=== PATIENT | female | born 1960 | race Caucasian/White ===

== ENCOUNTER 2019-03-25 08:19 | Emergency (ER) | payer OTHER, SELFPAY ==
[2019-03-25 08:31] VITALS: BP 180/90; PULSE 84; RESP 23; TEMP 36.4; O2SAT 99
--- NOTE | 2019-03-25 08:51 | DI.CT.S_ITS ---
PROCEDURE: CT HEAD/BRAIN WO CON INDICATIONS: severe headache TECHNIQUE: Noncontrast 4.5 mm thick angled axial sections acquired from the foramen magnum to the vertex, with coronal and sagittal reformats. For radiation dose reduction, the following was used: automated exposure control, adjustment of mA and/or kV according to patient size. COMPARISON: None. FINDINGS: Image quality: Excellent. CSF spaces: Basal cisterns are patent. No extra-axial fluid collections. Ventricles are normal in size and shape. Brain: No midline shift. No intracranial masses or hemorrhage. [place]-white matter interface is normal. Skull and face: Calvarium and visualized facial bones are intact, without suspicious lesions. Sinuses: Visualized sinuses and mastoids are clear. IMPRESSION: No acute intracranial hemorrhage is seen. No acute intracranial process is seen. Dictated by: Lizandro Robles M.D. on 03/25/2019 at 8:28 Approved by: Lizandro Robles M.D. on 03/25/2019 at 8:28
--- NOTE | 2019-03-25 08:59 | ED.GENADULT ---
HPI - General Adult General Chief complaint: Hypertension Stated complaint: High BP Time Seen by Provider: 03/25/19 08:29 Source: patient Mode of arrival: ambulatory Limitations: no limitations History of Present Illness HPI narrative: Patient is 58-year-old female who woke up with severe headache sensitive to light and noise. She typically does not get headaches. She denies weakness numbness or tingling. She states that she has become nauseous after the headache she vomited this morning. She has also had some heart palpitations. But denies any chest pain. She has no visual changes. He states last night she went to bed and was feeling normal. Radiation: non-radiation Severity: severe Quality: sharp Pain Consistency: constant Relieving factors: none Related Data Previous Rx's Medication Instructions Recorded ondansetron 4 mg PO Q6-8H PRN #10 tab 03/25/19 Allergies Allergy/AdvReac Type Severity Reaction Status Date / Time diphenhydramine Allergy Severe Difficulty Verified 03/25/19 08:35 [From Benadryl] Breathing ibuprofen Allergy Severe Difficulty Verified 03/25/19 08:35 Breathing Review of Systems Review of Systems GENERAL: Denies chills, fatigue, malaise, fever, sweats, travel HEENT: Denies sinus pain, ear pain, sore throat, difficulty swallowing, neck pain RESPIRATORY: Denies dyspnea, cough, wheezing, hemoptysis, sputum. CARDIOVASCULAR: Denies chest pain, palpitations, orthopnea, edema GASTROINTESTINAL: Denies nausea, vomiting, abdominal pain, diarrhea, constipation, melena. : Denies dysuria, frequency, incontinence, hematuria, urinary retention, flank pain. MUSCULOSKELETAL: Denies weakness, joint pain, or bony pain SKIN: No rash, no erythema, no pruritus NEUROLOGIC: See HPI PSYCHIATRIC: No concerning psychosocial issues. 12 point review of systems is negative except for those stated above and HPI [facility] Medical History Hypertension (Acute) Social History (Updated 03/25/19 @ 09:11 by Umm Marcial DO) marital status: Smoking Status: Former smoker alcohol intake: never substance use type: does not use Social History marital status: Smoking Status: Former smoker alcohol intake: never substance use type: does not use Exam Initial Vital Signs Initial Vital Signs: Vital Signs Temperature 97.5 F L 03/25/19 08:31 Pulse Rate 84 03/25/19 08:31 Respiratory Rate 23 03/25/19 08:31 Blood Pressure 180/90 H 03/25/19 08:31 Pulse Oximetry 99 03/25/19 08:31 GENERAL: Alert female appears in pain and in no acute distress. HEENT: Head atraumatic,EOMI, pupils reactive, face symmetric, moist mucous membranes CARDIOVASCULAR: Regular rate and rhythm without murmurs, rubs or gallops. RESPIRATORY: Breath sounds equal bilaterally, no wheezes rales or rhonchi. ABDOMEN: Soft, nontender. Normoactive bowel sounds all 4 quadrants. No guarding or rebound. EXTREMITIES: Normal range of motion, no clubbing or edema. Neurovascularly intact NEUROLOGICAL: Alert and oriented x4.Normal gait and speech. Cranial nerves II through XII grossly intact. Manager Mining strength equal bilaterally SKIN: Warm, dry, no laceration, no petechiae, no rashes or lesions. Scores NIH Stroke Scale Level of Conciousness: Alert, keenly responsive Ask month/age: Answers both questions correctly. Open/close eyes, close hand: Performs both tasks correctly Best gaze horizontal: Normal Visual membreno: No visual loss Facial palsy: Normal symetrical movement Left arm drift: No drift for full 10 sec Right arm drift: No drift for full 10 sec Left leg drift: No drift for full 10 sec Right leg drift: No drift for full 10 sec Limb ataxia: Absent Sensory on face/arms/legs: Normal, no sensory loss Best language: No aphasia, normal Dysarthria: Normal Extinction or inattention: No abnormality Total NIH Stroke scale score: 0 Course Orders Ordered: ED Orders 03/25/19 08:35 EKG-12 Lead Stat 03/25/19 08:51 CT head/brain wo con Stat 03/25/19 08:59 Complete Blood Count AUTO DIFF Stat Comprehensive Metabolic Panel Stat Partial Thromboplastin Time Stat Prothrombin Time INR Stat Troponin & CK Cardiac Panel Stat Discontinued Medications Hydromorphone HCl (Dilaudid) 0.5 mg IV NOW ONE Stop: 03/25/19 08:52 Last Admin: 03/25/19 09:09 Dose: 0.5 mg Hydromorphone HCl (Dilaudid) 0.5 mg IV NOW ONE Stop: 03/25/19 09:36 Last Admin: 03/25/19 09:41 Dose: 0.5 mg Sodium Chloride (Normal Saline 0.9%) 1,000 mls @ 1,000 mls/hr IV BOLUS ONE Stop: 03/25/19 09:51 Last Infusion: 03/25/19 10:12 Dose: 0 mls/hr Admin: 03/25/19 09:09 Dose: 1,000 mls/hr Ondansetron HCl (Zofran) 4 mg IV NOW ONE Stop: 03/25/19 08:52 Last Admin: 03/25/19 09:09 Dose: 4 mg Ondansetron HCl (Zofran) 4 mg IV NOW ONE Stop: 03/25/19 10:42 Last Admin: 03/25/19 10:49 Dose: 4 mg Vital Signs - 8 hr 03/25/19 08:31 03/25/19 10:00 03/25/19 11:00 Temperature 97.5 F L Pulse Rate 84 74 73 Respiratory Rate 23 21 24 Blood Pressure 180/90 H 145/74 H Blood Pressure [Left Arm] 134/76 Pulse Oximetry 99 94 98 Medical Decision Making Lab Data Lab results reviewed: Yes I reviewed the patient's lab results. Result diagrams: 03/25/19 08:59 03/25/19 08:59 Lab Results 03/25/19 03/25/19 03/25/19 Range/Units 08:59 08:59 08:59 WBC 8.0 (4.5-11.0) X10^3/uL RBC 4.46 (4.0-5.2) X10^6/uL Hgb 13.7 (12.0-16.0) g/dL Hct 40.1 (36-46) % MCV 90.0 (80-100) fL MCH 30.7 (26-34) PG MCHC 34.1 (30-36) % RDW 13.1 (11.6-14.8) % Plt Count 298 (150-400) X10^3/uL Neut % (Auto) 73.2 (50-75) % Lymph % (Auto) 16.8 L (25-40) % Norman % (Auto) 5.6 (3-14) % Eos % (Auto) 3.2 (2-4) % Baso % (Auto) 1.2 (0-2) % Neut # (Auto) 5900 (3939-3490) /uL Lymph # (Auto) 1400 (0932-9095) /uL Norman # (Auto) 500 (0-900) /uL Eos # (Auto) 300 (0-450) /uL Baso # (Auto) 100 (0-100) /uL PT 10.4 (10.1-12.7) SECONDS INR 0.9 (0.9-1.3) APTT 34 (26.4-36.2) SECONDS Sodium 140 (137-145) mmol/L Potassium 5.0 (3.4-5.1) mmol/L Chloride 106 (98-107) mmol/L Carbon Dioxide 24 (22-32) mmol/L BUN 14 (7-17) mg/dL Creatinine 0.50 L (0.52-1.04) mg/dL Estimated GFR > 60.0 (>60) mL/min BUN/Creatinine Ratio 28.0 H (6-22) Glucose 116 H (80-110) mg/dL Calcium 9.2 (8.4-10.2) mg/dL Total Bilirubin 0.7 (0.2-1.3) mg/dL AST 36 (14-36) IU/L ALT 21 (9-52) IU/L Alkaline Phosphatase 62 (38-126) U/L Total Creatine Kinase 122 (30-135) U/L CK-MB (CK-2) 2.63 H (<2.37) ng/mL CK-MB (CK-2) Rel Index 2.2 (1.5-5.0) % Troponin I < 0.012 (0.01-0.034) ng/mL Total Protein 7.7 (6.3-8.2) g/dL Albumin 4.2 (3.5-5.0) g/dL Globulin 3.5 (1.7-4.1) g/dL Albumin/Globulin Ratio 1.2 (1.0-2.8) Imaging Data CT scan - head: Radiologist's impression: Report in PACS: No acute intracranial hemorrhage is seen. No acute intracranial process is seen ECG Data Attestation: I personally reviewed and interpreted this ECG as follows: Prior ECG tracings: not available for review Interpretation: Normal sinus rhythm rate [address] changes no T-wave inversions no priors to compare MDM Narrative Medical decision making narrative: Patient received 1 dose of Dilaudid. She is able to take any NSAIDs due to gastric problems. He did seem to help her pain her nausea improved after Zofran. She did require another dose of Zofran and Dilaudid. At which point the much better. Blood work and head CT are negative. No focal deficits. His at this time I do not suspect subarachnoid hemorrhage. She is also moving her neck quite easily. Discharge Plan Departure Patient Disposition: Home Clinical Impression: Headache Qualifiers: Headache type: other headache syndrome Qualified Code(s): G44.89 - Other headache syndrome Discharge Date/Time: 03/25/19 11:05 Interventions: ED Discharge Assessment Last Done: 03/25/19 11:00 Instructions: DI for Headache Activity Restrictions/Additional Instructions: *You have been diagnosed with headache *What to do: Recommend going home and resting. May take Tylenol if needed to for headache. Increase fluid intake *Continue to take medications as directed Tylenol 1000 mg every 6 hours if needed to for pain *Follow up with your primary care provider in 2-3 days *Return to ER if you should have increasing headache numbness, tingling, weakness, difficulty speaking or any new, worsening or concerning symptoms Prescriptions: New ondansetron 4 mg tablet,disintegrating 4 mg PO Q6-8H PRN (Reason: nausea and vomiting) Qty: 10 RF: 0 Referrals: [facility] [Outside]
[2019-03-25 09:09] LABS: Add Manual Diff / Slide Review NO; Basophils Absolute Auto 100 /uL (0-100); Basophils Percent Auto 1.2 % (0-2); Eosinophils Absolute Auto 300 /uL (0-450); Eosinophils Percent Auto 3.2 % (2-4); Hematocrit 40.1 % (36-46); Hemoglobin 13.7 g/dL (12.0-16.0); Lymphocytes Absolute Auto 1400 /uL (1100-4500); Lymphocytes Percent Auto 16.8 % (25-40); Mean Corpuscular HGB Conc 34.1 % (30-36); Mean Corpuscular Hemoglobin 30.7 PG (26-34); Monocytes Absolute Auto 500 /uL (0-900); Monocytes Percent Auto 5.6 % (3-14); Neutrophils Absolute Auto 5900 /uL (1500-7000); Neutrophils Percent Auto 73.2 % (50-75); Platelet Count 298 X10^3/uL (150-400); Red Blood Cell Count 4.46 X10^6/uL (4.0-5.2); Red Cell Distribution Width 13.1 % (11.6-14.8)
[2019-03-25] MEDS: SODIUM CHLORIDE 0.9% 1,000 ML 1000 ML IV (09:09)
[2019-03-25] MEDS: ONDANSETRON 4 MG/2 ML INJ IV ×2 (09:09→10:49)
[2019-03-25] MEDS: HYDROMORPHONE 0.5 MG INJ IV ×2 (09:09→09:41)
[2019-03-25 09:12] LABS: INR 0.9 (0.9-1.3); Prothrombin Time 10.4 SECONDS (10.1-12.7)
[2019-03-25 09:15] LABS: PTT Partial Thromboplastin Tim 34 SECONDS (26.4-36.2)
[2019-03-25 09:18] LABS: Alanine Aminotransferase 21 IU/L (9-52); Albumin 4.2 g/dL (3.5-5.0); Albumin Globulin Ratio 1.2 (1.0-2.8); Alkaline Phosphatase 62 U/L (38-126); Aspartate Aminotransferase 36 IU/L (14-36); Bilirubin Total 0.7 mg/dL (0.2-1.3); Blood Urea Nitrogen 14 mg/dL (7-17); Calcium 9.2 mg/dL (8.4-10.2); Carbon Dioxide 24 mmol/L (22-32); Chloride 106 mmol/L (98-107); Creatine Kinase 122 U/L (30-135); Estimated Glomerular Filt Rate > 60.0 mL/min (>60); Globulin 3.5 g/dL (1.7-4.1); Glucose 116 mg/dL (80-110); Sodium 140 mmol/L (137-145); Total Protein 7.7 g/dL (6.3-8.2)
[2019-03-25 09:29] LABS: Troponin I < 0.012 ng/mL (0.01-0.034)
[2019-03-25 09:33] LABS: CKMB % Relative Index 2.2 % (1.5-5.0); Creatine Kinase MB 2.63 ng/mL (<2.37); HEMOLYSIS 104 (0-50)
[2019-03-25 10:00] VITALS: BP 134/76; PULSE 74; RESP 21; O2SAT 94
[2019-03-25 11:00] VITALS: BP 145/74; PULSE 73; RESP 24; O2SAT 98
== END 2019-03-25 11:05 | disposition home or self-care (01) ==
PROVIDERS: Emergency Provider Emergency Medicine
DX: G44.89 Other headache syndrome (principal); R00.2 Palpitations
CPT/HCPCS: 36591; 70450; 80053; 82550; 82553; 84484; 85025; 85610; 85730; 93005; 96361; 96374; 96375; 96376; 99283; 99285; J1170; J2405

== ENCOUNTER 2019-04-05 12:37 | Emergency (ER) | payer OTHER, SELFPAY ==
[2019-04-05 12:43] VITALS: BP 154/101; PULSE 96; RESP 20; O2SAT 97; BMI 30.9
[2019-04-05 12:49] VITALS: TEMP 36.7
[2019-04-05 13:32] VITALS: BP 131/77; PULSE 67; RESP 15; O2SAT 98
--- NOTE | 2019-04-05 13:45 | ED.ARRPALP ---
HPI - Arrhythmia/Palpitations <Yulia Valdes PA-C - Last Filed: 04/05/19 18:49> General Chief Complaint: Arrhythmia/Palpitations Stated Complaint: elevated heart rate Time Seen by Provider: 04/05/19 12:55 Source: patient Mode of arrival: ambulatory Limitations: no limitations History of Present Illness HPI narrative: This 58-year-old female comes to ED today secondary to ?not feeling well? for the last 2 or 3 hours. She states that she felt okay when she woke up, but for the last 2 or 3 hours felt ?tired and drained?. She states that her chest feels slightly tight all over, like she can't get a full breath. She denies haseeb chest pain. No pain in the extremities. She denies haseeb wheeze or dyspnea. She has not had any cough. She has some ongoing allergy and sinus symptoms but nothing changed today. She denies any fever. She denies any recent travel or known exposures. She states her left ankle is always a little swollen but denies any increased swelling in the extremities today. She has a history of severe acid reflux but not bothersome today. She denies any abdominal pain or nausea. She states she has not had much to eat today. She states she does have some history of reactive airways with her pneumonia, otherwise none. She states she felt a few thumb sore slight flutters for a 2nd today but otherwise no palpitations. She has no personal history of heart disease, does have family history in her sisters at young ages. She was seen here recently for headache and notes that she has continued to have some headache intermittently, no new symptoms today. She has seen ENT for this. She notes that her neck is a bit sore today but no difficulty moving. Related Data Home Medications Medication Instructions Recorded Confirmed esomeprazole magnesium 20 mg PO QPM 04/05/19 04/05/19 levothyroxine 100 mcg PO DAILY 04/05/19 04/05/19 losartan 50 mg PO DAILY 04/05/19 04/05/19 Allergies Allergy/AdvReac Type Severity Reaction Status Date / Time diphenhydramine Allergy Severe Difficulty Verified 03/25/19 08:35 [From Benadryl] Breathing ibuprofen Allergy Severe Difficulty Verified 03/25/19 08:35 Breathing Review of Systems <Yulia Valdes PA-C - Last Filed: 04/05/19 18:49> Review of Systems ROS Unobtainable: All systems reviewed & are unremarkable except as noted in HPI and below PFSH <Yulia Valdes PA-C - Last Filed: 04/05/19 18:49> Medical History (Updated 04/05/19 @ 17:10 by Yulia Valdes PA-C) GERD (gastroesophageal reflux disease) (Acute) Hyperlipidemia (Acute) Hypertension (Acute) Hypothyroidism (Acute) Surgical History (Updated 04/05/19 @ 14:16 by Yulia Valdes PA-C) Status post appendectomy (Acute) Status post cholecystectomy (Acute) Status post hernia repair (Acute) Status post hysterectomy (Acute) Social History marital status: Smoking Status: Former smoker alcohol intake: never substance use type: does not use Social History marital status: Smoking Status: Former smoker alcohol intake: never substance use type: does not use Exam <Yulia Valdes PA-C - Last Filed: 04/05/19 18:49> Narrative Exam Narrative: GENERAL APPEARANCE: Patient sitting comfortably, in no distress. HEENT: PERRL, EOMI, normal oropharynx NECK/THYROID: Neck supple, no JVD. LUNGS: Clear to auscultation bilaterally. CHEST: No tenderness to palpation HEART: Regular rate and rhythm without murmur, normal S1, S2, no S3 or S4. ABDOMEN: Soft, NT, ND, + BS x 4 quadrants EXTREMITIES: No cyanosis, trace symmetric ankle edema. No calf tenderness NEUROLOGIC: Alert and oriented, normal speech, and coordination. Initial Vital Signs Initial Vital Signs: Vital Signs Pulse Rate 96 H 04/05/19 12:43 Respiratory Rate 20 04/05/19 12:43 Blood Pressure 154/101 H 04/05/19 12:43 Pulse Oximetry 97 04/05/19 12:43 <Abi Christine MD - Last Filed: 04/06/19 08:18> Initial Vital Signs Initial Vital Signs: Vital Signs Pulse Rate 96 H 04/05/19 12:43 Respiratory Rate 20 04/05/19 12:43 Blood Pressure 154/101 H 04/05/19 12:43 Pulse Oximetry 97 04/05/19 12:43 Course <Yulia Valdes PA-C - Last Filed: 04/05/19 18:49> Course Additional Information: Patient initially refused ASA secondary to acid reflux. She later agreed if given Protonix when abnormal troponin reviewed. Spoke with Dr. Ibrahim, on-call hospitalist who agrees to accept patient for transfer provided cardiology is agreeable. Spoke with Dr. Morfin on-call for Cardiology, who agrees with transfer. He advised they will likely monitor troponins and catheterization tomorrow if troponin remains elevated. Spoke with Dr. Ibrahim again, he will contact biofuels production associate preschool teacher's assistant tomorrow. Heparin bolus and metoprolol ordered. No clear new findings on EKGs, reviewed with attending physician Dr. Christine who agrees with plan. Currently stable, not having chest symptoms but has ongoing headache, thinks exacerbated by not eating today. Given a snack and small dose of morphine prior to transfer. Orders Ordered: Discontinued Medications Albuterol (Ventolin) 2.5 mg INH NOW ONE Stop: 04/05/19 14:07 Last Admin: 04/05/19 15:26 Dose: Not Given Documented by: KAYLEN Aspirin (Aspirin Chew) 324 mg PO NOW ONE Stop: 04/05/19 14:05 Last Admin: 04/05/19 15:09 Dose: 324 mg Documented by: NEYDA Heparin Sodium (Porcine) (Heparin) 5,000 unit IV NOW ONE Stop: 04/05/19 15:13 Last Admin: 04/05/19 15:23 Dose: 5,000 unit Documented by: KAYLEN Sodium Chloride (Normal Saline 0.9%) 1,000 mls @ 1,000 mls/hr IV BOLUS PRN PRN Reason: Fluid replacement Last Infusion: 04/05/19 16:37 Dose: 1,000 mls/hr Documented by: Admin: 04/05/19 15:30 Dose: 1,000 mls/hr Documented by: NEYDA Metoprolol Tartrate (Lopressor) 50 mg PO NOW ONE Stop: 04/05/19 15:13 Last Admin: 04/05/19 15:32 Dose: 50 mg Documented by: KAYLEN Morphine Sulfate (Morphine) 2 mg IV NOW ONE Stop: 04/05/19 15:21 Last Admin: 04/05/19 15:22 Dose: 2 mg Documented by: KAYLEN Morphine Sulfate (Morphine) 2 mg IV NOW ONE Stop: 04/05/19 16:26 Last Admin: 04/05/19 16:26 Dose: 2 mg Documented by: KAYLEN Pantoprazole Sodium (Protonix) 40 mg IV NOW ONE Stop: 04/05/19 15:02 Last Admin: 04/05/19 15:09 Dose: 40 mg Documented by: NEYDA Vital Signs Vital signs: Vital Signs - 8 hr 04/05/19 12:43 04/05/19 12:49 04/05/19 13:32 Temperature 98.0 F Pulse Rate 96 H 67 Respiratory Rate 20 15 Blood Pressure 154/101 H Blood Pressure [Left Arm] 131/77 Pulse Oximetry 97 98 04/05/19 14:30 04/05/19 15:14 04/05/19 16:00 Temperature Pulse Rate 68 87 83 Respiratory Rate 17 19 20 Blood Pressure Blood Pressure [Left Arm] 143/83 H 163/94 H 169/110 H Pulse Oximetry 100 100 100 <Abi Christine MD - Last Filed: 04/06/19 08:18> Orders Ordered: Discontinued Medications Albuterol (Ventolin) 2.5 mg INH NOW ONE Stop: 04/05/19 14:07 Last Admin: 04/05/19 15:26 Dose: Not Given Documented by: KAYLEN Aspirin (Aspirin Chew) 324 mg PO NOW ONE Stop: 04/05/19 14:05 Last Admin: 04/05/19 15:09 Dose: 324 mg Documented by: NEYDA Heparin Sodium (Porcine) (Heparin) 5,000 unit IV NOW ONE Stop: 04/05/19 15:13 Last Admin: 04/05/19 15:23 Dose: 5,000 unit Documented by: KAYLEN Sodium Chloride (Normal Saline 0.9%) 1,000 mls @ 1,000 mls/hr IV BOLUS PRN PRN Reason: Fluid replacement Last Infusion: 04/05/19 16:37 Dose: 1,000 mls/hr Documented by: Admin: 04/05/19 15:30 Dose: 1,000 mls/hr Documented by: NEYDA Metoprolol Tartrate (Lopressor) 50 mg PO NOW ONE Stop: 04/05/19 15:13 Last Admin: 04/05/19 15:32 Dose: 50 mg Documented by: SCANAPO Morphine Sulfate (Morphine) 2 mg IV NOW ONE Stop: 04/05/19 15:21 Last Admin: 04/05/19 15:22 Dose: 2 mg Documented by: SCANAPO Morphine Sulfate (Morphine) 2 mg IV NOW ONE Stop: 04/05/19 16:26 Last Admin: 04/05/19 16:26 Dose: 2 mg Documented by: SCANAPO Pantoprazole Sodium (Protonix) 40 mg IV NOW ONE Stop: 04/05/19 15:02 Last Admin: 04/05/19 15:09 Dose: 40 mg Documented by: BTONER Vital Signs Vital signs: Vital Signs - 8 hr 04/05/19 12:43 04/05/19 12:49 04/05/19 13:32 Temperature 98.0 F Pulse Rate 96 H 67 Respiratory Rate 20 15 Blood Pressure 154/101 H Blood Pressure [Left Arm] 131/77 Pulse Oximetry 97 98 04/05/19 14:30 04/05/19 15:14 04/05/19 16:00 Temperature Pulse Rate 68 87 83 Respiratory Rate 17 19 20 Blood Pressure Blood Pressure [Left Arm] 143/83 H 163/94 H 169/110 H Pulse Oximetry 100 100 100 MDM - Arrhythmia/Palpitations <Yulia Valdes PA-C - Last Filed: 04/05/19 18:49> Lab Data Attestation: I reviewed the patient's lab results. Result diagrams: 04/05/19 14:05 04/05/19 14:05 Labs: Lab Results 04/05/19 04/05/19 04/05/19 Range/Units 14:05 14:05 14:05 WBC 8.5 (4.5-11.0) X10^3/uL RBC 4.26 (4.0-5.2) X10^6/uL Hgb 13.2 (12.0-16.0) g/dL Hct 38.4 (36-46) % MCV 90.1 (80-100) fL MCH 31.0 (26-34) PG MCHC 34.4 (30-36) % RDW 12.8 (11.6-14.8) % Plt Count 294 (150-400) X10^3/uL Neut % (Auto) 61.8 (50-75) % Lymph % (Auto) 25.4 (25-40) % Leslie % (Auto) 9.5 (3-14) % Eos % (Auto) 1.9 L (2-4) % Baso % (Auto) 1.4 (0-2) % Neut # (Auto) 5300 (2896-3683) /uL Lymph # (Auto) 2200 (2462-4690) /uL Leslie # (Auto) 800 (0-900) /uL Eos # (Auto) 200 (0-450) /uL Baso # (Auto) 100 (0-100) /uL D-Dimer 202 (<230) ng/mL Sodium 142 (137-145) mmol/L Potassium 3.9 (3.4-5.1) mmol/L Chloride 106 (98-107) mmol/L Carbon Dioxide 27 (22-32) mmol/L BUN 14 (7-17) mg/dL Creatinine 0.60 (0.52-1.04) mg/dL Estimated GFR > 60.0 (>60) mL/min BUN/Creatinine Ratio 23.3 H (6-22) Glucose 148 H (80-110) mg/dL Calcium 9.5 (8.4-10.2) mg/dL Magnesium 2.0 (1.6-2.3) mg/dL Total Bilirubin 0.3 (0.2-1.3) mg/dL AST 27 (14-36) IU/L ALT 22 (9-52) IU/L Alkaline Phosphatase 81 (38-126) U/L Total Creatine Kinase 163 H (30-135) U/L CK-MB (CK-2) 7.89 H (<2.37) ng/mL CK-MB (CK-2) Rel Index 4.8 (1.5-5.0) % Troponin I 1.590 H* (0.01-0.034) ng/mL B-Natriuretic Peptide < 100 (<100) Total Protein 7.4 (6.3-8.2) g/dL Albumin 4.1 (3.5-5.0) g/dL Globulin 3.3 (1.7-4.1) g/dL Albumin/Globulin Ratio 1.2 (1.0-2.8) Lipase 63 (23-300) U/L Imaging Data Chest x-ray: Radiologist's impression: ECG Data Attestation: I personally reviewed and interpreted this ECG as follows: (1. Normal sinus rhythm, rate 88, nonspecific T-wave changes, 2. Sinus rhythm, rate 88, no acute change ) Prior ECG tracings: available for review <Abi Christine MD - Last Filed: 04/06/19 08:18> Lab Data Labs: Lab Results 04/05/19 04/05/19 04/05/19 Range/Units 14:05 14:05 14:05 WBC 8.5 (4.5-11.0) X10^3/uL RBC 4.26 (4.0-5.2) X10^6/uL Hgb 13.2 (12.0-16.0) g/dL Hct 38.4 (36-46) % MCV 90.1 (80-100) fL MCH 31.0 (26-34) PG MCHC 34.4 (30-36) % RDW 12.8 (11.6-14.8) % Plt Count 294 (150-400) X10^3/uL Neut % (Auto) 61.8 (50-75) % Lymph % (Auto) 25.4 (25-40) % Leslie % (Auto) 9.5 (3-14) % Eos % (Auto) 1.9 L (2-4) % Baso % (Auto) 1.4 (0-2) % Neut # (Auto) 5300 (7132-1516) /uL Lymph # (Auto) 2200 (3122-4191) /uL Leslie # (Auto) 800 (0-900) /uL Eos # (Auto) 200 (0-450) /uL Baso # (Auto) 100 (0-100) /uL D-Dimer 202 (<230) ng/mL Sodium 142 (137-145) mmol/L Potassium 3.9 (3.4-5.1) mmol/L Chloride 106 (98-107) mmol/L Carbon Dioxide 27 (22-32) mmol/L BUN 14 (7-17) mg/dL Creatinine 0.60 (0.52-1.04) mg/dL Estimated GFR > 60.0 (>60) mL/min BUN/Creatinine Ratio 23.3 H (6-22) Glucose 148 H (80-110) mg/dL Calcium 9.5 (8.4-10.2) mg/dL Magnesium 2.0 (1.6-2.3) mg/dL Total Bilirubin 0.3 (0.2-1.3) mg/dL AST 27 (14-36) IU/L ALT 22 (9-52) IU/L Alkaline Phosphatase 81 (38-126) U/L Total Creatine Kinase 163 H (30-135) U/L CK-MB (CK-2) 7.89 H (<2.37) ng/mL CK-MB (CK-2) Rel Index 4.8 (1.5-5.0) % Troponin I 1.590 H* (0.01-0.034) ng/mL B-Natriuretic Peptide < 100 (<100) Total Protein 7.4 (6.3-8.2) g/dL Albumin 4.1 (3.5-5.0) g/dL Globulin 3.3 (1.7-4.1) g/dL Albumin/Globulin Ratio 1.2 (1.0-2.8) Lipase 63 (23-300) U/L Discharge Plan Departure Patient Disposition: [facility] Clinical Impression: Non-ST elevation [place] (NSTEMI) Discharge Date/Time: 04/05/19 17:01 Prescriptions: No Action losartan 50 mg tablet 50 mg PO DAILY RF: 0 levothyroxine 100 mcg Tablet 100 mcg PO DAILY RF: 0 esomeprazole magnesium 20 mg Tablet,Delayed Release (Dr/Ec) 20 mg PO QPM RF: 0
--- NOTE | 2019-04-05 14:06 | DI.RAD.S_ITS ---
PROCEDURE: XR CHEST 2V INDICATIONS: fatigue, dyspnea, h/o pneumonia TECHNIQUE: 2 views of the chest were acquired. COMPARISON: None. FINDINGS: Surgical changes and devices: None. Lungs and pleura: Lungs are clear. No pleural effusions or pneumothorax. Mediastinum: Mediastinal contours are normal. Heart size is normal. Bones and chest wall: No suspicious bony abnormalities. Soft tissues appear unremarkable. IMPRESSION: No acute cardiopulmonary abnormality. Dictated by: Burton Adams M.D. on 04/05/2019 at 14:27 Approved by: Burton Adams M.D. on 04/05/2019 at 14:28
[2019-04-05 14:17] LABS: Add Manual Diff / Slide Review NO; Basophils Absolute Auto 100 /uL (0-100); Basophils Percent Auto 1.4 % (0-2); Eosinophils Absolute Auto 200 /uL (0-450); Eosinophils Percent Auto 1.9 % (2-4); Hematocrit 38.4 % (36-46); Hemoglobin 13.2 g/dL (12.0-16.0); Lymphocytes Absolute Auto 2200 /uL (1100-4500); Lymphocytes Percent Auto 25.4 % (25-40); Mean Corpuscular HGB Conc 34.4 % (30-36); Mean Corpuscular Volume 90.1 fL (80-100); Monocytes Absolute Auto 800 /uL (0-900); Monocytes Percent Auto 9.5 % (3-14); Neutrophils Absolute Auto 5300 /uL (1500-7000); Neutrophils Percent Auto 61.8 % (50-75); Platelet Count 294 X10^3/uL (150-400); Red Blood Cell Count 4.26 X10^6/uL (4.0-5.2); Red Cell Distribution Width 12.8 % (11.6-14.8); White Blood Cell Count 8.5 X10^3/uL (4.5-11.0)
[2019-04-05 14:29] LABS: Alanine Aminotransferase 22 IU/L (9-52); Albumin 4.1 g/dL (3.5-5.0); Albumin Globulin Ratio 1.2 (1.0-2.8); Alkaline Phosphatase 81 U/L (38-126); Aspartate Aminotransferase 27 IU/L (14-36); BUN Creatinine Ratio 23.3 (6-22); Bilirubin Total 0.3 mg/dL (0.2-1.3); Blood Urea Nitrogen 14 mg/dL (7-17); Calcium 9.5 mg/dL (8.4-10.2); Carbon Dioxide 27 mmol/L (22-32); Chloride 106 mmol/L (98-107); Creatine Kinase 163 U/L (30-135); Estimated Glomerular Filt Rate > 60.0 mL/min (>60); Globulin 3.3 g/dL (1.7-4.1); Glucose 148 mg/dL (80-110); HEMOLYSIS < 15 (0-50); Lipase 63 U/L (23-300); Potassium 3.9 mmol/L (3.4-5.1); Sodium 142 mmol/L (137-145); Total Protein 7.4 g/dL (6.3-8.2)
[2019-04-05 14:30] VITALS: BP 143/83; PULSE 68; RESP 17; O2SAT 100
[2019-04-05 14:37] LABS: B Type Natriuretic Peptide < 100 (<100)
[2019-04-05 14:44] LABS: CKMB % Relative Index 4.8 % (1.5-5.0); Creatine Kinase MB 7.89 ng/mL (<2.37)
[2019-04-05 14:59] LABS: D Dimer 202 ng/mL (<230)
[2019-04-05] MEDS: ASPIRIN 81 MG CHEW TAB 324 MG PO (15:09)
[2019-04-05] MEDS: PANTOPRAZOLE 40 MG VIAL IV (15:09)
[2019-04-05 15:14] VITALS: BP 163/94; PULSE 87; RESP 19; O2SAT 100
[2019-04-05] MEDS: MORPHINE 2 MG/ML INJ IV ×2 (15:22→16:26)
[2019-04-05] MEDS: HEPARIN 5,000 UNIT/ML VIAL 5000 UNIT IV (15:23)
[2019-04-05] MEDS: SODIUM CHLORIDE 0.9% 1,000 ML 1000 ML IV (15:30)
[2019-04-05] MEDS: METOPROLOL IR 25 MG TABLET 50 MG PO (15:32)
[2019-04-05 16:00] VITALS: BP 169/110; PULSE 83; RESP 20; O2SAT 100
--- NOTE | 2019-04-05 16:21 | PC.NURSE ---
pt was concerned for gerd and aspirin so she had a dose of protonix as ordered. pt has no complaints of indigestion at this time.
== END 2019-04-05 17:01 | disposition short-term general hospital (02) ==
PROVIDERS: Emergency Provider Internal Medicine
DX: I21.4 Non-ST elevation (NSTEMI) myocardial infarction (principal)
CPT/HCPCS: 36591; 71046; 80053; 82550; 82553; 83690; 83735; 83880; 84484; 85025; 85379; 93005; 93041; 96361; 96374; 96375; 96376; 99284; 99285; C9113; J1644; J2270

== ENCOUNTER 2019-04-10 11:45 | Emergency (ER) | payer OTHER, SELFPAY ==
--- NOTE | 2019-04-10 11:49 | ED_ITS ---
HPI - General Adult General Chief complaint: Shortness of Breath/Dyspnea Stated complaint: heart attack /sick on sat Time Seen by Provider: 04/10/19 11:47 Source: patient Mode of arrival: ambulatory Limitations: no limitations History of Present Illness HPI narrative: Patient is a 58-year-old female who was seen here in this emergency department last week. Was diagnosed with a non ST elevation NV. Was transferred to an outside facility. Stated that facility for couple days and was discharged 3 days ago. She stated that she did have a heart catheterization however no stents were placed. She reports on the day that she was discharged from the hospital when she went home that evening she started having sinus congestion, cough, shortness of breath and chest discomfort with breathing. She states that her had very similar symptoms and over the weekend she does thought that it was him who gave him his chest cold. She called her head charger this morning who told her to come to the emergency department to ?get checked out ? Related Data Home Medications Medication Instructions Recorded Confirmed esomeprazole magnesium 20 mg PO QPM 04/05/19 04/05/19 levothyroxine 100 mcg PO DAILY 04/05/19 04/05/19 losartan 50 mg PO DAILY 04/05/19 04/05/19 Allergies Allergy/AdvReac Type Severity Reaction Status Date / Time diphenhydramine Allergy Severe Difficulty Verified 03/25/19 08:35 [From Benadryl] Breathing ibuprofen Allergy Severe Difficulty Verified 03/25/19 08:35 Breathing Review of Systems Constitutional Constitutional: Denies fever(s) and Reports headache(s) ENT Ears, Nose, Mouth, and Throat: Reports headache(s) Cardiovascular Cardiovascular: Reports chest pain (With breathing), Denies edema, Denies leg edema, Denies palpitations, Reports dyspnea and Reports dyspnea on exertion Respiratory Respiratory: Reports dyspnea and Reports dyspnea on exertion Gastrointestinal Gastrointestinal: Denies abdominal pain, Denies nausea and Denies vomiting Musculoskeletal Musculoskeletal: Denies myalgias and Denies arthralgias Integumentary/Breasts Skin/Breast: Denies lesions and Denies rash Neurologic Neurologic: Denies behavioral changes and Reports headache(s) Psychiatric Psychiatric: Denies behavioral changes Endocrine Endocrine: Denies palpitations Hematologic/Lymphatic Hematologic/Lymphatic: Denies easy bleeding and Denies easy bruising [facility] Medical History GERD (gastroesophageal reflux disease) (Acute) Hyperlipidemia (Acute) Hypertension (Acute) Hypothyroidism (Acute) Non-ST elevation NV (NSTEMI) (Inactive) Surgical History Status post appendectomy (Acute) Status post cholecystectomy (Acute) Status post hernia repair (Acute) Status post hysterectomy (Acute) Social History marital status: Smoking Status: Former smoker alcohol intake: never substance use type: does not use Social History marital status: Smoking Status: Former smoker alcohol intake: never substance use type: does not use Exam Initial Vital Signs Initial Vital Signs: Vital Signs Temperature 97.7 F 04/10/19 11:54 Pulse Rate 62 04/10/19 11:54 Respiratory Rate 19 04/10/19 11:54 Blood Pressure 119/91 H 04/10/19 11:54 Pulse Oximetry 98 04/10/19 11:54 Const General: cooperative, comfortable and well developed Orientation: alert, awake and oriented x3 HENMT Head: normal to inspection and normocephalic Resp Effort & Inspection: tachypneic Auscultation: clear to auscultation bilaterally Cardio Rate: regular rate Rhythm: regular rhythm Pulses: radial pulses present GI Inspection: non-distended Palpation: soft Skin Lesions: no lesions Rashes: no rashes Neuro General: alert and awake Cognition: normal cognition Speech: speech normal Extrem General: normal to inspection and capillary refill normal Psych Appearance: grossly normal and well kempt Course Orders Ordered: ED Orders 04/10/19 11:53 XR chest 1V Stat 04/10/19 11:59 EKG-12 Lead Stat 04/10/19 12:00 B Type Natriuretic Peptide Stat Complete Blood Count AUTO DIFF Stat Comprehensive Metabolic Panel Stat Lipase Stat Partial Thromboplastin Time Stat Procalcitonin Stat Prothrombin Time INR Stat Troponin I Stat 04/10/19 14:00 Troponin I Stat Vital Signs Vital signs: Vital Signs - 8 hr 04/10/19 11:54 04/10/19 13:13 04/10/19 14:05 Temperature 97.7 F Pulse Rate 62 61 58 L Respiratory Rate 18 22 Blood Pressure 119/91 H Blood Pressure [Left Arm] 101/59 L 124/78 Pulse Oximetry 98 100 98 Medical Decision Making Lab Data Lab results reviewed: Yes I reviewed the patient's lab results. Result diagrams: 04/10/19 12:00 04/10/19 12:00 Labs: Lab Results 04/10/19 04/10/19 04/10/19 Range/Units 12:00 12:00 12:00 WBC 7.3 (4.5-11.0) X10^3/uL RBC 4.33 (4.0-5.2) X10^6/uL Hgb 13.4 (12.0-16.0) g/dL Hct 38.3 (36-46) % MCV 88.6 (80-100) fL MCH 31.0 (26-34) PG MCHC 34.9 (30-36) % RDW 13.1 (11.6-14.8) % Plt Count 333 (150-400) X10^3/uL Neut % (Auto) 50.0 (50-75) % Lymph % (Auto) 32.4 (25-40) % [place] % (Auto) 7.3 (3-14) % Eos % (Auto) 9.0 H (2-4) % Baso % (Auto) 1.3 (0-2) % Neut # (Auto) 3700 (9764-3795) /uL Lymph # (Auto) 2400 (6082-9847) /uL [place] # (Auto) 500 (0-900) /uL Eos # (Auto) 700 H (0-450) /uL Baso # (Auto) 100 (0-100) /uL PT 11.2 (10.1-12.7) SECONDS INR 1.0 (0.9-1.3) APTT 35 (26.4-36.2) SECONDS Sodium 140 (137-145) mmol/L Potassium 3.8 (3.4-5.1) mmol/L Chloride 106 (98-107) mmol/L Carbon Dioxide 23 (22-32) mmol/L BUN 11 (7-17) mg/dL Creatinine 0.60 (0.52-1.04) mg/dL Estimated GFR > 60.0 (>60) mL/min BUN/Creatinine Ratio 18.3 (6-22) Glucose 173 H (80-110) mg/dL Calcium 9.5 (8.4-10.2) mg/dL Total Bilirubin 0.5 (0.2-1.3) mg/dL AST 32 (14-36) IU/L ALT 27 (9-52) IU/L Alkaline Phosphatase 72 (38-126) U/L Troponin I (0.01-0.034) ng/mL B-Natriuretic Peptide < 100 (<100) Total Protein 7.3 (6.3-8.2) g/dL Albumin 4.1 (3.5-5.0) g/dL Globulin 3.2 (1.7-4.1) g/dL Albumin/Globulin Ratio 1.3 (1.0-2.8) Lipase (23-300) U/L Procalcitonin (<0.5) ng/mL 04/10/19 04/10/19 04/10/19 Range/Units 12:00 12:00 14:00 WBC (4.5-11.0) X10^3/uL RBC (4.0-5.2) X10^6/uL Hgb (12.0-16.0) g/dL Hct (36-46) % MCV (80-100) fL MCH (26-34) PG MCHC (30-36) % RDW (11.6-14.8) % Plt Count (150-400) X10^3/uL Neut % (Auto) (50-75) % Lymph % (Auto) (25-40) % [place] % (Auto) (3-14) % Eos % (Auto) (2-4) % Baso % (Auto) (0-2) % Neut # (Auto) (9653-4200) /uL Lymph # (Auto) (5811-6619) /uL [place] # (Auto) (0-900) /uL Eos # (Auto) (0-450) /uL Baso # (Auto) (0-100) /uL PT (10.1-12.7) SECONDS INR (0.9-1.3) APTT (26.4-36.2) SECONDS Sodium (137-145) mmol/L Potassium (3.4-5.1) mmol/L Chloride (98-107) mmol/L Carbon Dioxide (22-32) mmol/L BUN (7-17) mg/dL Creatinine (0.52-1.04) mg/dL Estimated GFR (>60) mL/min BUN/Creatinine Ratio (6-22) Glucose (80-110) mg/dL Calcium (8.4-10.2) mg/dL Total Bilirubin (0.2-1.3) mg/dL AST (14-36) IU/L ALT (9-52) IU/L Alkaline Phosphatase (38-126) U/L Troponin I 0.037 H 0.041 H (0.01-0.034) ng/mL B-Natriuretic Peptide (<100) Total Protein (6.3-8.2) g/dL Albumin (3.5-5.0) g/dL Globulin (1.7-4.1) g/dL Albumin/Globulin Ratio (1.0-2.8) Lipase 73 (23-300) U/L Procalcitonin < 0.05 (<0.5) ng/mL Imaging Data Chest x-ray: Radiologist's impression: [address] [address] XRay Report Signed Patient: Khadijah Marks [facility]#: [id number] : 9Acct:[id number] Age/Sex: 58 / FDate of Service: 04/10/19 Loc: ED Accession Number: [id number] Procedure: XR chest 1V Ordering Provider: Porfirio Chapa D.O. PROCEDURE: XR CHEST 1V INDICATIONS: Shortness of breath and chest pain TECHNIQUE: One view of the chest was acquired. COMPARISON: [facility], , XR CHEST 2V, 04/05/2019, 14:09. FINDINGS: Surgical changes and devices: None. Lungs and pleura: Lungs are clear. No pleural effusions or pneumothorax. Mediastinum: Mediastinal contours appear normal. Heart size is normal. Bones and chest wall: No suspicious bony lesions. Overlying soft tissues appear unremarkable. IMPRESSION: Normal for age, source of current shortness of breath and chest pain symptoms is not seen. Dictated by: Keaton Stroud M.D. on 04/10/2019 at 12:54 Approved by: Keaton Stroud M.D. on 04/10/2019 at 12:54 ECG Data Attestation: I personally reviewed and interpreted this ECG as follows: Prior ECG tracings: available for review Interpretation: Sinus rhythm Ventricular rate is 61 Normal axis Normal QTC Inverted T-waves 1 aVL and V3 V4 V5 V6 No ST elevations Inverted T-waves new from EKG dated 04/05/2019 [facility] Narrative Medical decision making narrative: Chest x-ray is unremarkable. Patient is not hypoxic. EKG does show inverted T-waves compared the EKG on the but she has had a known non ST elevation NV since this time. Her troponins for lower today than with they were during her last visit. They are unchanged with a repeat. I suspect that this is related to her recent cardiac event. Her BNP is unremarkable. Low suspicion for pneumonia. Patient has had a cough and body aches. She has been surrounded by her who has very similar symptoms. She is currently taking Mucinex. Considered other etiologies to include heart failure but her labs and physical exam were not consistent with this, ACS but her labs and physical exam not consistent with this, pneumonia chest x-ray is negative. She does have a follow-up with her primary provider tomorrow. She is going to keep this appointment. We did discuss the use of Claritin. She did not want an inhaler. Will hold on further workup for now. If her symptoms do not improve or if they worsen I would consider CT scan of her chest however I feel given her presentation and her history though we should hold on this for now. Patient was given strict return precautions and follow-up instructions. She expressed understanding and agreement with plan. Discharge Plan Departure Patient Disposition: Home Clinical Impression: Shortness of breath, Chest congestion Instructions: Decongestant/Expectorant (By mouth) Activity Restrictions/Additional Instructions: I recommend that you keep your follow-up appointment tomorrow with your primary provider. Continue all of your medications as directed. I do recommend you start on a Claritin. Return to the emergency department for any new or worsening symptoms like we discussed Prescriptions: No Action losartan 50 mg tablet 50 mg PO DAILY RF: 0 levothyroxine 100 mcg Tablet 100 mcg PO DAILY RF: 0 esomeprazole magnesium 20 mg Tablet,Delayed Release (Dr/Ec) 20 mg PO QPM RF: 0
--- NOTE | 2019-04-10 11:53 | DI.RAD.S_ITS ---
PROCEDURE: XR CHEST 1V INDICATIONS: Shortness of breath and chest pain TECHNIQUE: One view of the chest was acquired. COMPARISON: [facility], CR, XR CHEST 2V, 04/05/2019, 14:09. FINDINGS: Surgical changes and devices: None. Lungs and pleura: Lungs are clear. No pleural effusions or pneumothorax. Mediastinum: Mediastinal contours appear normal. Heart size is normal. Bones and chest wall: No suspicious bony lesions. Overlying soft tissues appear unremarkable. IMPRESSION: Normal for age, source of current shortness of breath and chest pain symptoms is not seen. Dictated by: Keaton Stroud M.D. on 04/10/2019 at 12:54 Approved by: Keaton Stroud M.D. on 04/10/2019 at 12:54
[2019-04-10 11:54] VITALS: BP 119/91; PULSE 62; RESP 19; TEMP 36.5; O2SAT 98
[2019-04-10 12:32] LABS: Add Manual Diff / Slide Review NO; Basophils Absolute Auto 100 /uL (0-100); Basophils Percent Auto 1.3 % (0-2); Eosinophils Absolute Auto 700 /uL (0-450); Hematocrit 38.3 % (36-46); Hemoglobin 13.4 g/dL (12.0-16.0); Lymphocytes Absolute Auto 2400 /uL (1100-4500); Lymphocytes Percent Auto 32.4 % (25-40); Mean Corpuscular HGB Conc 34.9 % (30-36); Mean Corpuscular Volume 88.6 fL (80-100); Monocytes Absolute Auto 500 /uL (0-900); Monocytes Percent Auto 7.3 % (3-14); Neutrophils Absolute Auto 3700 /uL (1500-7000); Platelet Count 333 X10^3/uL (150-400); Red Blood Cell Count 4.33 X10^6/uL (4.0-5.2); Red Cell Distribution Width 13.1 % (11.6-14.8); White Blood Cell Count 7.3 X10^3/uL (4.5-11.0)
[2019-04-10 12:37] LABS: Prothrombin Time 11.2 SECONDS (10.1-12.7)
[2019-04-10 12:39] LABS: PTT Partial Thromboplastin Tim 35 SECONDS (26.4-36.2)
[2019-04-10 12:45] LABS: Lipase 73 U/L (23-300)
[2019-04-10 12:47] LABS: Alanine Aminotransferase 27 IU/L (9-52); Albumin 4.1 g/dL (3.5-5.0); Albumin Globulin Ratio 1.3 (1.0-2.8); Alkaline Phosphatase 72 U/L (38-126); Aspartate Aminotransferase 32 IU/L (14-36); BUN Creatinine Ratio 18.3 (6-22); Bilirubin Total 0.5 mg/dL (0.2-1.3); Blood Urea Nitrogen 11 mg/dL (7-17); Calcium 9.5 mg/dL (8.4-10.2); Carbon Dioxide 23 mmol/L (22-32); Chloride 106 mmol/L (98-107); Estimated Glomerular Filt Rate > 60.0 mL/min (>60); Globulin 3.2 g/dL (1.7-4.1); Glucose 173 mg/dL (80-110); HEMOLYSIS 18 (0-50); Potassium 3.8 mmol/L (3.4-5.1); Sodium 140 mmol/L (137-145); Total Protein 7.3 g/dL (6.3-8.2)
[2019-04-10 12:57] LABS: B Type Natriuretic Peptide < 100 (<100)
[2019-04-10 12:58] LABS: Troponin I 0.037 ng/mL (0.01-0.034)
[2019-04-10 13:03] LABS: Procalcitonin < 0.05 ng/mL (<0.5)
[2019-04-10 13:13] VITALS: BP 101/59; PULSE 61; RESP 18; O2SAT 100
[2019-04-10 14:05] VITALS: BP 124/78; PULSE 58; RESP 22; O2SAT 98
[2019-04-10 14:36] LABS: Troponin I 0.041 ng/mL (0.01-0.034)
== END 2019-04-10 15:03 | disposition home or self-care (01) ==
PROVIDERS: Emergency Provider Emergency Medicine
DX: R06.02 Shortness of breath (principal); R09.89 Other specified symptoms and signs involving the circulatory and respiratory systems
CPT/HCPCS: 36591; 71045; 80053; 83690; 83880; 84145; 84484; 85025; 85610; 85730; 93005; 99282; 99285

== ENCOUNTER 2019-04-22 13:43 | Emergency (ER) | payer OTHER, SELFPAY ==
[2019-04-22 13:52] VITALS: BP 129/69; PULSE 53; RESP 18; TEMP 37.1; O2SAT 99; BMI 30.9
--- NOTE | 2019-04-22 14:32 | PC.NURSE ---
pt sitting in waiting room. registration reports pt states she feels palpitations. pt brought to [facility] for EKG. gowned. NAD, ambulatory, skin PWD
--- NOTE | 2019-04-22 14:46 | DI.RAD.S_ITS ---
PROCEDURE: XR CHEST 1V INDICATIONS: CHEST PAIN TECHNIQUE: One view of the chest was acquired. COMPARISON: [facility], CR, XR CHEST 1V, 04/10/2019, 12:26. FINDINGS: Surgical changes and devices: None. Lungs and pleura: Lungs are clear. No pleural effusions or pneumothorax. Mediastinum: Mediastinal contours appear normal. Heart size is normal. Bones and chest wall: No suspicious bony lesions. Overlying soft tissues appear unremarkable. IMPRESSION: Stable cardiopulmonary examination. No acute process identified. Dictated by: Jay Moore M.D. on 04/22/2019 at 14:33 Approved by: Jay Moore M.D. on 04/22/2019 at 14:34
[2019-04-22 15:15] VITALS: BP 112/69; PULSE 48; RESP 15; O2SAT 100
[2019-04-22 15:26] LABS: Add Manual Diff / Slide Review NO; Basophils Absolute Auto 100 /uL (0-100); Basophils Percent Auto 1.3 % (0-2); Eosinophils Absolute Auto 400 /uL (0-450); Eosinophils Percent Auto 4.8 % (2-4); Hematocrit 36.4 % (36-46); Hemoglobin 12.5 g/dL (12.0-16.0); Lymphocytes Absolute Auto 2400 /uL (1100-4500); Mean Corpuscular HGB Conc 34.3 % (30-36); Mean Corpuscular Hemoglobin 30.7 PG (26-34); Mean Corpuscular Volume 89.4 fL (80-100); Monocytes Absolute Auto 600 /uL (0-900); Monocytes Percent Auto 7.5 % (3-14); Neutrophils Absolute Auto 4300 /uL (1500-7000); Neutrophils Percent Auto 55.4 % (50-75); Platelet Count 308 X10^3/uL (150-400); Red Blood Cell Count 4.07 X10^6/uL (4.0-5.2); Red Cell Distribution Width 12.9 % (11.6-14.8); White Blood Cell Count 7.7 X10^3/uL (4.5-11.0)
[2019-04-22 15:29] LABS: Alanine Aminotransferase 25 IU/L (9-52); Albumin Globulin Ratio 1.3 (1.0-2.8); Alkaline Phosphatase 71 U/L (38-126); Aspartate Aminotransferase 28 IU/L (14-36); Bilirubin Total 0.5 mg/dL (0.2-1.3); Blood Urea Nitrogen 16 mg/dL (7-17); Calcium 9.1 mg/dL (8.4-10.2); Carbon Dioxide 25 mmol/L (22-32); Chloride 105 mmol/L (98-107); Creatine Kinase 76 U/L (30-135); Estimated Glomerular Filt Rate > 60.0 mL/min (>60); Glucose 105 mg/dL (80-110); Lipase 131 U/L (23-300); Potassium 3.9 mmol/L (3.4-5.1); Sodium 140 mmol/L (137-145)
[2019-04-22 15:32] LABS: HEMOLYSIS 61 (0-50)
[2019-04-22 15:40] LABS: Troponin I < 0.012 ng/mL (0.01-0.034)
--- NOTE | 2019-04-22 15:52 | ED.EXTPRO ---
HPI - Extremity Problem General Chief complaint: Extremity Problem,Nontraumatic Stated complaint: Hrt Attack 3 wks ago, rt knee swollen, lft foot pavel Time Seen by Provider: 04/22/19 15:52 Source: patient and family () Mode of arrival: ambulatory Limitations: no limitations History of Present Illness HPI Narrative: 58-year-old female comes to the emergency department with complaint of right knee being swollen and having pain behind the knee itself. She also has some bruising below the knee and on her left foot. Patient was at [facility] 3 weeks ago. She had a heart attack, she did not have a stent or cardiac catheterization. She was started on medications including aspirin, Plavix, metoprolol, simvastatin and she continues to take levothyroxine and omeprazole. Patient has has not had any fevers, no lightheadedness or syncope. Occasional palpitations. She states no chest pressure. No shortness of breath she has felt a little anxious. No nausea no vomiting no issues with bowel movements or urination patient states that she did needle on her right knee before and then noticed the bruising. She does not remember having any trauma to her left foot. Related Data Home Medications Medication Instructions Recorded Confirmed esomeprazole magnesium 20 mg PO QPM 04/05/19 04/05/19 levothyroxine 100 mcg PO DAILY 04/05/19 04/05/19 losartan 50 mg PO DAILY 04/05/19 04/05/19 Allergies Allergy/AdvReac Type Severity Reaction Status Date / Time diphenhydramine Allergy Severe Difficulty Verified 04/22/19 13:51 [From Benadryl] Breathing ibuprofen Allergy Severe Difficulty Verified 04/22/19 13:51 Breathing Estrogens Allergy Verified 04/22/19 13:51 Review of Systems Review of Systems ROS Unobtainable: All systems reviewed & are unremarkable except as noted in HPI and below Constitutional Constitutional: Denies chills, Denies fever(s), Denies lethargy and Denies weakness Cardiovascular Cardiovascular: Denies chest pain, Denies diaphoresis, Denies syncope, Denies edema, Denies irregular heart rhythm, Denies lightheadedness, Denies radiating jaw, neck or arm pain, Denies palpitations and Denies orthopnea Respiratory Respiratory: Denies change in phlegm color, Denies chest congestion, Denies cough and Denies wheezing Gastrointestinal Gastrointestinal: Denies abdominal pain, Denies change in bowel habits, Denies constipation, Denies diarrhea, Denies nausea and Denies vomiting Musculoskeletal Musculoskeletal: Reports arthralgias, Reports joint swelling (Behind right knee), Denies muscle weakness, Denies numbness and Denies tingling Integumentary/Breasts Skin/Breast: Reports unusual bruising (Foot on left, knee on right) Neurologic Neurologic: Denies syncope, Denies numbness, Denies tingling and Denies weakness Endocrine Endocrine: Denies palpitations Allergic/Immunologic Allergic/Immunologic: Denies wheezing [facility] Medical History GERD (gastroesophageal reflux disease) (Acute) Hyperlipidemia (Acute) Hypertension (Acute) Hypothyroidism (Acute) Non-ST elevation IN (NSTEMI) (Inactive) Surgical History Status post appendectomy (Acute) Status post cholecystectomy (Acute) Status post hernia repair (Acute) Status post hysterectomy (Acute) Social History marital status: Smoking Status: Former smoker alcohol intake: never substance use type: does not use Social History marital status: Smoking Status: Former smoker alcohol intake: never substance use type: does not use Exam Narrative Exam Narrative: GENERAL: Alert and oriented x three, obese, well-appearing female in no acute distress. HEENT: Head normocephalic, atraumatic, EOMI, pupils reactive, face symmetric, moist mucous membranes NECK: Supple, full range of motion CARDIOVASCULAR: Regular rate and rhythm without murmurs, rubs or gallops. RESPIRATORY: Breath sounds equal bilaterally, no wheezes rales or rhonchi. ABDOMEN: Soft, nontender. Normoactive bowel sounds all 4 quadrants. No guarding or rebound, rigidity, no mass : No CVA tenderness EXTREMITIES: Normal range of motion, patient has some mild tenderness the posterior knee no bony tenderness appreciated she has mild bruising subpatellar. Patient also has a hematoma on her left foot that is about a cm and half in size. It is tender to touch but no bony tenderness. She has normal range of motion of both extremities with no other bony tenderness. No redness, no warmth to either foot or knee. She has 2+ pulses bilaterally with normal sensation throughout. Neurovascularly intact NEUROLOGICAL: Cranial nerves II through XII grossly intact. Moving all extremities SKIN: Warm, dry, no petechiae, no rashes or lesions. Initial Vital Signs Initial Vital Signs: Vital Signs Temperature 98.8 F 04/22/19 13:52 Pulse Rate 53 L 04/22/19 13:52 Respiratory Rate 18 04/22/19 13:52 Blood Pressure 129/69 04/22/19 13:52 Pulse Oximetry 99 04/22/19 13:52 Course Orders Ordered: ED Orders 04/22/19 14:46 XR chest 1V Stat EKG-12 Lead Stat 04/22/19 15:05 Complete Blood Count AUTO DIFF Stat Comprehensive Metabolic Panel Stat Lipase Stat Troponin & CK Cardiac Panel Stat 04/22/19 16:10 US periph venous low extrem rt Stat Vital Signs Vital signs: Vital Signs - 8 hr 04/22/19 13:52 04/22/19 15:15 04/22/19 16:00 Temperature 98.8 F Pulse Rate 53 L 48 L 50 L Respiratory Rate 18 15 19 Blood Pressure 129/69 Blood Pressure [Right Arm] 112/69 122/66 Pulse Oximetry 99 100 98 04/22/19 17:00 Temperature Pulse Rate 49 L Respiratory Rate 14 Blood Pressure Blood Pressure [Right Arm] 108/66 Pulse Oximetry 100 MDM - Extremity (Nontraumatic) Lab Data Attestation: I reviewed the patient's lab results. Result diagrams: 04/22/19 15:05 04/22/19 15:05 Labs: Lab Results 04/22/19 04/22/19 Range/Units 15:05 15:05 WBC 7.7 (4.5-11.0) X10^3/uL RBC 4.07 (4.0-5.2) X10^6/uL Hgb 12.5 (12.0-16.0) g/dL Hct 36.4 (36-46) % MCV 89.4 (80-100) fL MCH 30.7 (26-34) PG MCHC 34.3 (30-36) % RDW 12.9 (11.6-14.8) % Plt Count 308 (150-400) X10^3/uL Neut % (Auto) 55.4 (50-75) % Lymph % (Auto) 31.0 (25-40) % [place] % (Auto) 7.5 (3-14) % Eos % (Auto) 4.8 H (2-4) % Baso % (Auto) 1.3 (0-2) % Neut # (Auto) 4300 (0971-3063) /uL Lymph # (Auto) 2400 (0874-5505) /uL [place] # (Auto) 600 (0-900) /uL Eos # (Auto) 400 (0-450) /uL Baso # (Auto) 100 (0-100) /uL Sodium 140 (137-145) mmol/L Potassium 3.9 (3.4-5.1) mmol/L Chloride 105 (98-107) mmol/L Carbon Dioxide 25 (22-32) mmol/L BUN 16 (7-17) mg/dL Creatinine 0.80 (0.52-1.04) mg/dL Estimated GFR > 60.0 (>60) mL/min BUN/Creatinine Ratio 20.0 (6-22) Glucose 105 (80-110) mg/dL Calcium 9.1 (8.4-10.2) mg/dL Total Bilirubin 0.5 (0.2-1.3) mg/dL AST 28 (14-36) IU/L ALT 25 (9-52) IU/L Alkaline Phosphatase 71 (38-126) U/L Total Creatine Kinase 76 (30-135) U/L CK-MB (CK-2) TNP CK-MB (CK-2) Rel Index TNP Troponin I < 0.012 (0.01-0.034) ng/mL Total Protein 7.0 (6.3-8.2) g/dL Albumin 4.0 (3.5-5.0) g/dL Globulin 3.0 (1.7-4.1) g/dL Albumin/Globulin Ratio 1.3 (1.0-2.8) Lipase 131 (23-300) U/L Imaging Data Chest x-ray: Radiologist's impression: [address] [address] XRay Report Signed Patient: Khadijah Marks [facility]#: [id number] : 9Acct:[id number] Age/Sex: 58 / FDate of Service: 04/22/19 Loc: ED Accession Number: [id number] Procedure: XR chest 1V Ordering Provider: Almaz Lopez D.O. PROCEDURE: XR CHEST 1V INDICATIONS: CHEST PAIN TECHNIQUE: One view of the chest was acquired. COMPARISON: [facility], CR, XR CHEST 1V, 04/10/2019, 12:26. FINDINGS: Surgical changes and devices: None. Lungs and pleura: Lungs are clear. No pleural effusions or pneumothorax. Mediastinum: Mediastinal contours appear normal. Heart size is normal. Bones and chest wall: No suspicious bony lesions. Overlying soft tissues appear unremarkable. IMPRESSION: Stable cardiopulmonary examination. No acute process identified. Dictated by: Jay Moore M.D. on 04/22/2019 at 14:33 Approved by: Jay Moore M.D. on 04/22/2019 at 14:34 ECG Data Attestation EKG: I personally reviewed and interpreted this ECG as follows: Prior ECG tracings: available for review Interpretation: Sinus bradycardia rate of 46 P are 155 QRS of 93 and QTC of 441. Non specific T-wave abnormality. Patient does have inverted T-waves in the lateral leads. Patient has prior EKG from 04/10/2019 which appears fairly similar although V3 was inverted in today is not MDM Narrative Medical decision making narrative: Patient comes in with complaint behind the right knee. She has bruising on the foot but she has just started on aspirin Plavix recently which would make her more likely to have bruising. Also less likely to have DVT but she has been hospitalized recently, DVT ultrasound negative. Patient has negative lab work including troponin, renal function with normal electrolytes, CBC and white count. EKG appears similar to prior EKG from 04/10/2019. Patient is not having any new changes concerning for cardiac event today. Anticipatory guidance was given. 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 Continue home medications as prescribed. Return to the emergency department for fevers greater 100.4, rapidly worsening pain, new chest pain, shortness of breath, lightheadedness past now, persistent vomiting, black or bloody stools, new redness or skin changes to her extremities or other new or concerning symptoms. Prescriptions: No Action losartan 50 mg tablet 50 mg PO DAILY RF: 0 levothyroxine 100 mcg Tablet 100 mcg PO DAILY RF: 0 esomeprazole magnesium 20 mg Tablet,Delayed Release (Dr/Ec) 20 mg PO QPM RF: 0
--- NOTE | 2019-04-22 15:54 | PC.NURSE ---
spontanous bruising and hard bump to top of left foot after showering yesterday. No injury or trauma. Patient recent [place] concerns of bruising easily and potential blood clot behind right knee.
[2019-04-22 16:00] VITALS: BP 122/66; PULSE 50; RESP 19; O2SAT 98
--- NOTE | 2019-04-22 16:10 | DI.US.S_ITS ---
PROCEDURE: US PERIPH VENOUS LOW EXTREM RT INDICATIONS: PAIN TECHNIQUE: Real-time imaging, as well as color and pulse Doppler interrogation, were performed of the lower extremity deep veins from the inguinal ligament to the popliteal fossa. COMPARISON: None. FINDINGS: The common femoral, femoral and popliteal veins are normally compressible, and free of intraluminal thrombus. Color and pulse Doppler demonstrate normal phasic intraluminal flow. There is normal augmentation response to distal compression maneuver. IMPRESSION: Negative for deep venous thrombosis. Dictated by: Lizandro Robles M.D. on 04/22/2019 at 16:55 Approved by: Lizandro Robles M.D. on 04/22/2019 at 16:56
[2019-04-22 17:00] VITALS: BP 108/66; PULSE 49; RESP 14; O2SAT 100
== END 2019-04-22 17:15 | disposition home or self-care (01) ==
PROVIDERS: Emergency Provider Emergency Medicine; Family Provider Internal Medicine Cardiovascular Disease
DX: M25.561 Pain in right knee (principal); S80.10XA Contusion of unspecified lower leg, initial encounter; R00.2 Palpitations; R07.9 Chest pain, unspecified
CPT/HCPCS: 71045; 80053; 82550; 83690; 84484; 85025; 93005; 93971; 99283; 99285

== ENCOUNTER → 2019-05-09 14:33 | Outpatient (CLI) | payer OTHER, SELFPAY ==
[2019-05-09 15:24] LABS: BUN Creatinine Ratio 17.1 (6-22); Blood Urea Nitrogen 12 mg/dL (7-17); Estimated Glomerular Filt Rate > 60.0 mL/min (>60)
== END ==
PROVIDERS: Visit Provider Otolaryngology
DX: D49.0 Neoplasm of unspecified behavior of digestive system (principal); L43.9 Lichen planus, unspecified
CPT/HCPCS: 36415; 82565; 84520

== ENCOUNTER 2019-05-29 06:18 | Emergency (ER) | payer OTHER, SELFPAY ==
--- NOTE | 2019-05-29 06:29 | ED_ITS ---
HPI - General Adult <Almaz Lopez DO - Last Filed: 05/29/19 18:09> General Chief complaint: Chest Pain Stated complaint: BP 102/97 THINKS MAY HAVE HEART ATTACK Time Seen by Provider: 05/29/19 06:20 Source: patient and old records reviewed Mode of arrival: Ambulatory Limitations: no limitations History of Present Illness HPI narrative: This is a 58-year-old female comes to the emergency department with complaint of elevated blood pressure and concern for heart attack. Patient had heart attack in March, she states it was sort of a similar situation today she had a fight with her last time she had had a fight with her [id number]. Patient states that she just feels sort of ?achy?. She feels little dizzy, she feels slightly nauseated, she feels a little short of breath but no chest pain or pressure. She denies any sweats or chills. She denies any vomiting. She denies any issues with bowel movements or urination. She denies any swelling in her extremities. She states she always feels a little bit unwell and dizzy a which she finds typical from her medications but that she was checking her blood pressure and was going increasingly higher up to 190 making feel more anxious. Patient states that she was sitting in the parking lot rechecked it several times and he subsequently each time is higher so she decided to check in. She does take an 81 mg aspirin daily as well as blood pressure medication. She states she had a cardiac catheterization but they did not find any lesions to stent. This was done at [facility]. Related Data Home Medications Medication Instructions Recorded Confirmed esomeprazole magnesium 20 mg PO QPM 04/05/19 04/05/19 levothyroxine 100 mcg PO DAILY 04/05/19 04/05/19 losartan 50 mg PO DAILY 04/05/19 04/05/19 Allergies Allergy/AdvReac Type Severity Reaction Status Date / Time diphenhydramine Allergy Severe Difficulty Verified 05/29/19 07:44 [From Benadryl] Breathing ibuprofen Allergy Severe Difficulty Verified 05/29/19 07:44 Breathing Estrogens Allergy Verified 05/29/19 07:44 Review of Systems <DO Jayden Black Last Filed: 05/29/19 18:09> Review of Systems ROS Unobtainable: All systems reviewed & are unremarkable except as noted in HPI and below Constitutional Constitutional: Denies chills, Denies excessive sweating, Denies fever(s), Denies lethargy and Denies weakness Cardiovascular Cardiovascular: Denies chest pain, Denies diaphoresis, Denies syncope, Reports rapid heart rate (Heart rate 101-104 per patient), Denies edema, Denies irregular heart rhythm, Denies leg edema, Denies lightheadedness, Denies radiating jaw, neck or arm pain, Denies palpitations, Reports dyspnea and Denies orthopnea Respiratory Respiratory: Denies chest congestion, Denies cough, Reports dyspnea and Denies wheezing Gastrointestinal Gastrointestinal: Denies abdominal pain, Denies change in bowel habits, Denies diarrhea, Reports nausea and Denies vomiting Genitourinary Genitourinary: Denies hematuria, Denies urinary frequency, Denies dysuria, Denies flank pain and Denies urinary urgency Musculoskeletal Musculoskeletal: Denies back pain Neurologic Neurologic: Denies syncope and Denies weakness Endocrine Endocrine: Denies excessive sweating and Denies palpitations Allergic/Immunologic Allergic/Immunologic: Denies wheezing Patient History <Almaz Lopez DO - Last Filed: 05/29/19 18:09> Medical History GERD (gastroesophageal reflux disease) (Acute) Hyperlipidemia (Acute) Hypertension (Acute) Hypothyroidism (Acute) Non-ST elevation MT (NSTEMI) (Inactive) Surgical History Status post appendectomy (Acute) Status post cholecystectomy (Acute) Status post hernia repair (Acute) Status post hysterectomy (Acute) Social History marital status: Smoking Status: Former smoker alcohol intake: never substance use type: does not use alcohol intake frequency: a few times a month Substance Use Type: does not use Exam <Almaz Lopez DO - Last Filed: 05/29/19 18:09> Narrative Exam Narrative: GENERAL: Alert and oriented x three, obese female in mild distress. Patient appears like she has recently been crying. HEENT: Head normocephalic, atraumatic, EOMI, pupils reactive, face symmetric, moist mucous membranes NECK: Supple, full range of motion CARDIOVASCULAR: Regular rate and rhythm without murmurs, rubs or gallops. RESPIRATORY: Breath sounds equal bilaterally, no wheezes rales or rhonchi. No tachypnea or accessory muscle use. ABDOMEN: Soft, nontender. Normoactive bowel sounds all 4 quadrants. No guarding or rebound, rigidity, no mass : No CVA tenderness EXTREMITIES: Normal range of motion. Neurovascularly intact NEUROLOGICAL: Cranial nerves II through XII grossly intact. Moving all extremities SKIN: Warm, dry, no petechiae, no rashes or lesions. Initial Vital Signs Initial Vital Signs: Vital Signs Temperature 97.9 F 05/29/19 06:31 Pulse Rate 60 05/29/19 06:31 Respiratory Rate 18 05/29/19 06:31 Blood Pressure 166/82 H 05/29/19 06:31 Pulse Oximetry 100 05/29/19 06:31 <Mick Silva DO - Last Filed: 05/29/19 09:36> Initial Vital Signs Initial Vital Signs: Vital Signs Temperature 97.9 F 05/29/19 06:31 Pulse Rate 60 05/29/19 06:31 Respiratory Rate 18 05/29/19 06:31 Blood Pressure 166/82 H 05/29/19 06:31 Pulse Oximetry 100 05/29/19 06:31 Course <Almaz Lopez DO - Last Filed: 05/29/19 18:09> Orders Ordered: Discontinued Medications Aspirin (Aspirin Chew) 243 mg PO NOW ONE Stop: 05/29/19 06:33 Last Admin: 05/29/19 06:38 Dose: 243 mg Documented by: YVON Sodium Chloride (Normal Saline 0.9%) 1,000 mls @ 150 mls/hr IV CONT SYLVIE Last Infusion: 05/29/19 08:53 Dose: 150 mls/hr Documented by: Admin: 05/29/19 06:38 Dose: 150 mls/hr Documented by: YVON Vital Signs Vital signs: Vital Signs - 8 hr 05/29/19 06:31 05/29/19 06:52 05/29/19 07:11 Temperature 97.9 F Pulse Rate 60 61 59 L Respiratory Rate 18 17 12 Blood Pressure 166/82 H Blood Pressure [Left Arm] 127/109 H 143/81 H Pulse Oximetry 100 100 99 05/29/19 07:42 Temperature Pulse Rate 60 Respiratory Rate 16 Blood Pressure Blood Pressure [Left Arm] 140/68 Pulse Oximetry 97 <Mick Silva DO - Last Filed: 05/29/19 09:36> Course Course Narrative: Patient received in sign-out from Dr. Lopez. I performed independent history and physical. 58-year-old female with history of NSTEMI presents feeling a bit dizzy, took her blood pressure and found it elevated. Sh e presented for evaluation. First troponin negative. Patient asymptomatic. Repeat troponin ordered. After blood had been drawn patient elects to leave Against Medical Advice despite discussion of risks and benefits. She did sign the paperwork, I followed the repeat labs and was able to reach her on her cell phone. She has some improvement of symptoms and assured me she would return if worsened or will certainly follow up with her primary care provider none the less. Orders Ordered: Discontinued Medications Aspirin (Aspirin Chew) 243 mg PO NOW ONE Stop: 05/29/19 06:33 Last Admin: 05/29/19 06:38 Dose: 243 mg Documented by: YVON Sodium Chloride (Normal Saline 0.9%) 1,000 mls @ 150 mls/hr IV CONT SYLVIE Last Infusion: 05/29/19 08:53 Dose: 150 mls/hr Documented by: Admin: 05/29/19 06:38 Dose: 150 mls/hr Documented by: YVON Vital Signs Vital signs: Vital Signs - 8 hr 05/29/19 06:31 05/29/19 06:52 05/29/19 07:11 Temperature 97.9 F Pulse Rate 60 61 59 L Respiratory Rate 18 17 12 Blood Pressure 166/82 H Blood Pressure [Left Arm] 127/109 H 143/81 H Pulse Oximetry 100 100 99 05/29/19 07:42 Temperature Pulse Rate 60 Respiratory Rate 16 Blood Pressure Blood Pressure [Left Arm] 140/68 Pulse Oximetry 97 Medical Decision Making <Almaz Lopez, - Last Filed: 05/29/19 18:09> Lab Data Result diagrams: 05/29/19 06:40 05/29/19 06:40 Labs: Lab Results 05/29/19 05/29/19 05/29/19 Range/Units 06:40 06:40 06:40 WBC 6.7 (4.5-11.0) X10^3/uL RBC 4.63 (4.0-5.2) X10^6/uL Hgb 14.3 (12.0-16.0) g/dL Hct 41.5 (36-46) % MCV 89.7 (80-100) fL MCH 30.8 (26-34) PG MCHC 34.4 (30-36) % RDW 12.9 (11.6-14.8) % Plt Count 298 (150-400) X10^3/uL Neut % (Auto) 55.7 (50-75) % Lymph % (Auto) 30.8 (25-40) % [place] % (Auto) 7.5 (3-14) % Eos % (Auto) 5.3 H (2-4) % Baso % (Auto) 0.7 (0-2) % Neut # (Auto) 3800 (3720-5210) /uL Lymph # (Auto) 2100 (8503-5269) /uL [place] # (Auto) 500 (0-900) /uL Eos # (Auto) 400 (0-450) /uL Baso # (Auto) 0 (0-100) /uL PT 10.6 (10.1-12.7) SECONDS INR 0.9 (0.9-1.3) APTT 35 (26.4-36.2) SECONDS Sodium 141 (137-145) mmol/L Potassium 4.1 (3.4-5.1) mmol/L Chloride 103 (98-107) mmol/L Carbon Dioxide 28 (22-32) mmol/L BUN 13 (7-17) mg/dL Creatinine 0.70 (0.52-1.04) mg/dL Estimated GFR > 60.0 (>60) mL/min BUN/Creatinine Ratio 18.6 (6-22) Glucose 113 H (80-110) mg/dL Calcium 9.8 (8.4-10.2) mg/dL Total Bilirubin 0.6 (0.2-1.3) mg/dL AST 29 (14-36) IU/L ALT 31 (9-52) IU/L Alkaline Phosphatase 78 (38-126) U/L Total Creatine Kinase 91 (30-135) U/L CK-MB (CK-2) TNP CK-MB (CK-2) Rel Index TNP Troponin I < 0.012 (0.01-0.034) ng/mL B-Natriuretic Peptide 146 H (<100) Total Protein 8.0 (6.3-8.2) g/dL Albumin 4.8 (3.5-5.0) g/dL Globulin 3.2 (1.7-4.1) g/dL Albumin/Globulin Ratio 1.5 (1.0-2.8) Lipase 83 (23-300) U/L 05/29/19 Range/Units 08:28 WBC (4.5-11.0) X10^3/uL RBC (4.0-5.2) X10^6/uL Hgb (12.0-16.0) g/dL Hct (36-46) % MCV (80-100) fL MCH (26-34) PG MCHC (30-36) % RDW (11.6-14.8) % Plt Count (150-400) X10^3/uL Neut % (Auto) (50-75) % Lymph % (Auto) (25-40) % [place] % (Auto) (3-14) % Eos % (Auto) (2-4) % Baso % (Auto) (0-2) % Neut # (Auto) (9657-7397) /uL Lymph # (Auto) (9972-0625) /uL [place] # (Auto) (0-900) /uL Eos # (Auto) (0-450) /uL Baso # (Auto) (0-100) /uL PT (10.1-12.7) SECONDS INR (0.9-1.3) APTT (26.4-36.2) SECONDS Sodium (137-145) mmol/L Potassium (3.4-5.1) mmol/L Chloride (98-107) mmol/L Carbon Dioxide (22-32) mmol/L BUN (7-17) mg/dL Creatinine (0.52-1.04) mg/dL Estimated GFR (>60) mL/min BUN/Creatinine Ratio (6-22) Glucose (80-110) mg/dL Calcium (8.4-10.2) mg/dL Total Bilirubin (0.2-1.3) mg/dL AST (14-36) IU/L ALT (9-52) IU/L Alkaline Phosphatase (38-126) U/L Total Creatine Kinase (30-135) U/L CK-MB (CK-2) CK-MB (CK-2) Rel Index Troponin I < 0.012 (0.01-0.034) ng/mL B-Natriuretic Peptide (<100) Total Protein (6.3-8.2) g/dL Albumin (3.5-5.0) g/dL Globulin (1.7-4.1) g/dL Albumin/Globulin Ratio (1.0-2.8) Lipase (23-300) U/L ECG Data Attestation: I personally reviewed and interpreted this ECG as follows: Prior ECG tracings: available for review Interpretation: Sinus rhythm rate of 60 P are 148 QRS of 94 and QTC of 395. Nonspecific ST change. Patient has on prior EKGs from April inverted/biphasic T-waves and these appear to have resolved. MDM Narrative Medical decision making narrative: Patient signed out to Dr. Silva while pending labs, CXR. Patient given ASA 243 mg patient had her 81 mg dose today. Patient has nonspecific change it sounds like she had an NSTEMI in March. <Mick Silva, DO - Last Filed: 05/29/19 09:36> Lab Data Labs: Lab Results 05/29/19 05/29/19 05/29/19 Range/Units 06:40 06:40 06:40 WBC 6.7 (4.5-11.0) X10^3/uL RBC 4.63 (4.0-5.2) X10^6/uL Hgb 14.3 (12.0-16.0) g/dL Hct 41.5 (36-46) % MCV 89.7 (80-100) fL MCH 30.8 (26-34) PG MCHC 34.4 (30-36) % RDW 12.9 (11.6-14.8) % Plt Count 298 (150-400) X10^3/uL Neut % (Auto) 55.7 (50-75) % Lymph % (Auto) 30.8 (25-40) % [place] % (Auto) 7.5 (3-14) % Eos % (Auto) 5.3 H (2-4) % Baso % (Auto) 0.7 (0-2) % Neut # (Auto) 3800 (1017-8044) /uL Lymph # (Auto) 2100 (7733-8388) /uL [place] # (Auto) 500 (0-900) /uL Eos # (Auto) 400 (0-450) /uL Baso # (Auto) 0 (0-100) /uL PT 10.6 (10.1-12.7) SECONDS INR 0.9 (0.9-1.3) APTT 35 (26.4-36.2) SECONDS Sodium 141 (137-145) mmol/L Potassium 4.1 (3.4-5.1) mmol/L Chloride 103 (98-107) mmol/L Carbon Dioxide 28 (22-32) mmol/L BUN 13 (7-17) mg/dL Creatinine 0.70 (0.52-1.04) mg/dL Estimated GFR > 60.0 (>60) mL/min BUN/Creatinine Ratio 18.6 (6-22) Glucose 113 H (80-110) mg/dL Calcium 9.8 (8.4-10.2) mg/dL Total Bilirubin 0.6 (0.2-1.3) mg/dL AST 29 (14-36) IU/L ALT 31 (9-52) IU/L Alkaline Phosphatase 78 (38-126) U/L Total Creatine Kinase 91 (30-135) U/L CK-MB (CK-2) TNP CK-MB (CK-2) Rel Index TNP Troponin I < 0.012 (0.01-0.034) ng/mL B-Natriuretic Peptide 146 H (<100) Total Protein 8.0 (6.3-8.2) g/dL Albumin 4.8 (3.5-5.0) g/dL Globulin 3.2 (1.7-4.1) g/dL Albumin/Globulin Ratio 1.5 (1.0-2.8) Lipase 83 (23-300) U/L 05/29/19 Range/Units 08:28 WBC (4.5-11.0) X10^3/uL RBC (4.0-5.2) X10^6/uL Hgb (12.0-16.0) g/dL Hct (36-46) % MCV (80-100) fL MCH (26-34) PG MCHC (30-36) % RDW (11.6-14.8) % Plt Count (150-400) X10^3/uL Neut % (Auto) (50-75) % Lymph % (Auto) (25-40) % [place] % (Auto) (3-14) % Eos % (Auto) (2-4) % Baso % (Auto) (0-2) % Neut # (Auto) (9397-0958) /uL Lymph # (Auto) (0236-7161) /uL [place] # (Auto) (0-900) /uL Eos # (Auto) (0-450) /uL Baso # (Auto) (0-100) /uL PT (10.1-12.7) SECONDS INR (0.9-1.3) APTT (26.4-36.2) SECONDS Sodium (137-145) mmol/L Potassium (3.4-5.1) mmol/L Chloride (98-107) mmol/L Carbon Dioxide (22-32) mmol/L BUN (7-17) mg/dL Creatinine (0.52-1.04) mg/dL Estimated GFR (>60) mL/min BUN/Creatinine Ratio (6-22) Glucose (80-110) mg/dL Calcium (8.4-10.2) mg/dL Total Bilirubin (0.2-1.3) mg/dL AST (14-36) IU/L ALT (9-52) IU/L Alkaline Phosphatase (38-126) U/L Total Creatine Kinase (30-135) U/L CK-MB (CK-2) CK-MB (CK-2) Rel Index Troponin I < 0.012 (0.01-0.034) ng/mL B-Natriuretic Peptide (<100) Total Protein (6.3-8.2) g/dL Albumin (3.5-5.0) g/dL Globulin (1.7-4.1) g/dL Albumin/Globulin Ratio (1.0-2.8) Lipase (23-300) U/L Discharge Plan Departure Patient Disposition: Left Against Medical Advice Clinical Impression: Chest pain Qualifiers: Chest pain type: unspecified Qualified Code(s): R07.9 - Chest pain, unspecified Discharge Date/Time: 05/29/19 08:59 Instructions: DI for Angina Activity Restrictions/Additional Instructions: *You have been diagnosed with [ chest pain, but you've decided to leave before our work up is complete. We cannot tell you if you've had another heart attack or not. ] *What to do: *Please continue to take medications as directed *Follow up with your primary care provider in 2-3 days, call for an appointment. Let them know you were seen in the Emergency Department and that we ask that you be seen in follow up * please return immediately should she change your mind or certainly if you have any ongoing or worsening symptoms. Prescriptions: No Action losartan 50 mg tablet 50 mg PO DAILY RF: 0 levothyroxine 100 mcg Tablet 100 mcg PO DAILY RF: 0 esomeprazole magnesium 20 mg Tablet,Delayed Release (Dr/Ec) 20 mg PO QPM RF: 0 Stand Alone Forms: Against Medical Advice
[2019-05-29 06:31] VITALS: BP 166/82; PULSE 60; RESP 18; TEMP 36.6; O2SAT 100; BMI 28.8
--- NOTE | 2019-05-29 06:32 | DI.RAD.S_ITS ---
PROCEDURE: XR CHEST 1V INDICATIONS: concern for heart attack, shortness of breath, elevated blood pressure TECHNIQUE: One view of the chest was acquired. COMPARISON: [facility], CR, XR CHEST 1V, 04/22/2019, 15:20. FINDINGS: Surgical changes and devices: None. Lungs and pleura: Lungs are clear. No pleural effusions or pneumothorax. Mediastinum: Mediastinal contours appear normal. Heart size is normal. Bones and chest wall: No suspicious bony lesions. Overlying soft tissues appear unremarkable. IMPRESSION: No acute disease Dictated by: Danny Jacob M.D. on 05/29/2019 at 8:48 Approved by: Danny Jacob M.D. on 05/29/2019 at 8:49
[2019-05-29] MEDS: SODIUM CHLORIDE 0.9% 1,000 ML 150 ML IV (06:38)
[2019-05-29] MEDS: ASPIRIN 81 MG CHEW TAB 243 MG PO (06:38)
[2019-05-29 06:47] LABS: Add Manual Diff / Slide Review NO; Basophils Absolute Auto 0 /uL (0-100); Basophils Percent Auto 0.7 % (0-2); Eosinophils Absolute Auto 400 /uL (0-450); Eosinophils Percent Auto 5.3 % (2-4); Hematocrit 41.5 % (36-46); Hemoglobin 14.3 g/dL (12.0-16.0); Lymphocytes Absolute Auto 2100 /uL (1100-4500); Lymphocytes Percent Auto 30.8 % (25-40); Mean Corpuscular HGB Conc 34.4 % (30-36); Mean Corpuscular Hemoglobin 30.8 PG (26-34); Mean Corpuscular Volume 89.7 fL (80-100); Monocytes Absolute Auto 500 /uL (0-900); Monocytes Percent Auto 7.5 % (3-14); Neutrophils Absolute Auto 3800 /uL (1500-7000); Neutrophils Percent Auto 55.7 % (50-75); Platelet Count 298 X10^3/uL (150-400); Red Blood Cell Count 4.63 X10^6/uL (4.0-5.2); Red Cell Distribution Width 12.9 % (11.6-14.8); White Blood Cell Count 6.7 X10^3/uL (4.5-11.0)
--- NOTE | 2019-05-29 06:48 | PC.NURSE ---
Pt reports no chest pain or discomfort. Pt states I just feel icky like last time, I had no pain last time. Pt has Hx of heart attack where she states she did not feel any discomfort or pain in her chest. She states I just felt icky like this. Pt denies N/V, chills, sweats. States she took all prescribed medications on schedule. She states she was in our parking lot for 20 minutes checking her blood pressure and it was going up so she checked in. Pt states her highest blood pressure she saw on her monitor was 190 over something
[2019-05-29 06:52] VITALS: BP 127/109; PULSE 61; RESP 17; O2SAT 100
[2019-05-29 06:52] LABS: INR 0.9 (0.9-1.3); Prothrombin Time 10.6 SECONDS (10.1-12.7)
[2019-05-29 06:54] LABS: PTT Partial Thromboplastin Tim 35 SECONDS (26.4-36.2)
[2019-05-29 06:56] LABS: Alanine Aminotransferase 31 IU/L (9-52); Albumin 4.8 g/dL (3.5-5.0); Albumin Globulin Ratio 1.5 (1.0-2.8); Alkaline Phosphatase 78 U/L (38-126); Aspartate Aminotransferase 29 IU/L (14-36); BUN Creatinine Ratio 18.6 (6-22); Bilirubin Total 0.6 mg/dL (0.2-1.3); Blood Urea Nitrogen 13 mg/dL (7-17); Calcium 9.8 mg/dL (8.4-10.2); Carbon Dioxide 28 mmol/L (22-32); Chloride 103 mmol/L (98-107); Creatine Kinase 91 U/L (30-135); Estimated Glomerular Filt Rate > 60.0 mL/min (>60); Globulin 3.2 g/dL (1.7-4.1); Glucose 113 mg/dL (80-110); HEMOLYSIS < 15 (0-50); Lipase 83 U/L (23-300); Potassium 4.1 mmol/L (3.4-5.1); Sodium 141 mmol/L (137-145)
[2019-05-29 07:08] LABS: Troponin I < 0.012 ng/mL (0.01-0.034)
[2019-05-29 07:11] VITALS: BP 143/81; PULSE 59; RESP 12; O2SAT 99
[2019-05-29 07:11] LABS: B Type Natriuretic Peptide 146 (<100)
[2019-05-29 07:42] VITALS: BP 140/68; PULSE 60; RESP 16; O2SAT 97
[2019-05-29 08:58] LABS: Troponin I < 0.012 ng/mL (0.01-0.034)
== END 2019-05-29 08:59 | disposition left against medical advice (07) ==
PROVIDERS: Emergency Medicine; Emergency Provider Emergency Medicine
DX: R07.9 Chest pain, unspecified (principal); I10 Essential (primary) hypertension
CPT/HCPCS: 36415; 71045; 80053; 82550; 83690; 83880; 84484; 85025; 85610; 85730; 93005; 99283; 99285

== ENCOUNTER → 2019-07-10 15:52 | Outpatient (CLI) | payer OTHER, SELFPAY ==
--- NOTE | 2019-07-10 | DI.ECHO.S_ITS ---
[facility] [facility]---------+ [facility] +---------+ : : [address] : : : : [id number] : : : : Phone: [phone] Echocardiogram Report + + :Name: JOANIE SANABRIA Study Date: 07/10/2019 Height: 64 in : :[facility] Weight: 180 lb : : Gender: Female BSA: 1.9 m2 : :: 1960 Age: 58 yrs BP: 128/86 mmHg: :Reason For Study: NSTEMI : : Performed By: [facility] Staff : :Referring: BEBETO LARSON N : + + Interpretation Summary Sinus bradycardia. Heart rate is 47-60 bpm. Normal LV size and wall thickness. Normal wall motion and LV systolic function. EF is 55-60%. Normal chamber sizes. No significant valvular abnormalities. No prior study available for comparison. Procedure: A two-dimensional transthoracic echocardiogram with color flow and Doppler was performed. The study quality was technically adequate. Prior echo performed on 04/06/19. Sinus bradycardia. Left Ventricle: The left ventricle is normal in size. There is mild concentric left ventricular hypertrophy. Left ventricular systolic function is normal. The ejection fraction is estimated to be 55-60%. Left ventricular wall motion is normal. Right Ventricle: The right ventricle is normal in size and function. Atria: The left atrial size is normal. Right atrial size is normal. The interatrial septum is intact with no evidence for an atrial septal defect. Mitral Valve: The mitral valve leaflets appear mildly thickened, but open well. There is trace mitral regurgitation. Aortic Valve: The aortic valve is trileaflet. The aortic valve opens well. No aortic regurgitation is present. Tricuspid Valve: The tricuspid valve is normal in structure and function. There is trace tricuspid regurgitation. Pulmonary artery pressures cannot be estimated because of the lack of a measurable TR jet velocity. Pulmonic Valve: The pulmonic valve is not well visualized. There is trace pulmonic regurgitation. Great Vessels: The aortic root is normal size. The ascending aorta could not be visualized. The pulmonary artery is normal size. The IVC is dilated (diameter is greater than 2.1 cm) yet it collapses greater than 50% with a sniff. This suggests a right atrial pressure of 8 mm Hg. Pericardium/ Pleura There is no pericardial effusion. There is no pleural effusion. MMode/2D Measurements & Calculations LVIDd: 5.2 cm LVOT diam: 2.0 cm LVIDs: 3.6 cm Ao root diam: 3.1 cm FS: 30.4 % Aortic Jxn: 3.0 cm IVSd: 1.2 cm LVPWd: 1.1 cm LV hewitt. diameter/BSA (cm/m^2): 2.8 LV sys. diameter/BSA (cm/m^2): 1.9 LA A2 area: 19.4 cm2 RA long axis: 4.6 cm LA A4 area: 16.2 cm2 RA area: 14.7 cm2 LA length (vol): 5.2 cm RA vol: 40.2 ml LA vol: 51.0 ml RA : 21.5 ml/m2 LA vol index: 27.3 ml/m2 TAPSE: 1.8 cm Doppler Measurements & Calculations Ao V2 max: 138.1 cm/sec LVOT Max Jay: 107.4 cm/sec Ao V2 mean: 97.4 cm/sec LV V1 max P.6 mmHg Ao max P.6 mmHg LV V1 VTI: 28.0 cm Ao mean P.3 mmHg GISEL(I,D): 2.5 cm2 Ao V2 VTI: 33.5 cm GISEL(V,D): 2.3 cm2 sev ratio: 0.84 GISEL indexed to BSA (cm^2/m^2): 1.4 MV E max jay: 97.4 cm/sec PA V2 max: 73.9 cm/sec MV A max jay: 86.0 cm/sec PA V2 mean: 47.7 cm/sec MV E/A: 1.1 PA mean P.1 mmHg Med Peak E' Jay: 7.0 cm/sec PA Accel Time: 0.14 sec E/E' med: 13.9 Lat Peak E' Jay: 9.6 cm/sec E/E' lat: 10.1 E/e' average: 12.0 MV dec time: 0.18 sec SV(LVOT): 84.7 ml Electronically signed by: Radha Garber M.D. on Reading Physician:07/10/2019 05:53 PM
== END ==
PROVIDERS: Visit Provider Nurse Practitioner
DX: I21.4 Non-ST elevation (NSTEMI) myocardial infarction (principal)
CPT/HCPCS: 93306

== ENCOUNTER 2019-08-02 07:03 | Emergency (ER) | payer OTHER, SELFPAY ==
[2019-08-02 07:05] VITALS: BP 182/85; PULSE 51; RESP 14; TEMP 37.2; O2SAT 100; BMI 34.3
--- NOTE | 2019-08-02 07:14 | ED_ITS ---
HPI - Chest Pain General Chief Complaint: Chest Pain Stated Complaint: chest pain, neck back of left shoulder Time Seen by Provider: 08/02/19 07:09 Source: patient Mode of arrival: Ambulatory History of Present Illness HPI narrative: Patient is a 4-year-old female with recent history of AK in March of 2019 no stents placed presenting with chest discomfort and shortness of breath along with neck pain. She said she was doing okay yesterday during Abbi however she felt extremely tired. Last night she woke up and felt like her neck and shoulders hurt. It hurts every time she moves. She feels like her chest is tight no real shortness of breath. No heart palpitations. She denies fevers sweats or chills. Related Data Home Medications Medication Instructions Recorded Confirmed esomeprazole magnesium 20 mg PO QPM 04/05/19 04/05/19 levothyroxine 100 mcg PO DAILY 04/05/19 08/02/19 losartan 50 mg PO DAILY 04/05/19 08/02/19 aspirin 81 mg PO DAILY 08/02/19 08/02/19 atorvastatin 40 mg PO DAILY 08/02/19 08/02/19 clopidogrel 75 mg PO DAILY 08/02/19 08/02/19 metoprolol succinate 25 mg PO BID 08/02/19 Allergies Allergy/AdvReac Type Severity Reaction Status Date / Time diphenhydramine Allergy Severe Difficulty Verified 08/02/19 07:12 [From Hang] Breathing ibuprofen Allergy Severe Difficulty Verified 08/02/19 07:12 Breathing Estrogens Allergy Verified 08/02/19 07:12 Review of Systems Review of Systems ROS Unobtainable: All systems reviewed & are unremarkable except as noted in HPI and below Constitutional Constitutional: Denies chills, Denies fever(s), Denies lethargy and Denies weakness ENT Ears, Nose, Mouth, and Throat: Denies change in voice, Denies neck pain and Denies sore throat Cardiovascular Cardiovascular: Reports chest pain, Denies dyspnea and Denies dyspnea on exertion Respiratory Respiratory: Reports chest congestion, Denies dyspnea, Denies dyspnea on exertion, Denies stridor and Denies wheezing Gastrointestinal Gastrointestinal: Denies abdominal pain, Denies change in bowel habits, Denies diarrhea, Denies nausea and Denies vomiting Musculoskeletal Musculoskeletal: Denies neck pain Integumentary/Breasts Skin/Breast: Denies pruritus, Denies erythema, Denies rash and Denies wounds Neurologic Neurologic: Denies weakness Allergic/Immunologic Allergic/Immunologic: Denies wheezing Patient History Medical History GERD (gastroesophageal reflux disease) (Acute) Hyperlipidemia (Acute) Hypertension (Acute) Hypothyroidism (Acute) Non-ST elevation [place] (NSTEMI) (Inactive) Surgical History Status post appendectomy (Acute) Status post cholecystectomy (Acute) Status post hernia repair (Acute) Status post hysterectomy (Acute) Social History marital status: Smoking Status: Former smoker alcohol intake: never substance use type: does not use Smoking Status: Former smoker alcohol intake frequency: a few times a month Substance Use Type: does not use Exam Initial Vital Signs Initial Vital Signs: Vital Signs Temperature 98.9 F 08/02/19 07:05 Pulse Rate 51 L 08/02/19 07:05 Respiratory Rate 14 08/02/19 07:05 Blood Pressure 182/85 H 08/02/19 07:05 Pulse Oximetry 100 08/02/19 07:05 GENERAL: Well-appearing, well-nourished and in no acute distress. HEENT: Head atraumatic,EOMI, pupils reactive, face symmetric, moist mucous membranes CARDIOVASCULAR: Regular rate and rhythm without murmurs, rubs or gallops. RESPIRATORY: Breath sounds equal bilaterally, no wheezes rales or rhonchi. ABDOMEN: Soft, nontender. Normoactive bowel sounds all 4 quadrants. No guarding or rebound. : No CVA tenderness EXTREMITIES: Normal range of motion, no clubbing or edema. Neurovascularly intact NEUROLOGICAL: Alert and oriented x4.Normal gait and speech. Cranial nerves II through XII grossly intact. SKIN: Warm, dry, no laceration, no petechiae, no rashes or lesions. Course Orders Ordered: ED Orders 08/02/19 07:13 XR chest 1V Stat EKG-12 Lead Stat 08/02/19 07:20 Complete Blood Count AUTO DIFF Stat Comprehensive Metabolic Panel Stat Lipase Stat Partial Thromboplastin Time Stat Prothrombin Time INR Stat Troponin & CK Cardiac Panel Stat 12/26/19 07:53 Influenza A & B (PCR) Stat 08/02/19 10:18 Troponin I Stat Discontinued Medications Acetaminophen (Tylenol) 975 mg PO NOW ONE Stop: 08/02/19 07:56 Last Admin: 08/02/19 08:00 Dose: 975 mg Documented by: MALORIE Vital Signs Vital signs: Vital Signs - 8 hr 08/02/19 07:05 08/02/19 09:00 08/02/19 09:30 Temperature 98.9 F Pulse Rate 51 L 67 45 L Respiratory Rate 14 15 16 Blood Pressure 182/85 H Blood Pressure [Right Arm] 114/78 139/81 Pulse Oximetry 100 100 100 08/02/19 11:19 Temperature Pulse Rate 80 Respiratory Rate 16 Blood Pressure 125/54 L Blood Pressure [Right Arm] Pulse Oximetry 97 MDM - Chest Pain Lab Data Attestation: I reviewed the patient's lab results. Result diagrams: 08/02/19 07:20 08/02/19 07:20 Labs: Lab Results 08/02/19 08/02/19 08/02/19 Range/Units 07:20 07:20 07:20 WBC 6.0 (4.5-11.0) X10^3/uL RBC 4.13 (4.0-5.2) X10^6/uL Hgb 12.7 (12.0-16.0) g/dL Hct 36.6 (36-46) % MCV 88.6 (80-100) fL MCH 30.7 (26-34) PG MCHC 34.6 (30-36) % RDW 13.1 (11.6-14.8) % Plt Count 248 (150-400) X10^3/uL Neut % (Auto) 50.8 (50-75) % Lymph % (Auto) 32.5 (25-40) % [place] % (Auto) 9.7 (3-14) % Eos % (Auto) 6.1 H (2-4) % Baso % (Auto) 0.9 (0-2) % Neut # (Auto) 3 L (1938-3071) /uL Lymph # (Auto) 2 L (0643-0793) /uL [place] # (Auto) 1 (0-900) /uL Eos # (Auto) 0 (0-450) /uL Baso # (Auto) 0 (0-100) /uL PT 12.0 (10.1-12.7) SECONDS INR 1.0 (0.9-1.3) APTT 26 L D (26.4-36.2) SECONDS Sodium 140 (137-145) mmol/L Potassium 4.5 (3.4-5.1) mmol/L Chloride 105 (98-107) mmol/L Carbon Dioxide 27 (22-32) mmol/L BUN 13 (7-17) mg/dL Creatinine 0.60 (0.52-1.04) mg/dL Estimated GFR > 60.0 (>60) mL/min BUN/Creatinine Ratio 21.7 (6-22) Glucose 124 H (80-110) mg/dL Calcium 9.6 (8.4-10.2) mg/dL Total Bilirubin 0.7 (0.2-1.3) mg/dL AST 38 H (14-36) IU/L ALT 35 H (<35) IU/L Alkaline Phosphatase 82 (38-126) U/L Total Creatine Kinase 105 (30-135) U/L CK-MB (CK-2) 2.33 (<2.37) ng/mL CK-MB (CK-2) Rel Index 2.2 (1.5-5.0) % Troponin I < 0.012 (0.01-0.034) ng/mL Total Protein 7.8 (6.3-8.2) g/dL Albumin 4.5 (3.5-5.0) g/dL Globulin 3.3 (1.7-4.1) g/dL Albumin/Globulin Ratio 1.4 (1.0-2.8) Lipase 122 (23-300) U/L Influenza A (RT-PCR) (NEGATIVE) Influenza B (RT-PCR) (NEGATIVE) 08/02/19 08/02/19 Range/Units 07:53 10:18 WBC (4.5-11.0) X10^3/uL RBC (4.0-5.2) X10^6/uL Hgb (12.0-16.0) g/dL Hct (36-46) % MCV (80-100) fL MCH (26-34) PG MCHC (30-36) % RDW (11.6-14.8) % Plt Count (150-400) X10^3/uL Neut % (Auto) (50-75) % Lymph % (Auto) (25-40) % [place] % (Auto) (3-14) % Eos % (Auto) (2-4) % Baso % (Auto) (0-2) % Neut # (Auto) (6279-5306) /uL Lymph # (Auto) (5572-8074) /uL [place] # (Auto) (0-900) /uL Eos # (Auto) (0-450) /uL Baso # (Auto) (0-100) /uL PT (10.1-12.7) SECONDS INR (0.9-1.3) APTT (26.4-36.2) SECONDS Sodium (137-145) mmol/L Potassium (3.4-5.1) mmol/L Chloride (98-107) mmol/L Carbon Dioxide (22-32) mmol/L BUN (7-17) mg/dL Creatinine (0.52-1.04) mg/dL Estimated GFR (>60) mL/min BUN/Creatinine Ratio (6-22) Glucose (80-110) mg/dL Calcium (8.4-10.2) mg/dL Total Bilirubin (0.2-1.3) mg/dL AST (14-36) IU/L ALT (<35) IU/L Alkaline Phosphatase (38-126) U/L Total Creatine Kinase (30-135) U/L CK-MB (CK-2) (<2.37) ng/mL CK-MB (CK-2) Rel Index (1.5-5.0) % Troponin I < 0.012 (0.01-0.034) ng/mL Total Protein (6.3-8.2) g/dL Albumin (3.5-5.0) g/dL Globulin (1.7-4.1) g/dL Albumin/Globulin Ratio (1.0-2.8) Lipase (23-300) U/L Influenza A (RT-PCR) Flu a negative (NEGATIVE) Influenza B (RT-PCR) Flu b negative (NEGATIVE) Imaging Data Chest x-ray: Radiologist's Impression: PROCEDURE: XR CHEST 1V INDICATIONS: chest pain TECHNIQUE: One view of the chest was acquired. COMPARISON: [facility], CR, XR CHEST 1V, 05/29/2019, 6:37. FINDINGS: Surgical changes and devices: None. Lungs and pleura: Lungs are clear. No pleural effusions or pneumothorax. Mediastinum: Mediastinal contours appear normal. Heart size is normal. Bones and chest wall: No suspicious bony lesions. Overlying soft tissues appear unremarkable. IMPRESSION: Normal chest. Dictated by: Lesley Up M.D. on 08/02/2019 at 8:07 ECG Data Attestation: I personally reviewed and interpreted this ECG as follows: Prior ECG tracings: available for review Interpretation: Normal sinus rhythm rate 47 p.r. interval 142 QRS [address] elevation depression inversion MDM Narrative Medical decision making narrative: Neck pain and shoulder pain are definitely worse with movement, more consistent with musculoskeletal pain. She actually is scheduled stress test tomorrow and follow up with Cardiology next week. She has 2-troponins. Negative for influenza no sign of infection. Discharge Plan Departure Patient Disposition: Home Clinical Impression: Atypical chest pain Discharge Date/Time: 08/02/19 11:20 Instructions: DI for Atypical Chest Pain Activity Restrictions/Additional Instructions: *You have been diagnosed with atypical chest pain *What to do: At this time no sign of heart attack influenza negative. Pain may be musculoskeletal *Continue to take medications as directed Tylenol 1000 mg every 6 hours only if needed for pain *Follow up with your primary care provider in 2-3 days, follow-up with your pressure sealer and tester as scheduled nest week go to your stress test tomorrow as scheduled *Return to ER if you should have increasing chest pain shortness of breath fevers or any new, worsening or concerning symptoms Prescriptions: No Action losartan 50 mg tablet 50 mg PO DAILY RF: 0 levothyroxine 100 mcg Tablet 100 mcg PO DAILY RF: 0 esomeprazole magnesium 20 mg Tablet,Delayed Release (Dr/Ec) 20 mg PO QPM RF: 0 atorvastatin 40 mg tablet 40 mg PO DAILY RF: 0 clopidogrel 75 mg tablet 75 mg PO DAILY RF: 0 aspirin 81 mg tablet,chewable 81 mg PO DAILY RF: 0 metoprolol succinate 25 mg tablet extended release 24 hr 25 mg PO BID RF: 0 Referrals: Ronda Johnston MD [Physician] -
--- NOTE | 2019-08-02 07:24 | PC.NURSE ---
Pt reports that she woke up at 0230 and gradually developed headache, L sided chest pain radiating down her L arm and into her L shoulder and up into her L neck. reports lying on her R side makes it worse and nothing makes it better. h/o DC. takes plavix and beta juanito. HR 48. BP elevated 182/85. reports extensive family cardiac history. attached to monitoring. IV placed and labs sent. EKG obtained. awaiting MD assessment.
[2019-08-02 07:38] LABS: PTT Partial Thromboplastin Tim 26 SECONDS (26.4-36.2)
[2019-08-02 07:39] LABS: Alanine Aminotransferase 35 IU/L (<35); Albumin 4.5 g/dL (3.5-5.0); Albumin Globulin Ratio 1.4 (1.0-2.8); Alkaline Phosphatase 82 U/L (38-126); Aspartate Aminotransferase 38 IU/L (14-36); BUN Creatinine Ratio 21.7 (6-22); Bilirubin Total 0.7 mg/dL (0.2-1.3); Blood Urea Nitrogen 13 mg/dL (7-17); Calcium 9.6 mg/dL (8.4-10.2); Carbon Dioxide 27 mmol/L (22-32); Chloride 105 mmol/L (98-107); Creatine Kinase 105 U/L (30-135); Estimated Glomerular Filt Rate > 60.0 mL/min (>60); Globulin 3.3 g/dL (1.7-4.1); Glucose 124 mg/dL (80-110); Lipase 122 U/L (23-300); Potassium 4.5 mmol/L (3.4-5.1); Sodium 140 mmol/L (137-145); Total Protein 7.8 g/dL (6.3-8.2)
[2019-08-02 07:51] LABS: HEMOLYSIS 65 (0-50); Troponin I < 0.012 ng/mL (0.01-0.034)
[2019-08-02 07:54] LABS: CKMB % Relative Index 2.2 % (1.5-5.0); Creatine Kinase MB 2.33 ng/mL (<2.37)
[2019-08-02] MEDS: ACETAMINOPHEN 325 MG TABLET 975 MG PO (08:00)
[2019-08-02 08:31] LABS: Influenza A - CEPHEID Flu A NEGATIVE (NEGATIVE); Influenza B - CEPHEID Flu B NEGATIVE (NEGATIVE)
[2019-08-02 08:50] LABS: Add Manual Diff / Slide Review NO; Platelet Count 248 X10^3/uL (150-400)
[2019-08-02 08:53] LABS: Hemoglobin 12.7 g/dL (12.0-16.0); Red Blood Cell Count 4.13 X10^6/uL (4.0-5.2)
[2019-08-02 08:54] LABS: Hematocrit 36.6 % (36-46); Mean Corpuscular Hemoglobin 30.7 PG (26-34); Mean Corpuscular Volume 88.6 fL (80-100)
[2019-08-02 08:55] LABS: Mean Corpuscular HGB Conc 34.6 % (30-36); Neutrophils Percent Auto 50.8 % (50-75); Red Cell Distribution Width 13.1 % (11.6-14.8)
[2019-08-02 08:56] LABS: Eosinophils Percent Auto 6.1 % (2-4); Lymphocytes Percent Auto 32.5 % (25-40); Monocytes Percent Auto 9.7 % (3-14)
[2019-08-02 08:57] LABS: Basophils Percent Auto 0.9 % (0-2); Lymphocytes Absolute Auto 2 /uL (1100-4500); Neutrophils Absolute Auto 3 /uL (1500-7000)
[2019-08-02 08:58] LABS: Basophils Absolute Auto 0 /uL (0-100); Eosinophils Absolute Auto 0 /uL (0-450); Monocytes Absolute Auto 1 /uL (0-900)
[2019-08-02 09:00] VITALS: BP 114/78; PULSE 67; RESP 15; O2SAT 100
--- NOTE | 2019-08-02 09:23 | PC.NURSE ---
Pt well appearing. Ambulation trial 89% on RA. aware.
[2019-08-02 09:30] VITALS: BP 139/81; PULSE 45; RESP 16; O2SAT 100
[2019-08-02 10:48] LABS: Troponin I < 0.012 ng/mL (0.01-0.034)
[2019-08-02 11:19] VITALS: BP 125/54; PULSE 80; RESP 16; O2SAT 97
== END 2019-08-02 11:20 | disposition home or self-care (01) ==
PROVIDERS: Emergency Provider Emergency Medicine
DX: R07.89 Other chest pain (principal); M54.2 Cervicalgia; M25.512 Pain in left shoulder
CPT/HCPCS: 36415; 71045; 80053; 82550; 82553; 83690; 84484; 85025; 85610; 85730; 87502; 93005; 99284; 99285

== ENCOUNTER → 2019-08-11 07:49 | Outpatient (CLI) | payer OTHER, SELFPAY ==
[2019-08-11 10:29] LABS: Cholesterol 212 mg/dL (140-199); HDL Cholesterol 53 mg/dL (40-60); LDL Cholesterol Calculated 132 mg/dL (<100); Triglycerides 133 mg/dL (35-150)
== END ==
PROVIDERS: Visit Provider Internal Medicine Cardiovascular Disease
DX: I21.4 Non-ST elevation (NSTEMI) myocardial infarction (principal)
CPT/HCPCS: 36415; 80061

== ENCOUNTER → 2019-12-03 09:46 | Outpatient (CLI) | payer OTHER, SELFPAY ==
--- NOTE | 2019-12-03 09:54 | DI.CT.S_ITS ---
PROCEDURE: CT SINUS SCREEN WO CON INDICATIONS: FACIAL PAIN TECHNIQUE: Noncontrast 3.0 mm axial images acquired from the frontal sinuses to the mid-sella, with coronal and sagittal reformats. For radiation dose reduction, the following was used: automated exposure control, adjustment of mA and/or kV according to patient size. COMPARISON: [facility], CT, CT HEAD/BRAIN WO CON, 03/25/2019, 9:01. FINDINGS: Image quality: Excellent. Maxillary Sinuses: No bony remodeling or destruction. There is mild mucosal thickening seen involving the inferior maxillary sinuses, right greater than left. Ethmoid Air Cells: No bony remodeling or destruction. Sinuses are clear. Sphenoid Sinuses: No bony remodeling or destruction. Sinuses are clear. Frontal Sinuses: No bony remodeling or destruction. Sinuses are clear. Ostiomeatal Complexes: Ostiomeatal complexes are patent, yet they are constitutionally narrowed with bilateral Isra cells. Miscellaneous: Visualized intra-orbital contents are normal. No jin bullosa or paradoxical turbinate curvature. There is moderate rightward nasal septal deviation. IMPRESSION: Mild mucosal thickening is seen within the inferior maxillary sinuses. Patent, yet constitutionally narrowed ostiomeatal complexes. Moderate rightward nasal septal deviation. Dictated by: Lizandro Robles M.D. on 12/03/2019 at 9:05 Approved by: Lizandro Robles M.D. on 12/03/2019 at 9:07
== END ==
PROVIDERS: Referring Provider Internal Medicine; Visit Provider Internal Medicine
DX: R51 Headache (principal); R68.84 Jaw pain; J32.0 Chronic maxillary sinusitis; J34.2 Deviated nasal septum
CPT/HCPCS: 70486

== ENCOUNTER → 2020-01-04 07:07 | Outpatient (CLI) | payer OTHER, SELFPAY ==
[2020-01-04 08:01] LABS: Add Manual Diff / Slide Review NO; Basophils Absolute Auto 100 /uL (0-100); Basophils Percent Auto 1.1 % (0-2); Eosinophils Absolute Auto 200 /uL (0-450); Eosinophils Percent Auto 3.9 % (2-4); Hematocrit 38.4 % (36-46); Hemoglobin 13.2 g/dL (12.0-16.0); Lymphocytes Absolute Auto 1700 /uL (1100-4500); Mean Corpuscular HGB Conc 34.5 % (30-36); Mean Corpuscular Hemoglobin 31.3 PG (26-34); Mean Corpuscular Volume 90.9 fL (80-100); Monocytes Absolute Auto 500 /uL (0-900); Monocytes Percent Auto 9.6 % (3-14); Neutrophils Absolute Auto 2500 /uL (1500-7000); Neutrophils Percent Auto 50.4 % (50-75); Platelet Count 264 X10^3/uL (150-400); Red Blood Cell Count 4.23 X10^6/uL (4.0-5.2); Red Cell Distribution Width 13.3 % (11.6-14.8)
[2020-01-04 08:18] LABS: Cholesterol 162 mg/dL (140-199); HDL Cholesterol 44 mg/dL (40-60); LDL Cholesterol Calculated 96 mg/dL (<100); Triglycerides 110 mg/dL (35-150)
== END ==
PROVIDERS: Referring Provider Internal Medicine; Visit Provider Internal Medicine
DX: E78.2 Mixed hyperlipidemia (principal); R51 Headache
CPT/HCPCS: 36415; 80061; 85025

== ENCOUNTER 2020-01-06 20:26 | Emergency (ER) | payer OTHER, SELFPAY ==
[2020-01-06 20:32] VITALS: BP 207/88; PULSE 60; RESP 18; TEMP 36.1; O2SAT 96; BMI 34.3
--- NOTE | 2020-01-06 21:25 | PC.NURSE ---
states she accidentally took husbands duloxotine this morning. Has felt poor since. Reports headache and high blood pressure. Patient consulted poison control and they told her to come into ER if symptoms worsened. She now states she feels sick to her stomach and her head hurts. Provider at bedside.
[2020-01-06 21:27] VITALS: BP 199/79; PULSE 68; RESP 19; O2SAT 97
--- NOTE | 2020-01-06 21:32 | DI.RAD.S_ITS ---
PROCEDURE: XR CHEST 1V INDICATIONS: chest pain TECHNIQUE: One view of the chest was acquired. COMPARISON: [facility], CR, XR CHEST 1V, 08/02/2019, 7:37. FINDINGS: Surgical changes and devices: None. Lungs and pleura: Lungs are clear. No pleural effusions or pneumothorax. Mediastinum: Mediastinal contours appear normal. Heart size is normal. Bones and chest wall: No suspicious bony lesions. Overlying soft tissues appear unremarkable. IMPRESSION: No acute cardiopulmonary disease process. Dictated by: Pao Celeste MD, PhD on 01/07/2020 at 8:22 Approved by: Pao Celeste MD, PhD on 01/07/2020 at 8:22
--- NOTE | 2020-01-06 21:36 | ED.ARRPALP ---
HPI - Arrhythmia/Palpitations General Chief Complaint: Arrhythmia/Palpitations Stated Complaint: states elevated BP, took wround medication today Time Seen by Provider: 01/06/20 20:59 Source: patient Mode of arrival: Ambulatory Limitations: no limitations History of Present Illness HPI narrative: 59-year-old female here for evaluation of high blood pressure and a headache. She also states that this morning she accidentally took 1 of her 's anxiety pills. She states that she thought that was 1 of her medications. She contact the pharmacist to told her that it would not interact with any of her current medications. She contacted poison Control who stated that unless she develops some tingling in shaking she should not have any side effects from this medicine. She comes in this evening because she states that she has been having headache and also took her blood pressure and was elevated. She does not have a history of headaches however was just recently diagnosed with right-sided trigeminal neuralgia. She is currently on gabapentin for this under the care of her primary provider. Related Data Home Medications Medication Instructions Recorded Confirmed esomeprazole magnesium 20 mg PO QPM 04/05/19 04/05/19 levothyroxine 100 mcg PO DAILY 04/05/19 08/02/19 losartan 50 mg PO DAILY 04/05/19 08/02/19 aspirin 81 mg PO DAILY 08/02/19 08/02/19 atorvastatin 40 mg PO DAILY 08/02/19 08/02/19 clopidogrel 75 mg PO DAILY 08/02/19 08/02/19 metoprolol succinate 25 mg PO BID 08/02/19 Allergies Allergy/AdvReac Type Severity Reaction Status Date / Time diphenhydramine Allergy Severe Difficulty Verified 08/02/19 07:12 [From Benadryl] Breathing ibuprofen Allergy Severe Difficulty Verified 08/02/19 07:12 Breathing Estrogens Allergy Verified 08/02/19 07:12 Review of Systems Constitutional Constitutional: Reports headache(s) Eyes Eyes: Denies change in vision and Denies photophobia ENT Ears, Nose, Mouth, and Throat: Denies vertigo, Denies dizziness, Reports headache(s), Denies tinnitus and Denies sore throat Cardiovascular Cardiovascular: Denies chest pain and Denies dyspnea Respiratory Respiratory: Denies dyspnea Gastrointestinal Gastrointestinal: Denies abdominal pain, Denies nausea and Denies vomiting Musculoskeletal Musculoskeletal: Denies myalgias and Denies arthralgias Integumentary/Breasts Skin/Breast: Denies lesions and Denies rash Neurologic Neurologic: Denies behavioral changes, Denies vertigo, Denies dizziness and Reports headache(s) Psychiatric Psychiatric: Denies behavioral changes Hematologic/Lymphatic Hematologic/Lymphatic: Denies easy bleeding and Denies easy bruising Patient History Medical History GERD (gastroesophageal reflux disease) (Acute) Hyperlipidemia (Acute) Hypertension (Acute) Hypothyroidism (Acute) Non-ST elevation [place] (NSTEMI) (Inactive) Social History marital status: Smoking Status: Former smoker alcohol intake: never substance use type: does not use Smoking Status: Former smoker alcohol intake frequency: a few times a month Substance Use Type: does not use Exam Initial Vital Signs Initial Vital Signs: Vital Signs Temperature 96.9 F L 01/06/20 20:32 Pulse Rate 60 01/06/20 20:32 Respiratory Rate 18 01/06/20 20:32 Blood Pressure 207/88 H 01/06/20 20:32 Pulse Oximetry 96 01/06/20 20:32 Const General: cooperative and comfortable HENMT Head: normal to inspection and normocephalic Resp Effort & Inspection: normal respiratory effort Auscultation: clear to auscultation bilaterally Cardio Rate: regular rate Rhythm: regular rhythm GI Inspection: non-distended Palpation: soft and No firm Skin Lesions: no lesions Rashes: no rashes Neuro General: alert, awake and oriented x3 Cranial Nerves: CN's II-XI intact bilaterally Cognition: normal cognition Speech: speech normal Gait: normal gait Motor: muscle tone normal throughout Sensory Exam: no sensory deficits noted Extrem General: normal to inspection and capillary refill normal Psych Appearance: grossly normal and well kempt Scores GCS Rolando coma scale eye opening: Spontaneous Rolando coma scale verbal response: Orientated [place] coma scale motor response: Obey commands Rolando coma scale total score: 15 Course Orders Ordered: ED Orders 01/06/20 20:44 EKG-12 Lead Stat 01/06/20 21:15 Complete Blood Count AUTO DIFF Stat Comprehensive Metabolic Panel Stat Lipase Stat Partial Thromboplastin Time Stat Prothrombin Time INR Stat Troponin & CK Cardiac Panel Stat 01/06/20 21:32 XR chest 1V Stat Discontinued Medications Hydrocodone Bitart/Acetaminophen ([place] 5/325) 1 tab PO NOW ONE Stop: 01/06/20 21:37 Last Admin: 01/06/20 21:46 Dose: 1 tab Documented by: CECILIA Vital Signs Vital signs: Vital Signs - 8 hr 01/06/20 20:32 01/06/20 21:27 01/06/20 22:30 Temperature 96.9 F L Pulse Rate 60 68 74 Respiratory Rate 18 19 15 Blood Pressure 207/88 H Blood Pressure [Right Arm] 199/79 H 168/74 H Pulse Oximetry 96 97 94 MDM - Arrhythmia/Palpitations Lab Data Attestation: I reviewed the patient's lab results. Result diagrams: 01/06/20 21:15 01/06/20 21:15 Labs: Lab Results 01/06/20 01/06/20 01/06/20 Range/Units 21:15 21:15 21:15 WBC 7.3 (4.5-11.0) X10^3/uL RBC 3.97 L (4.0-5.2) X10^6/uL Hgb 12.4 (12.0-16.0) g/dL Hct 36.0 (36-46) % MCV 90.7 (80-100) fL MCH 31.3 (26-34) PG MCHC 34.5 (30-36) % RDW 13.1 (11.6-14.8) % Plt Count 260 (150-400) X10^3/uL Neut % (Auto) 55.6 (50-75) % Lymph % (Auto) 29.8 (25-40) % [place] % (Auto) 10.5 (3-14) % Eos % (Auto) 3.4 (2-4) % Baso % (Auto) 0.7 (0-2) % Neut # (Auto) 4000 (3693-3470) /uL Lymph # (Auto) 2200 (5446-2754) /uL [place] # (Auto) 800 (0-900) /uL Eos # (Auto) 200 (0-450) /uL Baso # (Auto) 0 (0-100) /uL PT 11.2 (10.1-12.7) SECONDS INR 1.0 (0.9-1.3) APTT 32 D (26.4-36.2) SECONDS Sodium 131 L (137-145) mmol/L Potassium 3.9 (3.4-5.1) mmol/L Chloride 100 (98-107) mmol/L Carbon Dioxide 25 (22-32) mmol/L BUN 10 (7-17) mg/dL Creatinine 0.66 (0.52-1.04) mg/dL Estimated GFR > 60.0 (>60) mL/min BUN/Creatinine Ratio 15.2 (6-22) Glucose 111 H (80-110) mg/dL Calcium 8.6 (8.4-10.2) mg/dL Total Bilirubin 0.5 (0.2-1.3) mg/dL AST 29 (14-36) IU/L ALT 33 (<35) IU/L Alkaline Phosphatase 71 (38-126) U/L Total Creatine Kinase 92 (30-135) U/L CK-MB (CK-2) TNP CK-MB (CK-2) Rel Index TNP Troponin I < 0.012 (0.01-0.034) ng/mL Total Protein 6.7 (6.3-8.2) g/dL Albumin 3.7 (3.5-5.0) g/dL Globulin 3.0 (1.7-4.1) g/dL Albumin/Globulin Ratio 1.2 (1.0-2.8) Lipase 207 (23-300) U/L Imaging Data Chest x-ray: Attestation: I personally reviewed and interpreted this imaging study as follows: My Impression: No pneumonia, in no acute pathology ECG Data Attestation: I personally reviewed and interpreted this ECG as follows: Prior ECG tracings: not available for review Interpretation: Sinus bradycardia Ventricular rate of 57 Normal axis Normal QRS Normal QTC No ST T wave changes MDM Narrative Medical decision making narrative: I believe that the patient's symptoms brought her into the emergency department this evening are not related to the accident or dose of her 's anxiety medication. Her EKG and chest x-ray and lab work are unremarkable. Patient has a normal neurologic exam. Low suspicion for ICH. I do suspect that her headache is most likely caused by her trigeminal neuralgia. I discussed this with her. She is currently taking gabapentin. We discussed that she could increase this to 300 mg 2 times a day to 300 mg 3 times a day. Who we can hold on further workup for now. Patient was given return precautions and follow-up instructions. She expressed understanding and agreement. Discharge Plan Departure Patient Disposition: Home Clinical Impression: Accidental drug overdose, Headache, Trigeminal neuralgia, Hypertension Discharge Date/Time: 01/06/20 23:07 Instructions: Trigeminal Neuralgia Activity Restrictions/Additional Instructions: Recommend that you increase the gabapentin to 1 tablet 3 times a day. Contact your primary provider for follow-up. Return to the emergency department for any new or worsening symptoms Prescriptions: No Action losartan 50 mg tablet 50 mg PO DAILY RF: 0 levothyroxine 100 mcg Tablet 100 mcg PO DAILY RF: 0 esomeprazole magnesium 20 mg Tablet,Delayed Release (Dr/Ec) 20 mg PO QPM RF: 0 atorvastatin 40 mg tablet 40 mg PO DAILY RF: 0 clopidogrel 75 mg tablet 75 mg PO DAILY RF: 0 aspirin 81 mg tablet,chewable 81 mg PO DAILY RF: 0 metoprolol succinate 25 mg tablet extended release 24 hr 25 mg PO BID RF: 0
[2020-01-06 21:38] LABS: Prothrombin Time 11.2 SECONDS (10.1-12.7)
[2020-01-06 21:41] LABS: PTT Partial Thromboplastin Tim 32 SECONDS (26.4-36.2)
[2020-01-06 21:42] LABS: Alanine Aminotransferase 33 IU/L (<35); Albumin 3.7 g/dL (3.5-5.0); Albumin Globulin Ratio 1.2 (1.0-2.8); Alkaline Phosphatase 71 U/L (38-126); Aspartate Aminotransferase 29 IU/L (14-36); BUN Creatinine Ratio 15.2 (6-22); Bilirubin Total 0.5 mg/dL (0.2-1.3); Blood Urea Nitrogen 10 mg/dL (7-17); Calcium 8.6 mg/dL (8.4-10.2); Carbon Dioxide 25 mmol/L (22-32); Chloride 100 mmol/L (98-107); Creatine Kinase 92 U/L (30-135); Estimated Glomerular Filt Rate > 60.0 mL/min (>60); Glucose 111 mg/dL (80-110); HEMOLYSIS 17 (0-50); Lipase 207 U/L (23-300); Potassium 3.9 mmol/L (3.4-5.1); Sodium 131 mmol/L (137-145); Total Protein 6.7 g/dL (6.3-8.2)
[2020-01-06 21:43] LABS: Add Manual Diff / Slide Review NO; Basophils Absolute Auto 0 /uL (0-100); Basophils Percent Auto 0.7 % (0-2); Eosinophils Absolute Auto 200 /uL (0-450); Eosinophils Percent Auto 3.4 % (2-4); Hemoglobin 12.4 g/dL (12.0-16.0); Lymphocytes Absolute Auto 2200 /uL (1100-4500); Lymphocytes Percent Auto 29.8 % (25-40); Mean Corpuscular HGB Conc 34.5 % (30-36); Mean Corpuscular Hemoglobin 31.3 PG (26-34); Mean Corpuscular Volume 90.7 fL (80-100); Monocytes Absolute Auto 800 /uL (0-900); Monocytes Percent Auto 10.5 % (3-14); Neutrophils Absolute Auto 4000 /uL (1500-7000); Neutrophils Percent Auto 55.6 % (50-75); Platelet Count 260 X10^3/uL (150-400); Red Blood Cell Count 3.97 X10^6/uL (4.0-5.2); Red Cell Distribution Width 13.1 % (11.6-14.8); White Blood Cell Count 7.3 X10^3/uL (4.5-11.0)
[2020-01-06] MEDS: HYDROCODONE/ACET 5/325 TABLET 1 TAB PO (21:46)
[2020-01-06 21:53] LABS: Troponin I < 0.012 ng/mL (0.01-0.034)
[2020-01-06 22:30] VITALS: BP 168/74; PULSE 74; RESP 15; O2SAT 94
== END 2020-01-06 23:07 | disposition home or self-care (01) ==
PROVIDERS: Emergency Provider Emergency Medicine
DX: G50.0 Trigeminal neuralgia (principal); T50.901A Poisoning by unspecified drugs, medicaments and biological substances, accidental (unintentional), initial encounter; I10 Essential (primary) hypertension; R00.1 Bradycardia, unspecified; R07.9 Chest pain, unspecified
CPT/HCPCS: 36415; 71045; 80053; 82550; 83690; 84484; 85025; 85610; 85730; 93005; 93010; 99284

== ENCOUNTER → 2020-01-28 07:26 | Outpatient (CLI) | payer OTHER, MEDICAID, SELFPAY ==
--- NOTE | 2020-01-28 | DI.MRI.S_ITS ---
PROCEDURE: MR HEAD/BRAIN WO/W CON INDICATIONS: FACIAL NERVE PAIN TECHNIQUE: Noncontrast axial T1 spin echo, axial T2 fast spin echo, sagittal and axial FLAIR, coronal T2 fast spin echo, axial gradient echo, axial diffusion and ADC through the brain. After the administration of contrast, axial and coronal 3D VIBE or T1 spin echo with fat saturation through the brain. COMPARISON: None. FINDINGS: Image quality: Excellent. CSF Spaces: Basal cisterns are patent. No extra-axial fluid collections. Ventricles are normal in size and shape. Brain: No midline shift. No intracranial bleeds or masses. No abnormal intracranial enhancement. The brainstem appears normal. Diffusion-weighted images demonstrate no acute ischemic insults. No chronic ischemic insults. Normal intravascular flow voids are present. Trigeminal and facial nerves are grossly unremarkable. Skull and face: Calvarial marrow is normal in signal. Orbits appear normal. Sinuses: Sinuses and mastoids appear clear. IMPRESSION: 1. No explanation for facial nerve pain. 2. No acute process. No recent infarct. Dictated by: Bisi Leyva M.D. on 01/28/2020 at 9:58 Approved by: Bisi Leyva M.D. on 01/28/2020 at 10:00
== END ==
PROVIDERS: Referring Provider Internal Medicine; Visit Provider Internal Medicine
DX: G58.8 Other specified mononeuropathies (principal); M54.2 Cervicalgia
CPT/HCPCS: 70553

== ENCOUNTER → 2020-02-04 07:35 | Outpatient (CLI) | payer OTHER, MEDICAID, SELFPAY ==
--- NOTE | 2020-02-04 | DI.MRI.S_ITS ---
PROCEDURE: MR CERVICAL SPINE WO/W CON INDICATIONS: Cervicalgia TECHNIQUE: Noncontrast sagittal T1 spin echo and T2 fast spin echo, sagittal STIR, foraminal oblique sagittal T2 fast spin echo, axial gradient echo or T2 fast spin echo through the cervical spine. After the administration of contrast, axial and sagittal T1 spin echo with fat saturation through the cervical spine. COMPARISON: [facility], MR, MR HEAD/BRAIN WO/W CON, 01/28/2020, 7:56. FINDINGS: Image quality: Excellent. Alignment and curvature: There is straightening of normal cervical curvature. There is trace retrolisthesis of C5 on C6. Marrow: Marrow is normal in overall signal, without suspicious enhancement. Spinal cord: Visualized spinal cord has normal size and signal. No cerebellar tonsillar herniation. No abnormal intramedullary enhancement. Paraspinous soft tissues: No paravertebral masses or suspicious enhancement. Discs: Moderate to severe desiccation is present of the cervical spine most severe at C5-6. C2-3: No disc bulge, spinal stenosis or foraminal narrowing. C3-4: Minimal disc bulge without spinal stenosis. Moderate left and mild to moderate right foraminal narrowing with uncovertebral hypertrophy. C4-5: Mild disc bulge without spinal stenosis. Mild left and minimal right foraminal narrowing with uncovertebral hypertrophy. C5-6: Mild disc bulge with moderate spinal stenosis. Moderate to severe right and moderate left foraminal narrowing with uncovertebral hypertrophy. C6-7: Minimal disc bulge without spinal stenosis. Minimal bilateral foraminal narrowing with uncovertebral hypertrophy. C7-T1: No disc bulge, spinal stenosis or foraminal narrowing. IMPRESSION: 1. Multilevel degenerative changes as above. 2. Multilevel foraminal narrowing most severe at C3-4 and C5-6 secondary to uncovertebral arthropathy. Dictated by: Grace Cruz M.D. on 02/04/2020 at 14:15 Approved by: Grace Cruz M.D. on 02/04/2020 at 14:20
== END ==
PROVIDERS: Referring Provider Internal Medicine; Visit Provider Internal Medicine
DX: M54.2 Cervicalgia (principal); M47.812 Spondylosis without myelopathy or radiculopathy, cervical region; M48.02 Spinal stenosis, cervical region
CPT/HCPCS: 72156

== ENCOUNTER → 2020-02-16 08:45 | Outpatient (CLI) | payer OTHER, MEDICAID, SELFPAY | PROVIDERS: PCP Internal Medicine; Referring Provider Internal Medicine; Visit Provider Internal Medicine | DX: M79.601 Pain in right arm (principal) ==

== ENCOUNTER 2020-02-16 09:12 | Emergency (ER) | payer OTHER, MEDICAID, SELFPAY ==
[2020-02-16] VITALS (8 sets, daily range): BP systolic 133–193; BP diastolic 82–110; PULSE 59–69; RESP 13–42; TEMP 37.1; O2SAT 94–99; BMI 34.3
--- NOTE | 2020-02-16 09:21 | ED.SOB ---
HPI - SOB/Dyspnea General Chief Complaint: Shortness of Breath/Dyspnea Stated Complaint: SOB was having MRI couldn't breath Time Seen by Provider: 02/16/20 09:21 Source: patient Mode of arrival: Ambulatory History of Present Illness HPI Narrative: 59-year-old female former smoker with extensive medical history including hypothyroid, hypertension, hyperlipidemia and cardiac disease presents with a chief complaint of upwards of 3 days of difficulty breathing. She has had no fever or chills, runny nose or sore throat. She has had a mild cough and is developing some discomfort with radiation to her back. She denies any exertional change. She is not dizzy nor weak or lightheaded. She was having a previously scheduled MRI for evaluation of chronic right shoulder pain and was too short of breath to complete the exam, she then presented to us for evaluation. She has had multiple MRI's in the past and has not had trouble with any contrast or trouble with tight spaces. MD Complaint: shortness of breath and cough Onset (ago): day(s) Severity: mild Relieving factors: nothing Exacerbating factors: nothing Associated symptoms: chest pain, cough and wheezing Related Data Home oxygen amount: none Home Medications Medication Instructions Recorded Confirmed esomeprazole magnesium 20 mg PO QPM 04/05/19 04/05/19 levothyroxine 100 mcg PO DAILY 04/05/19 08/02/19 losartan 50 mg PO DAILY 04/05/19 08/02/19 aspirin 81 mg PO DAILY 08/02/19 08/02/19 atorvastatin 40 mg PO DAILY 08/02/19 08/02/19 clopidogrel 75 mg PO DAILY 08/02/19 08/02/19 metoprolol succinate 25 mg PO BID 08/02/19 Allergies Allergy/AdvReac Type Severity Reaction Status Date / Time diphenhydramine Allergy Severe Difficulty Verified 02/16/20 09:28 [From Benadryl] Breathing ibuprofen Allergy Severe Difficulty Verified 02/16/20 09:28 Breathing Estrogens Allergy Verified 02/16/20 09:28 Review of Systems Constitutional Constitutional: Denies chills, Denies fatigue, Denies fever(s), Denies frequent falls, Denies lethargy and Denies weakness Eyes Eyes: Denies change in vision, Denies eye discharge, Denies irritation and Denies loss of vision ENT Ears, Nose, Mouth, and Throat: Denies change in voice, Denies dizziness, Denies neck pain, Denies sore throat and Denies throat swelling Cardiovascular Cardiovascular: Reports chest pain, Denies irregular heart rhythm, Denies lightheadedness, Denies palpitations, Reports dyspnea, Denies dyspnea on exertion and Denies orthopnea Respiratory Respiratory: Reports cough, Reports dyspnea, Denies dyspnea on exertion and Denies wheezing Gastrointestinal Gastrointestinal: Denies abdominal pain, Denies change in bowel habits, Denies diarrhea, Denies nausea and Denies vomiting Musculoskeletal Musculoskeletal: Denies neck pain and Denies numbness Integumentary/Breasts Skin/Breast: Denies pruritus, Denies erythema, Denies rash and Denies wounds Neurologic Neurologic: Denies behavioral changes, Denies confusion, Denies dizziness, Denies frequent falls, Denies loss of vision, Denies numbness and Denies weakness Psychiatric Psychiatric: Denies anxiety, Denies behavioral changes, Denies confusion, Denies depression, Denies homicidal ideation and Denies suicidal ideation Endocrine Endocrine: Denies fatigue, Denies flushing and Denies palpitations Hematologic/Lymphatic Hematologic/Lymphatic: Denies easy bruising Allergic/Immunologic Allergic/Immunologic: Denies urticaria, Denies throat swelling and Denies wheezing Patient History Medical History GERD (gastroesophageal reflux disease) (Acute) Hyperlipidemia (Acute) Hypertension (Acute) Hypothyroidism (Acute) Non-ST elevation NM (NSTEMI) (Inactive) Surgical History Status post appendectomy (Acute) Status post cholecystectomy (Acute) Status post hernia repair (Acute) Status post hysterectomy (Acute) Social History marital status: Smoking Status: Former smoker alcohol intake: never substance use type: does not use Smoking Status: Former smoker alcohol intake frequency: a few times a month Substance Use Type: does not use Exam Narrative Exam Narrative: GENERAL: [59] year old patient appears stated age. Well-nourished, well-developed patient, in mild distress. HEAD: Atraumatic. Normocephalic. EYES: Pupils equal round and reactive. Extraocular motions intact. No scleral icterus. No injection or drainage. ENT: Nose without bleeding, purulent drainage. Throat without erythema, tonsillar hypertrophy or exudate. Airway patent. NECK: Trachea midline. Non tender CARDIOVASCULAR: Regular rate and rhythm without murmurs, gallops, or rubs. RESPIRATORY: Decreased breath sounds bilaterally with prolonged expiratory phase and mild expiratory wheeze in all membreno GASTROINTESTINAL: Abdomen soft, non-tender, nondistended. EXTREMITIES: No edema or joint tenderness. BACK: Nontender without deformity or crepitance. No flank tenderness. NEURO: AOx3. SKIN: No rash or erythema of visible areas Initial Vital Signs Initial Vital Signs: Vital Signs Temperature 98.8 F 02/16/20 09:22 Pulse Rate 69 02/16/20 09:22 Respiratory Rate 18 02/16/20 09:22 Blood Pressure 193/110 H 02/16/20 09:22 Pulse Oximetry 95 02/16/20 09:22 Course Orders Ordered: ED Orders 02/16/20 09:26 Consult to Respiratory Therapy Evaluate & Treat EKG-12 Lead Stat 02/16/20 09:28 XR chest 1V Stat 02/16/20 09:40 Basic Metabolic Panel Stat Complete Blood Count AUTO DIFF Stat D Dimer Stat Lactate (Lactic Acid) Stat Magnesium Stat NT-proBNP (BNP-Adult 18+) Stat Procalcitonin Stat Troponin & CK Cardiac Panel Stat 02/16/20 10:29 Urine Microscopic Stat Sodium Chloride (Normal Saline 0.9%) 1,000 mls @ 150 mls/hr IV CONT SYLVIE Last Admin: 02/16/20 09:58 Dose: 150 mls/hr Documented by: [email or web address] Discontinued Medications Albuterol (Ventolin Hfa) 2 puff INH NOW ONE Stop: 02/16/20 11:11 Last Admin: 02/16/20 11:14 Dose: 2 puff Documented by: JAQUELINE Albuterol/Ipratropium (Duoneb) 3 ml INH NOW ONE Stop: 02/16/20 09:27 Last Admin: 02/16/20 09:45 Dose: 3 ml Documented by: JAQUELINE Vital Signs Vital signs: Vital Signs - 8 hr 02/16/20 09:22 02/16/20 09:32 02/16/20 09:35 Temperature 98.8 F Pulse Rate 69 66 62 Respiratory Rate 18 42 H 13 Blood Pressure 193/110 H 133/86 Pulse Oximetry 95 98 02/16/20 09:48 02/16/20 09:59 02/16/20 10:06 Temperature Pulse Rate 59 L 68 Respiratory Rate 17 Blood Pressure 134/83 Pulse Oximetry 99 96 94 02/16/20 10:30 02/16/20 10:32 Temperature Pulse Rate 62 62 Respiratory Rate 25 H 20 Blood Pressure 141/82 H Pulse Oximetry 94 97 MDM - SOB/Dyspnea Lab Data Result diagrams: 02/16/20 09:40 02/16/20 09:40 Labs: Lab Results 02/16/20 02/16/20 02/16/20 Range/Units 09:40 09:40 09:40 WBC 6.0 (4.5-11.0) X10^3/uL RBC 4.21 (4.0-5.2) X10^6/uL Hgb 13.0 (12.0-16.0) g/dL Hct 38.8 (36-46) % MCV 92.0 (80-100) fL MCH 30.8 (26-34) PG MCHC 33.5 (30-36) % RDW 13.1 (11.6-14.8) % Plt Count 261 (150-400) X10^3/uL Neut % (Auto) 53.7 (50-75) % Lymph % (Auto) 28.2 (25-40) % [place] % (Auto) 11.8 (3-14) % Eos % (Auto) 5.6 H (2-4) % Baso % (Auto) 0.7 (0-2) % Neut # (Auto) 3200 (5325-9318) /uL Lymph # (Auto) 1700 (9398-1104) /uL [place] # (Auto) 700 (0-900) /uL Eos # (Auto) 300 (0-450) /uL Baso # (Auto) 0 (0-100) /uL D-Dimer < 200 (<230) ng/mL Sodium 140 (137-145) mmol/L Potassium 4.1 (3.4-5.1) mmol/L Chloride 105 (98-107) mmol/L Carbon Dioxide 28 (22-32) mmol/L BUN 13 (7-17) mg/dL Creatinine 0.52 (0.52-1.04) mg/dL Estimated GFR > 60.0 (>60) mL/min BUN/Creatinine Ratio 25.0 H (6-22) Glucose 166 H (80-110) mg/dL Lactate (0.7-2.1) mmol/L Calcium 9.7 (8.4-10.2) mg/dL Magnesium 2.0 (1.6-2.3) mg/dL Total Creatine Kinase 99 (30-135) U/L CK-MB (CK-2) TNP CK-MB (CK-2) Rel Index TNP Troponin I < 0.012 (0.01-0.034) ng/mL NT-Pro-B Natriuret Pep 80 (<125) pg/mL Procalcitonin (<0.5) ng/mL Urine RBC (0-5/HPF) Urine WBC (0-5/HPF) Urine Bacteria (None) Ur Culture Indicated? 02/16/20 02/16/20 02/16/20 Range/Units 09:40 09:40 10:29 WBC (4.5-11.0) X10^3/uL RBC (4.0-5.2) X10^6/uL Hgb (12.0-16.0) g/dL Hct (36-46) % MCV (80-100) fL MCH (26-34) PG MCHC (30-36) % RDW (11.6-14.8) % Plt Count (150-400) X10^3/uL Neut % (Auto) (50-75) % Lymph % (Auto) (25-40) % [place] % (Auto) (3-14) % Eos % (Auto) (2-4) % Baso % (Auto) (0-2) % Neut # (Auto) (7724-7640) /uL Lymph # (Auto) (8104-0669) /uL [place] # (Auto) (0-900) /uL Eos # (Auto) (0-450) /uL Baso # (Auto) (0-100) /uL D-Dimer (<230) ng/mL Sodium (137-145) mmol/L Potassium (3.4-5.1) mmol/L Chloride (98-107) mmol/L Carbon Dioxide (22-32) mmol/L BUN (7-17) mg/dL Creatinine (0.52-1.04) mg/dL Estimated GFR (>60) mL/min BUN/Creatinine Ratio (6-22) Glucose (80-110) mg/dL Lactate 1.4 (0.7-2.1) mmol/L Calcium (8.4-10.2) mg/dL Magnesium (1.6-2.3) mg/dL Total Creatine Kinase (30-135) U/L CK-MB (CK-2) CK-MB (CK-2) Rel Index Troponin I (0.01-0.034) ng/mL NT-Pro-B Natriuret Pep (<125) pg/mL Procalcitonin < 0.05 (<0.5) ng/mL Urine RBC 0-1/hpf (0-5/HPF) Urine WBC None seen (0-5/HPF) Urine Bacteria None seen (None) Ur Culture Indicated? Cult not indicated Urine Dip Bedside Urine Glucose Negative Bedside Urine Bilirubin - Negative Bedside Urine Ketone - Negative Urine Specific Armstrong 1.005 Bedside Urine Occult Blood - Negative Bedside Urine pH 6.0 Bedside Urine Protein - Negative Bedside Urine Urobilinogen - Negative Bedside Urine Nitrite - Negative Bedside Urine Leukocytes - Negative Esterase ECG Data Attestation: I personally reviewed and interpreted this ECG as follows: Prior ECG tracings: available for review Interpretation: EKG is normal sinus rhythm rate [ 61] and free of any signs of ischemia or ectopy. No ST segmental elevation or depression. No T wave inversions MDM Narrative Medical decision making narrative: Multiple etiologies for patient's symptoms considered including: [Aspiration pneumonia versus bacterial pneumonia versus reactive airway disease versus cardiac disease versus pulmonary embolism versus heart failure versus other] Patient's symptoms improved or duration of stay with above-stated therapies. Findings and discharge diagnosis discussed with patient/family followed by verbalization of understanding Return precautions discussed with patient/family whom verbalize understanding. Discharge Plan Departure Patient Disposition: Home Clinical Impression: Wheeze Instructions: DI for Shortness of Breath Activity Restrictions/Additional Instructions: *You have been diagnosed with [shortness of breath. You were evaluated for heart attack, heart failure, pneumonia, blood clot and others. All of our evaluations were very reassuring.] *What to do: *Take medications as directed *Follow up with your primary care provider in 2-3 days, call for an appointment. Let them know you were seen in the Emergency Department and that we ask that you be seen in follow up *Return to ER if you should have any new, worsening or concerning symptoms Prescriptions: No Action losartan 50 mg tablet 50 mg PO DAILY RF: 0 levothyroxine 100 mcg Tablet 100 mcg PO DAILY RF: 0 esomeprazole magnesium 20 mg Tablet,Delayed Release (Dr/Ec) 20 mg PO QPM RF: 0 atorvastatin 40 mg tablet 40 mg PO DAILY RF: 0 clopidogrel 75 mg tablet 75 mg PO DAILY RF: 0 aspirin 81 mg tablet,chewable 81 mg PO DAILY RF: 0 metoprolol succinate 25 mg tablet extended release 24 hr 25 mg PO BID RF: 0 Referrals: Tianna Larkin MD [Primary Care Provider] -
--- NOTE | 2020-02-16 09:28 | DI.RAD.S_ITS ---
PROCEDURE: XR CHEST 1V INDICATIONS: SOB TECHNIQUE: One view of the chest was acquired. COMPARISON: [facility], CR, XR CHEST 1V, 01/06/2020, 21:44. FINDINGS: Surgical changes and devices: None. Lungs and pleura: Lungs are clear. No pleural effusions or pneumothorax. Mediastinum: Mediastinal contours appear normal. Heart size is normal. Bones and chest wall: No suspicious bony lesions. Overlying soft tissues appear unremarkable. IMPRESSION: No acute cardiopulmonary process is evident. Dictated by: Devan Pierre M.D. on 02/16/2020 at 9:05 Approved by: Devan Pierre M.D. on 02/16/2020 at 9:10
[2020-02-16] MEDS: ALBUTEROL/IPRATROPIUM 3 ML AMPUL INH (09:45)
[2020-02-16 09:55] LABS: Add Manual Diff / Slide Review NO; Basophils Absolute Auto 0 /uL (0-100); Basophils Percent Auto 0.7 % (0-2); Eosinophils Absolute Auto 300 /uL (0-450); Eosinophils Percent Auto 5.6 % (2-4); Hematocrit 38.8 % (36-46); Lymphocytes Absolute Auto 1700 /uL (1100-4500); Lymphocytes Percent Auto 28.2 % (25-40); Mean Corpuscular HGB Conc 33.5 % (30-36); Mean Corpuscular Hemoglobin 30.8 PG (26-34); Monocytes Absolute Auto 700 /uL (0-900); Monocytes Percent Auto 11.8 % (3-14); Neutrophils Absolute Auto 3200 /uL (1500-7000); Neutrophils Percent Auto 53.7 % (50-75); Platelet Count 261 X10^3/uL (150-400); Red Blood Cell Count 4.21 X10^6/uL (4.0-5.2); Red Cell Distribution Width 13.1 % (11.6-14.8)
[2020-02-16] MEDS: SODIUM CHLORIDE 0.9% 1,000 ML 150 ML IV (09:58)
[2020-02-16 10:10] LABS: Lactate (Lactic Acid) 1.4 mmol/L (0.7-2.1)
[2020-02-16 10:11] LABS: Blood Urea Nitrogen 13 mg/dL (7-17); Calcium 9.7 mg/dL (8.4-10.2); Carbon Dioxide 28 mmol/L (22-32); Chloride 105 mmol/L (98-107); Creatine Kinase 99 U/L (30-135); D Dimer < 200 ng/mL (<230); Estimated Glomerular Filt Rate > 60.0 mL/min (>60); Glucose 166 mg/dL (80-110); HEMOLYSIS < 15 (0-50); Potassium 4.1 mmol/L (3.4-5.1); Sodium 140 mmol/L (137-145)
[2020-02-16 10:23] LABS: NT-proBNP (BNP-Adult 18+) 80 pg/mL (<125); Troponin I < 0.012 ng/mL (0.01-0.034)
[2020-02-16 10:27] LABS: Procalcitonin < 0.05 ng/mL (<0.5)
[2020-02-16 10:31] LABS: Bacteria Urine None Seen; WBC Urine None Seen (0-5/HPF)
[2020-02-16 10:39] LABS: RBC Urine 0-1/HPF (0-5/HPF)
[2020-02-16 10:40] LABS: Culture Indicated Urine Cult Not Indicated
[2020-02-16] MEDS: ALBUTEROL HFA 60 PUFF/8 GM INH INH (11:14)
== END 2020-02-16 11:10 | disposition home or self-care (01) ==
PROVIDERS: Emergency Provider Emergency Medicine; PCP Internal Medicine
DX: R06.2 Wheezing (principal); R05 Cough; R07.9 Chest pain, unspecified
CPT/HCPCS: 36415; 71045; 80048; 81003; 81015; 82550; 83605; 83735; 83880; 84145; 84484; 85025; 85379; 93005; 93010; 94640; 96360; 99284

== ENCOUNTER → 2020-02-22 06:37 | Outpatient (CLI) | payer OTHER, MEDICAID, SELFPAY ==
--- NOTE | 2020-02-22 | DI.MRI.S_ITS ---
PROCEDURE: MR HUMERUS RT WO CON INDICATIONS: RIGHT UPPER EXTREMITY PAIN TECHNIQUE: Noncontrast coronal and sagittal T1 spin echo and STIR; axial T1 spin echo and T2 fast spin echo with fat saturation through the right humerus. COMPARISON: None. FINDINGS: Image quality: Excellent. Bones: There is no acute trabecular bone injury. An 8 mm T2 hyperintense lesion in the humeral head is compatible with a benign enchondroma. No aggressive osseous lesion is identified. A moderate joint effusion is noted in the elbow, although this area is only partially imaged at the margins of the field of view of this exam. A small subacromial/subdeltoid effusion is present in the shoulder, better evaluated on the dedicated shoulder MRI performed on the same day. Soft tissues: A circumscribed fatty mass is seen in the subcutaneous tissues superficial to the lateral margin of the scapula measuring up to 2.7 x 1.5 x 4.2 cm without suspicious soft tissue components or thick septations. The scanned muscles demonstrate normal overall bulk and internal signal without signs of acute or chronic denervation injury. IMPRESSION: 1. Circumscribed benign lipoma measuring at 2.7 x 1.5 x 4.2 cm in the subcutaneous tissues overlying the lateral margin of the scapula. 2. Moderate elbow joint effusion is partially imaged at the margins of the field of view of this exam. No definite acute trabecular bone injury is seen. However, further evaluation may be obtained with elbow radiographs and/or MRI if indicated depending on the clinical scenario. 3. Small subacromial/subdeltoid effusion in the shoulder is better evaluated on the dedicated shoulder MRI performed on the same day. Dictated by: Jason Jolley M.D. on 02/22/2020 at 8:58 Approved by: Jason Jolley M.D. on 02/22/2020 at 9:10
--- NOTE | 2020-02-22 | DI.MRI.S_ITS ---
PROCEDURE: MR SHOULDER RT WO CON INDICATIONS: RIGHT UPPER EXTREMITY PAIN TECHNIQUE: Noncontrast oblique coronal T2 fast spin echo with fat saturation, oblique sagittal T1 spin echo and T2 fast spin echo with fat saturation, axial T1 spin echo and T2 fast spin echo with fat saturation through the shoulder. COMPARISON: Right shoulder radiographs dated 01/31/2020 performed at [facility]. FINDINGS: Image quality: Excellent. Rotator cuff: There is full-thickness tearing of the supraspinatus tendon at the posterior footprint measuring 4 mm in anterior-posterior dimension without significant retraction of torn tendon fibers. There is mild supraspinatus and infraspinatus tendinosis. The teres minor tendon is intact. The subscapularis tendon demonstrates mild tendinosis. There is no significant rotator cuff muscle atrophy. Bones and bursae: There is no acute trabecular bone injury. An 8 mm [id number] lesion in the humeral head is compatible with a benign enchondroma. Mild osteophytic spurring is seen in the glenoid rim. [id number] acromioclavicular joint degenerative changes. The acromion demonstrates conventional anatomy, without an os acromiale. Small subacromial/subdeltoid bursal effusion is likely secondary to communication with the glenohumeral joint through the full-thickness rotator cuff tendon tear. Capsule and soft tissues: In the absence of intra-articular contrast, the labrum and glenohumeral ligaments appear intact. The long head of the biceps tendon demonstrates normal location and morphology. There is mild partial effacement of the fat in the rotator interval, which is nonspecific. The glenohumeral ligaments are normal in thickness. No signs of denervation injury are present in the shoulder. IMPRESSION: 1. Full thickness, partial width tear of the supraspinatus tendon at the posterior footprint measuring 4 mm in anterior-posterior dimension. 2. Mild rotator cuff tendinosis involving the supraspinatus, infraspinatus, and subscapularis tendons. 3. Mild to moderate acromioclavicular joint osteoarthrosis. 4. Small subacromial/subdeltoid bursal effusion is likely secondary to communication with the glenohumeral joint space. Dictated by: Jason Jolley M.D. on 02/22/2020 at 8:49 Approved by: Jason Jolley M.D. on 02/22/2020 at 8:58
--- NOTE | 2020-02-22 | DI.MRI.S_ITS ---
PROCEDURE: MR BRACHIAL PLEXUS WITHOUT CON COMPARISON: [facility], MR, MR HUMERUS RT WO CON, 02/22/2020, 7:59. [facility], MR, MR SHOULDER RT WO CON, 02/22/2020, 7:15. [facility], MR, MR CERVICAL SPINE WO/W CON, 02/04/2020, 8:03. INDICATIONS: RIGHT UPPER EXT PAIN FINDINGS: The following imaging sequences were obtained: Axial T2 weighted images through both brachial plexus as well as T1 weighted and STIR images through the right branchial plexus. Mild motion artifact is seen. Scrutiny is given to the right brachial plexus. To the limits of this noncontrast study, no masses or abnormal enhancement can be seen along the course of either brachial plexus. No soft tissue masses are detected. A lipoma can be seen adjacent to the right inferior scapula on the accompanying humerus MRI. This is not well seen on the current study. The visualized lung apices are within normal limits. Mild cardiomegaly is seen. No frankly enlarged axillary lymph nodes are seen. The visualized bones demonstrate age-appropriate degenerative change. There is straightening of the normal cervical lordosis. At C5-C6, there is mild loss of disc height seen, with a central disc osteophyte protrusion with moderate central canal narrowing. IMPRESSION: No haseeb right brachial plexus abnormality is seen to explain the patient's presenting symptoms. Focal C5-C6 degenerative change is seen, which is better demonstrated on the prior dedicated cervical spine MRI. Dictated by: Lizandro Robles M.D. on 02/22/2020 at 10:47 Approved by: Lizandro Robles M.D. on 02/22/2020 at 10:53
== END ==
PROVIDERS: PCP Internal Medicine; Referring Provider Internal Medicine; Visit Provider Internal Medicine
DX: M79.601 Pain in right arm (principal); M75.121 Complete rotator cuff tear or rupture of right shoulder, not specified as traumatic; M19.011 Primary osteoarthritis, right shoulder; D17.1 Benign lipomatous neoplasm of skin and subcutaneous tissue of trunk; M25.421 Effusion, right elbow; M25.411 Effusion, right shoulder; M47.812 Spondylosis without myelopathy or radiculopathy, cervical region
CPT/HCPCS: 71550; 73218; 73221

== ENCOUNTER → 2020-04-16 11:49 | Outpatient (CLI) | payer OTHER, MEDICAID, SELFPAY ==
[2020-04-16 12:18] LABS: Add Manual Diff / Slide Review NO; Basophils Absolute Auto 100 /uL (0-100); Basophils Percent Auto 1.1 % (0-2); Eosinophils Absolute Auto 300 /uL (0-450); Eosinophils Percent Auto 2.8 % (2-4); Hematocrit 37.5 % (36-46); Hemoglobin 12.9 g/dL (12.0-16.0); Lymphocytes Absolute Auto 2200 /uL (1100-4500); Lymphocytes Percent Auto 21.7 % (25-40); Mean Corpuscular HGB Conc 34.4 % (30-36); Mean Corpuscular Hemoglobin 30.7 PG (26-34); Monocytes Absolute Auto 800 /uL (0-900); Neutrophils Absolute Auto 6900 /uL (1500-7000); Neutrophils Percent Auto 66.4 % (50-75); Platelet Count 262 X10^3/uL (150-400); Red Blood Cell Count 4.22 X10^6/uL (4.0-5.2); Red Cell Distribution Width 12.9 % (11.6-14.8); White Blood Cell Count 10.3 X10^3/uL (4.5-11.0)
[2020-04-16 12:26] LABS: Prothrombin Time 11.1 SECONDS (10.1-12.7)
[2020-04-16 12:31] LABS: Hemoglobin A1C% w Est Avg Glu 6.1 % (4.0-6.0)
[2020-04-16 12:47] LABS: Alanine Aminotransferase 33 IU/L (<35); Albumin 4.1 g/dL (3.5-5.0); Albumin Globulin Ratio 1.5 (1.0-2.8); Alkaline Phosphatase 81 U/L (38-126); Aspartate Aminotransferase 25 IU/L (14-36); BUN Creatinine Ratio 15.8 (6-22); Bilirubin Total 0.3 mg/dL (0.2-1.3); Blood Urea Nitrogen 9 mg/dL (7-17); Calcium 9.4 mg/dL (8.4-10.2); Carbon Dioxide 30 mmol/L (22-32); Chloride 104 mmol/L (98-107); Cholesterol 151 mg/dL (140-199); Estimated Glomerular Filt Rate > 60.0 mL/min (>60); Globulin 2.8 g/dL (1.7-4.1); Glucose 164 mg/dL (80-110); HDL Cholesterol 50 mg/dL (40-60); HEMOLYSIS < 15 (0-50); LDL Cholesterol Calculated 57 mg/dL (<100); Sodium 138 mmol/L (137-145); Total Protein 6.9 g/dL (6.3-8.2); Triglycerides 220 mg/dL (35-150)
[2020-04-16 13:09] LABS: Thyroid Stimulating Hormone 0.945 uIU/mL (0.47-4.68)
== END ==
PROVIDERS: PCP Nurse Practitioner Family; Referring Provider Nurse Practitioner Family; Visit Provider Nurse Practitioner Family
DX: G50.0 Trigeminal neuralgia (principal); Z98.890 Other specified postprocedural states; E78.5 Hyperlipidemia, unspecified; E03.9 Hypothyroidism, unspecified
CPT/HCPCS: 36415; 80053; 80061; 83036; 84443; 85025; 85610; 93005

== ENCOUNTER → 2020-04-22 09:53 | Outpatient (CLI) | payer OTHER, MEDICAID, SELFPAY | PROVIDERS: PCP Nurse Practitioner Family; Visit Provider Nurse Practitioner Family | DX: Z01.818 Encounter for other preprocedural examination (principal) | CPT/HCPCS: 87070; 87147; 87205; 87797 ==

== ENCOUNTER 2020-05-26 12:46 | Emergency (ER) | payer OTHER, MEDICAID, SELFPAY ==
[2020-05-26 12:48] VITALS: BP 182/102; PULSE 64; RESP 18; TEMP 36.5; O2SAT 100
--- NOTE | 2020-05-26 13:07 | DI.CT.S_ITS ---
PROCEDURE: CT HEAD/BRAIN WO CON INDICATIONS: headache TECHNIQUE: Noncontrast 4.5 mm thick angled axial sections acquired from the foramen magnum to the vertex, with coronal and sagittal reformats. For radiation dose reduction, the following was used: automated exposure control, adjustment of mA and/or kV according to patient size. COMPARISON: [facility], CT, CT HEAD/BRAIN WO CON, 03/25/2019, 9:01. FINDINGS: Image quality: Excellent. CSF spaces: Basal cisterns are patent. No extra-axial fluid collections. The ventricles are symmetric in size and shape. Brain: No intracranial bleeds or masses. There is cerebral volume loss for age, with resultant ventricular and sulcal prominence. There are periventricular and deep white matter chronic small vessel ischemic changes. There is intracranial internal carotid artery atherosclerosis. Skull and face: Calvarium and visualized facial bones appear intact, without suspicious lesions. Sinuses: Visualized sinuses and mastoids are clear. IMPRESSION: 1. No CT evidence of acute intracranial pathology. 2. No significant changes from previous study. Dictated by: Tone Hutchins M.D. on 05/26/2020 at 12:31 Approved by: Tone Hutchins M.D. on 05/26/2020 at 12:32
[2020-05-26 13:36] LABS: Add Manual Diff / Slide Review NO; Basophils Absolute Auto 100 /uL (0-100); Basophils Percent Auto 0.9 % (0-2); Eosinophils Absolute Auto 200 /uL (0-450); Hematocrit 36.5 % (36-46); Hemoglobin 12.7 g/dL (12.0-16.0); Lymphocytes Absolute Auto 2500 /uL (1100-4500); Lymphocytes Percent Auto 34.6 % (25-40); Mean Corpuscular HGB Conc 34.9 % (30-36); Mean Corpuscular Hemoglobin 30.7 PG (26-34); Mean Corpuscular Volume 87.9 fL (80-100); Monocytes Absolute Auto 900 /uL (0-900); Monocytes Percent Auto 11.8 % (3-14); Neutrophils Absolute Auto 3600 /uL (1500-7000); Neutrophils Percent Auto 49.7 % (50-75); Platelet Count 264 X10^3/uL (150-400); Red Blood Cell Count 4.15 X10^6/uL (4.0-5.2); Red Cell Distribution Width 13.3 % (11.6-14.8); White Blood Cell Count 7.2 X10^3/uL (4.5-11.0)
[2020-05-26 13:46] LABS: INR 0.9 (0.9-1.3); Prothrombin Time 10.4 SECONDS (10.1-12.7)
--- NOTE | 2020-05-26 13:48 | ED_ITS ---
HPI - Headache General Chief Complaint: Headache Stated Complaint: headache Time Seen by Provider: 05/26/20 13:28 Source: patient Mode of arrival: Ambulatory Limitations: no limitations History of Present Illness HPI Narrative: 59-year-old female approximately 1 month ago underwent a neuro surgical procedure to help with right-sided trigeminal neuralgia. She states that the symptoms that she was having on the right side of her face have improved somewhat since that procedure however approximately 3 days ago she started to have a frontal headache. She states that it started when she woke up 3 days ago. Has been continuous since then. Took an oxycodone at home without any improvement of symptoms. Also is complaining of a ?whooshing? sensation in her right ear. She did take an oxycodone at home without any improvement. Related Data Home Medications Medication Instructions Recorded Confirmed esomeprazole magnesium 20 mg PO QPM 04/05/19 05/15/20 levothyroxine 100 mcg PO DAILY 04/05/19 05/15/20 atorvastatin 40 mg PO DAILY 08/02/19 05/15/20 metoprolol succinate 25 mg PO BID 08/02/19 05/15/20 gabapentin 300 mg capsule 600 mg PO Q4H cap 03/20/20 05/15/20 oxycodone PO 05/09/20 05/15/20 Previous Rx's Medication Instructions Recorded varicella-zoster [id number] (PF) 50 50 mcg IM ONCE #1 each 03/20/20 mcg/0.5 mL IM susp, kit baclofen 10 mg tablet 10 mg PO BID #60 tab 03/25/20 ketoconazole 2 % topical cream 1 applictn TOP BID #30 gram 04/16/20 losartan 50 mg tablet 50 mg PO DAILY #90 tab 04/21/20 albuterol sulfate 90 mcg/actuation 2 puff INHALATION Q4-6H PRN #8.5 04/22/20 aerosol inhaler gram hydrocodone-acetaminophen [[place]] 1 tab PO Q4-6H PRN #10 tab 05/26/20 Allergies Allergy/AdvReac Type Severity Reaction Status Date / Time diphenhydramine Allergy Severe Difficulty Verified 05/26/20 12:52 [From Benadryl] Breathing ibuprofen Allergy Severe Difficulty Verified 05/26/20 12:52 Breathing oxycodone Allergy Severe Hallucinati Verified 05/26/20 12:52 ng Estrogens Allergy Verified 05/26/20 12:52 Review of Systems Constitutional Constitutional: Denies fatigue, Denies fever(s) and Reports headache(s) Eyes Eyes: Denies blurry vision and Denies change in vision Comments: Photophobia ENT Ears, Nose, Mouth, and Throat: Denies vertigo, Denies dizziness and Reports headache(s) Cardiovascular Cardiovascular: Denies chest pain and Denies dyspnea Respiratory Respiratory: Denies dyspnea Gastrointestinal Gastrointestinal: Denies abdominal pain, Denies nausea and Denies vomiting Musculoskeletal Musculoskeletal: Denies arthralgias and Denies myalgias Integumentary/Breasts Skin/Breast: Denies lesions and Denies rash Neurologic Neurologic: Denies behavioral changes, Denies vertigo, Denies dizziness and Reports headache(s) Psychiatric Psychiatric: Denies behavioral changes Endocrine Endocrine: Denies fatigue Hematologic/Lymphatic Hematologic/Lymphatic: Denies easy bleeding and Denies easy bruising Patient History Medical History Candidal intertrigo (Acute) Cervical stenosis of spine (Acute) Encounter for removal of sutures (Acute) GERD (gastroesophageal reflux disease) (Acute) Hyperlipidemia (Acute) Hypertension (Acute) Hypothyroidism (Acute) Non-ST elevation MS (NSTEMI) (Inactive) Prediabetes (Acute 04/2020) Preoperative clearance (Acute) Surgical follow-up care (Acute) Tear of right supraspinatus tendon (Acute) Trigeminal neuralgia (Acute) Surgical History Status post appendectomy (Acute) Status post cholecystectomy (Acute) Status post hernia repair (Acute) Status post hysterectomy (Acute) Social History marital status: Smoking Status: Former smoker alcohol intake: never substance use type: does not use Smoking Status: Former smoker alcohol intake frequency: a few times a month Substance Use Type: does not use Exam Initial Vital Signs Initial Vital Signs: Vital Signs Temperature 97.7 F 05/26/20 12:48 Pulse Rate 64 05/26/20 12:48 Respiratory Rate 18 05/26/20 12:48 Blood Pressure 182/102 H 05/26/20 12:48 Pulse Oximetry 100 05/26/20 12:48 Const General: cooperative and comfortable Limitations: mental status not altered HENMT Head: normal to inspection and normocephalic Ears: TM's normal bilaterally Nose: external nose normal Face and sinus: normal facial exam Mouth: oral mucosae normal Resp Effort & Inspection: normal respiratory effort Auscultation: clear to auscultation bilaterally Cardio Rate: regular rate Rhythm: regular rhythm GI Inspection: non-distended Palpation: soft Skin Lesions: no lesions Rashes: no rashes Neuro General: patient alert and patient awake Cranial Nerves: CN's II-XI intact bilaterally Cognition: normal cognition Speech: speech normal Extrem General: normal to inspection and capillary refill normal Psych Appearance: grossly normal and well kempt Scores GCS [place] coma scale eye opening: Spontaneous [place] coma scale verbal response: Orientated [place] coma scale motor response: Obey commands [place] coma scale total score: 15 Course Orders Ordered: ED Orders 05/26/20 13:07 CT head/brain wo con Stat 05/26/20 13:20 Complete Blood Count AUTO DIFF Stat Comprehensive Metabolic Panel Stat Partial Thromboplastin Time Stat Prothrombin Time INR Stat Troponin & CK Cardiac Panel Stat 05/26/20 14:45 EKG-12 Lead Stat Discontinued Medications Hydrocodone Bitart/Acetaminophen ([place] 10/325) 1 tab PO NOW ONE Stop: 05/26/20 13:49 Last Admin: 05/26/20 14:00 Dose: 1 tab Documented by: SHERRELL Morphine Sulfate (Morphine) 4 mg IV NOW ONE Stop: 05/26/20 14:48 Last Admin: 05/26/20 15:25 Dose: 4 mg Documented by: SHERRELL Ondansetron HCl (Zofran) 4 mg IV NOW ONE Stop: 05/26/20 15:52 Last Admin: 05/26/20 16:06 Dose: 4 mg Documented by: RHETT Vital Signs Vital signs: Vital Signs - 8 hr 05/26/20 12:48 05/26/20 15:45 05/26/20 16:14 Temperature 97.7 F Pulse Rate 64 61 58 L Respiratory Rate 18 17 17 Blood Pressure 182/102 H 139/89 Pulse Oximetry 100 100 95 05/26/20 16:30 05/26/20 16:31 05/26/20 17:00 Temperature Pulse Rate 53 L 53 L 52 L Respiratory Rate 20 17 23 Blood Pressure 125/73 132/72 Pulse Oximetry 92 92 94 MDM - Headache Lab Data Attestation: I reviewed the patient's lab results. Result diagrams: 05/26/20 13:20 05/26/20 13:20 Labs: Lab Results 05/26/20 05/26/20 05/26/20 Range/Units 13:20 13:20 13:20 WBC 7.2 (4.5-11.0) X10^3/uL RBC 4.15 (4.0-5.2) X10^6/uL Hgb 12.7 (12.0-16.0) g/dL Hct 36.5 (36-46) % MCV 87.9 (80-100) fL MCH 30.7 (26-34) PG MCHC 34.9 (30-36) % RDW 13.3 (11.6-14.8) % Plt Count 264 (150-400) X10^3/uL Neut % (Auto) 49.7 L (50-75) % Lymph % (Auto) 34.6 (25-40) % [place] % (Auto) 11.8 (3-14) % Eos % (Auto) 3.0 (2-4) % Baso % (Auto) 0.9 (0-2) % Neut # (Auto) 3600 (5076-6878) /uL Lymph # (Auto) 2500 (8973-7362) /uL [place] # (Auto) 900 (0-900) /uL Eos # (Auto) 200 (0-450) /uL Baso # (Auto) 100 (0-100) /uL PT 10.4 (10.1-12.7) SECONDS INR 0.9 (0.9-1.3) APTT 30 D (26.4-36.2) SECONDS Sodium 138 (137-145) mmol/L Potassium 4.2 (3.4-5.1) mmol/L Chloride 104 (98-107) mmol/L Carbon Dioxide 28 (22-32) mmol/L BUN 7 (7-17) mg/dL Creatinine 0.51 L (0.52-1.04) mg/dL Estimated GFR > 60.0 (>60) mL/min BUN/Creatinine Ratio 13.7 (6-22) Glucose 120 H (80-110) mg/dL Calcium 9.5 (8.4-10.2) mg/dL Total Bilirubin 0.4 (0.2-1.3) mg/dL AST 23 (14-36) IU/L ALT 33 (<35) IU/L Alkaline Phosphatase 76 (38-126) U/L Total Creatine Kinase (30-135) U/L CK-MB (CK-2) CK-MB (CK-2) Rel Index Troponin I (0.01-0.034) ng/mL Total Protein 7.2 (6.3-8.2) g/dL Albumin 4.2 (3.5-5.0) g/dL Globulin 3.0 (1.7-4.1) g/dL Albumin/Globulin Ratio 1.4 (1.0-2.8) 10/19/20 Range/Units 13:20 WBC (4.5-11.0) X10^3/uL RBC (4.0-5.2) X10^6/uL Hgb (12.0-16.0) g/dL Hct (36-46) % MCV (80-100) fL MCH (26-34) PG MCHC (30-36) % RDW (11.6-14.8) % Plt Count (150-400) X10^3/uL Neut % (Auto) (50-75) % Lymph % (Auto) (25-40) % [place] % (Auto) (3-14) % Eos % (Auto) (2-4) % Baso % (Auto) (0-2) % Neut # (Auto) (2129-1606) /uL Lymph # (Auto) (6535-4360) /uL [place] # (Auto) (0-900) /uL Eos # (Auto) (0-450) /uL Baso # (Auto) (0-100) /uL PT (10.1-12.7) SECONDS INR (0.9-1.3) APTT (26.4-36.2) SECONDS Sodium (137-145) mmol/L Potassium (3.4-5.1) mmol/L Chloride (98-107) mmol/L Carbon Dioxide (22-32) mmol/L BUN (7-17) mg/dL Creatinine (0.52-1.04) mg/dL Estimated GFR (>60) mL/min BUN/Creatinine Ratio (6-22) Glucose (80-110) mg/dL Calcium (8.4-10.2) mg/dL Total Bilirubin (0.2-1.3) mg/dL AST (14-36) IU/L ALT (<35) IU/L Alkaline Phosphatase (38-126) U/L Total Creatine Kinase 48 (30-135) U/L CK-MB (CK-2) TNP CK-MB (CK-2) Rel Index TNP Troponin I < 0.012 (0.01-0.034) ng/mL Total Protein (6.3-8.2) g/dL Albumin (3.5-5.0) g/dL Globulin (1.7-4.1) g/dL Albumin/Globulin Ratio (1.0-2.8) Imaging Data CT scan - head: Radiologist's Impression: [address] [address] [address] Scan Report Signed Patient: Khadijah Marks [facility]#: [id number] : 9Acct:[id number] Age/Sex: 59 / FDate of Service: 05/26/20 Loc: ED Accession Number: [id number] Procedure: CT head/brain wo con Ordering Provider: Porfirio Chapa D.O. PROCEDURE: CT HEAD/BRAIN WO CON INDICATIONS: headache TECHNIQUE: Noncontrast 4.5 mm thick angled axial sections acquired from the foramen magnum to the vertex, with coronal and sagittal reformats. For radiation dose reduction, the following was used: automated exposure control, adjustment of mA and/or kV according to patient size. COMPARISON: [facility], CT, CT HEAD/BRAIN WO CON, 03/25/2019, 9:01. FINDINGS: Image quality: Excellent. CSF spaces: Basal cisterns are patent. No extra-axial fluid collections. The ventricles are symmetric in size and shape. Brain: No intracranial bleeds or masses. There is cerebral volume loss for age, with resultant ventricular and sulcal prominence. There are periventricular and deep white matter chronic small vessel ischemic changes. There is intracranial internal carotid artery atherosclerosis. Skull and face: Calvarium and visualized facial bones appear intact, without suspicious lesions. Sinuses: Visualized sinuses and mastoids are clear. IMPRESSION: 1. No CT evidence of acute intracranial pathology. 2. No significant changes from previous study. Dictated by: Tone Hutchins M.D. on 05/26/2020 at 12:31 Approved by: Tone Hutchins M.D. on 05/26/2020 at 12:32 ECG Data Attestation: I personally reviewed and interpreted this ECG as follows: Prior ECG tracings: not available for review Interpretation: Sinus bradycardia Ventricular rate of 54 Normal axis Normal QRS Normal QTC No ST T wave changes MDM Narrative Medical decision making narrative: Patient's head CT is unremarkable. Has a nonfocal neurologic exam. The EKG and troponin were done because patient states that when she has had a heart attack in the past also her symptoms were just a headache. Labs and EKG are unremarkable. Low suspicion for CVA. Feels better after above treatments. States feel like she can go home. She was given return precautions and follow-up instructions. She expressed understanding and agreement. Discharge Plan Departure Patient Disposition: Home Clinical Impression: Headache Discharge Date/Time: 05/26/20 17:10 Instructions: DI for Headache Activity Restrictions/Additional Instructions: Continue all of your medications as directed and keep all of your scheduled medical appointments. Return to the emergency department for any new or worsening symptoms Prescriptions: New hydrocodone-acetaminophen [[place]] 5-325 mg tablet 1 tab PO Q4-6H PRN (Reason: pain) Qty: 10 RF: 0 No Action baclofen 10 mg tablet 10 mg PO BID Qty: 60 RF: 0 losartan 50 mg tablet 50 mg PO DAILY Qty: 90 RF: 3 ketoconazole 2 % cream 1 applictn TOP BID Qty: 30 RF: 0 albuterol sulfate [Ventolin HFA] 90 mcg/actuation HFA aerosol inhaler 2 puff INHALATION Q4-6H PRN (Reason: Wheezing or Shortness of breath) Qty: 8.5 RF: 1 gabapentin 300 mg capsule 600 mg PO Q4H RF: 0 Shingrix (PF) 50 mcg/0.5 mL suspension for reconstitution 50 mcg IM ONCE Qty: 1 RF: 0 oxycodone PO RF: 0 levothyroxine 100 mcg Tablet 100 mcg PO DAILY RF: 0 esomeprazole magnesium 20 mg Tablet,Delayed Release (Dr/Ec) 20 mg PO QPM RF: 0 atorvastatin 40 mg tablet 40 mg PO DAILY RF: 0 metoprolol succinate 25 mg tablet extended release 24 hr 25 mg PO BID RF: 0 Referrals: Robson Sinclair ARNP [Primary Care Provider] -
[2020-05-26 13:49] LABS: PTT Partial Thromboplastin Tim 30 SECONDS (26.4-36.2)
[2020-05-26 13:50] LABS: Alanine Aminotransferase 33 IU/L (<35); Albumin 4.2 g/dL (3.5-5.0); Albumin Globulin Ratio 1.4 (1.0-2.8); Alkaline Phosphatase 76 U/L (38-126); Aspartate Aminotransferase 23 IU/L (14-36); BUN Creatinine Ratio 13.7 (6-22); Bilirubin Total 0.4 mg/dL (0.2-1.3); Blood Urea Nitrogen 7 mg/dL (7-17); Calcium 9.5 mg/dL (8.4-10.2); Carbon Dioxide 28 mmol/L (22-32); Chloride 104 mmol/L (98-107); Estimated Glomerular Filt Rate > 60.0 mL/min (>60); Glucose 120 mg/dL (80-110); HEMOLYSIS < 15 (0-50); Potassium 4.2 mmol/L (3.4-5.1); Sodium 138 mmol/L (137-145); Total Protein 7.2 g/dL (6.3-8.2)
[2020-05-26] MEDS: HYDROCODONE/ACET 10/325 TABLET 1 TAB PO (14:00)
[2020-05-26 15:01] LABS: Creatine Kinase 48 U/L (30-135)
[2020-05-26 15:12] LABS: Troponin I < 0.012 ng/mL (0.01-0.034)
[2020-05-26] MEDS: MORPHINE 4 MG/ML INJ IV (15:25)
[2020-05-26 15:45] VITALS: BP 139/89; PULSE 61; RESP 17; O2SAT 100
--- NOTE | 2020-05-26 15:52 | PC.NURSE ---
Patient complains of sever upper abdominal lower rib pain, is belching loudly. Dr. Chapa aware.
[2020-05-26] MEDS: ONDANSETRON 4 MG/2 ML INJ IV (16:06)
[2020-05-26 16:14] VITALS: PULSE 58; RESP 17; O2SAT 95
[2020-05-26 16:30] VITALS: PULSE 53; RESP 20; O2SAT 92
[2020-05-26 16:31] VITALS: BP 125/73; PULSE 53; RESP 17; O2SAT 92
[2020-05-26 17:00] VITALS: BP 132/72; PULSE 52; RESP 23; O2SAT 94
== END 2020-05-26 17:10 | disposition home or self-care (01) ==
PROVIDERS: Nurse Practitioner Family; Emergency Provider Emergency Medicine; PCP Nurse Practitioner Family
DX: R51.9 Headache, unspecified (principal); R00.1 Bradycardia, unspecified
CPT/HCPCS: 36415; 70450; 80053; 82550; 84484; 85025; 85610; 85730; 93005; 93010; 96374; 96375; 99284; J2270; J2405

== ENCOUNTER → 2020-06-17 11:35 | Outpatient (CLI) | payer OTHER, MEDICAID, SELFPAY | PROVIDERS: PCP Nurse Practitioner Family; Visit Provider Nurse Practitioner Family | DX: T81.49XA Infection following a procedure, other surgical site, initial encounter (principal) | CPT/HCPCS: 87070; 87075; 87205 ==

== ENCOUNTER 2020-09-30 12:42 | Emergency (ER) | payer OTHER, MEDICAID, SELFPAY ==
[2020-09-30] VITALS (11 sets, daily range): BP systolic 135–167; BP diastolic 63–85; PULSE 48–60; RESP 13–23; TEMP 35.6; O2SAT 91–99; BMI 34.3
--- NOTE | 2020-09-30 13:15 | DI.RAD.S_ITS ---
PROCEDURE: XR CHEST 1V INDICATIONS: chest pain TECHNIQUE: One view of the chest was acquired. COMPARISON: [facility], CR, XR CHEST 1V, 02/16/2020, 9:55. FINDINGS: Surgical changes and devices: None. Lungs and pleura: Lungs are clear. No pleural effusions or pneumothorax. Mediastinum: Mediastinal contours appear normal. Heart size is normal. Bones and chest wall: No suspicious bony lesions. Overlying soft tissues appear unremarkable. IMPRESSION: No acute cardiopulmonary disease. Dictated by: Colin Bustamante M.D. on 09/30/2020 at 15:11 Approved by: Colin Bustamante M.D. on 09/30/2020 at 15:11
[2020-09-30 13:39] LABS: Add Manual Diff / Slide Review NO; Basophils Absolute Auto 100 /uL (0-100); Basophils Percent Auto 1.2 % (0-2); Eosinophils Absolute Auto 200 /uL (0-450); Eosinophils Percent Auto 2.3 % (2-4); Hematocrit 38.7 % (36-46); Hemoglobin 13.5 g/dL (12.0-16.0); Lymphocytes Absolute Auto 2200 /uL (1100-4500); Lymphocytes Percent Auto 28.4 % (25-40); Mean Corpuscular HGB Conc 34.8 % (30-36); Mean Corpuscular Hemoglobin 30.7 PG (26-34); Mean Corpuscular Volume 88.4 fL (80-100); Monocytes Absolute Auto 800 /uL (0-900); Neutrophils Absolute Auto 4400 /uL (1500-7000); Neutrophils Percent Auto 58.1 % (50-75); Platelet Count 297 X10^3/uL (150-400); Red Blood Cell Count 4.38 X10^6/uL (4.0-5.2); Red Cell Distribution Width 13.8 % (11.6-14.8); White Blood Cell Count 7.6 X10^3/uL (4.5-11.0)
[2020-09-30 13:46] LABS: INR 0.9 (0.9-1.3); Prothrombin Time 10.8 SECONDS (10.1-12.7)
[2020-09-30 13:49] LABS: PTT Partial Thromboplastin Tim 32 SECONDS (26.4-36.2)
[2020-09-30 13:54] LABS: Alanine Aminotransferase 37 IU/L (<35); Albumin 4.1 g/dL (3.5-5.0); Albumin Globulin Ratio 1.3 (1.0-2.8); Alkaline Phosphatase 83 U/L (38-126); Aspartate Aminotransferase 33 IU/L (14-36); Bilirubin Total 0.3 mg/dL (0.2-1.3); Blood Urea Nitrogen 15 mg/dL (7-17); Calcium 9.3 mg/dL (8.4-10.2); Carbon Dioxide 29 mmol/L (22-32); Chloride 104 mmol/L (98-107); Creatine Kinase 58 U/L (30-135); Estimated Glomerular Filt Rate > 60.0 mL/min (>60); Globulin 3.1 g/dL (1.7-4.1); Glucose 115 mg/dL (80-110); HEMOLYSIS 38 (0-50); Lipase 110 U/L (23-300); Sodium 138 mmol/L (137-145); Total Protein 7.2 g/dL (6.3-8.2)
[2020-09-30 14:06] LABS: Troponin I < 0.012 ng/mL (0.01-0.034)
--- NOTE | 2020-09-30 14:38 | DI.US.S_ITS ---
PROCEDURE: US PERIP VENOUS LOW EXTREM RT INDICATIONS: RIGHT LEG TWINGE. HISTORY OF CLOT. TECHNIQUE: Real-time imaging, as well as color and pulse Doppler interrogation, were performed of the lower extremity deep veins from the inguinal ligament to the popliteal fossa. COMPARISON: [facility], , [facility] VENOUS LOW EXTREM RT, 04/22/2019, 16:39. FINDINGS: The common femoral, femoral and popliteal veins are normally compressible, and free of intraluminal thrombus. Color and pulse Doppler demonstrate normal phasic intraluminal flow. There is normal augmentation response to distal compression maneuver. IMPRESSION: No DVT in the right lower extremity. Dictated by: Colin Bustamante M.D. on 09/30/2020 at 17:24 Approved by: Colin Bustamante M.D. on 09/30/2020 at 17:26
--- NOTE | 2020-09-30 14:38 | DI.CT.S_ITS ---
PROCEDURE: CT ANGIO CHEST PE PROTOCOL INDICATIONS: right sided chest pain after leg pain, hx clots TECHNIQUE: After the administration of intravenous contrast, 2 mm thick sections acquired from the pulmonary apices to the posterior costophrenic angles. 3-dimensional maximum intensity projection (MIP) coronal and sagittal reformats were then acquired through the thorax. For radiation dose reduction, the following was used: automated exposure control, adjustment of mA and/or kV according to patient size. COMPARISON: None. FINDINGS: Image quality: Excellent. Pulmonary arteries: Pulmonary arteries are normal in size, and demonstrate no intraluminal filling defects to suggest central pulmonary embolism. Lungs and pleura: No evidence of pneumonia or edema. 3 mm and 4 mm diameter subpleural nodules within the right upper lobe laterally (series 5, image 63). No pleural effusions or pneumothorax. Central and peripheral airways are patent. Mediastinum: Heart size is normal, without pericardial effusion. There is mild atherosclerotic calcification of the coronary vasculature. No mediastinal or hilar adenopathy. Thoracic aorta is normal in caliber and enhancement. Esophagus is normal in caliber, without hiatal hernia. Bones and chest wall: No suspicious bony lesions. Ribs and thoracic spine appear intact throughout. Thyroid gland is within normal limits. No axillary or supraclavicular adenopathy. Abdomen: Visualized upper abdominal solid organs appear normal in the early arterial phase of enhancement. IMPRESSION: 1. No acute process. 2. No pulmonary embolus. 3. Coronary artery disease. 4. Right upper lobe pulmonary nodules; follow-up is recommended as below. Fleischner Society criteria for SOLID lung nodule followup. Nodule size (mm)Low-risk patientHigh-risk patient<6 (single or multiple)No routine followup.Optional CT at 12 months. 6-8 (single or multiple)CT at 6-12 months, then optional CT at 18-24 mo.CT at 6-12 months, then CT at 18-24 months. >8 (single)CT, PET-CT, or biopsy at 3 months. Same as for low-risk pts. >8 (multiple)CT at 3-6 months, then optional CT at 18-24 mo.CT at 3-6 months, then CT at 18-24 months. Fleischner Society criteria for SUB-SOLID lung nodule followup. Solitary pure ground-glass nodules<6 mm (ground glass or part solid)No followup needed. 6 mm or larger (ground glass)CT at 6-12 months to confirm persistence, then CT every 2 years until 5 years.6 mm or larger (part solid)CT at 3-6 months to confirm persistence, then annual CT until 5 years if unchanged and solid component remains <6 mm. Multiple sub-solid nodules<6 mmCT at 3-6 months, then CT consider at 2 & 4 years for high risk patients. [address] at 3-6 months. Subsequent management based on most suspicious lesions. Recommendations do not apply to lung cancer screening, patients with immunosuppression, or patients with known primary cancer. Dictated by: Bisi Leyva M.D. on 09/30/2020 at 14:57 Approved by: Bisi Leyva M.D. on 09/30/2020 at 14:59
[2020-09-30 15:09] LABS: NT-proBNP (BNP-Adult 18+) 108 pg/mL (<125)
--- NOTE | 2020-09-30 15:36 | ED.CHESTPAIN ---
HPI - Chest Pain <ACE BarP-BC - Last Filed: 09/30/20 16:41> General Chief Complaint: Chest Pain Stated Complaint: popping sensation in right calf, pain Time Seen by Provider: 09/30/20 14:18 Source: patient Mode of arrival: Ambulatory Limitations: no limitations History of Present Illness HPI narrative: The patient is a 60-year-old female former smoker with history of coronary artery disease, trigeminal neuralgia with surgery related to trigeminal neuralgia approximately 4 months ago, appendectomy who presents with a chief complaint of a popping sensation in her right calf today as well as a few days ago and subsequent right-sided chest pain. She states it hurts to take a deep breath. She states that she has a family history of blood clots. The she denies any recent immobility other than her surgery a few months ago for trigeminal neuralgia. She is most concerned about DVT/PE. Uses topical hormones. She states that her ?mind is working slow since her trigeminal neuralgia surgery. Related Data Home Medications Medication Instructions Recorded Confirmed esomeprazole magnesium 20 mg PO QPM 04/05/19 08/21/20 metoprolol succinate 25 mg PO BID 08/02/19 08/21/20 gabapentin 300 mg capsule 600 mg PO Q4H cap 03/20/20 08/21/20 aspirin 81 mg tablet,delayed 81 mg PO DAILY 08/22/20 release Previous Rx's Medication Instructions Recorded losartan 50 mg tablet 50 mg PO DAILY #90 tab 04/21/20 diclofenac sodium 1 % topical gel 2 g TOPICAL QID #100 g 08/06/20 nystatin 100,000 unit/gram topical 1 applic TOPICAL BID #30 g 08/06/20 cream conjugated estrogens 0.625 mg/gram 0.625 mg VAGINAL DAILY #30 g 08/22/20 vaginal cream levothyroxine 100 mcg tablet 100 mcg PO DAILY #90 tab 09/10/20 lidocaine 1 patch TOPICAL DAILY PRN #15 ea 09/30/20 Allergies Allergy/AdvReac Type Severity Reaction Status Date / Time diphenhydramine Allergy Severe Difficulty Verified 09/30/20 13:12 [From Benadryl] Breathing ibuprofen Allergy Severe Difficulty Verified 09/30/20 13:12 Breathing oxycodone Allergy Severe Hallucinati Verified 09/30/20 13:12 ng Estrogens Allergy Verified 09/30/20 13:12 Review of Systems <EUSEBIO Bar - Last Filed: 09/30/20 16:41> Review of Systems Narrative: GENERAL: Denies chills, fatigue, malaise, fever, sweats. HEENT: Denies sinus pain, ear pain, sore throat, difficulty swallowing, dizziness. RESPIRATORY: See HPI CARDIOVASCULAR: Denies chest pain, palpitations, orthopnea, edema, GASTROINTESTINAL: Denies nausea, vomiting, abdominal pain, diarrhea, constipation, melena. : Denies dysuria, frequency, incontinence, hematuria, urinary retention. MUSCULOSKELETAL: See HPI SKIN: Denies rash, skin lesions, or other NEUROLOGIC: Denies weakness, headache, numbness, change in speech, confusion, seizures, incoordination. PSYCHIATRIC: No concerning psychosocial issues. 12 point review of systems is negative except for those stated above Patient History <EUSEBIO Bar - Last Filed: 09/30/20 16:41> Medical History Atrophic vaginitis Candidal intertrigo Cervical stenosis of spine GERD (gastroesophageal reflux disease) Hyperlipidemia Hypertension Hypothyroidism Non-ST elevation CA (NSTEMI) Prediabetes (04/2020) Surgical follow-up care Surgical wound infection Tear of right supraspinatus tendon Toe pain, left Trigeminal neuralgia Trigger thumb, right thumb Surgical History Status post appendectomy Status post cholecystectomy Status post hernia repair Status post hysterectomy Social History marital status: Smoking Status: Former smoker alcohol intake: never substance use type: does not use Smoking Status: Former smoker alcohol intake frequency: holidays/special occasions only Substance Use Type: does not use Exam <EUSEBIO Bar - Last Filed: 09/30/20 16:41> Narrative Exam Narrative: GENERAL: This is a well-nourished, well-developed patient, no acute distress. HEAD: Atraumatic. Normocephalic. No temporal or scalp tenderness. EYES: Pupils equal round and reactive. Extraocular motions intact. No scleral icterus. No injection or drainage. ENT: Nose without bleeding, purulent drainage or septal hematoma. Will a mask. Airway patent. NECK: Trachea midline. No JVD or lymphadenopathy. Supple, nontender, no meningeal signs. CARDIOVASCULAR: Regular rate and rhythm RESPIRATORY: Clear to auscultation. Breath sounds equal bilaterally. No wheezes, rales, or rhonchi. No cough. No increased respiratory effort. No accessory muscle use. Pain to palpation posterior right chest wall. GASTROINTESTINAL: Abdomen soft, non-tender, nondistended. No hepato-splenomegaly, or palpable masses. No guarding. EXTREMITIES: Positive pedal pulses bilaterally. No significant pain to palpation right lower leg. No visible erythema. BACK: Nontender without deformity or crepitance. No flank tenderness. NEURO: AOx3. SKIN: No rash or erythema on visible skin. No rash noted on ribs. Initial Vital Signs Initial Vital Signs: Vital Signs Temperature 96.0 F L 09/30/20 13:08 Pulse Rate 54 L 09/30/20 13:08 Respiratory Rate 13 09/30/20 13:08 Blood Pressure 150/81 H 09/30/20 13:08 Pulse Oximetry 98 09/30/20 13:08 <Umm Marcial DO - Last Filed: 10/01/20 07:20> Initial Vital Signs Initial Vital Signs: Vital Signs Temperature 96.0 F L 09/30/20 13:08 Pulse Rate 54 L 09/30/20 13:08 Respiratory Rate 13 09/30/20 13:08 Blood Pressure 150/81 H 09/30/20 13:08 Pulse Oximetry 98 09/30/20 13:08 Scores <EUSEBIO Bar - Last Filed: 09/30/20 16:41> GCS [place] coma scale eye opening: Spontaneous [place] coma scale verbal response: Orientated Rolando coma scale motor response: Obey commands [place] coma scale total score: 15 Course <EUSEBIO Bar - Last Filed: 09/30/20 16:41> Orders Ordered: Discontinued Medications Gabapentin (Gabapentin 600 Mg Tablet) 600 mg PO NOW ONE Stop: 09/30/20 16:31 Last Admin: 09/30/20 16:47 Dose: 600 mg Documented by: ZULMA Lidocaine (Lidocaine Patch 1 Each Adh..Patch) 1 each TOP NOW ONE Stop: 09/30/20 15:36 Last Admin: 09/30/20 15:58 Dose: 1 each Documented by: ZULMA Tramadol HCl (Tramadol 50 Mg Tablet) 50 mg PO NOW ONE Stop: 09/30/20 16:41 Last Admin: 09/30/20 16:47 Dose: 50 mg Documented by: ZULMA Vital Signs Vital signs: Vital Signs - 8 hr 09/30/20 13:08 09/30/20 15:01 09/30/20 15:13 Temperature 96.0 F L Pulse Rate 54 L 53 L Respiratory Rate 13 Blood Pressure 150/81 H 167/84 H Pulse Oximetry 98 99 98 09/30/20 15:15 09/30/20 15:16 09/30/20 15:30 Temperature Pulse Rate 49 L 51 L 48 L Respiratory Rate 18 Blood Pressure 156/85 H 156/85 H 161/85 H Pulse Oximetry 98 98 99 09/30/20 16:00 09/30/20 16:06 Temperature Pulse Rate 60 Respiratory Rate 23 Blood Pressure 143/67 H Pulse Oximetry 91 97 <Umm Marcial DO - Last Filed: 10/01/20 07:20> Orders Ordered: Discontinued Medications Gabapentin (Gabapentin 600 Mg Tablet) 600 mg PO NOW ONE Stop: 09/30/20 16:31 Last Admin: 09/30/20 16:47 Dose: 600 mg Documented by: ZULMA Lidocaine (Lidocaine Patch 1 Each Adh..Patch) 1 each TOP NOW ONE Stop: 09/30/20 15:36 Last Admin: 09/30/20 15:58 Dose: 1 each Documented by: ZULMA Tramadol HCl (Tramadol 50 Mg Tablet) 50 mg PO NOW ONE Stop: 09/30/20 16:41 Last Admin: 09/30/20 16:47 Dose: 50 mg Documented by: ZULMA Vital Signs Vital signs: Vital Signs - 8 hr 09/30/20 13:08 09/30/20 15:01 09/30/20 15:13 Temperature 96.0 F L Pulse Rate 54 L 53 L Respiratory Rate 13 Blood Pressure 150/81 H 167/84 H Pulse Oximetry 98 99 98 09/30/20 15:15 09/30/20 15:16 09/30/20 15:30 Temperature Pulse Rate 49 L 51 L 48 L Respiratory Rate 18 Blood Pressure 156/85 H 156/85 H 161/85 H Pulse Oximetry 98 98 99 09/30/20 16:00 09/30/20 16:06 Temperature Pulse Rate 60 Respiratory Rate 23 Blood Pressure 143/67 H Pulse Oximetry 91 97 MDM - Chest Pain <ACE BarP- - Last Filed: 09/30/20 16:41> Lab Data Attestation: I reviewed the patient's lab results. Result diagrams: 09/30/20 13:22 09/30/20 13:22 Labs: Lab Results 09/30/20 09/30/20 09/30/20 Range/Units 13:22 13:22 13:22 WBC 7.6 (4.5-11.0) X10^3/uL RBC 4.38 (4.0-5.2) X10^6/uL Hgb 13.5 (12.0-16.0) g/dL Hct 38.7 (36-46) % MCV 88.4 (80-100) fL MCH 30.7 (26-34) PG MCHC 34.8 (30-36) % RDW 13.8 (11.6-14.8) % Plt Count 297 (150-400) X10^3/uL Neut % (Auto) 58.1 (50-75) % Lymph % (Auto) 28.4 (25-40) % [place] % (Auto) 10.0 (3-14) % Eos % (Auto) 2.3 (2-4) % Baso % (Auto) 1.2 (0-2) % Neut # (Auto) 4400 (0877-1804) /uL Lymph # (Auto) 2200 (6986-1811) /uL [place] # (Auto) 800 (0-900) /uL Eos # (Auto) 200 (0-450) /uL Baso # (Auto) 100 (0-100) /uL PT 10.8 (10.1-12.7) SECONDS INR 0.9 (0.9-1.3) APTT 32 (26.4-36.2) SECONDS Sodium 138 (137-145) mmol/L Potassium 4.0 (3.4-5.1) mmol/L Chloride 104 (98-107) mmol/L Carbon Dioxide 29 (22-32) mmol/L BUN 15 (7-17) mg/dL Creatinine 0.60 (0.52-1.04) mg/dL Estimated GFR > 60.0 (>60) mL/min BUN/Creatinine Ratio 25.0 H (6-22) Glucose 115 H (80-110) mg/dL Calcium 9.3 (8.4-10.2) mg/dL Total Bilirubin 0.3 (0.2-1.3) mg/dL AST 33 (14-36) IU/L ALT 37 H (<35) IU/L Alkaline Phosphatase 83 (38-126) U/L Total Creatine Kinase 58 (30-135) U/L CK-MB (CK-2) TNP CK-MB (CK-2) Rel Index TNP Troponin I < 0.012 (0.01-0.034) ng/mL NT-Pro-B Natriuret Pep (<125) pg/mL Total Protein 7.2 (6.3-8.2) g/dL Albumin 4.1 (3.5-5.0) g/dL Globulin 3.1 (1.7-4.1) g/dL Albumin/Globulin Ratio 1.3 (1.0-2.8) Lipase 110 (23-300) U/L 09/30/20 09/30/20 Range/Units 13:22 15:47 WBC (4.5-11.0) X10^3/uL RBC (4.0-5.2) X10^6/uL Hgb (12.0-16.0) g/dL Hct (36-46) % MCV (80-100) fL MCH (26-34) PG MCHC (30-36) % RDW (11.6-14.8) % Plt Count (150-400) X10^3/uL Neut % (Auto) (50-75) % Lymph % (Auto) (25-40) % [place] % (Auto) (3-14) % Eos % (Auto) (2-4) % Baso % (Auto) (0-2) % Neut # (Auto) (6242-3658) /uL Lymph # (Auto) (6927-9940) /uL [place] # (Auto) (0-900) /uL Eos # (Auto) (0-450) /uL Baso # (Auto) (0-100) /uL PT (10.1-12.7) SECONDS INR (0.9-1.3) APTT (26.4-36.2) SECONDS Sodium (137-145) mmol/L Potassium (3.4-5.1) mmol/L Chloride (98-107) mmol/L Carbon Dioxide (22-32) mmol/L BUN (7-17) mg/dL Creatinine (0.52-1.04) mg/dL Estimated GFR (>60) mL/min BUN/Creatinine Ratio (6-22) Glucose (80-110) mg/dL Calcium (8.4-10.2) mg/dL Total Bilirubin (0.2-1.3) mg/dL AST (14-36) IU/L ALT (<35) IU/L Alkaline Phosphatase (38-126) U/L Total Creatine Kinase 67 (30-135) U/L CK-MB (CK-2) TNP CK-MB (CK-2) Rel Index TNP Troponin I < 0.012 (0.01-0.034) ng/mL NT-Pro-B Natriuret Pep 108 (<125) pg/mL Total Protein (6.3-8.2) g/dL Albumin (3.5-5.0) g/dL Globulin (1.7-4.1) g/dL Albumin/Globulin Ratio (1.0-2.8) Lipase (23-300) U/L Urine Dip Bedside Urine Glucose Negative Bedside Urine Bilirubin - Negative Bedside Urine Ketone - Negative Urine Specific [place] 1.015 Bedside Urine Occult Blood - Negative Bedside Urine pH 6 Bedside Urine Protein - Negative Bedside Urine Urobilinogen - Negative Bedside Urine Nitrite - Negative Bedside Urine Leukocytes - Negative Esterase Imaging Data Chest x-ray: Radiologist's Impression: [address] [place] [id number] ReportSigned Patient: Khadijah Marks MMR#: [id number]: 9Acct:[id number]/Sex: 60 / FDate of Service: 09/30/20Loc: EDAccession Number: [id number] Procedure: XR chest 1V Ordering Provider: Umm Marcial D.O. PROCEDURE: XR CHEST 1V INDICATIONS: chest pain TECHNIQUE: One view of the chest was acquired. COMPARISON: [facility], , XR CHEST 1V, 02/16/2020, 9:55. FINDINGS: Surgical changes and devices: None. Lungs and pleura: Lungs are clear. No pleural effusions or pneumothorax. Mediastinum: Mediastinal contours appear normal. Heart size is normal. Bones and chest wall: No suspicious bony lesions. Overlying soft tissues appear unremarkable. IMPRESSION: No acute cardiopulmonary disease. Dictated by: Colin Bustamante M.D. on 09/30/2020 at 15:11 Approved by: Colin Bustamante M.D. on 09/30/2020 at 15:11 CT scan - chest: Radiologist's Impression: [address] [place] [address] [id number] Scan ReportSigned Patient: Khadijah Marks MMR#: [id number]: 9Acct:[id number]/Sex: 60 / FDate of Service: 09/30/20Loc: EDAccession Number: [id number] Procedure: CT angio chest PE protocol Ordering Provider: Almaz Fragoso [facility] PROCEDURE: CT ANGIO CHEST PE PROTOCOL INDICATIONS: right sided chest pain after leg pain, hx clots TECHNIQUE: After the administration of intravenous contrast, 2 mm thick sections acquired from the pulmonary apices to the posterior costophrenic angles. 3-dimensional maximum intensity projection (MIP) coronal and sagittal reformats were then acquired through the thorax. For radiation dose reduction, the following was used: automated exposure control, adjustment of mA and/or kV according to patient size. COMPARISON: None. FINDINGS: Image quality: Excellent. Pulmonary arteries: Pulmonary arteries are normal in size, and demonstrate no intraluminal filling defects to suggest central pulmonary embolism. Lungs and pleura: No evidence of pneumonia or edema. 3 mm and 4 mm diameter subpleural nodules within the right upper lobe laterally (series 5, image 63). No pleural effusions or pneumothorax. Central and peripheral airways are patent. Mediastinum: Heart size is normal, without pericardial effusion. There is mild atherosclerotic calcification of the coronary vasculature. No mediastinal or hilar adenopathy. Thoracic aorta is normal in caliber and enhancement. Esophagus is normal in caliber, without hiatal hernia. Bones and chest wall: No suspicious bony lesions. Ribs and thoracic spine appear intact throughout. Thyroid gland is within normal limits. No axillary or supraclavicular adenopathy. Abdomen: Visualized upper abdominal solid organs appear normal in the early arterial phase of enhancement. IMPRESSION: 1. No acute process. 2. No pulmonary embolus. 3. Coronary artery disease. 4. Right upper lobe pulmonary nodules; follow-up is recommended as below. Fleischner Society criteria for SOLID lung nodule followup. Nodule size (mm)Low-risk patientHigh-risk patient<6 (single or multiple)No routine followup.Optional CT at 12 months. 6-8 (single or multiple)CT at 6-12 months, then optional CT at 18-24 mo.CT at 6-12 months, then CT at 18-24 months. >8 (single)CT, PET-CT, or biopsy at 3 months. Same as for low-risk pts. >8 (multiple)CT at 3-6 months, then optional CT at 18-24 mo.CT at 3-6 months, then CT at 18-24 months. Fleischner Society criteria for SUB-SOLID lung nodule followup. Solitary pure ground-glass nodules<6 mm (ground glass or part solid)No followup needed. 6 mm or larger (ground glass)CT at 6-12 months to confirm persistence, then CT every 2 years until 5 years.6 mm or larger (part solid)CT at 3-6 months to confirm persistence, then annual CT until 5 years if unchanged and solid component remains <6 mm. Multiple sub-solid nodules<6 mmCT at 3-6 months, then CT consider at 2 & 4 years for high risk patients. [address] at 3-6 months. Subsequent management based on most suspicious lesions. Recommendations do not apply to lung cancer screening, patients with immunosuppression, or patients with known primary cancer. Dictated by: Bisi Leyva M.D. on 09/30/2020 at 14:57 Approved by: Bisi Leyva M.D. on 09/30/2020 at 14:59 [facility] Narrative Medical decision making narrative: The patient is a 60-year-old female who presents with a chief complaint of right calf pain followed by right-sided chest pain. Given risk factors that history, CTA was taken to rule out pulmonary embolism. This resulted negative. The patient has a negative troponin, given right-sided chest pain and history of CA, repeat troponin also pending. Ultrasound is pending to rule out DVT. Lidocaine patch applied to posterior back as patient is allergic to NSAIDs. The patient is signed out to Dr. Marcial at 16:30 ultrasound pending. <Umm Marcial, DO - Last Filed: 10/01/20 07:20> Lab Data Labs: Lab Results 09/30/20 09/30/20 09/30/20 Range/Units 13:22 13:22 13:22 WBC 7.6 (4.5-11.0) X10^3/uL RBC 4.38 (4.0-5.2) X10^6/uL Hgb 13.5 (12.0-16.0) g/dL Hct 38.7 (36-46) % MCV 88.4 (80-100) fL MCH 30.7 (26-34) PG MCHC 34.8 (30-36) % RDW 13.8 (11.6-14.8) % Plt Count 297 (150-400) X10^3/uL Neut % (Auto) 58.1 (50-75) % Lymph % (Auto) 28.4 (25-40) % [place] % (Auto) 10.0 (3-14) % Eos % (Auto) 2.3 (2-4) % Baso % (Auto) 1.2 (0-2) % Neut # (Auto) 4400 (8288-0758) /uL Lymph # (Auto) 2200 (8446-6861) /uL [place] # (Auto) 800 (0-900) /uL Eos # (Auto) 200 (0-450) /uL Baso # (Auto) 100 (0-100) /uL PT 10.8 (10.1-12.7) SECONDS INR 0.9 (0.9-1.3) APTT 32 (26.4-36.2) SECONDS Sodium 138 (137-145) mmol/L Potassium 4.0 (3.4-5.1) mmol/L Chloride 104 (98-107) mmol/L Carbon Dioxide 29 (22-32) mmol/L BUN 15 (7-17) mg/dL Creatinine 0.60 (0.52-1.04) mg/dL Estimated GFR > 60.0 (>60) mL/min BUN/Creatinine Ratio 25.0 H (6-22) Glucose 115 H (80-110) mg/dL Calcium 9.3 (8.4-10.2) mg/dL Total Bilirubin 0.3 (0.2-1.3) mg/dL AST 33 (14-36) IU/L ALT 37 H (<35) IU/L Alkaline Phosphatase 83 (38-126) U/L Total Creatine Kinase 58 (30-135) U/L CK-MB (CK-2) TNP CK-MB (CK-2) Rel Index TNP Troponin I < 0.012 (0.01-0.034) ng/mL NT-Pro-B Natriuret Pep (<125) pg/mL Total Protein 7.2 (6.3-8.2) g/dL Albumin 4.1 (3.5-5.0) g/dL Globulin 3.1 (1.7-4.1) g/dL Albumin/Globulin Ratio 1.3 (1.0-2.8) Lipase 110 (23-300) U/L 09/30/20 09/30/20 Range/Units 13:22 15:47 WBC (4.5-11.0) X10^3/uL RBC (4.0-5.2) X10^6/uL Hgb (12.0-16.0) g/dL Hct (36-46) % MCV (80-100) fL MCH (26-34) PG MCHC (30-36) % RDW (11.6-14.8) % Plt Count (150-400) X10^3/uL Neut % (Auto) (50-75) % Lymph % (Auto) (25-40) % [place] % (Auto) (3-14) % Eos % (Auto) (2-4) % Baso % (Auto) (0-2) % Neut # (Auto) (1901-7009) /uL Lymph # (Auto) (1287-3981) /uL [place] # (Auto) (0-900) /uL Eos # (Auto) (0-450) /uL Baso # (Auto) (0-100) /uL PT (10.1-12.7) SECONDS INR (0.9-1.3) APTT (26.4-36.2) SECONDS Sodium (137-145) mmol/L Potassium (3.4-5.1) mmol/L Chloride (98-107) mmol/L Carbon Dioxide (22-32) mmol/L BUN (7-17) mg/dL Creatinine (0.52-1.04) mg/dL Estimated GFR (>60) mL/min BUN/Creatinine Ratio (6-22) Glucose (80-110) mg/dL Calcium (8.4-10.2) mg/dL Total Bilirubin (0.2-1.3) mg/dL AST (14-36) IU/L ALT (<35) IU/L Alkaline Phosphatase (38-126) U/L Total Creatine Kinase 67 (30-135) U/L CK-MB (CK-2) TNP CK-MB (CK-2) Rel Index TNP Troponin I < 0.012 (0.01-0.034) ng/mL NT-Pro-B Natriuret Pep 108 (<125) pg/mL Total Protein (6.3-8.2) g/dL Albumin (3.5-5.0) g/dL Globulin (1.7-4.1) g/dL Albumin/Globulin Ratio (1.0-2.8) Lipase (23-300) U/L Urine Dip Bedside Urine Glucose Negative Bedside Urine Bilirubin - Negative Bedside Urine Ketone - Negative Urine Specific [place] 1.015 Bedside Urine Occult Blood - Negative Bedside Urine pH 6 Bedside Urine Protein - Negative Bedside Urine Urobilinogen - Negative Bedside Urine Nitrite - Negative Bedside Urine Leukocytes - Negative Esterase Discharge Plan Departure Patient Disposition: Home Clinical Impression: Chest pain, atypical, Pulmonary nodule Acute leg pain Qualifiers: Laterality: right Qualified Code(s): M79.604 - Pain in right leg Instructions: DI for Atypical Chest Pain, DI for Leg Pain, DI for Chest Pain, DI for Pulmonary Nodule Activity Restrictions/Additional Instructions: Thank you for trusting us with your care today. As discussed your imaging came back with no evidence of blood clots. [facility] Please follow-up with primary care provider in the next few days. Please come back to the emergency department for any acute concerns. Prescriptions: New lidocaine 5 % adhesive patch,medicated 1 patch topical DAILY PRN (Reason: pain) Qty: 15 RF: 0 No Action losartan 50 mg tablet 50 mg PO DAILY Qty: 90 RF: 3 aspirin 81 mg tablet,delayed release (DR/EC) 81 mg PO DAILY RF: 0 conjugated estrogens 0.625 mg/gram cream 0.625 mg vaginal DAILY Qty: 30 RF: 0 levothyroxine 100 mcg tablet 100 mcg PO DAILY Qty: 90 RF: 2 nystatin 100,000 unit/gram cream 1 applic topical BID Qty: 30 RF: 0 diclofenac sodium [Voltaren] 1 % gel 2 g topical QID Qty: 100 RF: 0 gabapentin 300 mg capsule 600 mg PO Q4H RF: 0 esomeprazole magnesium 20 mg Tablet,Delayed Release (Dr/Ec) 20 mg PO QPM RF: 0 metoprolol succinate 25 mg tablet extended release 24 hr 25 mg PO BID RF: 0 Referrals: Panchito Velez MD [Primary Care Provider] - <Umm Marcial DO - Last Filed: 10/01/20 07:20> Cosign ED Attending Cosignature Attestation: I was immediately available in the department for consultation. Documentation has been reviewed. I agree with assessment and plan.
[2020-09-30] MEDS: LIDOCAINE PATCH 1 EACH ADH..PATCH TOP (15:58)
[2020-09-30 16:05] LABS: Creatine Kinase 67 U/L (30-135)
--- NOTE | 2020-09-30 16:09 | PC.NURSE ---
pt c/o R mid back pain after feeling a pop in her R calf twice in the past two days. hx of blood clots
[2020-09-30 16:18] LABS: Troponin I < 0.012 ng/mL (0.01-0.034)
[2020-09-30] MEDS: GABAPENTIN 600 MG TABLET PO (16:47)
[2020-09-30] MEDS: TRAMADOL 50 MG TABLET PO (16:47)
== END 2020-09-30 17:42 | disposition home or self-care (01) ==
PROVIDERS: Nurse Practitioner Family; Emergency Provider Emergency Medicine; PCP Family Medicine
DX: R07.89 Other chest pain (principal); R91.1 Solitary pulmonary nodule; M79.661 Pain in right lower leg; R06.00 Dyspnea, unspecified; I25.10 Atherosclerotic heart disease of native coronary artery without angina pectoris; Z83.2 Family history of diseases of the blood and blood-forming organs and certain disorders involving the immune mechanism
CPT/HCPCS: 36415; 71045; 71275; 80053; 81003; 82550; 83690; 83880; 84484; 85025; 85610; 85730; 93005; 93971; 99283; 99284; Q9967

== ENCOUNTER → 2020-11-04 16:36 | Outpatient (CLI) | payer OTHER, MEDICAID, SELFPAY ==
[2020-11-04 18:21] LABS: Hemoglobin A1C% w Est Avg Glu 5.9 % (4.0-6.0)
[2020-11-04 18:25] LABS: BUN Creatinine Ratio 24.2 (6-22); Blood Urea Nitrogen 15 mg/dL (7-17); Calcium 9.4 mg/dL (8.4-10.2); Carbon Dioxide 28 mmol/L (22-32); Chloride 103 mmol/L (98-107); Estimated Glomerular Filt Rate > 60.0 mL/min (>60); Glucose 241 mg/dL (80-110); HEMOLYSIS < 15 (0-50); Potassium 3.6 mmol/L (3.4-5.1); Sodium 138 mmol/L (137-145)
[2020-11-04 18:43] LABS: Free T4, Direct Thyroxine 1.14 ng/dL (0.78-2.19)
== END ==
PROVIDERS: PCP Family Medicine; Referring Provider Obstetrics & Gynecology; Visit Provider Obstetrics & Gynecology
DX: E03.9 Hypothyroidism, unspecified (principal); R73.03 Prediabetes
CPT/HCPCS: 36415; 80048; 83036; 84439; 84443

== ENCOUNTER → 2020-11-12 07:32 | Outpatient (CLI) | payer OTHER, MEDICAID, SELFPAY ==
[2020-11-12] MEDS: COVID-19 VACC #1, MRNA(MOD) 100 MCG/0.5 ML VIAL IM (07:43)
== END ==
PROVIDERS: PCP Family Medicine; Visit Provider Internal Medicine
DX: Z23 Encounter for immunization (principal)
CPT/HCPCS: 0011A; 91301

== ENCOUNTER → 2020-12-10 07:28 | Outpatient (CLI) | payer OTHER, MEDICAID, SELFPAY ==
[2020-12-10] MEDS: COVID-19 VACC #2, MRNA(MOD) 100 MCG/0.5 ML VIAL IM (07:39)
== END ==
PROVIDERS: PCP Family Medicine; Visit Provider Internal Medicine
DX: Z23 Encounter for immunization (principal)
CPT/HCPCS: 0012A; 91301

== ENCOUNTER → 2020-12-21 07:27 | Outpatient (CLI) | payer OTHER, MEDICAID, SELFPAY ==
--- NOTE | 2020-12-21 07:30 | DI.RAD.S_ITS ---
PROCEDURE: XR CERVICAL SPINE 2V OR 3V INDICATIONS: for pain management referral review TECHNIQUE: 3 view(s) of the cervical spine were acquired. COMPARISON: None. FINDINGS: Bones: No fractures or dislocations to the C7-T1 level. The lateral masses of C1 appear intact on the odontoid view. No suspicious bony lesions. Cervical straightening is present. There is trace retrolisthesis of C5 on C6. Moderate disc space narrowing is present C5-6. Multilevel uncovertebral arthropathy is present. Soft tissues: No prevertebral soft tissue swelling. IMPRESSION: Degenerative changes most notable at C5-6. As clinically indicated for foraminal narrowing, MRI may be obtained. Dictated by: Grace Cruz M.D. on 12/21/2020 at 18:31 Approved by: Grace Cruz M.D. on 12/21/2020 at 18:32
--- NOTE | 2020-12-21 07:30 | DI.RAD.S_ITS ---
PROCEDURE: XR KNEE RT 3V INDICATIONS: bilateral knee pain TECHNIQUE: 3 views of the knee were acquired. COMPARISON: None. FINDINGS: Bones: No fractures or dislocations. No suspicious bony lesions. Trace early degenerative change with minimal narrowing in the medial patellofemoral compartment. Soft tissues: No joint effusion. No suspicious soft tissue calcifications. IMPRESSION: No visualized acute fracture or dislocation. However, if clinical concern and/or pain persist, short interval imaging followup in 7-10 days is recommended, as occult injury cannot be definitively excluded. Dictated by: Grace Cruz M.D. on 12/21/2020 at 18:30 Approved by: Grace Cruz M.D. on 12/21/2020 at 18:31
--- NOTE | 2020-12-21 07:30 | DI.RAD.S_ITS ---
PROCEDURE: XR KNEE LT 3V INDICATIONS: bilateral knee pain TECHNIQUE: 3 views of the knee were acquired. COMPARISON: None. FINDINGS: Bones: No fractures or dislocations. No suspicious bony lesions. Early degenerative changes demonstrating minimal medial and patellofemoral compartment narrowing are noted. Soft tissues: No joint effusion. No suspicious soft tissue calcifications. IMPRESSION: No visualized acute fracture or dislocation. However, if clinical concern and/or pain persist, short interval imaging followup in 7-10 days is recommended, as occult injury cannot be definitively excluded. Dictated by: Grace Cruz M.D. on 12/21/2020 at 18:32 Approved by: Grace Cruz M.D. on 12/21/2020 at 18:32
== END ==
PROVIDERS: PCP Family Medicine; Referring Provider Family Medicine; Visit Provider Family Medicine
DX: M48.02 Spinal stenosis, cervical region (principal); M47.812 Spondylosis without myelopathy or radiculopathy, cervical region; M25.561 Pain in right knee; M25.562 Pain in left knee
CPT/HCPCS: 72040; 73562

== ENCOUNTER 2021-02-10 12:42 | Emergency (ER) | payer OTHER, MEDICAID, SELFPAY ==
[2021-02-10 12:56] VITALS: BP 126/97; PULSE 58; RESP 22; TEMP 36.6; O2SAT 97
--- NOTE | 2021-02-10 16:54 | ED_ITS ---
HPI - Extremity Injury (Lower) General Chief Complaint: Extremity Injury, Lower Stated Complaint: right leg pain for 3-4 weeks Time Seen by Provider: 02/10/21 16:54 Source: patient Mode of arrival: Ambulatory Related Data Home Medications Medication Instructions Recorded Confirmed esomeprazole magnesium 20 mg 20 mg PO QPM 04/05/19 02/02/21 tablet,delayed release metoprolol succinate 25 mg 25 mg PO BID 08/02/19 02/02/21 tablet,extended release 24 hr gabapentin 300 mg capsule 600 mg PO Q4H cap 03/20/20 02/02/21 aspirin 81 mg tablet,delayed 81 mg PO DAILY 08/22/20 02/02/21 release Previous Rx's Medication Instructions Recorded losartan 50 mg tablet 50 mg PO DAILY #90 tab 04/21/20 nystatin 100,000 unit/gram topical 1 applic TOPICAL BID #30 g 08/06/20 cream levothyroxine 100 mcg tablet 100 mcg PO DAILY #90 tab 09/10/20 rosuvastatin 40 mg tablet 40 mg PO DAILY #90 tab 10/08/20 clobetasol 0.05 % topical ointment 1 applic TOPICAL DAILY #45 g 11/04/20 conjugated estrogens 0.625 mg/gram 0.625 mg VAGINAL DAILY #30 g 11/04/20 vaginal cream hydrocodone 5 mg-acetaminophen 325 See Rx Instructions .ROUTE 01/22/21 mg tablet .COMPLEX #60 tab nortriptyline 50 mg capsule 50 mg PO BEDTIME PRN #60 cap 02/02/21 Allergies Allergy/AdvReac Type Severity Reaction Status Date / Time diphenhydramine Allergy Severe Difficulty Verified 01/26/21 10:27 [From Benadryl] Breathing ibuprofen Allergy Severe Difficulty Verified 01/26/21 10:27 Breathing oxycodone Allergy Severe Hallucinati Verified 01/26/21 10:27 ng Estrogens Allergy Verified 01/26/21 10:27 Patient History Medical History Atrophic vaginitis Bilateral knee pain Candidal intertrigo Cervical stenosis of spine GERD (gastroesophageal reflux disease) Hyperlipidemia Hypertension Hypothyroidism Neuroforaminal stenosis of cervical spine Non-ST elevation [place] (NSTEMI) Prediabetes (04/2020) Short-term memory loss Surgical follow-up care Surgical wound infection Tear of right supraspinatus tendon Toe pain, left Trigeminal neuralgia Trigger thumb, right thumb Surgical History Status post appendectomy Status post cholecystectomy Status post hernia repair Status post hysterectomy Social History marital status: Smoking Status: Former smoker alcohol intake: never substance use type: does not use Smoking Status: Former smoker alcohol intake frequency: holidays/special occasions only Substance Use Type: does not use Exam Initial Vital Signs Initial Vital Signs: Vital Signs Temperature 97.9 F 02/10/21 12:56 Pulse Rate 58 L 02/10/21 12:56 Respiratory Rate 22 02/10/21 12:56 Blood Pressure 126/97 H 02/10/21 12:56 Pulse Oximetry 97 02/10/21 12:56 Course Vital Signs Vital signs: Vital Signs - 8 hr 02/10/21 12:56 Temperature 97.9 F Pulse Rate 58 L Respiratory Rate 22 Blood Pressure 126/97 H Pulse Oximetry 97 Discharge Plan Departure Prescriptions: No Action losartan 50 mg tablet 50 mg PO DAILY Qty: 90 RF: 3 aspirin 81 mg tablet,delayed release (DR/EC) 81 mg PO DAILY RF: 0 levothyroxine 100 mcg tablet 100 mcg PO DAILY Qty: 90 RF: 2 rosuvastatin 40 mg tablet 40 mg PO DAILY Qty: 90 RF: 2 hydrocodone-acetaminophen 5-325 mg tablet See Rx Instructions .ROUTE .COMPLEX Qty: 60 RF: 0 nystatin 100,000 unit/gram cream 1 applic topical BID Qty: 30 RF: 0 nortriptyline 50 mg capsule 50 mg PO BEDTIME PRN (Reason: pain) Qty: 60 RF: 0 gabapentin 300 mg capsule 600 mg PO Q4H RF: 0 clobetasol 0.05 % ointment 1 applic topical DAILY Qty: 45 RF: 2 conjugated estrogens 0.625 mg/gram cream 0.625 mg vaginal DAILY Qty: 30 RF: 2 esomeprazole magnesium 20 mg Tablet,Delayed Release (Dr/Ec) 20 mg PO QPM RF: 0 metoprolol succinate 25 mg tablet extended release 24 hr 25 mg PO BID RF: 0 Referrals: Panchito Velez MD [Primary Care Provider] -
== END 2021-02-10 17:15 | disposition left against medical advice (07) ==
PROVIDERS: Emergency Provider Emergency Medicine; PCP Family Medicine
DX: M79.604 Pain in right leg (principal)
CPT/HCPCS: 99281

== ENCOUNTER 2021-02-11 08:43 | Emergency (ER) | payer OTHER, MEDICAID, SELFPAY ==
[2021-02-11 09:20] VITALS: BP 124/71; PULSE 59; RESP 20; TEMP 35.9; O2SAT 97; BMI 34.3
--- NOTE | 2021-02-11 09:25 | DI.RAD.S_ITS ---
PROCEDURE: XR KNEE RT 3V INDICATIONS: ongoing pain TECHNIQUE: 3 views of the knee were acquired. COMPARISON: [facility], CR, XR KNEE RT 3V, 12/21/2020, 7:40. [facility], CR, XR KNEE LT 3V, 12/21/2020, 7:40. FINDINGS: Bones: No fractures or dislocations. Small osteophyte at the lateral tibia. No suspicious bony lesions. Soft tissues: Trace joint effusion. No suspicious soft tissue calcifications. IMPRESSION: No acute osseous abnormality. Trace joint effusion. Mild DJD. Dictated by: Burton Adams M.D. on 02/11/2021 at 9:49 Approved by: Burton Adams M.D. on 02/11/2021 at 9:50
--- NOTE | 2021-02-11 10:30 | ED.LOWEXIN ---
HPI - Extremity Injury (Lower) General Chief Complaint: Extremity Injury, Lower Stated Complaint: knee is swollen/burning pain/can't walk Time Seen by Provider: 02/11/21 09:21 Source: patient Mode of arrival: Wheelchair Limitations: no limitations History of Present Illness HPI Narrative: This is a 60-year-old female comes emergency department with complaint of pain in her right knee which has been going on for the past 8 months but has been worsening lately. Patient did have acupuncture and states it was quite painful with the initial poke. Patient states she has continued to have pain in the knee. She has a grinding crunching sensation typically. Patient states it is painful to weightbear. She also states she has had some numbness and tingling from her hip and down into her thigh. She has had some chronic back issues but does not appreciate significant change to her back pain currently. She does states some of the pain radiates down to her foot and she has some tingling in her toes at time. No fevers. No new GI or urinary symptoms. Patient states she has had imaging of her back in the past. She does take gabapentin possibly for her back but also for trigeminal neuralgia and she takes a half but in twice daily for chronic pain. She is allergic to NSAIDs and states that her allergy is reflux. Related Data Home Medications Medication Instructions Recorded Confirmed esomeprazole magnesium 20 mg 20 mg PO QPM 04/05/19 02/02/21 tablet,delayed release metoprolol succinate 25 mg 25 mg PO BID 08/02/19 02/02/21 tablet,extended release 24 hr gabapentin 300 mg capsule 600 mg PO Q4H cap 03/20/20 02/02/21 aspirin 81 mg tablet,delayed 81 mg PO DAILY 08/22/20 02/02/21 release Previous Rx's Medication Instructions Recorded losartan 50 mg tablet 50 mg PO DAILY #90 tab 04/21/20 nystatin 100,000 unit/gram topical 1 applic TOPICAL BID #30 g 08/06/20 cream levothyroxine 100 mcg tablet 100 mcg PO DAILY #90 tab 09/10/20 rosuvastatin 40 mg tablet 40 mg PO DAILY #90 tab 10/08/20 clobetasol 0.05 % topical ointment 1 applic TOPICAL DAILY #45 g 11/04/20 conjugated estrogens 0.625 mg/gram 0.625 mg VAGINAL DAILY #30 g 11/04/20 vaginal cream hydrocodone 5 mg-acetaminophen 325 See Rx Instructions .ROUTE 01/22/21 mg tablet .COMPLEX #60 tab nortriptyline 50 mg capsule 50 mg PO BEDTIME PRN #60 cap 02/02/21 diclofenac sodium 1 % topical gel 2 g TOPICAL QID PRN #100 g 02/11/21 (Voltaren Arthritis Pain) Allergies Allergy/AdvReac Type Severity Reaction Status Date / Time diphenhydramine Allergy Severe Difficulty Verified 01/26/21 10:27 [From Benadryl] Breathing ibuprofen Allergy Severe Difficulty Verified 01/26/21 10:27 Breathing oxycodone Allergy Severe Hallucinati Verified 01/26/21 10:27 ng Estrogens Allergy Verified 01/26/21 10:27 Review of Systems Review of Systems ROS Unobtainable: All systems reviewed & are unremarkable except as noted in HPI and below Patient History Medical History Atrophic vaginitis Bilateral knee pain Candidal intertrigo Cervical stenosis of spine GERD (gastroesophageal reflux disease) Hyperlipidemia Hypertension Hypothyroidism Neuroforaminal stenosis of cervical spine Non-ST elevation [place] (NSTEMI) Prediabetes (04/2020) Short-term memory loss Surgical follow-up care Surgical wound infection Tear of right supraspinatus tendon Toe pain, left Trigeminal neuralgia Trigger thumb, right thumb Surgical History Status post appendectomy Status post cholecystectomy Status post hernia repair Status post hysterectomy Social History marital status: Smoking Status: Former smoker alcohol intake: never substance use type: does not use Smoking Status: Former smoker alcohol intake frequency: holidays/special occasions only Substance Use Type: does not use Exam Narrative Exam Narrative: GENERAL: Alert and oriented x three, female in mild distress. HEENT: Head normocephalic, atraumatic, EOMI, pupils reactive, face symmetric, moist mucous membranes NECK: Supple, full range of motion CARDIOVASCULAR: Regular rate and rhythm without murmurs, rubs or gallops. RESPIRATORY: Breath sounds equal bilaterally, no wheezes rales or rhonchi. EXTREMITIES: Normal range of motion, no clubbing or edema. Neurovascularly intact. No warmth, erythema or skin changes to the knee. No swelling. Patient has mild tenderness over the patella but no other significant bony tenderness. No ballotable effusion. Patient has 2+ posterior tibialis. She has full range of motion of her lower extremity. With no other acute changes. NEUROLOGICAL: Cranial nerves II through XII grossly intact. Moving all extremities SKIN: Warm, dry, no petechiae, no rashes or lesions. Initial Vital Signs Initial Vital Signs: Vital Signs Temperature 96.6 F L 02/11/21 09:20 Pulse Rate 59 L 02/11/21 09:20 Respiratory Rate 20 02/11/21 09:20 Blood Pressure 124/71 02/11/21 09:20 Pulse Oximetry 97 02/11/21 09:20 Course Orders Ordered: ED Orders 02/11/21 09:25 XR knee RT 3V Stat Discontinued Medications Hydrocodone Bitart/Acetaminophen (Hydrocodone/Acet 5/325 Tablet) 1 tab PO NOW ONE Stop: 02/11/21 10:46 Last Admin: 02/11/21 11:00 Dose: 1 tab Documented by: Vital Signs Vital signs: Vital Signs - 8 hr 02/11/21 09:20 Temperature 96.6 F L Pulse Rate 59 L Respiratory Rate 20 Blood Pressure 124/71 Pulse Oximetry 97 MDM - Extremity Injury (Lower) Imaging Data Extremity x-ray #1: Radiologist's Impression: [address] [id number] ReportSigned Patient: Khadijah Marks MMR#: [id number]: 9Acct:[id number]/Sex: 60 / FDate of Service: 02/11/21Loc: EDAccession Number: [id number] Procedure: XR knee RT 3V Ordering Provider: Almaz Lopez D.O. PROCEDURE: XR KNEE RT 3V INDICATIONS: ongoing pain TECHNIQUE: 3 views of the knee were acquired. COMPARISON: [facility], , XR KNEE RT 3V, 12/21/2020, 7:40. [facility], , XR KNEE LT 3V, 12/21/2020, 7:40. FINDINGS: Bones: No fractures or dislocations. Small osteophyte at the lateral tibia. No suspicious bony lesions. Soft tissues: Trace joint effusion. No suspicious soft tissue calcifications. IMPRESSION: No acute osseous abnormality. Trace joint effusion. Mild DJD. Dictated by: Burton Adams M.D. on 02/11/2021 at 9:49 Approved by: Burton Adams M.D. on 02/11/2021 at 9:50 [facility] Narrative Medical decision making narrative: Patient has arthritic changes on x-ray, small joint effusion. Her knee does not appear septic and her pain has been chronic. Discussed with patient her main concern issues going to be traveling and she is worried her symptoms will worsen. Discussed trying Voltaren gel locally she can likely tolerate this in the should not worsen her reflux. She has lidocaine patches at home that are available to her she has not tried them. Given a referral for Orthopedic surgery as she does have some crepitus on exam and arthritic changes and she may have some meniscal injury as well. Patient and I discussed that her numbness and changes in her upper thigh are likely more related to her back. She has been following with her primary care and was encouraged to follow up but stated she can also discuss with Orthopedic surgery. Discharge Plan Departure Patient Disposition: Home Clinical Impression: Chronic knee pain, Radiculopathy of leg Instructions: DI for Knee Pain, DI for Lumbar Radiculopathy Activity Restrictions/Additional Instructions: Follow-up with your physician in the next week for recheck. You may also contact Orthopedic surgery for follow-up. Continue your home medication as prescribed. You may use Voltaren gel to your affected knee. Prescription to [facility] in [place]. Please return for fevers, new redness or warmth of the knee, worsening intractable pain, inability ambulate, loss of sensation, inability to lift or move her leg, any loss of bowel or bladder control or other new or concerning symptoms. Prescriptions: New diclofenac sodium [Voltaren Arthritis Pain] 1 % gel 2 g topical QID PRN (Reason: pain) Qty: 100 RF: 0 No Action losartan 50 mg tablet 50 mg PO DAILY Qty: 90 RF: 3 aspirin 81 mg tablet,delayed release (DR/EC) 81 mg PO DAILY RF: 0 levothyroxine 100 mcg tablet 100 mcg PO DAILY Qty: 90 RF: 2 rosuvastatin 40 mg tablet 40 mg PO DAILY Qty: 90 RF: 2 hydrocodone-acetaminophen 5-325 mg tablet See Rx Instructions .ROUTE .COMPLEX Qty: 60 RF: 0 nystatin 100,000 unit/gram cream 1 applic topical BID Qty: 30 RF: 0 nortriptyline 50 mg capsule 50 mg PO BEDTIME PRN (Reason: pain) Qty: 60 RF: 0 gabapentin 300 mg capsule 600 mg PO Q4H RF: 0 clobetasol 0.05 % ointment 1 applic topical DAILY Qty: 45 RF: 2 conjugated estrogens 0.625 mg/gram cream 0.625 mg vaginal DAILY Qty: 30 RF: 2 esomeprazole magnesium 20 mg Tablet,Delayed Release (Dr/Ec) 20 mg PO QPM RF: 0 metoprolol succinate 25 mg tablet extended release 24 hr 25 mg PO BID RF: 0 Referrals: Panchito Velez MD [Primary Care Provider] - Cheryl Fishman MD [Physician] -
[2021-02-11] MEDS: HYDROCODONE/ACET 5/325 TABLET 1 TAB PO (11:00)
[2021-02-11 12:00] VITALS: BP 102/60; PULSE 54; RESP 16; O2SAT 98
== END 2021-02-11 12:00 | disposition home or self-care (01) ==
PROVIDERS: Emergency Provider Emergency Medicine; PCP Family Medicine
DX: G89.29 Other chronic pain (principal); M25.561 Pain in right knee; M54.16 Radiculopathy, lumbar region
CPT/HCPCS: 73562; 99283

== ENCOUNTER → 2021-02-14 08:15 | Outpatient (CLI) | payer OTHER, MEDICAID, SELFPAY ==
--- NOTE | 2021-02-14 08:17 | DI.MRI.S_ITS ---
PROCEDURE: MR KNEE RT WO CON INDICATIONS: pain TECHNIQUE: Noncontrast sagittal PD fast spin echo and T2 fast spin echo with fat saturation, sagittal 3-D FLASH with fat saturation; coronal T1 spin echo and PD fast spin echo with fat saturation, and axial PD fast spin echo with fat saturation through the knee. COMPARISON: None. FINDINGS: Image quality: Excellent. Menisci: The medial and lateral menisci demonstrate normal morphology and internal signal. The meniscal root ligaments appear intact. Cruciate ligaments: The anterior and posterior cruciate ligaments appear intact. Medial structures: Low-grade MCL sprain is seen. The posterior oblique ligament, semimembranosus tendon insertions, oblique popliteal ligament, and meniscocapsular junction appear intact. Visualized portions of the pes anserinus tendons appear normal. No abnormal bursal fluid. Lateral structures: The lateral collateral ligament, long and short heads of the biceps femoris tendon appear intact. The popliteus tendon appears normal; the popliteofibular ligament appears intact. The posterosuperior and anteroinferior popliteomeniscal fascicles appear intact. The arcuate and fabellofibular ligaments appear intact, on either side of the lateral inferior geniculate artery. Iliotibial band appears normal. Anterior structures: The quadriceps and patellar tendons appear intact. Patellar alignment is normal. No femoral trochlear dysplasia or ventral trochlear prominence. No edema in the infrapatellar fat pad. Bones and cartilage: There is mild tricompartmental osteoarthritis more prominent in medial femoral tibial compartment. Low-grade chondromalacia in medial and lateral femoral tibial compartments are seen. Moderate chondromalacia patella is seen more prominent in medial facet of patella cartilage and apex with full-thickness cartilage defect and underlying osteochondral lesion involving superior and posterior portion of patella measures 6 mm in size. Joint space: There is moderate amount of joint fluid, no definite intra-articular loose body. Lobulated popliteal cyst is seen and measures up to 2.1 x 2.1 x 3.9 cm in size. Normal appearing synovial plicae are incidentally noted. IMPRESSION: 1. 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 No fracture or dislocation. Moderate joint effusion and small popliteal cyst. 2. Cruciate ligaments are intact. Low-grade MCL sprain. 3. No evidence of focal meniscal tear. Dictated by: Tone Hutchins M.D. on 02/16/2021 at 8:29 Approved by: Tone Hutchins M.D. on 02/16/2021 at 8:49
== END ==
PROVIDERS: PCP Family Medicine; Referring Provider Family Medicine; Visit Provider Family Medicine
DX: M25.561 Pain in right knee (principal); M17.11 Unilateral primary osteoarthritis, right knee; M22.41 Chondromalacia patellae, right knee; M25.461 Effusion, right knee; M71.21 Synovial cyst of popliteal space [Baker], right knee; S83.411A Sprain of medial collateral ligament of right knee, initial encounter; G89.29 Other chronic pain
CPT/HCPCS: 73721

== ENCOUNTER → 2021-03-05 10:13 | Outpatient (CLI) | payer OTHER, MEDICAID, SELFPAY | PROVIDERS: PCP Family Medicine; Referring Provider Specialist; Visit Provider Family Medicine | DX: S01.00XA Unspecified open wound of scalp, initial encounter (principal); L73.8 Other specified follicular disorders; L08.9 Local infection of the skin and subcutaneous tissue, unspecified | CPT/HCPCS: 11042; 87070; 87075; 87077; 87147; 87186; 87205; 99204; 99213; 99214 ==

== ENCOUNTER → 2021-03-12 15:21 | Outpatient (CLI) | payer OTHER, MEDICAID, SELFPAY | PROVIDERS: PCP Family Medicine; Referring Provider Family Medicine; Visit Provider Family Medicine | DX: S01.00XA Unspecified open wound of scalp, initial encounter (principal); L73.8 Other specified follicular disorders; L08.9 Local infection of the skin and subcutaneous tissue, unspecified; B95.7 Other staphylococcus as the cause of diseases classified elsewhere | CPT/HCPCS: 99213; 99214 ==

== ENCOUNTER → 2021-03-19 11:34 | Outpatient (CLI) | payer OTHER, MEDICAID, SELFPAY | PROVIDERS: PCP Family Medicine; Referring Provider Family Medicine; Visit Provider Family Medicine | DX: L08.89 Other specified local infections of the skin and subcutaneous tissue (principal); S01.00XA Unspecified open wound of scalp, initial encounter | CPT/HCPCS: 99213 ==

== ENCOUNTER → 2021-03-26 10:25 | Outpatient (CLI) | payer OTHER, MEDICAID, SELFPAY | PROVIDERS: PCP Family Medicine; Referring Provider Family Medicine; Visit Provider Family Medicine | DX: L08.89 Other specified local infections of the skin and subcutaneous tissue (principal); S01.00XA Unspecified open wound of scalp, initial encounter; L73.9 Follicular disorder, unspecified | CPT/HCPCS: 99213 ==

== ENCOUNTER → 2021-04-03 11:52 | Outpatient (CLI) | payer OTHER, MEDICAID, SELFPAY ==
--- NOTE | 2021-04-03 | DI.MRI.S_ITS ---
PROCEDURE: MR HEAD/BRAIN WO/W CON INDICATIONS: Other staphylococcus as the cause of diseases classified els TECHNIQUE: Noncontrast axial T1 spin echo, axial T2 fast spin echo, sagittal and axial FLAIR, coronal T2 fast spin echo, axial gradient echo, axial diffusion and ADC through the brain. After the administration of contrast, axial and coronal 3D VIBE or T1 spin echo with fat saturation through the brain. COMPARISON: None. FINDINGS: Image quality: Excellent. CSF Spaces: Basal cisterns are patent. No extra-axial fluid collections. Ventricles are normal in size and shape. Brain: No midline shift. No intracranial bleeds or masses. No abnormal intracranial enhancement. No leptomeningeal or dural enhancement. The brainstem appears normal. Diffusion-weighted images demonstrate no acute ischemic insults. No chronic ischemic insults. Normal intravascular flow voids are present. Skull and face: Calvarial marrow is normal in signal. Orbits appear normal. Sinuses: Sinuses and mastoids appear clear. IMPRESSION: 1. No acute intracranial disease process. 2. No areas of acute or chronic infarction. 3. No abnormal intracranial mass or mass effect. 4. No suspicious postcontrast enhancement. Dictated by: Pao Celeste MD, PhD on 04/03/2021 at 15:04 Approved by: Pao Celeste MD, PhD on 04/03/2021 at 15:21
== END ==
PROVIDERS: PCP Family Medicine; Referring Provider Family Medicine; Visit Provider Family Medicine
DX: S01.00XA Unspecified open wound of scalp, initial encounter (principal); B95.7 Other staphylococcus as the cause of diseases classified elsewhere
CPT/HCPCS: 70553

== ENCOUNTER → 2021-04-07 11:35 | Outpatient (CLI) | payer OTHER, MEDICAID, SELFPAY | PROVIDERS: PCP Family Medicine; Referring Provider Family Medicine; Visit Provider Family Medicine | DX: L08.89 Other specified local infections of the skin and subcutaneous tissue (principal); S01.00XA Unspecified open wound of scalp, initial encounter; L73.9 Follicular disorder, unspecified; H92.01 Otalgia, right ear; R20.8 Other disturbances of skin sensation | CPT/HCPCS: 11042; 87070; 87075; 87077; 87186; 87205; 99213 ==

== ENCOUNTER → 2021-04-21 09:04 | Outpatient (CLI) | payer OTHER, MEDICAID, SELFPAY | PROVIDERS: PCP Family Medicine; Referring Provider Family Medicine; Visit Provider Family Medicine | DX: S01.00XD Unspecified open wound of scalp, subsequent encounter (principal); R52 Pain, unspecified; R20.8 Other disturbances of skin sensation | CPT/HCPCS: 99213 ==

== ENCOUNTER → 2021-06-20 12:43 | Outpatient (CLI) | payer OTHER, MEDICAID, SELFPAY ==
--- NOTE | 2021-06-20 | DI.MRI.S_ITS ---
PROCEDURE: MR angiogram of the neck with contrast INDICATIONS: PULSATILE TINNITUS,RIGHT WORSE THAN LEFT TECHNIQUE: Axial and sagittal TruFISP through the neck. Coronal dynamic MRA after the administration of contrast in the arterial and venous phases, with rotating 3-dimensional maximum intensity projection (MIP) reformats constructed from subtraction images. COMPARISON: None. FINDINGS: Image quality: Excellent. Carotid system: Great vessels demonstrate a conventional anatomy as they arise from the aortic arch. The origins of the common carotid arteries appear normal. The calibers and courses of the common carotid arteries are likewise normal. The carotid bifurcations appear normal bilaterally. The internal carotid arteries are widely patent up to the [place]. Posterior circulation: The origins of the vertebral arteries are obscured by pulsation motion artifact. The more superior portions of the vertebral arteries demonstrate normal course and caliber. Miscellaneous: Subclavian arteries are patent throughout. Pre-contrast images through the neck demonstrate no soft tissue abnormalities. IMPRESSION: 1. No evidence of proximal ICA stenosis. 2. Origins of both vertebral arteries are obscured by pulsation artifact. Any quantitative measurements of ICA stenosis were performed using NASCET criteria. Approved by: Noel Gottlieb M.D. on 06/21/2021 at 9:12
--- NOTE | 2021-06-20 | DI.MRI.S_ITS ---
PROCEDURE: MR angiogram of the brain without contrast INDICATIONS: 60-year-old female with pulsatile tinnitus, right greater than left TECHNIQUE: Noncontrast axial 3-D [id number] MR angiogram, with 3-dimensional maximum intensity projection (MIP) reformats of the internal carotid arteries and posterior circulation then performed. COMPARISON: None. FINDINGS: Image quality: Excellent. Anterior circulation: Intracranial internal carotid arteries demonstrate normal size and intraluminal flow signal. Right A1 EDGAR segment is hypoplastic/aplastic. Anterior communicating artery is widely patent. Focal moderate stenosis noted involving the right A2 EDGAR segment proximally. Left proximal EDGAR unremarkable. The flow within the middle cerebral arteries is normal and symmetric. The anterior communicating artery is seen. No stenoses, occlusions, or aneurysms. Posterior circulation: Left vertebral artery intradural segment is hypoplastic/aplastic. Right vertebral artery is dominant and widely patent. Normal basilar artery noted. Bilateral P1 IMPLEMENTATION ENGINEER segments are also hypoplastic/aplastic. P2 segments are supplied by widely patent posterior communicating arteries. The distal segments of the bilateral IMPLEMENTATION ENGINEER unremarkable. Moderate focal stenosis is noted at the origin of the right posterior communicating artery. IMPRESSION: 1. Anatomic variation includes hypoplastic/aplastic left V4 vertebral, bilateral P1 IMPLEMENTATION ENGINEER, and right A1 EDGAR. 2. Focal moderate stenosis involves the origin of the right posterior communicating artery and proximal right A2 EDGAR segment. Consider follow-up CT angiogram of the brain for further evaluation. Approved by: Noel Gottlieb M.D. on 06/21/2021 at 9:07
== END ==
PROVIDERS: PCP Family Medicine; Referring Provider Family Medicine; Visit Provider Family Medicine
DX: I65.8 Occlusion and stenosis of other precerebral arteries (principal); H93.A9 Pulsatile tinnitus, unspecified ear
CPT/HCPCS: 70544; 70548; A9579

== ENCOUNTER → 2021-07-23 08:03 | Outpatient (CLI) | payer OTHER, MEDICAID, SELFPAY ==
--- NOTE | 2021-07-23 | DI.MRI.S_ITS ---
PROCEDURE: MR KNEE RT WO CON INDICATIONS: Pain in right knee TECHNIQUE: Noncontrast sagittal PD fast spin echo and T2 fast spin echo with fat saturation, sagittal 3-D FLASH with fat saturation; coronal T1 spin echo and PD fast spin echo with fat saturation, and axial PD fast spin echo with fat saturation through the knee. COMPARISON: [facility], CR, XR KNEE ARTHRITIC SERIES RT, 03/24/2021, 10:26. [facility], MR, MR KNEE RT WO CON, 02/14/2021, 8:36. FINDINGS: Image quality: Excellent. Menisci: There is mild intrasubstance degeneration in the medial meniscus without a discrete tear. A small horizontal oblique tear is seen at the junction of the anterior horn and body of the lateral meniscus extending to the outer third of the femoral articular surface with a mildly displaced flap component in the lateral femoral gutter. Cruciate ligaments: The anterior and posterior cruciate ligaments appear intact. Medial structures: Chronic low-grade sprain of the proximal medial collateral ligament The semimembranosus tendon insertions and meniscocapsular junction appear intact. Visualized portions of the pes anserinus tendons appear normal. No abnormal bursal fluid. Lateral structures: The lateral collateral ligament, long and short heads of the biceps femoris tendon appear intact. The popliteus tendon appears intact. No signs of posterolateral corner injury. Iliotibial band appears normal. Anterior structures: The quadriceps and patellar tendons appear intact. Patellar alignment is normal. No femoral trochlear dysplasia or ventral trochlear prominence. No edema in the infrapatellar fat pad. Bones and cartilage: No bone marrow contusions or fractures. Mild partial-thickness cartilage irregularity is seen in the weight-bearing portion of the medial femorotibial compartment with small marginal osteophytes. Mild surface irregularity is seen in the articular cartilages of the lateral compartment. Full-thickness cartilage defect is again seen at the median ridge of the patella superiorly with subchondral cystic changes and edema and mild irregularity of the subchondral plate. There is full-thickness cartilage fissuring in the lateral patellar facet and high-grade partial-thickness cartilage loss in the medial patellar facet. A full-thickness cartilage defect is also seen in the lateral femoral trochlea with subchondral edema, which has mildly progressed when compared to the MRI from 02/14/2021. Joint space: There is a small joint effusion. A small lobular medial popliteal cyst is present which extends inferiorly along the medial hamstring tendons. There is a small amount of fluid tracking along the popliteus tendon sheath. IMPRESSION: 1. Small horizontal oblique tear of the lateral meniscus at the junction of the anterior horn and body extending to the outer third of the femoral articular surface with a small displaced flap at the medial femoral gutter. This appears new when compared to the MRI from 02/14/2021. 2. Full-thickness cartilage defect at the inferior aspect of the lateral femoral trochlea measuring 4 x 4 mm with subchondral cystic changes appears progressed when compared to the prior MRI. Full-thickness cartilage defect again seen at the median ridge of the patella with subchondral cystic changes and edema. Mild grade 2 chondromalacia is seen in the medial and lateral compartments. 3. Chronic low-grade sprain of the proximal medial collateral ligament. 4. Small joint effusion. Small medial popliteal cyst. Dictated by: Jason Jolley M.D. on 07/23/2021 at 9:23 Approved by: Jason Jolley M.D. on 07/23/2021 at 9:37
== END ==
PROVIDERS: PCP Family Medicine; Referring Provider Physician Assistant Surgical; Visit Provider Physician Assistant Surgical
DX: S83.281A Other tear of lateral meniscus, current injury, right knee, initial encounter (principal); S83.411A Sprain of medial collateral ligament of right knee, initial encounter; M94.261 Chondromalacia, right knee; M25.461 Effusion, right knee; M71.21 Synovial cyst of popliteal space [Baker], right knee; M25.561 Pain in right knee
CPT/HCPCS: 73721

== ENCOUNTER 2021-08-21 20:08 | Emergency (ER) | payer OTHER, MEDICAID, SELFPAY ==
[2021-08-21] VITALS (9 sets, daily range): BP systolic 141–192; BP diastolic 67–98; PULSE 58–106; RESP 15–37; TEMP 36.3; O2SAT 95–100; BMI 37.8
--- NOTE | 2021-08-21 20:18 | DI.RAD.S_ITS ---
PROCEDURE: XR CHEST 1V INDICATIONS: chest pain TECHNIQUE: One view of the chest was acquired. COMPARISON: [facility], CR, XR CHEST 1V, 09/30/2020, 13:40. FINDINGS: Surgical changes and devices: None. Lungs and pleura: Lungs are clear. No pleural effusions or pneumothorax. Mediastinum: Mediastinal contours appear normal. Heart size is normal. Bones and chest wall: No suspicious bony lesions. Overlying soft tissues appear unremarkable. IMPRESSION: No acute cardiopulmonary abnormalities or focal airspace disease. Dictated by: Jay Moore M.D. on 08/21/2021 at 21:11 Approved by: Jay Moore M.D. on 08/21/2021 at 21:12
--- NOTE | 2021-08-21 20:39 | ED_ITS ---
HPI - General Adult General Chief complaint: Hypertension Stated complaint: heart 188 over 120 sent by pharmacy Time Seen by Provider: 08/21/21 20:39 Source: patient Mode of arrival: Wheelchair History of Present Illness HPI narrative: 61-year-old femaleFormer smoker with history of trigeminal neuralgia, hypertension and chronic headaches presents for evaluation of elevated blood pressure and headache for the past few days. She was at the pharmacy asking questions about her medications as she had missed a few doses of her metoprolol with a measured her blood pressure to be in the 180s and sent her here for evaluation. She denies any blurred vision or trouble with speech. She has no numbness, tingling or weakness. She has no chest pain or shortness of breath. She denies abdominal pain, nausea, vomiting or diarrhea. She states her headache has been gradual in its onset and is a bit more squeezing than her previous trigeminal neuralgia headaches. She denies any obvious provocation or palliation. She denies any neck pain. She has had no recent trauma or injury. She denies any fever or chills Related Data Home Medications Medication Instructions Recorded Confirmed esomeprazole magnesium 20 mg 20 mg PO QPM 04/05/19 06/16/21 tablet,delayed release gabapentin 300 mg capsule 600 mg PO BEDTIME cap 06/16/21 metoprolol succinate 25 mg 25 mg PO DAILY tab 06/16/21 06/16/21 tablet,extended release 24 hr Previous Rx's Medication Instructions Recorded clobetasol 0.05 % topical ointment 1 applic TOPICAL DAILY #45 g 11/04/20 losartan 50 mg tablet 50 mg PO DAILY #90 tab 04/14/21 nystatin 100,000 unit/gram topical See Rx Instructions .ROUTE 05/20/21 cream .COMPLEX #30 g levothyroxine 100 mcg tablet 100 mcg PO DAILY #90 tab 06/08/21 diazepam 5 mg tablet (Valium) 10 mg PO BEDTIME PRN #2 tab 06/17/21 rosuvastatin 40 mg tablet 40 mg PO DAILY #90 tab 07/20/21 hydrocodone 5 mg-acetaminophen 325 1 tab PO Q8H PRN #60 tab 08/11/21 mg tablet aspirin 81 mg tablet,delayed 81 mg PO DAILY #90 tab 08/12/21 release Allergies Allergy/AdvReac Type Severity Reaction Status Date / Time diphenhydramine Allergy Severe Difficulty Verified 08/21/21 20:15 [From Benadryl] Breathing ibuprofen Allergy Severe Difficulty Verified 08/21/21 20:15 Breathing oxycodone Allergy Severe Hallucinati Verified 08/21/21 20:15 ng Estrogens Allergy Verified 08/21/21 20:15 Review of Systems Review of Systems Narrative: GENERAL: Denies chills, fatigue, malaise, fever, sweats. HEENT: Denies sinus pain, ear pain, sore throat, difficulty swallowing, dizzines s. RESPIRATORY: Denies dyspnea, cough, wheezing, hemoptysis, sputum. CARDIOVASCULAR: Denies chest pain, palpitations, orthopnea, edema, GASTROINTESTINAL: Denies nausea, vomiting, abdominal pain, diarrhea, constipation, melena. : Denies dysuria, frequency, incontinence, hematuria, urinary retention. MUSCULOSKELETAL: denies weakness, joint pain, or bony pain SKIN: Denies rash, skin lesions, or other NEUROLOGIC: See HPI PSYCHIATRIC: No concerning psychosocial issues. 12 point review of systems is negative except for those stated above Patient History Medical History Atrophic vaginitis Bilateral knee pain Candidal intertrigo Cervical stenosis of spine GERD (gastroesophageal reflux disease) Hyperlipidemia Hypertension Hypothyroidism Neuroforaminal stenosis of cervical spine Non-ST elevation [place] (NSTEMI) Prediabetes (04/2020) Pulsatile tinnitus Short-term memory loss Surgical follow-up care Surgical wound infection Tear of right supraspinatus tendon Toe pain, left Trigeminal neuralgia Trigger thumb, right thumb Surgical History Status post appendectomy Status post cholecystectomy Status post hernia repair Status post hysterectomy Social History marital status: Smoking Status: Former smoker alcohol intake: never substance use type: does not use Smoking Status: Former smoker alcohol intake frequency: holidays/special occasions only Substance Use Type: does not use Exam Narrative Exam Narrative: GENERAL: [61 year old patient appears stated age. Well-developed patient, in mild distress. GCS 15, obviously uncomfortable and rubbing her head HEAD: Atraumatic. Normocephalic. EYES: Pupils equal round and reactive. Extraocular motions intact. No scleral icterus. No injection or drainage. ENT: Nose without bleeding, purulent drainage. Throat without erythema, t onsillar hypertrophy or exudate. Airway patent. NECK: Trachea midline. Non tender CARDIOVASCULAR: Regular rate and rhythm without murmurs, gallops, or rubs. RESPIRATORY: Clear to auscultation. Breath sounds equal bilaterally. No wheezes, rales, or rhonchi. GASTROINTESTINAL: Abdomen soft, non-tender, nondistended. EXTREMITIES: No edema or joint tenderness. BACK: Nontender without deformity or crepitance. No flank tenderness. NEURO: AOx3. SKIN: No rash or erythema of visible areas NIH Stroke Scale 1a. LOC: Patient is alert and keenly responsive (0) 1b. LOC Questions: Patient answers both LOC questions accurately (0) 1c. LOC Commands: Patient performs both tasks correctly (0) 2. Best Gaze: Normal (0) 3. Visual: No visual loss (0) 4. Facial palsy: Normal symmetrical movements (0) 5. Motor arm: No drift (0) 6. Motor leg: No drift (0) 7. Limb ataxia: Absent (0) 8. Sensory: Normal (0) 9. Best language: No aphasia; normal (0) 10. Dysarthria: Normal (0) 11. Extinction and inattention: No abnormality (0) NIHSS: 0 Initial Vital Signs Initial Vital Signs: Vital Signs Temperature 97.3 F L 08/21/21 20:12 Pulse Rate 106 H 08/21/21 20:12 Respiratory Rate 18 08/21/21 20:12 Blood Pressure 192/98 H 08/21/21 20:12 Pulse Oximetry 100 08/21/21 20:12 Course Orders Ordered: Discontinued Medications Metoprolol Tartrate (Metoprolol Ir 25 Mg Tablet) 25 mg PO NOW ONE Stop: 08/21/21 21:18 Last Admin: 08/21/21 21:22 Dose: 25 mg Documented by: RASHAD Reevaluation(s) Reevaluation #1: Patient having significant improvement after above-stated therapies Vital Signs Vital signs: Vital Signs - 8 hr 08/21/21 20:12 Temperature 97.3 F L Pulse Rate 106 H Respiratory Rate 18 Blood Pressure 192/98 H Pulse Oximetry 100 Medical Decision Making Lab Data Result diagrams: 08/21/21 20:28 08/21/21 20:28 Labs: Lab Results 08/21/21 08/21/21 08/21/21 Range/Units 20:28 20:28 20:28 WBC 6.5 (4.5-11.0) X10^3/uL RBC 4.32 (4.0-5.2) X10^6/uL Hgb 13.1 (12.0-16.0) g/dL Hct 38.2 (36-46) % MCV 88.4 (80-100) fL MCH 30.4 (26-34) PG MCHC 34.4 (30-36) % RDW 13.4 (11.6-14.8) % Plt Count 232 (150-400) X10^3/uL Neut % (Auto) 52.8 (50-75) % Lymph % (Auto) 35.8 (25-40) % Corson % (Auto) 7.7 (3-14) % Eos % (Auto) 3.2 (2-4) % Baso % (Auto) 0.5 (0-2) % Neut # (Auto) 3400 (5828-3078) /uL Lymph # (Auto) 2300 (3929-0225) /uL Corson # (Auto) 500 (0-900) /uL Eos # (Auto) 200 (0-450) /uL Baso # (Auto) 0 (0-100) /uL PT 10.3 (10.1-12.7) SECONDS INR 0.9 (0.9-1.3) APTT 35 (26.4-36.2) SECONDS Sodium 141 (137-145) mmol/L Potassium 3.5 (3.4-5.1) mmol/L Chloride 106 (98-107) mmol/L Carbon Dioxide 30 (22-32) mmol/L BUN 10 (7-17) mg/dL Creatinine 0.70 (0.52-1.04) mg/dL Estimated GFR > 60.0 (>60) mL/min BUN/Creatinine Ratio 14.3 (6-22) Glucose 172 H (80-110) mg/dL Calcium 9.9 (8.4-10.2) mg/dL Magnesium 2.1 (1.6-2.3) mg/dL Total Bilirubin 0.4 (0.2-1.3) mg/dL AST 40 H (14-36) IU/L ALT 44 H (<35) IU/L Alkaline Phosphatase 67 (38-126) U/L Total Creatine Kinase 213 H (30-135) U/L CK-MB (CK-2) 3.68 H (<2.37) ng/mL CK-MB (CK-2) Rel Index 1.7 (1.5-5.0) % Troponin I < 0.012 (0.01-0.034) ng/mL Total Protein 7.6 (6.3-8.2) g/dL Albumin 4.4 (3.5-5.0) g/dL Globulin 3.2 (1.7-4.1) g/dL Albumin/Globulin Ratio 1.4 (1.0-2.8) Lipase 147 (23-300) U/L Imaging Data CT scan - head: Radiologist's Impression: Launch?Image [address] [address] [address] Scan Report Signed Patient: Khadijah Marks MR#: [id number] : 1960 Acct:[id number] Age/Sex: 61 / F Date of Service: 08/21/21 Loc: ED Accession Number: [id number] ?? Procedure: CT head/brain wo con Ordering Provider: Mick Silva D.O. PROCEDURE:? CT HEAD/BRAIN WO CON ? INDICATIONS:? worst headache ? TECHNIQUE:? Noncontrast 4.5 mm thick angled axial sections acquired from the foramen magnum to the vertex, with coronal and sagittal reformats.? For radiation dose reduction, the following was used:? automated exposure control, adjustment of mA and/or kV according to patient size.? ? COMPARISON:? [facility], CT, CT HEAD/BRAIN WO CON, 05/26/2020, 13:04.? [facility], CT, CT HEAD/BRAIN WO CON, 03/25/2019, 9:01. ? FINDINGS:? Image quality:? Excellent.? ? CSF spaces:? Basal cisterns are patent.? No extra-axial fluid collections.? The ventricles are symmetric in size and shape.? ? Brain:? No intracranial bleeds or masses.? There is cerebral volume loss for age, with resultant ventricular and sulcal prominence.? There are periventricular and deep white matter chronic small vessel ischemic changes.? There is intracranial internal carotid artery atherosclerosis.? ? Skull and face:? Calvarium and visualized facial bones appear intact, without suspicious lesions.? ? Sinuses:? Visualized sinuses and mastoids are clear.? ? IMPRESSION:? 1. CT head without acute intracranial abnormalities or acute calvarial fractures. ? 2. Age-related senescent changes and sequela of chronic small vessel ischemic disease. ? ? ? Dictated by: Jay Moore M.D. on 08/21/2021 at 21:58 ? ? Approved by: Jay Moore M.D. on 08/21/2021 at 21:59 ? MDM Narrative Medical decision making narrative: Headache considerations include, but not limited to: Subarachnoid hemorrhage, but unlikely as patient denies sudden onset of pain, not worst of life, or neck pain Meningitis considered, but thought unlikely given lack of Brudzinski's, Kernig's sign, altered mental status or fever Giant cell arteritis considered, but thought unlikely given lack of unilateral findings, pain in orthodoxy, vision change HTN Emergency considered, given her elevated blood pressure on arrival and resolution of headache along with improved blood pressure. Other serious diagnoses considered unlikely given lack of red flag findings such as sudden onset, increasing frequency, immunocompromise, systemic signs (fever, chills, stiff neck, or rash), focal neurologic findings, trauma, blood thinners, etc. Discharge Plan Departure Patient Disposition: Home Clinical Impression: Hypertension, Head ache Instructions: DI for High Blood Pressure Activity Restrictions/Additional Instructions: *You have been diagnosed with [headache and high blood pressure. As we discussed, your history, physical exam, labs, response to therapy and imaging are very reassuring. There is no evidence of stroke, bleeding in her brain or other severe diagnosis. *What to do: *Please continue to take your regular medications as directed. [ ] New medication prescriptions sent to your pharmacy: [ ] [ ] New medication written as a paper prescription [ ] No new medications given *Please follow up with your primary care provider in 2-3 days, call for an appointment. Let them know you were seen in the Emergency Department and that we ask that you be seen in follow up. We will electronically transmit a record of today's note if your PCP is in our system *If you do not have a primary care provider please contact the [facility] Resource line at [phone]. They will ask some questions about your medical history and help get you set up with a doctor in the community. *Return to Emergency Department if you should have any new, worsening or concerning symptoms, such as [fever greater than 101 F, shaking chills, worsenin g pain, persistent vomiting or other bothersome symptoms] Prescriptions: No Action losartan 50 mg tablet 50 mg PO DAILY Qty: 90 3RF nystatin 100,000 unit/gram cream See Rx Instructions .ROUTE .COMPLEX Qty: 30 0RF Dose Instruction: apply to affected area twice a day Rx Instructions: apply to affected area twice a day levothyroxine 100 mcg tablet 100 mcg PO DAILY Qty: 90 2RF diazepam [Valium] 5 mg tablet 10 mg PO BEDTIME PRN (Reason: anxiety) Qty: 2 0RF Rx Instructions: take 45 minutes prior to procedure rosuvastatin 40 mg tablet 40 mg PO DAILY Qty: 90 2RF hydrocodone-acetaminophen 5-325 mg tablet 1 tab PO Q8H PRN (Reason: pain) Qty: 60 0RF aspirin 81 mg tablet,delayed release (DR/EC) 81 mg PO DAILY Qty: 90 0RF clobetasol 0.05 % ointment 1 applic topical DAILY Qty: 45 2RF Rx Instructions: Use once daily for 4 weeks, then twice weekly gabapentin 300 mg capsule 600 mg PO BEDTIME 0RF esomeprazole magnesium 20 mg Tablet,Delayed Release (Dr/Ec) 20 mg PO QPM 0RF metoprolol succinate 25 mg tablet extended release 24 hr 25 mg PO DAILY 0RF Referrals: Panchito Velez MD [Primary Care Provider] -
[2021-08-21 20:47] LABS: Add Manual Diff / Slide Review NO; Basophils Absolute Auto 0 /uL (0-100); Basophils Percent Auto 0.5 % (0-2); Eosinophils Absolute Auto 200 /uL (0-450); Eosinophils Percent Auto 3.2 % (2-4); Hematocrit 38.2 % (36-46); Hemoglobin 13.1 g/dL (12.0-16.0); Lymphocytes Absolute Auto 2300 /uL (1100-4500); Lymphocytes Percent Auto 35.8 % (25-40); Mean Corpuscular HGB Conc 34.4 % (30-36); Mean Corpuscular Hemoglobin 30.4 PG (26-34); Mean Corpuscular Volume 88.4 fL (80-100); Monocytes Absolute Auto 500 /uL (0-900); Monocytes Percent Auto 7.7 % (3-14); Neutrophils Absolute Auto 3400 /uL (1500-7000); Neutrophils Percent Auto 52.8 % (50-75); Platelet Count 232 X10^3/uL (150-400); Red Blood Cell Count 4.32 X10^6/uL (4.0-5.2); Red Cell Distribution Width 13.4 % (11.6-14.8); White Blood Cell Count 6.5 X10^3/uL (4.5-11.0)
[2021-08-21 20:52] LABS: INR 0.9 (0.9-1.3); Prothrombin Time 10.3 SECONDS (10.1-12.7)
[2021-08-21 20:55] LABS: PTT Partial Thromboplastin Tim 35 SECONDS (26.4-36.2)
[2021-08-21 20:58] LABS: Alanine Aminotransferase 44 IU/L (<35); Albumin 4.4 g/dL (3.5-5.0); Albumin Globulin Ratio 1.4 (1.0-2.8); Alkaline Phosphatase 67 U/L (38-126); Aspartate Aminotransferase 40 IU/L (14-36); BUN Creatinine Ratio 14.3 (6-22); Bilirubin Total 0.4 mg/dL (0.2-1.3); Blood Urea Nitrogen 10 mg/dL (7-17); Calcium 9.9 mg/dL (8.4-10.2); Carbon Dioxide 30 mmol/L (22-32); Chloride 106 mmol/L (98-107); Creatine Kinase 213 U/L (30-135); Estimated Glomerular Filt Rate > 60.0 mL/min (>60); Globulin 3.2 g/dL (1.7-4.1); Glucose 172 mg/dL (80-110); HEMOLYSIS < 15 (0-50); Lipase 147 U/L (23-300); Magnesium 2.1 mg/dL (1.6-2.3); Potassium 3.5 mmol/L (3.4-5.1); Sodium 141 mmol/L (137-145); Total Protein 7.6 g/dL (6.3-8.2)
[2021-08-21 21:09] LABS: Troponin I < 0.012 ng/mL (0.01-0.034)
[2021-08-21 21:13] LABS: CKMB % Relative Index 1.7 % (1.5-5.0); Creatine Kinase MB 3.68 ng/mL (<2.37)
--- NOTE | 2021-08-21 21:17 | DI.CT.S_ITS ---
PROCEDURE: CT HEAD/BRAIN WO CON INDICATIONS: worst headache TECHNIQUE: Noncontrast 4.5 mm thick angled axial sections acquired from the foramen magnum to the vertex, with coronal and sagittal reformats. For radiation dose reduction, the following was used: automated exposure control, adjustment of mA and/or kV according to patient size. COMPARISON: [facility], CT, CT HEAD/BRAIN WO CON, 05/26/2020, 13:04. [facility], CT, CT HEAD/BRAIN WO CON, 03/25/2019, 9:01. FINDINGS: Image quality: Excellent. CSF spaces: Basal cisterns are patent. No extra-axial fluid collections. The ventricles are symmetric in size and shape. Brain: No intracranial bleeds or masses. There is cerebral volume loss for age, with resultant ventricular and sulcal prominence. There are periventricular and deep white matter chronic small vessel ischemic changes. There is intracranial internal carotid artery atherosclerosis. Skull and face: Calvarium and visualized facial bones appear intact, without suspicious lesions. Sinuses: Visualized sinuses and mastoids are clear. IMPRESSION: 1. CT head without acute intracranial abnormalities or acute calvarial fractures. 2. Age-related senescent changes and sequela of chronic small vessel ischemic disease. Dictated by: Jay Moore M.D. on 08/21/2021 at 21:58 Approved by: Jay Moore M.D. on 08/21/2021 at 21:59
[2021-08-21] MEDS: METOPROLOL IR 25 MG TABLET PO (21:22)
== END 2021-08-21 23:20 | disposition home or self-care (01) ==
PROVIDERS: Emergency Provider Emergency Medicine; Family Provider Family Medicine; PCP Family Medicine
DX: I10 Essential (primary) hypertension (principal); R51.9 Headache, unspecified; Z87.891 Personal history of nicotine dependence
CPT/HCPCS: 36415; 70450; 71045; 80053; 82550; 82553; 83690; 83735; 84484; 85025; 85610; 85730; 93005; 93010; 99284

== ENCOUNTER → 2021-10-26 11:27 | Outpatient (CLI) | payer OTHER, MEDICAID, SELFPAY ==
[2021-10-26 14:52] LABS: TSH w/ Reflex to FT4 2.46 uIU/mL (0.47-4.68)
[2021-10-26 15:03] LABS: Vitamin B12 382 pg/mL (239-931)
[2021-10-26 15:35] LABS: Vitamin D 25 Hydroxy (D3) 27.7 ng/mL (30.0-100.0)
== END ==
PROVIDERS: Family Provider Family Medicine; PCP Family Medicine; Referring Provider Family Medicine; Visit Provider Family Medicine
DX: E03.9 Hypothyroidism, unspecified (principal); I10 Essential (primary) hypertension; E55.9 Vitamin D deficiency, unspecified
CPT/HCPCS: 36415; 82306; 82607; 84443

== ENCOUNTER → 2021-11-25 14:06 | Outpatient (CLI) | payer OTHER, MEDICAID, SELFPAY ==
[2021-11-25 14:43] LABS: Alanine Aminotransferase 35 IU/L (<35); Albumin 4.3 g/dL (3.5-5.0); Albumin Globulin Ratio 1.4 (1.0-2.8); Alkaline Phosphatase 70 U/L (38-126); Aspartate Aminotransferase 35 IU/L (14-36); BUN Creatinine Ratio 17.5 (6-22); Bilirubin Total 0.4 mg/dL (0.2-1.3); Blood Urea Nitrogen 14 mg/dL (7-17); Calcium 9.4 mg/dL (8.4-10.2); Carbon Dioxide 31 mmol/L (22-32); Chloride 101 mmol/L (98-107); Estimated Glomerular Filt Rate > 60 mL/min (>60); Globulin 3.1 g/dL (1.7-4.1); Glucose 169 mg/dL (80-110); HEMOLYSIS < 15 (0-50); Sodium 138 mmol/L (137-145); Total Protein 7.4 g/dL (6.3-8.2)
== END ==
PROVIDERS: Family Provider Family Medicine; PCP Family Medicine; Referring Provider Internal Medicine Cardiovascular Disease; Visit Provider Internal Medicine Cardiovascular Disease
DX: I10 Essential (primary) hypertension (principal); R73.9 Hyperglycemia, unspecified
CPT/HCPCS: 36415; 80053; 83036

== ENCOUNTER → 2021-12-11 07:08 | Outpatient (CLI) | payer OTHER, MEDICAID, SELFPAY ==
[2021-12-11 08:47] LABS: Add Manual Diff / Slide Review NO; Basophils Absolute Auto 0 /uL (0-100); Basophils Percent Auto 0.6 % (0-2); Eosinophils Absolute Auto 300 /uL (0-450); Eosinophils Percent Auto 4.1 % (2-4); Hematocrit 39.1 % (36-46); Hemoglobin 13.8 g/dL (12.0-16.0); Lymphocytes Absolute Auto 1900 /uL (1100-4500); Lymphocytes Percent Auto 30.6 % (25-40); Mean Corpuscular HGB Conc 35.3 % (30-36); Mean Corpuscular Hemoglobin 30.6 PG (26-34); Mean Corpuscular Volume 86.7 fL (80-100); Monocytes Absolute Auto 500 /uL (0-900); Monocytes Percent Auto 8.6 % (3-14); Neutrophils Absolute Auto 3500 /uL (1500-7000); Neutrophils Percent Auto 56.1 % (50-75); Platelet Count 269 X10^3/uL (150-400); Red Blood Cell Count 4.51 X10^6/uL (4.0-5.2); Red Cell Distribution Width 13.4 % (11.6-14.8); White Blood Cell Count 6.2 X10^3/uL (4.5-11.0)
[2021-12-11 08:59] LABS: Alanine Aminotransferase 42 IU/L (<35); Albumin 4.3 g/dL (3.5-5.0); Albumin Globulin Ratio 1.4 (1.0-2.8); Alkaline Phosphatase 60 U/L (38-126); Aspartate Aminotransferase 35 IU/L (14-36); BUN Creatinine Ratio 20.5 (6-22); Bilirubin Total 0.5 mg/dL (0.2-1.3); Blood Urea Nitrogen 15 mg/dL (7-17); Calcium 9.7 mg/dL (8.4-10.2); Carbon Dioxide 32 mmol/L (22-32); Chloride 103 mmol/L (98-107); Cholesterol 170 mg/dL (140-199); Estimated Glomerular Filt Rate > 60 mL/min (>60); Globulin 3.1 g/dL (1.7-4.1); Glucose 140 mg/dL (80-110); HDL Cholesterol 45 mg/dL (40-60); HEMOLYSIS < 15 (0-50); LDL Cholesterol Calculated 89 mg/dL (<100); Magnesium 1.9 mg/dL (1.6-2.3); Potassium 3.7 mmol/L (3.4-5.1); Sodium 140 mmol/L (137-145); Total Protein 7.4 g/dL (6.3-8.2); Triglycerides 178 mg/dL (35-150)
[2021-12-11 09:27] LABS: Thyroid Stimulating Hormone 2.18 uIU/mL (0.47-4.68)
== END ==
PROVIDERS: Family Provider Family Medicine; PCP Family Medicine; Referring Provider Internal Medicine Cardiovascular Disease; Visit Provider Internal Medicine Cardiovascular Disease
DX: R00.2 Palpitations (principal); I10 Essential (primary) hypertension; I25.10 Atherosclerotic heart disease of native coronary artery without angina pectoris; E78.2 Mixed hyperlipidemia
CPT/HCPCS: 36415; 80053; 80061; 83735; 84443; 85025

== ENCOUNTER → 2021-12-24 11:37 | Outpatient (CLI) | payer OTHER, MEDICAID, SELFPAY ==
--- NOTE | 2021-12-24 11:39 | DI.RAD.S_ITS ---
PROCEDURE: XR KNEE LT 3V INDICATIONS: left knee pain TECHNIQUE: 3 views of the knee were acquired. COMPARISON: [facility], CR, XR KNEE RT 3V, 02/11/2021, 9:28. FINDINGS: Bones: No fractures or dislocations. No suspicious bony lesions. Soft tissues: No joint effusion. No suspicious soft tissue calcifications. IMPRESSION: Unremarkable left knee radiographs Approved by: Noel Gottlieb M.D. on 12/24/2021 at 13:30
== END ==
PROVIDERS: Family Provider Family Medicine; PCP Family Medicine; Referring Provider Family Medicine; Visit Provider Family Medicine
DX: M25.562 Pain in left knee (principal)
CPT/HCPCS: 73564

== ENCOUNTER 2022-01-11 13:44 | Emergency (ER) | payer OTHER, MEDICAID, SELFPAY ==
[2022-01-11] VITALS (16 sets, daily range): BP systolic 133–201; BP diastolic 70–103; PULSE 48–57; RESP 17–44; TEMP 36.5; O2SAT 95–100; BMI 34.3
--- NOTE | 2022-01-11 14:13 | DI.RAD.S_ITS ---
PROCEDURE: XR CHEST 1V INDICATIONS: chest pain TECHNIQUE: One view of the chest was acquired. COMPARISON: [facility], CR, XR CHEST 1V, 08/21/2021, 20:55. FINDINGS: Surgical changes and devices: None. Lungs and pleura: Lungs are clear. No pleural effusions or pneumothorax. Mediastinum: Mediastinal contours appear normal. Heart size is normal. Bones and chest wall: No suspicious bony lesions. Overlying soft tissues appear unremarkable. IMPRESSION: No acute cardiopulmonary findings Approved by: Noel Gottlieb M.D. on 01/11/2022 at 14:10
[2022-01-11 14:21] LABS: Add Manual Diff / Slide Review NO; Basophils Absolute Auto 100 /uL (0-100); Basophils Percent Auto 0.7 % (0-2); Eosinophils Absolute Auto 400 /uL (0-450); Eosinophils Percent Auto 4.7 % (2-4); Hematocrit 39.1 % (36-46); Hemoglobin 13.2 g/dL (12.0-16.0); Lymphocytes Absolute Auto 2700 /uL (1100-4500); Lymphocytes Percent Auto 32.4 % (25-40); Mean Corpuscular HGB Conc 33.7 % (30-36); Mean Corpuscular Hemoglobin 30.1 PG (26-34); Mean Corpuscular Volume 89.3 fL (80-100); Monocytes Absolute Auto 800 /uL (0-900); Monocytes Percent Auto 9.2 % (3-14); Neutrophils Absolute Auto 4300 /uL (1500-7000); Platelet Count 257 X10^3/uL (150-400); Red Blood Cell Count 4.38 X10^6/uL (4.0-5.2); Red Cell Distribution Width 13.2 % (11.6-14.8); White Blood Cell Count 8.2 X10^3/uL (4.5-11.0)
--- NOTE | 2022-01-11 14:21 | ED.GENADULT ---
HPI - General Adult <Evelia Villasenor PA-C - Last Filed: 01/11/22 14:22> General Chief complaint: Hypertension Stated complaint: High bp,nausea, head pressure- paliwal patient Time Seen by Provider: 01/11/22 14:19 Source: patient Mode of arrival: Wheelchair Related Data Home Medications Medication Instructions Recorded Confirmed esomeprazole magnesium 20 mg 20 mg PO QPM 01/07/22 01/07/22 tablet,delayed release metoprolol succinate 25 mg 37.5 mg PO DAILY tab 01/07/22 tablet,extended release 24 hr Previous Rx's Medication Instructions Recorded diazepam 5 mg tablet (Valium) 10 mg PO BEDTIME PRN #2 tab 06/17/21 rosuvastatin 40 mg tablet 40 mg PO DAILY #90 tab 07/20/21 aspirin 81 mg tablet,delayed 81 mg PO DAILY #90 tab 09/09/[address] permit See Rx Instructions .ROUTE 09/17/21 .COMPLEX #1 ea nystatin 100,000 unit/gram topical See Rx Instructions .ROUTE 09/21/21 cream .COMPLEX #30 g levothyroxine 100 mcg tablet 100 mcg PO DAILY #90 tab 10/16/21 gabapentin 300 mg capsule See Rx Instructions .ROUTE 12/24/21 .COMPLEX #200 cap losartan 50 mg tablet See Rx Instructions .ROUTE 12/24/21 .COMPLEX #90 tab hydrocodone 5 mg-acetaminophen 325 1 tab PO Q8H PRN #60 tab 01/07/22 mg tablet Allergies Allergy/AdvReac Type Severity Reaction Status Date / Time diphenhydramine Allergy Severe Difficulty Verified 01/07/22 11:04 [From Benadryl] Breathing ibuprofen Allergy Severe Difficulty Verified 01/07/22 11:04 Breathing oxycodone Allergy Severe Hallucinati Verified 01/07/22 11:04 ng chlorthalidone Allergy Intermediate rash Verified 01/07/22 11:23 Estrogens Allergy Verified 01/07/22 11:04 Patient History <Evelia Villasenor PA-C - Last Filed: 01/11/22 14:22> Medical History Atrophic vaginitis Bilateral knee pain Candidal intertrigo Cervical stenosis of spine GERD (gastroesophageal reflux disease) Hyperlipidemia Hypertension Hypothyroidism Neuroforaminal stenosis of cervical spine Non-ST elevation [place] (NSTEMI) Prediabetes (04/2020) Pulsatile tinnitus Short-term memory loss Surgical follow-up care Surgical wound infection Tear of right supraspinatus tendon Toe pain, left Trigeminal neuralgia Trigger thumb, right thumb Surgical History Status post appendectomy Status post cholecystectomy Status post hernia repair Status post hysterectomy Social History marital status: Smoking Status: Former smoker alcohol intake: never substance use type: does not use Smoking Status: Former smoker alcohol intake frequency: holidays/special occasions only Substance Use Type: does not use Exam <Evelia Villasenor PA-C - Last Filed: 01/11/22 14:22> Initial Vital Signs Initial Vital Signs: Vital Signs Temperature 97.7 F 01/11/22 13:52 Pulse Rate 57 L 01/11/22 13:52 Respiratory Rate 20 01/11/22 13:52 Blood Pressure 196/96 H 01/11/22 13:52 Pulse Oximetry 99 01/11/22 13:52 Course <Evelia Villasenor PA-C - Last Filed: 01/11/22 14:22> Orders Ordered: ED Orders 01/11/22 14:08 Complete Blood Count AUTO DIFF Stat Comprehensive Metabolic Panel Stat Lipase Stat Magnesium Stat Troponin & CK Cardiac Panel Stat 01/11/22 14:13 XR chest 1V Stat EKG-12 Lead Stat 01/11/22 16:08 Trop I [Troponin I] Stat Discontinued Medications Hydrocodone Bitart/Acetaminophen (Hydrocodone/Acet 5/325 Tablet) 1 tab PO NOW ONE Stop: 01/11/22 15:43 Last Admin: 01/11/22 15:52 Dose: 1 tab Documented by: Vital Signs Vital signs: Vital Signs - 8 hr 01/11/22 13:52 01/11/22 14:01 01/11/22 14:02 Temperature 97.7 F Pulse Rate 57 L 51 L Respiratory Rate 20 Blood Pressure 196/96 H 139/90 Pulse Oximetry 99 01/11/22 14:30 01/11/22 15:00 01/11/22 15:01 Temperature Pulse Rate 52 L 52 L 53 L Respiratory Rate 26 H 44 H 35 H Blood Pressure 133/95 H Pulse Oximetry 98 97 97 01/11/22 15:07 Temperature Pulse Rate 53 L Respiratory Rate 26 H Blood Pressure 168/77 H Pulse Oximetry 100 Medical Decision Making <Evelia Villasenor PA-C - Last Filed: 01/11/22 14:22> Lab Data Result diagrams: 01/11/22 14:08 01/11/22 14:08 Labs: Lab Results 01/11/22 01/11/22 Range/Units 14:08 14:08 WBC 8.2 (4.5-11.0) X10^3/uL RBC 4.38 (4.0-5.2) X10^6/uL Hgb 13.2 (12.0-16.0) g/dL Hct 39.1 (36-46) % MCV 89.3 (80-100) fL MCH 30.1 (26-34) PG MCHC 33.7 (30-36) % RDW 13.2 (11.6-14.8) % Plt Count 257 (150-400) X10^3/uL Neut % (Auto) 53.0 (50-75) % Lymph % (Auto) 32.4 (25-40) % [place] % (Auto) 9.2 (3-14) % Eos % (Auto) 4.7 H (2-4) % Baso % (Auto) 0.7 (0-2) % Neut # (Auto) 4300 (1675-9982) /uL Lymph # (Auto) 2700 (2965-0668) /uL [place] # (Auto) 800 (0-900) /uL Eos # (Auto) 400 (0-450) /uL Baso # (Auto) 100 (0-100) /uL Sodium 140 (137-145) mmol/L Potassium 3.9 (3.4-5.1) mmol/L Chloride 103 (98-107) mmol/L Carbon Dioxide 31 (22-32) mmol/L BUN 13 (7-17) mg/dL Creatinine 0.69 (0.52-1.04) mg/dL Estimated GFR > 60 (>60) mL/min BUN/Creatinine Ratio 18.8 (6-22) Glucose 106 (80-110) mg/dL Calcium 9.4 (8.4-10.2) mg/dL Magnesium 2.0 (1.6-2.3) mg/dL Total Bilirubin 0.4 (0.2-1.3) mg/dL AST 35 (14-36) IU/L ALT 39 H (<35) IU/L Alkaline Phosphatase 66 (38-126) U/L Total Creatine Kinase 93 (30-135) U/L CK-MB (CK-2) TNP CK-MB (CK-2) Rel Index TNP Troponin I < 0.012 (0.01-0.034) ng/mL Total Protein 7.2 (6.3-8.2) g/dL Albumin 4.3 (3.5-5.0) g/dL Globulin 2.9 (1.7-4.1) g/dL Albumin/Globulin Ratio 1.5 (1.0-2.8) Lipase 544 H (23-300) U/L Urine Dip Bedside Urine Glucose Negative Bedside Urine Bilirubin - Negative Bedside Urine Ketone - Negative Urine Specific [place] 1.010 Bedside Urine Occult Blood - Negative Bedside Urine pH 6.0 Bedside Urine Protein - Negative Bedside Urine Urobilinogen - Negative Bedside Urine Nitrite - Negative Bedside Urine Leukocytes - Negative Esterase Point of care testing: Urine Dip Bedside Urine Glucose Negative Bedside Urine Bilirubin - Negative Bedside Urine Ketone - Negative Urine Specific [place] 1.010 Bedside Urine Occult Blood - Negative Bedside Urine pH 6.0 Bedside Urine Protein - Negative Bedside Urine Urobilinogen - Negative Bedside Urine Nitrite - Negative Bedside Urine Leukocytes - Negative Esterase Discharge Plan Departure Clinical Impression: Elevated lipase Activity Restrictions/Additional Instructions: Follow-up with your physician and Dr. Johnston. Your blood pressure is intermittently elevated but then returns to a normal range even here in the department. I would not start you on blood pressure medication today but I would have you keep track with a log with times and dates and the levels that you get checking at least once daily at varying times to share with your physician. If your blood pressure is persistently elevated they may adjust her medications if it is only occasional 1 time elevations that are not persistent they will likely not adjust your medicines. Continue home medications as prescribed. Please return for fevers, severe headaches, passing out, in a new vision changes, numbness or weakness, new chest pain or pressure, increasing shortness of breath or persistent palpitations, or other new or changing symptoms. Prescriptions: No Action diazepam [Valium] 5 mg tablet 10 mg PO BEDTIME PRN (Reason: anxiety) Qty: 2 0RF Rx Instructions: take 45 minutes prior to procedure rosuvastatin 40 mg tablet 40 mg PO DAILY Qty: 90 2RF aspirin 81 mg tablet,delayed release (DR/EC) 81 mg PO DAILY Qty: 90 [address] permit See Rx Instructions .ROUTE .COMPLEX Qty: 1 0RF Rx Instructions: please issue parking permit. pt qualifies. nystatin 100,000 unit/gram cream See Rx Instructions .ROUTE .COMPLEX Qty: 30 3RF Dose Instruction: apply to affected area twice a day Rx Instructions: apply to affected area twice a day levothyroxine 100 mcg tablet 100 mcg PO DAILY Qty: 90 2RF losartan 50 mg tablet See Rx Instructions .ROUTE .COMPLEX Qty: 90 0RF Dose Instruction: take 1 tablet by mouth once daily Rx Instructions: take 1 tablet by mouth once daily gabapentin 300 mg capsule See Rx Instructions .ROUTE .COMPLEX Qty: 200 0RF Dose Instruction: take 2 to 3 capsules by mouth at bedtime if needed for NEUROFORAMINAL STENOSIS OF CERVICAL SPINE Rx Instructions: take 2 to 3 capsules by mouth at bedtime if needed for NEUROFORAMINAL STENOSIS OF CERVICAL SPINE metoprolol succinate 25 mg tablet extended release 24 hr 37.5 mg PO DAILY 0RF hydrocodone-acetaminophen 5-325 mg tablet 1 tab PO Q8H PRN (Reason: pain) Qty: 60 0RF esomeprazole magnesium 20 mg tablet,delayed release (DR/EC) 20 mg PO QPM 0RF Referrals: Panchito Velez MD [Primary Care Provider] -
[2022-01-11 14:56] LABS: Alanine Aminotransferase 39 IU/L (<35); Albumin 4.3 g/dL (3.5-5.0); Albumin Globulin Ratio 1.5 (1.0-2.8); Alkaline Phosphatase 66 U/L (38-126); Aspartate Aminotransferase 35 IU/L (14-36); BUN Creatinine Ratio 18.8 (6-22); Bilirubin Total 0.4 mg/dL (0.2-1.3); Blood Urea Nitrogen 13 mg/dL (7-17); Calcium 9.4 mg/dL (8.4-10.2); Carbon Dioxide 31 mmol/L (22-32); Chloride 103 mmol/L (98-107); Estimated Glomerular Filt Rate > 60 mL/min (>60); Globulin 2.9 g/dL (1.7-4.1); Glucose 106 mg/dL (80-110); HEMOLYSIS < 15 (0-50); Lipase 544 U/L (23-300); Potassium 3.9 mmol/L (3.4-5.1); Sodium 140 mmol/L (137-145); Total Protein 7.2 g/dL (6.3-8.2)
[2022-01-11 15:04] LABS: Troponin I < 0.012 ng/mL (0.01-0.034)
--- NOTE | 2022-01-11 15:18 | ED.ARRPALP ---
HPI - Arrhythmia/Palpitations General Chief Complaint: Hypertension Stated Complaint: High bp,nausea, head pressure- nitesh patient Time Seen by Provider: 01/11/22 14:19 Source: patient Mode of arrival: Wheelchair Limitations: no limitations History of Present Illness HPI narrative: This is a 61-year-old female comes in with multiple complaints. Patient has history of intermittent elevated blood pressures she states sometimes it will be high up to 180/115, but then will go down to 140 without any intervention. She states she will feel unwell when this occurs. She sometimes pressure sensation which feels different than her trigeminal neuralgia symptoms. She has had palpitations frequently and will sometimes feel short of breath with these episodes. She denies any chest pain or pressure. She has had some left arm soreness which seems better with her lidocaine patch nothing seems to make it worse or better it has been the last 3-4 days but does resolve at times. Does not seem to be related to the palpitations. She has had nausea but no vomiting. No diarrhea constipation. No urinary symptoms. Patient states she had either a Holter monitor or ZIO patch and was told she had SVT by Dr. Alexa perez. She had her metoprolol increased, started on some kind of enzyme but they stopped it after 4 weeks because it made her feel ill. She has a history of prior [facility] no cardiac stents was medically treated, trigeminal neuralgia, hypertension, hypothyroidism, dyslipidemia. Patient has had prior hernia repair, cholecystectomy, hysterectomy, x2 a lipoma in her right arm excised and surgery for her trigeminal neuralgia but no cardiac interventions. She states she has multiple allergies she does not recall them all, no tobacco, alcohol or illicit. Dr. Horn is her primary care, Dr. Johnston is her trend investigator. Related Data Home Medications Medication Instructions Recorded Confirmed esomeprazole magnesium 20 mg 20 mg PO QPM 01/07/22 01/07/22 tablet,delayed release metoprolol succinate 25 mg 37.5 mg PO DAILY tab 01/07/22 tablet,extended release 24 hr Previous Rx's Medication Instructions Recorded diazepam 5 mg tablet (Valium) 10 mg PO BEDTIME PRN #2 tab 06/17/21 rosuvastatin 40 mg tablet 40 mg PO DAILY #90 tab 07/20/21 aspirin 81 mg tablet,delayed 81 mg PO DAILY #90 tab 09/09/[address] permit See Rx Instructions .ROUTE 09/17/21 .COMPLEX #1 ea nystatin 100,000 unit/gram topical See Rx Instructions .ROUTE 09/21/21 cream .COMPLEX #30 g levothyroxine 100 mcg tablet 100 mcg PO DAILY #90 tab 10/16/21 gabapentin 300 mg capsule See Rx Instructions .ROUTE 12/24/21 .COMPLEX #200 cap losartan 50 mg tablet See Rx Instructions .ROUTE 12/24/21 .COMPLEX #90 tab hydrocodone 5 mg-acetaminophen 325 1 tab PO Q8H PRN #60 tab 01/07/22 mg tablet Allergies Allergy/AdvReac Type Severity Reaction Status Date / Time diphenhydramine Allergy Severe Difficulty Verified 01/07/22 11:04 [From Benadryl] Breathing ibuprofen Allergy Severe Difficulty Verified 01/07/22 11:04 Breathing oxycodone Allergy Severe Hallucinati Verified 01/07/22 11:04 ng chlorthalidone Allergy Intermediate rash Verified 01/07/22 11:23 Estrogens Allergy Verified 01/07/22 11:04 Review of Systems Review of Systems ROS Unobtainable: All systems reviewed & are unremarkable except as noted in HPI and below Patient History Medical History Atrophic vaginitis Bilateral knee pain Candidal intertrigo Cervical stenosis of spine GERD (gastroesophageal reflux disease) Hyperlipidemia Hypertension Hypothyroidism Neuroforaminal stenosis of cervical spine Non-ST elevation [place] (NSTEMI) Prediabetes (04/2020) Pulsatile tinnitus Short-term memory loss Surgical follow-up care Surgical wound infection Tear of right supraspinatus tendon Toe pain, left Trigeminal neuralgia Trigger thumb, right thumb Surgical History Status post appendectomy Status post cholecystectomy Status post hernia repair Status post hysterectomy Social History marital status: Smoking Status: Former smoker alcohol intake: never substance use type: does not use Smoking Status: Former smoker alcohol intake frequency: holidays/special occasions only Substance Use Type: does not use Exam Narrative Exam Narrative: GENERAL: Alert and oriented x three, female in mild distress HEENT: Head normocephalic, atraumatic, EOMI, pupils reactive, face symmetric, moist mucous membranes NECK: Supple, full range of motion CARDIOVASCULAR: Regular rate and rhythm without murmurs, rubs or gallops. RESPIRATORY: Breath sounds equal bilaterally, no wheezes rales or rhonchi. ABDOMEN: Soft, nontender. Normoactive bowel sounds all 4 quadrants. No guarding or rebound, rigidity, no mass : No CVA tenderness EXTREMITIES: Normal range of motion, no clubbing or edema. Neurovascularly intact NEUROLOGICAL: Cranial nerves II through XII grossly intact. Moving all extremities SKIN: Warm, dry, no petechiae, no rashes or lesions. Initial Vital Signs Initial Vital Signs: Vital Signs Temperature 97.7 F 01/11/22 13:52 Pulse Rate 57 L 01/11/22 13:52 Respiratory Rate 20 01/11/22 13:52 Blood Pressure 196/96 H 01/11/22 13:52 Pulse Oximetry 99 01/11/22 13:52 Course Orders Ordered: ED Orders 01/11/22 14:08 Complete Blood Count AUTO DIFF Stat Comprehensive Metabolic Panel Stat Lipase Stat Magnesium Stat Troponin & CK Cardiac Panel Stat 01/11/22 14:13 XR chest 1V Stat EKG-12 Lead Stat 01/11/22 16:08 Trop I [Troponin I] Stat Discontinued Medications Hydrocodone Bitart/Acetaminophen (Hydrocodone/Acet 5/325 Tablet) 1 tab PO NOW ONE Stop: 01/11/22 15:43 Last Admin: 01/11/22 15:52 Dose: 1 tab Documented by: RASHAD Vital Signs Vital signs: Vital Signs - 8 hr 01/11/22 13:52 01/11/22 14:01 01/11/22 14:02 Temperature 97.7 F Pulse Rate 57 L 51 L Respiratory Rate 20 Blood Pressure 196/96 H 139/90 Pulse Oximetry 99 01/11/22 14:30 01/11/22 15:00 01/11/22 15:01 Temperature Pulse Rate 52 L 52 L 53 L Respiratory Rate 26 H 44 H 35 H Blood Pressure 133/95 H Pulse Oximetry 98 97 97 01/11/22 15:07 01/11/22 15:18 01/11/22 15:30 Temperature Pulse Rate 53 L 54 L 54 L Respiratory Rate 26 H 27 H 30 H Blood Pressure 168/77 H 143/103 H Pulse Oximetry 100 100 01/11/22 15:31 01/11/22 16:00 01/11/22 16:01 Temperature Pulse Rate 52 L 50 L 50 L Respiratory Rate 39 H 23 22 Blood Pressure 201/91 H 168/74 H Pulse Oximetry 100 99 99 01/11/22 16:30 01/11/22 16:31 01/11/22 17:00 Temperature Pulse Rate 50 L 49 L 48 L Respiratory Rate 28 H 31 H 26 H Blood Pressure 186/83 H Pulse Oximetry 99 100 95 01/11/22 17:01 Temperature Pulse Rate 49 L Respiratory Rate 17 Blood Pressure 153/70 H Pulse Oximetry 95 MDM - Arrhythmia/Palpitations Lab Data Result diagrams: 01/11/22 14:08 01/11/22 14:08 Labs: Lab Results 01/11/22 01/11/22 01/11/22 Range/Units 14:08 14:08 16:08 WBC 8.2 (4.5-11.0) X10^3/uL RBC 4.38 (4.0-5.2) X10^6/uL Hgb 13.2 (12.0-16.0) g/dL Hct 39.1 (36-46) % MCV 89.3 (80-100) fL MCH 30.1 (26-34) PG MCHC 33.7 (30-36) % RDW 13.2 (11.6-14.8) % Plt Count 257 (150-400) X10^3/uL Neut % (Auto) 53.0 (50-75) % Lymph % (Auto) 32.4 (25-40) % [place] % (Auto) 9.2 (3-14) % Eos % (Auto) 4.7 H (2-4) % Baso % (Auto) 0.7 (0-2) % Neut # (Auto) 4300 (9016-4412) /uL Lymph # (Auto) 2700 (4695-8161) /uL [place] # (Auto) 800 (0-900) /uL Eos # (Auto) 400 (0-450) /uL Baso # (Auto) 100 (0-100) /uL Sodium 140 (137-145) mmol/L Potassium 3.9 (3.4-5.1) mmol/L Chloride 103 (98-107) mmol/L Carbon Dioxide 31 (22-32) mmol/L BUN 13 (7-17) mg/dL Creatinine 0.69 (0.52-1.04) mg/dL Estimated GFR > 60 (>60) mL/min BUN/Creatinine Ratio 18.8 (6-22) Glucose 106 (80-110) mg/dL Calcium 9.4 (8.4-10.2) mg/dL Magnesium 2.0 (1.6-2.3) mg/dL Total Bilirubin 0.4 (0.2-1.3) mg/dL AST 35 (14-36) IU/L ALT 39 H (<35) IU/L Alkaline Phosphatase 66 (38-126) U/L Total Creatine Kinase 93 (30-135) U/L CK-MB (CK-2) TNP CK-MB (CK-2) Rel Index TNP Troponin I < 0.012 < 0.012 (0.01-0.034) ng/mL Total Protein 7.2 (6.3-8.2) g/dL Albumin 4.3 (3.5-5.0) g/dL Globulin 2.9 (1.7-4.1) g/dL Albumin/Globulin Ratio 1.5 (1.0-2.8) Lipase 544 H (23-300) U/L Urine Dip Bedside Urine Glucose Negative Bedside Urine Bilirubin - Negative Bedside Urine Ketone - Negative Urine Specific [place] 1.010 Bedside Urine Occult Blood - Negative Bedside Urine pH 6.0 Bedside Urine Protein - Negative Bedside Urine Urobilinogen - Negative Bedside Urine Nitrite - Negative Bedside Urine Leukocytes - Negative Esterase Imaging Data Chest x-ray: Radiologist's Impresson: [address] [id number] XRay Report Signed Patient: Khadijah Marks MR#: [id number] : 1960 Acct:[id number] Age/Sex: 61 / F Date of Service: 01/11/22 Loc: ED Accession Number: [id number] ?? Procedure: XR chest 1V Ordering Provider: Almaz Lopez D.O. PROCEDURE:? XR CHEST 1V ? INDICATIONS:? chest pain ? TECHNIQUE:? One view of the chest was acquired.? ? COMPARISON:? [facility], [place], XR CHEST 1V, 08/21/2021, 20:55. ? FINDINGS:? ? Surgical changes and devices:? None.? ? Lungs and pleura:? Lungs are clear.? No pleural effusions or pneumothorax.? ? Mediastinum:? Mediastinal contours appear normal.? Heart size is normal.? ? Bones and chest wall:? No suspicious bony lesions.? Overlying soft tissues appear unremarkable.? ? IMPRESSION:? No acute cardiopulmonary findings ? ? ? Approved by: Noel Gottlieb M.D. on 01/11/2022 at 14:10? ECG Data Attestation: I personally reviewed and interpreted this ECG as follows: Prior ECG tracings: available for review Interpretation: Sinus bradycardia, rate of 54 [place] 146 QRS 82 and QTC 421. No acute ST elevation depression appreciated. Patient has prior from 08/21/2021 and 09/30/2020 which show no acute changes. EKG2. Sinus bradycardia rate of 50 [place] 140 QRS 88 QTC 417. No acute ST changes appreciated. Patient's EKG appears similar to prior from today. MDM Narrative Medical decision making narrative: This is a 61-year-old female who comes in with labile blood pressure which is labile even here in the department ranging from 190s to 130s back up again, patient does not have any acute EKG changes in comparison her priors, initial troponin was negative, she has had some left arm discomfort with palpitations although these do not seem to be related in terms of time line, she has had dyspnea with her palpitations which resolved when the palpitations resolved and she was told she had SVT after either ZIO patch Holter monitor. Patient and I discussed plan for repeat troponin, her other labs show an elevated lipase which could cause her discomfort in her abdomen and nausea but not necessarily her other symptoms. She has not had any other symptoms so plan to watch her lipase on recheck. Monitoring blood pressure and she is not persistently hypertensive so I would not adjust her blood pressure medications at this time. She has not had any episodes of SVT in the department. Discharge Plan Departure Patient Disposition: Home Clinical Impression: Elevated lipase Activity Restrictions/Additional Instructions: Follow-up with your physician and Dr. Johnston. Your blood pressure is intermittently elevated but then returns to a normal range even here in the department. I would not start you on blood pressure medication today but I would have you keep track with a log with times and dates and the levels that you get checking at least once daily at varying times to share with your physician. If your blood pressure is persistently elevated they may adjust her medications if it is only occasional 1 time elevations that are not persistent they will likely not adjust your medicines. Your lipase is elevated today please have this rechecked with your physician in the next week if you are having any persistent abdominal pain. Continue home medications as prescribed. Please return for fevers, severe headaches, passing out, in a new vision changes, numbness or weakness, new chest pain or pressure, abdominal pain, increasing shortness of breath or persistent palpitations, or other new or changing symptoms. Prescriptions: No Action diazepam [Valium] 5 mg tablet 10 mg PO BEDTIME PRN (Reason: anxiety) Qty: 2 0RF Rx Instructions: take 45 minutes prior to procedure rosuvastatin 40 mg tablet 40 mg PO DAILY Qty: 90 2RF aspirin 81 mg tablet,delayed release (DR/EC) 81 mg PO DAILY Qty: 90 [address] permit See Rx Instructions .ROUTE .COMPLEX Qty: 1 0RF Rx Instructions: please issue parking permit. pt qualifies. nystatin 100,000 unit/gram cream See Rx Instructions .ROUTE .COMPLEX Qty: 30 3RF Dose Instruction: apply to affected area twice a day Rx Instructions: apply to affected area twice a day levothyroxine 100 mcg tablet 100 mcg PO DAILY Qty: 90 2RF losartan 50 mg tablet See Rx Instructions .ROUTE .COMPLEX Qty: 90 0RF Dose Instruction: take 1 tablet by mouth once daily Rx Instructions: take 1 tablet by mouth once daily gabapentin 300 mg capsule See Rx Instructions .ROUTE .COMPLEX Qty: 200 0RF Dose Instruction: take 2 to 3 capsules by mouth at bedtime if needed for NEUROFORAMINAL STENOSIS OF CERVICAL SPINE Rx Instructions: take 2 to 3 capsules by mouth at bedtime if needed for NEUROFORAMINAL STENOSIS OF CERVICAL SPINE metoprolol succinate 25 mg tablet extended release 24 hr 37.5 mg PO DAILY 0RF hydrocodone-acetaminophen 5-325 mg tablet 1 tab PO Q8H PRN (Reason: pain) Qty: 60 0RF esomeprazole magnesium 20 mg tablet,delayed release (DR/EC) 20 mg PO QPM 0RF Referrals: Panchito Velez MD [Primary Care Provider] - Visit Report Forms: Patient Portal/API
[2022-01-11 15:28] LABS: Creatine Kinase 93 U/L (30-135)
[2022-01-11] MEDS: HYDROCODONE/ACET 5/325 TABLET 1 TAB PO (15:52)
[2022-01-11 16:48] LABS: Troponin I < 0.012 ng/mL (0.01-0.034)
== END 2022-01-11 17:24 | disposition home or self-care (01) ==
PROVIDERS: Emergency Provider Emergency Medicine; Family Provider Family Medicine; PCP Family Medicine; Referring Provider Internal Medicine Cardiovascular Disease
DX: R74.8 Abnormal levels of other serum enzymes (principal); R07.9 Chest pain, unspecified
CPT/HCPCS: 36415; 71045; 80053; 81003; 82550; 83690; 83735; 84484; 85025; 93005; 93010; 99284

== ENCOUNTER → 2022-02-01 06:55 | Outpatient (CLI) | payer OTHER, MEDICAID, SELFPAY ==
--- NOTE | 2022-02-01 06:55 | DI.MRI.S_ITS ---
PROCEDURE: MR KNEE RT WO CON INDICATIONS: right knee pain TECHNIQUE: Noncontrast sagittal PD fast spin echo and T2 fast spin echo with fat saturation, sagittal 3-D FLASH with fat saturation; coronal T1 spin echo and PD fast spin echo with fat saturation, and axial PD fast spin echo with fat saturation through the knee. COMPARISON: [facility], MR, MR KNEE RT WO CON, 07/23/2021, 8:12. FINDINGS: Image quality: Excellent. Menisci: Mild T2 signal elevation at the posterior meniscal capsular junction of the posterior horn medial meniscus is present. Linear high T2 signal intensity traverses the inferior aspect of the peripheral 3rd of the posterior horn medial meniscus. Previously seen horizontally oriented linear high signal intensity within the peripheral 3rd of the anterior horn lateral meniscus, demonstrating superior articular surface extension is increased in prominence. Cruciate ligaments: The anterior and posterior cruciate ligaments appear intact. Medial structures: The medial collateral ligament appears intact. Visualized portions of the pes anserinus tendons appear normal. Small amount of medial bursal fluid. Lateral structures: The lateral collateral ligament, long and short heads of the biceps femoris tendon appear intact. The popliteus tendon appears normal. Iliotibial band appears normal. Anterior structures: The quadriceps and patellar tendons appear intact. Patellar alignment is normal. No femoral trochlear dysplasia or ventral trochlear prominence. Mild edema in the superolateral aspect of the infrapatellar fat pad. Bones and cartilage: No bone marrow contusions or fractures. Mild tricompartmental periarticular osteophyte formation. Severe articular cartilage loss overlies the patellar apex. Moderate articular cartilage loss overlies the medial and lateral patellar facets. Joint space: There is a small knee joint effusion and a trace Saldaña's cyst. Normal appearing synovial plicae are incidentally noted. IMPRESSION: 1. Meniscal capsular junction injury involving the posterior horn medial meniscus. 2. Increased prominence of lateral meniscal tear. 3. Findings consistent with lateral patellofemoral friction syndrome in the appropriate clinical setting. 4. Medial bursitis. 5. Tricompartmental osteoarthritis with associated articular cartilage loss. Dictated by: Bisi Leyva M.D. on 02/01/2022 at 8:50 Approved by: Bisi Leyva M.D. on 02/01/2022 at 9:13
== END ==
PROVIDERS: Family Provider Family Medicine; PCP Family Medicine; Referring Provider Family Medicine; Visit Provider Family Medicine
DX: S83.8X1A Sprain of other specified parts of right knee, initial encounter (principal); S83.281A Other tear of lateral meniscus, current injury, right knee, initial encounter; M17.11 Unilateral primary osteoarthritis, right knee; M71.561 Other bursitis, not elsewhere classified, right knee; M25.561 Pain in right knee
CPT/HCPCS: 73721

== ENCOUNTER → 2022-03-04 10:05 | Outpatient (CLI) | payer OTHER, MEDICAID, SELFPAY ==
--- NOTE | 2022-03-04 10:25 | DI.RAD.S_ITS ---
PROCEDURE: XR SHOULDER LT MIN 2V INDICATIONS: neck pain, left shoulder pain TECHNIQUE: 3 views of the shoulder were acquired. COMPARISON: None. FINDINGS: Bones: No fractures or dislocations. No suspicious bony lesions. Mild acromioclavicular and glenohumeral joint degeneration. Visualized ribs appear intact. Soft tissues: No suspicious soft tissue calcifications. IMPRESSION: Mild degenerative joint disease. Dictated by: Colin Bustamante M.D. on 03/04/2022 at 15:57 Approved by: Colin Bustamante M.D. on 03/04/2022 at 15:58
--- NOTE | 2022-03-04 10:25 | DI.RAD.S_ITS ---
PROCEDURE: XR CERVICAL SPINE 2V OR 3V INDICATIONS: neck pain, left shoulder pain TECHNIQUE: 3 view(s) of the cervical spine were acquired. COMPARISON: [facility], , XR CERVICAL SPINE 2V OR 3V, 12/21/2020, 7:40. FINDINGS: Bones: No fractures or dislocations to the C7-T1 level. The lateral masses of C1 appear intact on the odontoid view. No suspicious bony lesions. There is moderate C5-6 and C6-7 degenerative disc space narrowing. Anterior osteophytes are present at C5 and C6. Multilevel uncovertebral arthropathy is present. Soft tissues: No prevertebral soft tissue swelling. IMPRESSION: Stable degenerative changes most notable at C5-6 and C6-7. Dictated by: Grace Cruz M.D. on 03/04/2022 at 17:16 Approved by: Grace Cruz M.D. on 03/04/2022 at 17:16
== END ==
PROVIDERS: Family Provider Family Medicine; PCP Family Medicine; Referring Provider Family Medicine; Visit Provider Family Medicine
DX: M47.812 Spondylosis without myelopathy or radiculopathy, cervical region (principal); M19.012 Primary osteoarthritis, left shoulder; M25.512 Pain in left shoulder; M54.2 Cervicalgia
CPT/HCPCS: 72040; 73030

== ENCOUNTER 2022-04-28 10:15 | Outpatient (RCR) | payer OTHER, MEDICAID, SELFPAY ==
--- NOTE | 2021-08-24 11:45 | PT.OIE ---
Current Diagnoses Pain in right knee (08/24/21) Pain in left knee (08/24/21) Other tear of lateral meniscus, current injury, right knee, initial encounter (08/24/21) Past Medical History (Last Reviewed 08/23/21 @ 01:34 by Mick Silva DO) Atrophic vaginitis Bilateral knee pain Candidal intertrigo Cervical stenosis of spine GERD (gastroesophageal reflux disease) Hyperlipidemia Hypertension Hypothyroidism Neuroforaminal stenosis of cervical spine Non-ST elevation [place] (NSTEMI) Prediabetes (04/2020) Pulsatile tinnitus Short-term memory loss Status post appendectomy Status post cholecystectomy Status post hernia repair Status post hysterectomy Surgical follow-up care Surgical wound infection Tear of right supraspinatus tendon Toe pain, left Trigeminal neuralgia Trigger thumb, right thumb Past Surgical History (Last Reviewed 08/23/21 @ 01:34 by Mick Silva DO) Status post appendectomy Status post cholecystectomy Status post hernia repair Status post hysterectomy Visit Care Team Role Provider Type Panchito Velez MD Attending Provider Physician Family Provider Primary Care Provider Referring Provider Specialty: [facility] Address: [address] [place] [address] Email: [email or web address] Physical Therapy Initial Evaluation PT-OP-A Visit Information Start: 08/21/21 18:13 Freq: Status: Active Protocol: Document 08/24/21 08:15 LRN (Rec: 08/24/21 09:10 LRN [id number]) Out-Patient Physical Therapy Visit Information Visit Information Visit Type Initial Evaluation Visit Start Time 09:17 Visit Stop Time 09:09 Total Visit Minutes 51 Visit Number 1 Evaluation Information Evaluation Date 08/24/21 Precautions Precautions Per intake history & pt report : Brain surgery Apr 2020 due to dental surgery for trigeminal neuralgia that went bad, (had a couple of blood vessels that needed repair), Heart attack due to stress - Mar 2019 Controlled blood pressure, Memory loss. Neuroforaminal stenosis of the cerivcal spine . Per record review: pulsatile tinnitus, L toe pain, s/p hernia repair, PT-OP-B Current Condition Start: 08/21/21 18:13 Freq: Status: Active Protocol: Document 08/24/21 08:15 LRN (Rec: 08/24/21 09:10 LRN [id number]) Current Condition History of Current Condition Onset Date R & L knee-02/25, R>L. Current Complaints Bilateral knee pain, R hip pain, difficulty walking, numb feet. History of Current Condition Bilateral knee pain but R knee is the worst knee and is very painful. Can walk on it now, L side is mildly irritating. Having R hip pain. Was told she should do surgery, but the pt doesn't want to have surgery. States the more she uses it the pain has lessened. Hopes to delay surgery. R knee is no longer getting stuck in flexion for the past month. Denies fall. States she had brain surgery on the R side. After surgery the hip and knee pain started, and her knee just goes out. After surgery would walk weird, using cardona to balance. 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 Treatment Goals Patient/Caregiver Goals Pt goal is get up off the ground without all the manuevering/holding onto things and without hurting self. Decrease pain. Increase strength of legs. 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 Current Functional Impairments (Reported) Functional Limitations- ADL's Not able to do work or get down onto the ground. Movement of knees restricted. Personal Factors Other Personal Factors That May Effect BMI 30 (Health 18.5-24.9, 30= Therapy/Recovery Obese) Brain surgery Apr 2020 Heart attack due to stress - Mar 2019 Controlled blood pressure, Memory loss. BMI 40. Pt fearful of surgery; therefore choosing to do PT for now. PT-OP-C Subjective Start: 08/21/21 18:13 Freq: Status: Active Protocol: Document 08/24/21 08:15 LRN (Rec: 08/24/21 09:10 [facility] [id number]) Patient Questionnaires Lower Extremity Functional Scale LEFS Score 14 LEFS Impairment 80 to 99% Impaired (Score 1-16 ) OP-PT Pain Assessment Pain Assessment Grid Paper Pain Assessment Grid Completed Yes Location L knee Pain Location Details Posterior knee Intensity 2 Scale Used Numeric (0 - 10) R knee Pain Location Details Around knee joint Intensity 5 Scale Used Numeric (0 - 10) Description Aching PT-OP-J Posture/Palpation/Skin Start: 08/21/21 18:13 Freq: Status: Active Protocol: Document 08/24/21 08:15 LRN (Rec: 08/24/21 09:10 LRN [id number]) Posture Evaluation Position Standing T-Spine Posture Flattened Pelvis Posture Anteriorly Tilted Knee Posture (L) Genu Valgus,(R) Genu Valgus Comments Posture Comments Dowagers hump Endomorphic Palpation Assessment Location R hip Palpation Location R ASIS Palpation Findings Tenderness L knee Palpation Location Chondromalacia. Posterior knee tenderness. Palpation Findings Tenderness R knee Palpation Location Around joint and posterior Palpation Findings Tenderness PT-OP-K Range of Motion Start: 08/21/21 18:13 Freq: Status: Active Protocol: Document 08/24/21 08:15 LRN (Rec: 08/24/21 09:10 LRN [id number]) Knee Goniometric Range of Motion Knee Supine R Active Patient Position Supine Flexion Active (degrees) 100 Extension Active (degrees) 5 Supine L Active Patient Position Supine Flexion Active (degrees) 122 Extension Active (degrees) 0 R Active Patient Position Sitting Flexion Active (degrees) 103 Extension Active (degrees) 22 L Active Patient Position Sitting Flexion Active (degrees) 123 Extension Active (degrees) 0 PT-OP-M Strength Start: 08/21/21 18:13 Freq: Status: Active Protocol: Document 08/24/21 08:15 LRN (Rec: 08/24/21 09:10 LRN [id number]) Hip Strength Hip Manual Muscle Testing Right Flexion (L2) 2- Poor- Abduction 1 Trace Adduction 1 Trace Left Flexion (L2) 3 Fair Abduction 3 Fair Adduction 2 Poor Knee Strength Knee Manual Muscle Testing Right Flexion (S2) 3- Fair- Extension (L3) 3- Fair- Left Flexion (S2) 5 Normal Extension (L3) 5 Normal PT-OP-Q Treatments Start: 08/21/21 18:13 Freq: Status: Active Protocol: Document 08/24/21 08:15 LRN (Rec: 08/24/21 09:10 LRN [id number]) Self-Care/Home Management Treatment Education Other Education Discussed results of evaluation, goals, and plan of care (POC). Pt agreeable to goals and POC. PT-OP-T Assessment and Plan Start: 08/21/21 18:13 Freq: Status: Active Protocol: Document 08/24/21 08:15 LRN (Rec: 08/24/21 09:10 LRN [id number]) Physical Therapy Assessment Rehab Potential Rehabilitation Potential Excellent Evaluation Complexity Number of Personal Factors/Comorbidities 0 Impairments Impairments Activity Tolerance Goals Three Impairment Decreased knee AROM Impairment R knee (sup): 5-100 deg's ( sitting): 22-103 deg's L knee (sup): 0-122 deg's ( sitting): 0-123 deg's Short Term Goal (STG) Improve R knee AROM (sup 0-120 deg's; sit 10-120 deg's) STG Duration 09/21/21 Storyboard Artist Goal (LTG) Pt goal is get up off the ground without all the manuevering/holding onto things and without hurting self. LTG Duration 10/09/21 Two Impairment Decreased kirill knee strength Impairment R knee: flex & ext 3-/5; R hip: flex 2-/5, AB & AD 1/5. L knee: flex & ext 5/5 L hip: flex 3/5, AB 3/5, AD 2 /5. Short Term Goal (STG) Increase R knee & hip strength 1/2 grade STG Duration 09/21/21 Storyboard Artist Goal (LTG) Improve R knee strength to no less than 4/5, and improve hip strength by 1 grade, to improve pt's safety with standing and gait with no giving way of the R knee in standing. LTG Duration 10/09/21 One Impairment Pt lacks appropriated self care HEP. Short Term Goal (STG) Pt will be educated in precautions with exercise and edema/pain management. STG Duration 09/07/21 Care Home Goal (LTG) Pt educated in a self care HEP to promote knee and hip strengthening. LTG Duration 10/09/21 Assessment Summary Assessment Pt presents with decreased R knee stability with decreased active ROM and strength. She demonstrates decreased strength of the R hip and to lesser extent the L hip and knee. The pt has decreased function due to mechanical and soft tissue dysfunction at the R knee from meniscus tear. The pt has postural deviations from valgus at the knees and her BMI is 40 ( Normal weight = 18.5?24.9, 40= Obese). The pt is fearful of more surgeries since her brain surgery; therefore she wanting to try physical therapy, hoping to avoid R knee surgery due to menicus tear. The pt will benefit from skilled phyiscal therapy to improve her R knee AROM and bilateral strength of the knees and hips. Improve strength and mobility will be advantageous to the pt if she requires surgery at a later date. The pt will benefit from physical therapy to work towards achieving the above stated goals. Physical Therapy Plan Frequency and Duration Frequency of Treatment 2x/Week Plan of Care Start Date 08/24/21 Plan of Care End Date 10/09/21 Therapeutic Interventions Therapeutic Interventions Aquatic Therapy,Balance Training,Gait Training,Home Exercise Program,Manual Therapy,Neuromuscular Re- education,Patient/Caregiver Education,Self-Care/Home Management,Soft Tissue Mobilization,Taping, Therapeutic Activities, Therapeutic Exercises Modalities Cold Pack/Ice Massage,Electric Stimulation,Hot Packs, Ultrasound Next Visit Focus/Plan Next Note Type Treatment Note Next Visit Plan Discuss possible aquatic therapy, Knee/hip strengthening for stabilization with gait and functional activities. HEP: knee AROM stretches & strengthening of knees & hips. Gait training with assistive device to decrease pain. Modailities for pain and swelling (?US, ESTIM) Manual therapy (STM, MWM)
--- NOTE | 2021-08-24 11:45 | PT.OIE ---
Current Diagnoses Pain in right knee (08/24/21) Pain in left knee (08/24/21) Other tear of lateral meniscus, current injury, right knee, initial encounter (08/24/21) Past Medical History (Last Reviewed 08/23/21 @ 01:34 by Mick Silva DO) Atrophic vaginitis Bilateral knee pain Candidal intertrigo Cervical stenosis of spine GERD (gastroesophageal reflux disease) Hyperlipidemia Hypertension Hypothyroidism Neuroforaminal stenosis of cervical spine Non-ST elevation [place] (NSTEMI) Prediabetes (04/2020) Pulsatile tinnitus Short-term memory loss Status post appendectomy Status post cholecystectomy Status post hernia repair Status post hysterectomy Surgical follow-up care Surgical wound infection Tear of right supraspinatus tendon Toe pain, left Trigeminal neuralgia Trigger thumb, right thumb Past Surgical History (Last Reviewed 08/23/21 @ 01:34 by Mick Silva DO) Status post appendectomy Status post cholecystectomy Status post hernia repair Status post hysterectomy Visit Care Team Role Provider Type Panchito Velez MD Attending Provider Physician Family Provider Primary Care Provider Referring Provider Specialty: [facility] Address: [address] [place] [address] Email: [email or web address] Physical Therapy Initial Evaluation PT-OP-A Visit Information Start: 08/21/21 18:13 Freq: Status: Active Protocol: Document 08/24/21 08:15 LRN (Rec: 08/24/21 09:10 LRN [id number]) Out-Patient Physical Therapy Visit Information Visit Information Visit Type Initial Evaluation Visit Start Time 09:17 Visit Stop Time 09:09 Total Visit Minutes 51 Visit Number 1 Evaluation Information Evaluation Date 08/24/21 Precautions Precautions Per intake history & pt report : Brain surgery Apr 2020 due to dental surgery for trigeminal neuralgia that went bad, (had a couple of blood vessels that needed repair), Heart attack due to stress - Mar 2019 Controlled blood pressure, Memory loss. Neuroforaminal stenosis of the cerivcal spine . Per record review: pulsatile tinnitus, L toe pain, s/p hernia repair, PT-OP-B Current Condition Start: 08/21/21 18:13 Freq: Status: Active Protocol: Document 08/24/21 08:15 LRN (Rec: 08/24/21 09:10 LRN [id number]) Current Condition History of Current Condition Onset Date R & L knee-02/25, R>L. Current Complaints Bilateral knee pain, R hip pain, difficulty walking, numb feet. History of Current Condition Bilateral knee pain but R knee is the worst knee and is very painful. Can walk on it now, L side is mildly irritating. Having R hip pain. Was told she should do surgery, but the pt doesn't want to have surgery. States the more she uses it the pain has lessened. Hopes to delay surgery. R knee is no longer getting stuck in flexion for the past month. Denies fall. States she had brain surgery on the R side. After surgery the hip and knee pain started, and her knee just goes out. After surgery would walk weird, using cardona to balance. 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 Treatment Goals Patient/Caregiver Goals Pt goal is get up off the ground without all the manuevering/holding onto things and without hurting self. Decrease pain. Increase strength of legs. 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 Current Functional Impairments (Reported) Functional Limitations- ADL's Not able to do work or get down onto the ground. Movement of knees restricted. Personal Factors Other Personal Factors That May Effect BMI 30 (Health 18.5-24.9, 30= Therapy/Recovery Obese) Brain surgery Apr 2020 Heart attack due to stress - Mar 2019 Controlled blood pressure, Memory loss. BMI 40. Pt fearful of surgery; therefore choosing to do PT for now. PT-OP-C Subjective Start: 08/21/21 18:13 Freq: Status: Active Protocol: Document 08/24/21 08:15 LRN (Rec: 08/24/21 09:10 [facility] [id number]) Patient Questionnaires Lower Extremity Functional Scale LEFS Score 14 LEFS Impairment 80 to 99% Impaired (Score 1-16 ) OP-PT Pain Assessment Pain Assessment Grid Paper Pain Assessment Grid Completed Yes Location L knee Pain Location Details Posterior knee Intensity 2 Scale Used Numeric (0 - 10) R knee Pain Location Details Around knee joint Intensity 5 Scale Used Numeric (0 - 10) Description Aching PT-OP-J Posture/Palpation/Skin Start: 08/21/21 18:13 Freq: Status: Active Protocol: Document 08/24/21 08:15 LRN (Rec: 08/24/21 09:10 LRN [id number]) Posture Evaluation Position Standing T-Spine Posture Flattened Pelvis Posture Anteriorly Tilted Knee Posture (L) Genu Valgus,(R) Genu Valgus Comments Posture Comments Dowagers hump Endomorphic Palpation Assessment Location R hip Palpation Location R ASIS Palpation Findings Tenderness L knee Palpation Location Chondromalacia. Posterior knee tenderness. Palpation Findings Tenderness R knee Palpation Location Around joint and posterior Palpation Findings Tenderness PT-OP-K Range of Motion Start: 08/21/21 18:13 Freq: Status: Active Protocol: Document 08/24/21 08:15 LRN (Rec: 08/24/21 09:10 LRN [id number]) Knee Goniometric Range of Motion Knee Supine R Active Patient Position Supine Flexion Active (degrees) 100 Extension Active (degrees) 5 Supine L Active Patient Position Supine Flexion Active (degrees) 122 Extension Active (degrees) 0 R Active Patient Position Sitting Flexion Active (degrees) 103 Extension Active (degrees) 22 L Active Patient Position Sitting Flexion Active (degrees) 123 Extension Active (degrees) 0 PT-OP-M Strength Start: 08/21/21 18:13 Freq: Status: Active Protocol: Document 08/24/21 08:15 LRN (Rec: 08/24/21 09:10 LRN [id number]) Hip Strength Hip Manual Muscle Testing Right Flexion (L2) 2- Poor- Abduction 1 Trace Adduction 1 Trace Left Flexion (L2) 3 Fair Abduction 3 Fair Adduction 2 Poor Knee Strength Knee Manual Muscle Testing Right Flexion (S2) 3- Fair- Extension (L3) 3- Fair- Left Flexion (S2) 5 Normal Extension (L3) 5 Normal PT-OP-Q Treatments Start: 08/21/21 18:13 Freq: Status: Active Protocol: Document 08/24/21 08:15 LRN (Rec: 08/24/21 09:10 LRN [id number]) Self-Care/Home Management Treatment Education Other Education Discussed results of evaluation, goals, and plan of care (POC). Pt agreeable to goals and POC. PT-OP-T Assessment and Plan Start: 08/21/21 18:13 Freq: Status: Active Protocol: Document 08/24/21 08:15 LRN (Rec: 08/24/21 09:10 LRN [id number]) Physical Therapy Assessment Rehab Potential Rehabilitation Potential Fair Evaluation Complexity Number of Personal Factors/Comorbidities 3 or More Number of Body Systems Impaired 4 or More Clinical Presentation at Evaluation Evolving Impairments Impairments Activity Tolerance,Balance, Gait,Pain,ROM,Strength Goals Three Impairment Decreased knee AROM Impairment R knee (sup): 5-100 deg's ( sitting): 22-103 deg's L knee (sup): 0-122 deg's ( sitting): 0-123 deg's Short Term Goal (STG) Improve R knee AROM (sup 0-120 deg's; sit 10-120 deg's) STG Duration 09/21/21 Nursing Home Goal (LTG) Pt goal is get up off the ground without all the manuevering/holding onto things and without hurting self. LTG Duration 10/09/21 Two Impairment Decreased kirill knee strength Impairment R knee: flex & ext 3-/5; R hip: flex 2-/5, AB & AD 1/5. L knee: flex & ext 5/5 L hip: flex 3/5, AB 3/5, AD 2 /5. Short Term Goal (STG) Increase R knee & hip strength 1/2 grade STG Duration 09/21/21 Nursing Home Goal (LTG) Improve R knee strength to no less than 4/5, and improve hip strength by 1 grade, to improve pt's safety with standing and gait with no giving way of the R knee in standing. LTG Duration 10/09/21 One Impairment Pt lacks appropriated self care HEP. Short Term Goal (STG) Pt will be educated in precautions with exercise and edema/pain management. STG Duration 09/07/21 Clamper Goal (LTG) Pt educated in a self care HEP to promote knee and hip strengthening. LTG Duration 10/09/21 Assessment Summary Assessment Pt presents with decreased R knee stability with decreased active ROM and strength. She demonstrates decreased strength of the R hip and to lesser extent the L hip and knee. The pt has decreased function due to mechanical and soft tissue dysfunction at the R knee from meniscus tear. The pt has postural deviations from valgus at the knees and her BMI is 40 ( Normal weight = 18.5?24.9, 40= Obese). The pt is fearful of more surgeries since her brain surgery; therefore she wanting to try physical therapy, hoping to avoid R knee surgery due to menicus tear. The pt will benefit from skilled phyiscal therapy to improve her R knee AROM and bilateral strength of the knees and hips. Improve strength and mobility will be advantageous to the pt if she requires surgery at a later date. The pt will benefit from physical therapy to work towards achieving the above stated goals. Physical Therapy Plan Frequency and Duration Frequency of Treatment 2x/Week Plan of Care Start Date 08/24/21 Plan of Care End Date 10/09/21 Therapeutic Interventions Therapeutic Interventions Aquatic Therapy,Balance Training,Gait Training,Home Exercise Program,Manual Therapy,Neuromuscular Re- education,Patient/Caregiver Education,Self-Care/Home Management,Soft Tissue Mobilization,Taping, Therapeutic Activities, Therapeutic Exercises Modalities Cold Pack/Ice Massage,Electric Stimulation,Hot Packs, Ultrasound Next Visit Focus/Plan Next Note Type Treatment Note Next Visit Plan Discuss possible aquatic therapy, Knee/hip strengthening for stabilization with gait and functional activities. HEP: knee AROM stretches & strengthening of knees & hips. Gait training with assistive device to decrease pain. Modailities for pain and swelling (?US, ESTIM) Manual therapy (STM, MWM)
--- NOTE | 2021-08-27 17:39 | PT-OP ANOTE ---
Pt cx'd due to illness
--- NOTE | 2021-10-06 10:07 | PT-OP ANOTE ---
Late Entry: Msg received 08/31/21 that pt canceled appts due to sickness and moving and an appt made for 10/06/21.
--- NOTE | 2021-10-06 10:31 | PT.OTN ---
Current Diagnoses Pain in right knee (10/06/21) Pain in left knee (10/06/21) Other tear of lateral meniscus, current injury, right knee, initial encounter (10/06/21) Physical Therapy Treatment Note PT-OP-A Visit Information Start: 08/21/21 18:13 Freq: Status: Active Protocol: Document 10/06/21 09:05 LRN (Rec: 10/06/21 10:30 LRN [id number]) Out-Patient Physical Therapy Visit Information Visit Information Visit Type Progress Note Visit Start Time 09:05 Visit Stop Time 10:02 Total Visit Minutes 57 Visit Number 2 Evaluation Information Evaluation Date 08/24/21 Precautions Precautions Per intake history & pt report : Brain surgery Apr 2020 due to dental surgery for trigeminal neuralgia that went bad, (had a couple of blood vessels that needed repair), Heart attack due to stress - Mar 2019 Controlled blood pressure, Memory loss. Neuroforaminal stenosis of the cerivcal spine . Per record review: pulsatile tinnitus, L toe pain, s/p hernia repair, PT-OP-B Current Condition Start: 08/21/21 18:13 Freq: Status: Active Protocol: Document 08/24/21 08:15 LRN (Rec: 08/24/21 09:10 LRN [id number]) Current Condition History of Current Condition Onset Date R & L knee-02/25, R>L. Current Complaints Bilateral knee pain, R hip pain, difficulty walking, numb feet. History of Current Condition Bilateral knee pain but R knee is the worst knee and is very painful. Can walk on it now, L side is mildly irritating. Having R hip pain. Was told she should do surgery, but the pt doesn't want to have surgery. States the more she uses it the pain has lessened. Hopes to delay surgery. R knee is no longer getting stuck in flexion for the past month. Denies fall. States she had brain surgery on the R side. After surgery the hip and knee pain started, and her knee just goes out. After surgery would walk weird, using cardona to balance. 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 Treatment Goals Patient/Caregiver Goals Pt goal is get up off the ground without all the manuevering/holding onto things and without hurting self. Decrease pain. Increase strength of legs. 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 Current Functional Impairments (Reported) Functional Limitations- ADL's Not able to do work or get down onto the ground. Movement of knees restricted. Personal Factors Other Personal Factors That May Effect BMI 30 (Health 18.5-24.9, 30= Therapy/Recovery Obese) Brain surgery Apr 2020 Heart attack due to stress - Mar 2019 Controlled blood pressure, Memory loss. BMI 40. Pt fearful of surgery; therefore choosing to do PT for now. PT-OP-C Subjective Start: 08/21/21 18:13 Freq: Status: Active Protocol: Document 10/06/21 09:05 LRN (Rec: 10/06/21 10:30 LRN [id number]) OP-PT Subjective Patient Comments Patient Comments Pain in R knee is 4-5/10. Pt is very interested in doing aquatic therapy. She wants to be able to not have surgery of the R knee. Reports she tried to stand to move while therapist gone to get HEP handouts and her R knee popped . PT-OP-J Posture/Palpation/Skin Start: 08/21/21 18:13 Freq: Status: Active Protocol: Document 08/24/21 08:15 LRN (Rec: 08/24/21 09:10 LRN [id number]) Posture Evaluation Position Standing T-Spine Posture Flattened Pelvis Posture Anteriorly Tilted Knee Posture (L) Genu Valgus,(R) Genu Valgus Comments Posture Comments Dowagers hump Endomorphic Palpation Assessment Location R hip Palpation Location R ASIS Palpation Findings Tenderness L knee Palpation Location Chondromalacia. Posterior knee tenderness. Palpation Findings Tenderness R knee Palpation Location Around joint and posterior Palpation Findings Tenderness PT-OP-K Range of Motion Start: 08/21/21 18:13 Freq: Status: Active Protocol: Document 10/06/21 09:05 LRN (Rec: 10/06/21 10:30 LRN [id number]) Knee Goniometric Range of Motion Knee Supine R Active Patient Position Supine Flexion Active (degrees) 70 Extension Active (degrees) 10 Extension Passive (degrees) 0 Supine L Active Patient Position Supine Flexion Active (degrees) 126 Extension Active (degrees) 0 R Active Patient Position Sitting Flexion Active (degrees) 65 Extension Active (degrees) 22 Comments Pt c/o pain limiting knee mobility L Active Patient Position Sitting Flexion Active (degrees) 123 Extension Active (degrees) 0 Comments 116 deg's Flex on plinth, limited by table supports. 123 deg's flex in room chair. PT-OP-M Strength Start: 08/21/21 18:13 Freq: Status: Active Protocol: Document 10/06/21 09:05 LRN (Rec: 10/06/21 10:30 LRN [id number]) Knee Strength Knee Manual Muscle Testing Right Comments Deferred due to R knee pain. PT-OP-Q Treatments Start: 08/21/21 18:13 Freq: Status: Active Protocol: Document 10/06/21 09:05 LRN (Rec: 10/06/21 10:30 LRN [id number]) Therapeutic Exercises Supine Exercises Active knee flex/ext Supine Exercise Name Active knee flex/ext Comments ROM taken Knee flex Supine Exercise Name Active knee flexion Side right Reps/Minutes 10x Comments Pt moves slow with ex and much v directions given Sitting Exercises BKFO Sitting Exercise Name Hip AB Side bilateral Equipment Used Lev 1 TB Reps/Minutes 10x w/o resistance, 10x with TB Marching Sitting Exercise Name Marching Side bilateral Reps/Minutes 10 each LE neural stretch Sitting Exercise Name Hamstring stretch x 10 f/b active ankle pumps Side right Reps/Minutes 10 Hold, f/b 10 active ankle pumps, 3 sets Comments Extra time with constant verbal cuing to do ex correctly. R knee ext Sitting Exercise Name Sitting on rm chair: active knee Ext Side right Reps/Minutes 8x, rest 2x Comments Extra time taken for determining pt tolerance of mvmt R knee flex Sitting Exercise Name Sitting on rm chair: active knee Flex Side right Equipment Used Rolling stool Reps/Minutes 10x Comments Extra time taken for determining pt tolerance of mvmt PT-OP-R Modalities Start: 08/21/21 18:13 Freq: Status: Active Protocol: Document 10/06/21 09:05 LRN (Rec: 10/06/21 10:30 LRN [id number]) Hot Pack/Cold Pack Treatment Hot Pack Location Posterior R knee & thigh Patient Position Supine Treatment Duration (minutes) 8 Patient Tolerance Fair Comments Pt has difficult time with static positioning. PT-OP-T Assessment and Plan Start: 08/21/21 18:13 Freq: Status: Active Protocol: Document 10/06/21 09:05 LRN (Rec: 10/06/21 10:30 LRN [id number]) Physical Therapy Assessment Rehab Potential Rehabilitation Potential Fair Evaluation Complexity Number of Personal Factors/Comorbidities 3 or More Number of Body Systems Impaired 4 or More Clinical Presentation at Evaluation Evolving Impairments Impairments Activity Tolerance,Balance, Gait,Pain,ROM,Strength Goals Three Impairment Decreased knee AROM Impairment R knee (sup): 5-100 deg's ( sitting): 22-103 deg's L knee (sup): 0-122 deg's ( sitting): 0-123 deg's Short Term Goal (STG) Improve R knee AROM (sup 0-120 deg's; sit 10-120 deg's) (10/06/21: sup: 10-70 deg's; sitting 22-65) STG Duration 11/22/21 (10/06/21: Worse on return) Industrial Relations Commissioner Goal (LTG) Pt goal is get up off the ground without all the manuevering/holding onto things and without hurting self. LTG Duration 01/04/22 Two Impairment Decreased kirill knee strength Impairment R knee: flex & ext 3-/5; R hip: flex 2-/5, AB & AD 1/5. L knee: flex & ext 5/5 L hip: flex 3/5, AB 3/5, AD 2 /5. Short Term Goal (STG) Increase R knee & hip strength 1/2 grade STG Duration 11/22/21 (10/06/21: Deferred testing due to R knee pain complaints) Industrial Relations Commissioner Goal (LTG) Improve R knee strength to no less than 4/5, and improve hip strength by 1 grade, to improve pt's safety with standing and gait with no giving way of the R knee in standing. LTG Duration 01/04/22 One Impairment Pt lacks appropriated self care HEP. Short Term Goal (STG) Pt will be educated in precautions with exercise and edema/pain management. (10/06/21: Pt educated in precaution of not forcefully straightening or bending the R knee with exercise). STG Duration 11/22/21 (10/06/21: Progressed ). Nursing Home Goal (LTG) Pt educated in a self care HEP to promote knee and hip strengthening. LTG Duration 01/04/22 Progress Towards Goals Progress Comments 10/06/21: Education in precautions with exercise. Assessment Summary Assessment Pt was seen for initial eval on 08/24/21 and has returned for her 2nd visit today. Pt chose to hold on PT due sickness, moving and reported fears of COVID with new variant and is ready to restart her rehab program. The pt still has decreased function due to mechanical and soft tissue dysfunction at the R knee from meniscus tear. The pt has postural deviations from valgus at the knees (BMI is 40, 40=Obese). The pt continues to be fearful of more surgeries since her brain surgery; therefore is wanting PT in hopes of avoiding R knee surgery due to menicus tear. She returns today with worsening of her painfree R knee mobility and continued decrease in strength due to pain. Her poor tolerance to positioning for land based exercise made strengthening difficult. The pt will benefit from skilled phyiscal therapy to improve her R knee AROM and bilateral strength of the knees and hips and to work towards achieving the above stated goals. Improved strength and mobility will be advantageous to the pt if she requires surgery at a later date. The pt will benefit from aquatic physical therapy (when she is able to get into the program) and transferring to land based therapy once she has gained tolerance to static positioning for land based exercises. Physical Therapy Plan Frequency and Duration Frequency of Treatment 2x/Week Plan of Care Start Date 10/06/21 Plan of Care End Date 01/04/22 Therapeutic Interventions Therapeutic Interventions Aquatic Therapy,Balance Training,Gait Training,Home Exercise Program,Manual Therapy,Neuromuscular Re- education,Patient/Caregiver Education,Self-Care/Home Management,Soft Tissue Mobilization,Taping, Therapeutic Activities, Therapeutic Exercises Modalities Cold Pack/Ice Massage,Electric Stimulation,Hot Packs, Ultrasound Next Visit Focus/Plan Next Note Type Treatment Note Next Visit Plan R knee meniscus rehabilitation . Knee/hip strengthening for stabilization with gait and functional activities. HEP: knee AROM stretches & strengthening of knees & hips. Gait training with assistive device to decrease pain. Modailities for pain and swelling (US, ESTIM) Manual therapy (STM, MWM)
--- NOTE | 2021-10-09 15:08 | PT.OTN ---
Current Diagnoses Pain in right knee (10/09/21) Pain in left knee (10/09/21) Other tear of lateral meniscus, current injury, right knee, initial encounter (10/09/21) Physical Therapy Treatment Note PT-OP-A Visit Information Start: 08/21/21 18:13 Freq: Status: Active Protocol: Document 10/09/21 14:43 LJ (Rec: 10/09/21 15:08 LJ [id number]) Out-Patient Physical Therapy Visit Information Visit Information Visit Type Aquatic Treatment Note Visit Start Time 11:45 Visit Stop Time 12:30 Total Visit Minutes 45 Visit Number 3 Precautions Precautions Per intake history & pt report : Brain surgery Apr 2020 due to dental surgery for trigeminal neuralgia that went bad, (had a couple of blood vessels that needed repair), Heart attack due to stress - Mar 2019 Controlled blood pressure, Memory loss. Neuroforaminal stenosis of the cerivcal spine . Per record review: pulsatile tinnitus, L toe pain, s/p hernia repair, PT-OP-B Current Condition Start: 08/21/21 18:13 Freq: Status: Active Protocol: Document 08/24/21 08:15 LRN (Rec: 08/24/21 09:10 LRN [id number]) Current Condition History of Current Condition Onset Date R & L knee-02/25, R>L. Current Complaints Bilateral knee pain, R hip pain, difficulty walking, numb feet. History of Current Condition Bilateral knee pain but R knee is the worst knee and is very painful. Can walk on it now, L side is mildly irritating. Having R hip pain. Was told she should do surgery, but the pt doesn't want to have surgery. States the more she uses it the pain has lessened. Hopes to delay surgery. R knee is no longer getting stuck in flexion for the past month. Denies fall. States she had brain surgery on the R side. After surgery the hip and knee pain started, and her knee just goes out. After surgery would walk weird, using cardona to balance. 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 Treatment Goals Patient/Caregiver Goals Pt goal is get up off the ground without all the manuevering/holding onto things and without hurting self. Decrease pain. Increase strength of legs. 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 Current Functional Impairments (Reported) Functional Limitations- ADL's Not able to do work or get down onto the ground. Movement of knees restricted. Personal Factors Other Personal Factors That May Effect BMI 30 (Health 18.5-24.9, 30= Therapy/Recovery Obese) Brain surgery Apr 2020 Heart attack due to stress - Mar 2019 Controlled blood pressure, Memory loss. BMI 40. Pt fearful of surgery; therefore choosing to do PT for now. PT-OP-C Subjective Start: 08/21/21 18:13 Freq: Status: Active Protocol: Document 10/09/21 14:43 LJ (Rec: 10/09/21 15:08 LJ [id number]) OP-PT Subjective Patient Comments Patient Comments Pt described her PMH emphasizing her brain surgery and the adverse effects. States she wants to lose weight and heal her body. Patient Questionnaires Lower Extremity Functional Scale LEFS Score 14 LEFS Impairment 80 to 99% Impaired (Score 1-16 ) PT-OP-J Posture/Palpation/Skin Start: 08/21/21 18:13 Freq: Status: Active Protocol: Document 08/24/21 08:15 LRN (Rec: 08/24/21 09:10 LRN [id number]) Posture Evaluation Position Standing T-Spine Posture Flattened Pelvis Posture Anteriorly Tilted Knee Posture (L) Genu Valgus,(R) Genu Valgus Comments Posture Comments Dowagers hump Endomorphic Palpation Assessment Location R hip Palpation Location R ASIS Palpation Findings Tenderness L knee Palpation Location Chondromalacia. Posterior knee tenderness. Palpation Findings Tenderness R knee Palpation Location Around joint and posterior Palpation Findings Tenderness PT-OP-K Range of Motion Start: 08/21/21 18:13 Freq: Status: Active Protocol: Document 10/06/21 09:05 LRN (Rec: 10/06/21 10:30 LRN [id number]) Knee Goniometric Range of Motion Knee Supine R Active Patient Position Supine Flexion Active (degrees) 70 Extension Active (degrees) 10 Extension Passive (degrees) 0 Supine L Active Patient Position Supine Flexion Active (degrees) 126 Extension Active (degrees) 0 R Active Patient Position Sitting Flexion Active (degrees) 65 Extension Active (degrees) 22 Comments Pt c/o pain limiting knee mobility L Active Patient Position Sitting Flexion Active (degrees) 123 Extension Active (degrees) 0 Comments 116 deg's Flex on plinth, limited by table supports. 123 deg's flex in room chair. PT-OP-M Strength Start: 08/21/21 18:13 Freq: Status: Active Protocol: Document 10/06/21 09:05 LRN (Rec: 10/06/21 10:30 LRN [id number]) Knee Strength Knee Manual Muscle Testing Right Comments Deferred due to R knee pain. PT-OP-Q Treatments Start: 08/21/21 18:13 Freq: Status: Active Protocol: Document 10/06/21 09:05 LRN (Rec: 10/06/21 10:30 LRN [id number]) Therapeutic Exercises Supine Exercises Active knee flex/ext Supine Exercise Name Active knee flex/ext Comments ROM taken Knee flex Supine Exercise Name Active knee flexion Side right Reps/Minutes 10x Comments Pt moves slow with ex and much v directions given Sitting Exercises BKFO Sitting Exercise Name Hip AB Side bilateral Equipment Used Lev 1 TB Reps/Minutes 10x w/o resistance, 10x with TB Marching Sitting Exercise Name Marching Side bilateral Reps/Minutes 10 each LE neural stretch Sitting Exercise Name Hamstring stretch x 10 f/b active ankle pumps Side right Reps/Minutes 10 Hold, f/b 10 active ankle pumps, 3 sets Comments Extra time with constant verbal cuing to do ex correctly. R knee ext Sitting Exercise Name Sitting on rm chair: active knee Ext Side right Reps/Minutes 8x, rest 2x Comments Extra time taken for determining pt tolerance of mvmt R knee flex Sitting Exercise Name Sitting on rm chair: active knee Flex Side right Equipment Used Rolling stool Reps/Minutes 10x Comments Extra time taken for determining pt tolerance of mvmt PT-OP-R Modalities Start: 08/21/21 18:13 Freq: Status: Active Protocol: Document 10/06/21 09:05 LRN (Rec: 10/06/21 10:30 LRN [id number]) Hot Pack/Cold Pack Treatment Hot Pack Location Posterior R knee & thigh Patient Position Supine Treatment Duration (minutes) 8 Patient Tolerance Fair Comments Pt has difficult time with static positioning. PT-OP-S Aquatic Treatment Start: 10/09/21 14:42 Freq: Status: Active Protocol: Document 10/09/21 14:43 LJ (Rec: 10/09/21 15:08 LJ [id number]) Aquatics Treatment Pool Entry/Exit Pool Entry/Exit Method Stairs Assistance Standby Assistance,Verbal Cues Water Walking [place] March Water Level Chest Level Level of Assistance Standby Assistance,Verbal Cues Marching Water Level Chest Level Level of Assistance Standby Assistance,Verbal Cues Sideways Water Level Chest Level Level of Assistance Standby Assistance,Verbal Cues Comments cues for toe-knee alignment Backwards Water Level Chest Level Level of Assistance Standby Assistance,Verbal Cues Forwards Water Level Chest Level Level of Assistance Standby Assistance,Verbal Cues Lower Extremity Exercises toe, heel raises Details hh on wall Body Position Standing Water Level Chest Level Reps/Duration 10 ea HS curls Details hh on wall Body Position Standing Water Level Chest Level Reps/Duration [address] hip Details hh on wall Body Position Standing Water Level Chest Level Reps/Duration 10 B knee fl/ex Details seated at wall Body Position Sitting Water Level Chest Level Reps/Duration 10 B; 10 B with noodle under arms suspended Comments also with noodle under arms Lower Extremity Stretches HS Details hh on wall Body Position Standing Water Level Waist Level Equipment sm noodle under ankle Reps/Duration 2 x 30 sec B gastroc, soleus Details hh on wall Body Position Standing Reps/Duration 2 x 30 sec B hip flexors, quads Details hh on wall Body Position Standing Water Level Chest Level Reps/Duration 2 x 30 sec B Upper Extremity Exercises torso rotation Details braced at wall Body Position Sitting Water Level Neck Level Reps/Duration 10 Comments UEs held 90/90 Balance DLS Details stationary standing with nudges all directions Comments poor balance with fwd and back nudges weight shifting Details fwd,back, side, side PT-OP-T Assessment and Plan Start: 08/21/21 18:13 Freq: Status: Active Protocol: Document 10/09/21 14:43 GODFREY (Rec: 10/09/21 15:08 GODFREY [id number]) Physical Therapy Assessment Rehab Potential Rehabilitation Potential Fair Evaluation Complexity Number of Personal Factors/Comorbidities 3 or More Number of Body Systems Impaired 4 or More Clinical Presentation at Evaluation Evolving Impairments Impairments Activity Tolerance,Balance, Gait,Pain,ROM,Strength Goals Three Impairment Decreased knee AROM Impairment R knee (sup): 5-100 deg's ( sitting): 22-103 deg's L knee (sup): 0-122 deg's ( sitting): 0-123 deg's Short Term Goal (STG) Improve R knee AROM (sup 0-120 deg's; sit 10-120 deg's) (10/06/21: sup: 10-70 deg's; sitting 22-65) STG Duration 11/22/21 (10/06/21: Worse on return) Angiographer Goal (LTG) Pt goal is get up off the ground without all the manuevering/holding onto things and without hurting self. LTG Duration 01/04/22 Two Impairment Decreased kirill knee strength Impairment R knee: flex & ext 3-/5; R hip: flex 2-/5, AB & AD 1/5. L knee: flex & ext 5/5 L hip: flex 3/5, AB 3/5, AD 2 /5. Short Term Goal (STG) Increase R knee & hip strength 1/2 grade STG Duration 11/22/21 (10/06/21: Deferred testing due to R knee pain complaints) Fdc Goal (LTG) Improve R knee strength to no less than 4/5, and improve hip strength by 1 grade, to improve pt's safety with standing and gait with no giving way of the R knee in standing. LTG Duration 01/04/22 One Impairment Pt lacks appropriated self care HEP. Short Term Goal (STG) Pt will be educated in precautions with exercise and edema/pain management. (10/06/21: Pt educated in precaution of not forcefully straightening or bending the R knee with exercise). STG Duration 11/22/21 (10/06/21: Progressed ). Angiographer Goal (LTG) Pt educated in a self care HEP to promote knee and hip strengthening. LTG Duration 01/04/22 Progress Towards Goals Progress Comments 10/06/21: Education in precautions with exercise. Assessment Summary Assessment All exercises kept to a gentle level. Pt a bit fearful of going out to deep water so exercises were kept in shallow with noodle under arms for seated knee fl/ext. Pt reported pain when standing on RLE to do 4 way hip with LLE so she was given a noodle to offload and this seemed to work. She did well with form and proper heel strike-toe off in walking forward. Overall, she tolerated exercise well. Physical Therapy Plan Frequency and Duration Frequency of Treatment 2x/Week Plan of Care Start Date 10/06/21 Plan of Care End Date 01/04/22 Therapeutic Interventions Therapeutic Interventions Aquatic Therapy,Balance Training,Gait Training,Home Exercise Program,Manual Therapy,Neuromuscular Re- education,Patient/Caregiver Education,Self-Care/Home Management,Soft Tissue Mobilization,Taping, Therapeutic Activities, Therapeutic Exercises Modalities Cold Pack/Ice Massage,Electric Stimulation,Hot Packs, Ultrasound Next Visit Focus/Plan Next Note Type Treatment Note Next Visit Plan Continue with gentle LE and core strengthening. Progress balance in walking and DLS activities. Use noodle under arms in deepest part of shallow water for deep water exercises.
--- NOTE | 2021-10-19 11:00 | PT.OTN ---
Current Diagnoses Pain in right knee (10/19/21) Pain in left knee (10/19/21) Other tear of lateral meniscus, current injury, right knee, initial encounter (10/19/21) Physical Therapy Treatment Note PT-OP-A Visit Information Start: 08/21/21 18:13 Freq: Status: Active Protocol: Document 10/19/21 11:00 SAK (Rec: 10/20/21 17:22 SAK [id number]) Out-Patient Physical Therapy Visit Information Visit Information Visit Type Aquatic Treatment Note Visit Start Time 11:00 Visit Stop Time 11:45 Total Visit Minutes 45 Visit Number 4 Precautions Precautions Per intake history & pt report : Brain surgery Apr 2020 due to dental surgery for trigeminal neuralgia that went bad, (had a couple of blood vessels that needed repair), Heart attack due to stress - Mar 2019 Controlled blood pressure, Memory loss. Neuroforaminal stenosis of the cerivcal spine . Per record review: pulsatile tinnitus, L toe pain, s/p hernia repair, PT-OP-B Current Condition Start: 08/21/21 18:13 Freq: Status: Active Protocol: Document 08/24/21 08:15 LRN (Rec: 08/24/21 09:10 LRN [id number]) Current Condition History of Current Condition Onset Date R & L knee-02/25, R>L. Current Complaints Bilateral knee pain, R hip pain, difficulty walking, numb feet. History of Current Condition Bilateral knee pain but R knee is the worst knee and is very painful. Can walk on it now, L side is mildly irritating. Having R hip pain. Was told she should do surgery, but the pt doesn't want to have surgery. States the more she uses it the pain has lessened. Hopes to delay surgery. R knee is no longer getting stuck in flexion for the past month. Denies fall. States she had brain surgery on the R side. After surgery the hip and knee pain started, and her knee just goes out. After surgery would walk weird, using cardona to balance. 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 Treatment Goals Patient/Caregiver Goals Pt goal is get up off the ground without all the manuevering/holding onto things and without hurting self. Decrease pain. Increase strength of legs. 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 Current Functional Impairments (Reported) Functional Limitations- ADL's Not able to do work or get down onto the ground. Movement of knees restricted. Personal Factors Other Personal Factors That May Effect BMI 30 (Health 18.5-24.9, 30= Therapy/Recovery Obese) Brain surgery Apr 2020 Heart attack due to stress - Mar 2019 Controlled blood pressure, Memory loss. BMI 40. Pt fearful of surgery; therefore choosing to do PT for now. PT-OP-C Subjective Start: 08/21/21 18:13 Freq: Status: Active Protocol: Document 10/19/21 11:00 SAK (Rec: 10/20/21 17:22 SAK [id number]) OP-PT Subjective Patient Comments Patient Comments Patient reports her pain in her right knee variable, concerned about overdoing it. Had some pain after first aquatic therapy appointment but not as bad as I thought I would.Reports poor memory so will need lots of reminders. PT-OP-J Posture/Palpation/Skin Start: 08/21/21 18:13 Freq: Status: Active Protocol: Document 08/24/21 08:15 LRN (Rec: 08/24/21 09:10 LRN [id number]) Posture Evaluation Position Standing T-Spine Posture Flattened Pelvis Posture Anteriorly Tilted Knee Posture (L) Genu Valgus,(R) Genu Valgus Comments Posture Comments Dowagers hump Endomorphic Palpation Assessment Location R hip Palpation Location R ASIS Palpation Findings Tenderness L knee Palpation Location Chondromalacia. Posterior knee tenderness. Palpation Findings Tenderness R knee Palpation Location Around joint and posterior Palpation Findings Tenderness PT-OP-K Range of Motion Start: 08/21/21 18:13 Freq: Status: Active Protocol: Document 10/06/21 09:05 LRN (Rec: 10/06/21 10:30 LRN [id number]) Knee Goniometric Range of Motion Knee Supine R Active Patient Position Supine Flexion Active (degrees) 70 Extension Active (degrees) 10 Extension Passive (degrees) 0 Supine L Active Patient Position Supine Flexion Active (degrees) 126 Extension Active (degrees) 0 R Active Patient Position Sitting Flexion Active (degrees) 65 Extension Active (degrees) 22 Comments Pt c/o pain limiting knee mobility L Active Patient Position Sitting Flexion Active (degrees) 123 Extension Active (degrees) 0 Comments 116 deg's Flex on plinth, limited by table supports. 123 deg's flex in room chair. PT-OP-M Strength Start: 08/21/21 18:13 Freq: Status: Active Protocol: Document 10/06/21 09:05 LRN (Rec: 10/06/21 10:30 LRN [id number]) Knee Strength Knee Manual Muscle Testing Right Comments Deferred due to R knee pain. PT-OP-Q Treatments Start: 08/21/21 18:13 Freq: Status: Active Protocol: Document 10/06/21 09:05 LRN (Rec: 10/06/21 10:30 LRN [id number]) Therapeutic Exercises Supine Exercises Active knee flex/ext Supine Exercise Name Active knee flex/ext Comments ROM taken Knee flex Supine Exercise Name Active knee flexion Side right Reps/Minutes 10x Comments Pt moves slow with ex and much v directions given Sitting Exercises BKFO Sitting Exercise Name Hip AB Side bilateral Equipment Used Lev 1 TB Reps/Minutes 10x w/o resistance, 10x with TB Marching Sitting Exercise Name Marching Side bilateral Reps/Minutes 10 each LE neural stretch Sitting Exercise Name Hamstring stretch x 10 f/b active ankle pumps Side right Reps/Minutes 10 Hold, f/b 10 active ankle pumps, 3 sets Comments Extra time with constant verbal cuing to do ex correctly. R knee ext Sitting Exercise Name Sitting on rm chair: active knee Ext Side right Reps/Minutes 8x, rest 2x Comments Extra time taken for determining pt tolerance of mvmt R knee flex Sitting Exercise Name Sitting on rm chair: active knee Flex Side right Equipment Used Rolling stool Reps/Minutes 10x Comments Extra time taken for determining pt tolerance of mvmt PT-OP-R Modalities Start: 08/21/21 18:13 Freq: Status: Active Protocol: Document 10/06/21 09:05 LRN (Rec: 10/06/21 10:30 LRN [id number]) Hot Pack/Cold Pack Treatment Hot Pack Location Posterior R knee & thigh Patient Position Supine Treatment Duration (minutes) 8 Patient Tolerance Fair Comments Pt has difficult time with static positioning. PT-OP-S Aquatic Treatment Start: 10/09/21 14:42 Freq: Status: Active Protocol: Document 10/19/21 11:00 SAK (Rec: 10/20/21 17:22 SAK [id number]) Aquatics Treatment Pool Entry/Exit Pool Entry/Exit Method Stairs Assistance Standby Assistance,Verbal Cues Water Walking [place] March Water Level Chest Level Level of Assistance Standby Assistance,Verbal Cues Marching Water Level Chest Level Level of Assistance Standby Assistance,Verbal Cues Sideways Water Level Chest Level Level of Assistance Standby Assistance,Verbal Cues Comments cues for toe-knee alignment Backwards Water Level Chest Level Level of Assistance Standby Assistance,Verbal Cues Forwards Water Level Chest Level Level of Assistance Standby Assistance,Verbal Cues Lower Extremity Exercises toe, heel raises Details hh on wall Body Position Standing Water Level Chest Level Reps/Duration 10 ea HS curls Details hh on wall Body Position Standing Water Level Chest Level Reps/Duration [address] hip Details hh on wall Body Position Standing Water Level Chest Level Reps/Duration 10 B knee fl/ex Details seated at wall Body Position Sitting Water Level Chest Level Reps/Duration 10 B; 10 B with noodle under arms suspended Comments also with noodle under arms Lower Extremity Stretches HS Details hh on wall Body Position Standing Water Level Waist Level Equipment sm noodle under ankle Reps/Duration 2 x 30 sec B gastroc, soleus Details hh on wall Body Position Standing Reps/Duration 2 x 30 sec B hip flexors, quads Details hh on wall Body Position Standing Water Level Chest Level Reps/Duration 2 x 30 sec B Upper Extremity Exercises torso rotation Details braced at wall Body Position Sitting Water Level Neck Level Reps/Duration 10 Comments UEs held 90/90 Balance DLS Details stationary standing with nudges all directions Comments poor balance with fwd and back nudges weight shifting Details fwd,back, side, side PT-OP-T Assessment and Plan Start: 08/21/21 18:13 Freq: Status: Active Protocol: Document 10/19/21 11:00 [facility] (Rec: 10/20/21 17:22 [facility] [id number]) Physical Therapy Assessment Goals Three Impairment Decreased knee AROM Impairment R knee (sup): 5-100 deg's ( sitting): 22-103 deg's L knee (sup): 0-122 deg's ( sitting): 0-123 deg's Short Term Goal (STG) Improve R knee AROM (sup 0-120 deg's; sit 10-120 deg's) (10/06/21: sup: 10-70 deg's; sitting 22-65) STG Duration 11/22/21 (10/06/21: Worse on return) Super[employer] Goal (LTG) Pt goal is get up off the ground without all the manuevering/holding onto things and without hurting self. LTG Duration 01/04/22 Two Impairment Decreased kirill knee strength Impairment R knee: flex & ext 3-/5; R hip: flex 2-/5, AB & AD 1/5. L knee: flex & ext 5/5 L hip: flex 3/5, AB 3/5, AD 2 /5. Short Term Goal (STG) Increase R knee & hip strength 1/2 grade STG Duration 11/22/21 (10/06/21: Deferred testing due to R knee pain complaints) Supervisor Prep[employer] Goal (LTG) Improve R knee strength to no less than 4/5, and improve hip strength by 1 grade, to improve pt's safety with standing and gait with no giving way of the R knee in standing. LTG Duration 01/04/22 One Impairment Pt lacks appropriated self care HEP. Short Term Goal (STG) Pt will be educated in precautions with exercise and edema/pain management. (10/06/21: Pt educated in precaution of not forcefully straightening or bending the R knee with exercise). STG Duration 11/22/21 (10/06/21: Progressed ). Supervisor [employer] Goal (LTG) Pt educated in a self care HEP to promote knee and hip strengthening. LTG Duration 01/04/22 Assessment Summary Assessment Continued with gentle ther ex with emphasis on knee ROM and strengthening Physical Therapy Plan Frequency and Duration Frequency of Treatment 2x/Week Plan of Care Start Date 10/06/21 Plan of Care End Date 01/04/22 Therapeutic Interventions Therapeutic Interventions Aquatic Therapy,Balance Training,Gait Training,Home Exercise Program,Manual Therapy,Neuromuscular Re- education,Patient/Caregiver Education,Self-Care/Home Management,Soft Tissue Mobilization,Taping, Therapeutic Activities, Therapeutic Exercises Modalities Cold Pack/Ice Massage,Electric Stimulation,Hot Packs, Ultrasound Next Visit Focus/Plan Next Note Type Treatment Note Next Visit Plan Land: R knee meniscus rehabilitation. Knee/hip strengthening for stabilization with gait and functional activities. HEP: knee AROM stretches & strengthening of knees & hips. Gait training with assistive device to decrease pain. Aquatic: Continue with gentle LE and core strengthening, ROM . Progress balance in walking and DLS activities. Use noodle under arms in deepest part of shallow water for deep water exercises.
--- NOTE | 2021-10-21 16:10 | PT.OTN ---
Current Diagnoses Pain in right knee (10/21/21) Pain in left knee (10/21/21) Other tear of lateral meniscus, current injury, right knee, initial encounter (10/21/21) Physical Therapy Treatment Note PT-OP-A Visit Information Start: 08/21/21 18:13 Freq: Status: Active Protocol: Document 10/21/21 11:00 SAK (Rec: 10/22/21 16:09 SAK [id number]) Out-Patient Physical Therapy Visit Information Visit Information Visit Type Aquatic Treatment Note Visit Start Time 11:00 Visit Stop Time 11:30 Total Visit Minutes 30 Visit Number 5 Precautions Precautions Per intake history & pt report : Brain surgery Apr 2020 due to dental surgery for trigeminal neuralgia that went bad, (had a couple of blood vessels that needed repair), Heart attack due to stress - Mar 2019 Controlled blood pressure, Memory loss. Neuroforaminal stenosis of the cerivcal spine . Per record review: pulsatile tinnitus, L toe pain, s/p hernia repair, PT-OP-B Current Condition Start: 08/21/21 18:13 Freq: Status: Active Protocol: Document 08/24/21 08:15 LRN (Rec: 08/24/21 09:10 LRN [id number]) Current Condition History of Current Condition Onset Date R & L knee-02/25, R>L. Current Complaints Bilateral knee pain, R hip pain, difficulty walking, numb feet. History of Current Condition Bilateral knee pain but R knee is the worst knee and is very painful. Can walk on it now, L side is mildly irritating. Having R hip pain. Was told she should do surgery, but the pt doesn't want to have surgery. States the more she uses it the pain has lessened. Hopes to delay surgery. R knee is no longer getting stuck in flexion for the past month. Denies fall. States she had brain surgery on the R side. After surgery the hip and knee pain started, and her knee just goes out. After surgery would walk weird, using cardona to balance. 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 Treatment Goals Patient/Caregiver Goals Pt goal is get up off the ground without all the manuevering/holding onto things and without hurting self. Decrease pain. Increase strength of legs. 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 Current Functional Impairments (Reported) Functional Limitations- ADL's Not able to do work or get down onto the ground. Movement of knees restricted. Personal Factors Other Personal Factors That May Effect BMI 30 (Health 18.5-24.9, 30= Therapy/Recovery Obese) Brain surgery Apr 2020 Heart attack due to stress - Mar 2019 Controlled blood pressure, Memory loss. BMI 40. Pt fearful of surgery; therefore choosing to do PT for now. PT-OP-C Subjective Start: 08/21/21 18:13 Freq: Status: Active Protocol: Document 10/21/21 11:00 SAK (Rec: 10/22/21 16:09 SAK [id number]) OP-PT Subjective Patient Comments Patient Comments Patient states she was painful after last session, may have overdone it. Agreeable to decreased intensity and length of treatment today. PT-OP-J Posture/Palpation/Skin Start: 08/21/21 18:13 Freq: Status: Active Protocol: Document 08/24/21 08:15 LRN (Rec: 08/24/21 09:10 LRN [id number]) Posture Evaluation Position Standing T-Spine Posture Flattened Pelvis Posture Anteriorly Tilted Knee Posture (L) Genu Valgus,(R) Genu Valgus Comments Posture Comments Dowagers hump Endomorphic Palpation Assessment Location R hip Palpation Location R ASIS Palpation Findings Tenderness L knee Palpation Location Chondromalacia. Posterior knee tenderness. Palpation Findings Tenderness R knee Palpation Location Around joint and posterior Palpation Findings Tenderness PT-OP-K Range of Motion Start: 08/21/21 18:13 Freq: Status: Active Protocol: Document 10/06/21 09:05 LRN (Rec: 10/06/21 10:30 LRN [id number]) Knee Goniometric Range of Motion Knee Supine R Active Patient Position Supine Flexion Active (degrees) 70 Extension Active (degrees) 10 Extension Passive (degrees) 0 Supine L Active Patient Position Supine Flexion Active (degrees) 126 Extension Active (degrees) 0 R Active Patient Position Sitting Flexion Active (degrees) 65 Extension Active (degrees) 22 Comments Pt c/o pain limiting knee mobility L Active Patient Position Sitting Flexion Active (degrees) 123 Extension Active (degrees) 0 Comments 116 deg's Flex on plinth, limited by table supports. 123 deg's flex in room chair. PT-OP-M Strength Start: 08/21/21 18:13 Freq: Status: Active Protocol: Document 10/06/21 09:05 LRN (Rec: 10/06/21 10:30 LRN [id number]) Knee Strength Knee Manual Muscle Testing Right Comments Deferred due to R knee pain. PT-OP-Q Treatments Start: 08/21/21 18:13 Freq: Status: Active Protocol: Document 10/06/21 09:05 LRN (Rec: 10/06/21 10:30 LRN [id number]) Therapeutic Exercises Supine Exercises Active knee flex/ext Supine Exercise Name Active knee flex/ext Comments ROM taken Knee flex Supine Exercise Name Active knee flexion Side right Reps/Minutes 10x Comments Pt moves slow with ex and much v directions given Sitting Exercises BKFO Sitting Exercise Name Hip AB Side bilateral Equipment Used Lev 1 TB Reps/Minutes 10x w/o resistance, 10x with TB Marching Sitting Exercise Name Marching Side bilateral Reps/Minutes 10 each LE neural stretch Sitting Exercise Name Hamstring stretch x 10 f/b active ankle pumps Side right Reps/Minutes 10 Hold, f/b 10 active ankle pumps, 3 sets Comments Extra time with constant verbal cuing to do ex correctly. R knee ext Sitting Exercise Name Sitting on rm chair: active knee Ext Side right Reps/Minutes 8x, rest 2x Comments Extra time taken for determining pt tolerance of mvmt R knee flex Sitting Exercise Name Sitting on rm chair: active knee Flex Side right Equipment Used Rolling stool Reps/Minutes 10x Comments Extra time taken for determining pt tolerance of mvmt PT-OP-R Modalities Start: 08/21/21 18:13 Freq: Status: Active Protocol: Document 10/06/21 09:05 LRN (Rec: 10/06/21 10:30 LRN [id number]) Hot Pack/Cold Pack Treatment Hot Pack Location Posterior R knee & thigh Patient Position Supine Treatment Duration (minutes) 8 Patient Tolerance Fair Comments Pt has difficult time with static positioning. PT-OP-S Aquatic Treatment Start: 10/09/21 14:42 Freq: Status: Active Protocol: Document 10/21/21 11:00 SAK (Rec: 10/22/21 16:09 SAK [id number]) Aquatics Treatment Pool Entry/Exit Pool Entry/Exit Method Stairs Assistance Standby Assistance,Verbal Cues Water Walking [place] March Water Level Chest Level Level of Assistance Standby Assistance,Verbal Cues Marching Water Level Chest Level Level of Assistance Standby Assistance,Verbal Cues Sideways Water Level Chest Level Level of Assistance Standby Assistance,Verbal Cues Comments cues for toe-knee alignment Backwards Water Level Chest Level Level of Assistance Standby Assistance,Verbal Cues Forwards Water Level Chest Level Level of Assistance Standby Assistance,Verbal Cues [place] Activities [place] Activities Bicycle Other Activities walk Equipment blue [place] point float Comments min to mod assist for neutral vertical alignment PT-OP-T Assessment and Plan Start: 08/21/21 18:13 Freq: Status: Active Protocol: Document 10/21/21 11:00 [facility] (Rec: 10/22/21 16:09 [facility] [id number]) Physical Therapy Assessment Rehab Potential Rehabilitation Potential Fair Evaluation Complexity Number of Personal Factors/Comorbidities 3 or More Number of Body Systems Impaired 4 or More Clinical Presentation at Evaluation Evolving Impairments Impairments Activity Tolerance,Balance, Gait,Pain,ROM,Strength Goals Three Impairment Decreased knee AROM Impairment R knee (sup): 5-100 deg's ( sitting): 22-103 deg's L knee (sup): 0-122 deg's ( sitting): 0-123 deg's Short Term Goal (STG) Improve R knee AROM (sup 0-120 deg's; sit 10-120 deg's) (10/06/21: sup: 10-70 deg's; sitting 22-65) STG Duration 11/22/21 (10/06/21: Worse on return) [employer] Goal (LTG) Pt goal is get up off the ground without all the manuevering/holding onto things and without hurting self. LTG Duration 01/04/22 Two Impairment Decreased kirill knee strength Impairment R knee: flex & ext 3-/5; R hip: flex 2-/5, AB & AD 1/5. L knee: flex & ext 5/5 L hip: flex 3/5, AB 3/5, AD 2 /5. Short Term Goal (STG) Increase R knee & hip strength 1/2 grade STG Duration 11/22/21 (10/06/21: Deferred testing due to R knee pain complaints) [employer] Goal (LTG) Improve R knee strength to no less than 4/5, and improve hip strength by 1 grade, to improve pt's safety with standing and gait with no giving way of the R knee in standing. LTG Duration 01/04/22 One Impairment Pt lacks appropriated self care HEP. Short Term Goal (STG) Pt will be educated in precautions with exercise and edema/pain management. (10/06/21: Pt educated in precaution of not forcefully straightening or bending the R knee with exercise). STG Duration 11/22/21 (10/06/21: Progressed ). Snf Goal (LTG) Pt educated in a self care HEP to promote knee and hip strengthening. LTG Duration 01/04/22 Assessment Summary Assessment Cues to decrease speed and intensity of movement, increased time with patient in deep water using blue [place]'s point float and min to mod assist at her hips to assure neutral vertical positioning in the water; may benefit from use of small ankle weights to assist with this. Improved tolerance for activity without c/o pain today. Physical Therapy Plan Frequency and Duration Frequency of Treatment 2x/Week Plan of Care Start Date 10/06/21 Plan of Care End Date 01/04/22 Therapeutic Interventions Therapeutic Interventions Aquatic Therapy,Balance Training,Gait Training,Home Exercise Program,Manual Therapy,Neuromuscular Re- education,Patient/Caregiver Education,Self-Care/Home Management,Soft Tissue Mobilization,Taping, Therapeutic Activities, Therapeutic Exercises Modalities Cold Pack/Ice Massage,Electric Stimulation,Hot Packs, Ultrasound Next Visit Focus/Plan Next Note Type Treatment Note Next Visit Plan Land: R knee meniscus rehabilitation. Knee/hip strengthening for stabilization with gait and functional activities. HEP: knee AROM stretches & strengthening of knees & hips. Gait training with assistive device to decrease pain. Aquatic: Continue with gentle LE and core strengthening, ROM . Progress balance in walking and DLS activities. Consider 1 -2 lbs on ankles to assist with vertical positioning and alignment in deep water.
--- NOTE | 2021-10-22 16:09 | PT.OTN ---
Current Diagnoses Pain in right knee (10/21/21) Pain in left knee (10/21/21) Other tear of lateral meniscus, current injury, right knee, initial encounter (10/21/21) Physical Therapy Treatment Note PT-OP-A Visit Information Start: 08/21/21 18:13 Freq: Status: Active Protocol: Document 10/21/21 11:00 SAK (Rec: 10/22/21 16:09 SAK [id number]) Out-Patient Physical Therapy Visit Information Visit Information Visit Type Aquatic Treatment Note Visit Start Time 11:00 Visit Stop Time 11:30 Total Visit Minutes 30 Visit Number 5 Precautions Precautions Per intake history & pt report : Brain surgery Apr 2020 due to dental surgery for trigeminal neuralgia that went bad, (had a couple of blood vessels that needed repair), Heart attack due to stress - Mar 2019 Controlled blood pressure, Memory loss. Neuroforaminal stenosis of the cerivcal spine . Per record review: pulsatile tinnitus, L toe pain, s/p hernia repair, PT-OP-B Current Condition Start: 08/21/21 18:13 Freq: Status: Active Protocol: Document 08/24/21 08:15 LRN (Rec: 08/24/21 09:10 LRN [id number]) Current Condition History of Current Condition Onset Date R & L knee-02/25, R>L. Current Complaints Bilateral knee pain, R hip pain, difficulty walking, numb feet. History of Current Condition Bilateral knee pain but R knee is the worst knee and is very painful. Can walk on it now, L side is mildly irritating. Having R hip pain. Was told she should do surgery, but the pt doesn't want to have surgery. States the more she uses it the pain has lessened. Hopes to delay surgery. R knee is no longer getting stuck in flexion for the past month. Denies fall. States she had brain surgery on the R side. After surgery the hip and knee pain started, and her knee just goes out. After surgery would walk weird, using cardona to balance. 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 Treatment Goals Patient/Caregiver Goals Pt goal is get up off the ground without all the manuevering/holding onto things and without hurting self. Decrease pain. Increase strength of legs. 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 Current Functional Impairments (Reported) Functional Limitations- ADL's Not able to do work or get down onto the ground. Movement of knees restricted. Personal Factors Other Personal Factors That May Effect BMI 30 (Health 18.5-24.9, 30= Therapy/Recovery Obese) Brain surgery Apr 2020 Heart attack due to stress - Mar 2019 Controlled blood pressure, Memory loss. BMI 40. Pt fearful of surgery; therefore choosing to do PT for now. PT-OP-C Subjective Start: 08/21/21 18:13 Freq: Status: Active Protocol: Document 10/21/21 11:00 SAK (Rec: 10/22/21 16:09 SAK [id number]) OP-PT Subjective Patient Comments Patient Comments Patient states she was painful after last session, may have overdone it. Agreeable to decreased intensity and length of treatment today. PT-OP-J Posture/Palpation/Skin Start: 08/21/21 18:13 Freq: Status: Active Protocol: Document 08/24/21 08:15 LRN (Rec: 08/24/21 09:10 LRN [id number]) Posture Evaluation Position Standing T-Spine Posture Flattened Pelvis Posture Anteriorly Tilted Knee Posture (L) Genu Valgus,(R) Genu Valgus Comments Posture Comments Dowagers hump Endomorphic Palpation Assessment Location R hip Palpation Location R ASIS Palpation Findings Tenderness L knee Palpation Location Chondromalacia. Posterior knee tenderness. Palpation Findings Tenderness R knee Palpation Location Around joint and posterior Palpation Findings Tenderness PT-OP-K Range of Motion Start: 08/21/21 18:13 Freq: Status: Active Protocol: Document 10/06/21 09:05 LRN (Rec: 10/06/21 10:30 LRN [id number]) Knee Goniometric Range of Motion Knee Supine R Active Patient Position Supine Flexion Active (degrees) 70 Extension Active (degrees) 10 Extension Passive (degrees) 0 Supine L Active Patient Position Supine Flexion Active (degrees) 126 Extension Active (degrees) 0 R Active Patient Position Sitting Flexion Active (degrees) 65 Extension Active (degrees) 22 Comments Pt c/o pain limiting knee mobility L Active Patient Position Sitting Flexion Active (degrees) 123 Extension Active (degrees) 0 Comments 116 deg's Flex on plinth, limited by table supports. 123 deg's flex in room chair. PT-OP-M Strength Start: 08/21/21 18:13 Freq: Status: Active Protocol: Document 10/06/21 09:05 LRN (Rec: 10/06/21 10:30 LRN [id number]) Knee Strength Knee Manual Muscle Testing Right Comments Deferred due to R knee pain. PT-OP-Q Treatments Start: 08/21/21 18:13 Freq: Status: Active Protocol: Document 10/06/21 09:05 LRN (Rec: 10/06/21 10:30 LRN [id number]) Therapeutic Exercises Supine Exercises Active knee flex/ext Supine Exercise Name Active knee flex/ext Comments ROM taken Knee flex Supine Exercise Name Active knee flexion Side right Reps/Minutes 10x Comments Pt moves slow with ex and much v directions given Sitting Exercises BKFO Sitting Exercise Name Hip AB Side bilateral Equipment Used Lev 1 TB Reps/Minutes 10x w/o resistance, 10x with TB Marching Sitting Exercise Name Marching Side bilateral Reps/Minutes 10 each LE neural stretch Sitting Exercise Name Hamstring stretch x 10 f/b active ankle pumps Side right Reps/Minutes 10 Hold, f/b 10 active ankle pumps, 3 sets Comments Extra time with constant verbal cuing to do ex correctly. R knee ext Sitting Exercise Name Sitting on rm chair: active knee Ext Side right Reps/Minutes 8x, rest 2x Comments Extra time taken for determining pt tolerance of mvmt R knee flex Sitting Exercise Name Sitting on rm chair: active knee Flex Side right Equipment Used Rolling stool Reps/Minutes 10x Comments Extra time taken for determining pt tolerance of mvmt PT-OP-R Modalities Start: 08/21/21 18:13 Freq: Status: Active Protocol: Document 10/06/21 09:05 LRN (Rec: 10/06/21 10:30 LRN [id number]) Hot Pack/Cold Pack Treatment Hot Pack Location Posterior R knee & thigh Patient Position Supine Treatment Duration (minutes) 8 Patient Tolerance Fair Comments Pt has difficult time with static positioning. PT-OP-S Aquatic Treatment Start: 10/09/21 14:42 Freq: Status: Active Protocol: Document 10/21/21 11:00 SAK (Rec: 10/22/21 16:09 SAK [id number]) Aquatics Treatment Pool Entry/Exit Pool Entry/Exit Method Stairs Assistance Standby Assistance,Verbal Cues Water Walking [place] March Water Level Chest Level Level of Assistance Standby Assistance,Verbal Cues Marching Water Level Chest Level Level of Assistance Standby Assistance,Verbal Cues Sideways Water Level Chest Level Level of Assistance Standby Assistance,Verbal Cues Comments cues for toe-knee alignment Backwards Water Level Chest Level Level of Assistance Standby Assistance,Verbal Cues Forwards Water Level Chest Level Level of Assistance Standby Assistance,Verbal Cues [place] Activities [place] Activities Bicycle Other Activities walk Equipment blue southern ute float Comments min to mod assist for neutral vertical alignment PT-OP-T Assessment and Plan Start: 08/21/21 18:13 Freq: Status: Active Protocol: Document 10/21/21 11:00 [facility] (Rec: 10/22/21 16:09 [facility] [id number]) Physical Therapy Assessment Rehab Potential Rehabilitation Potential Fair Evaluation Complexity Number of Personal Factors/Comorbidities 3 or More Number of Body Systems Impaired 4 or More Clinical Presentation at Evaluation Evolving Impairments Impairments Activity Tolerance,Balance, Gait,Pain,ROM,Strength Goals Three Impairment Decreased knee AROM Impairment R knee (sup): 5-100 deg's ( sitting): 22-103 deg's L knee (sup): 0-122 deg's ( sitting): 0-123 deg's Short Term Goal (STG) Improve R knee AROM (sup 0-120 deg's; sit 10-120 deg's) (10/06/21: sup: 10-70 deg's; sitting 22-65) STG Duration 11/22/21 (10/06/21: Worse on return) Counselor Aid Goal (LTG) Pt goal is get up off the ground without all the manuevering/holding onto things and without hurting self. LTG Duration 01/04/22 Two Impairment Decreased kirill knee strength Impairment R knee: flex & ext 3-/5; R hip: flex 2-/5, AB & AD 1/5. L knee: flex & ext 5/5 L hip: flex 3/5, AB 3/5, AD 2 /5. Short Term Goal (STG) Increase R knee & hip strength 1/2 grade STG Duration 11/22/21 (10/06/21: Deferred testing due to R knee pain complaints) Counselor Aid Goal (LTG) Improve R knee strength to no less than 4/5, and improve hip strength by 1 grade, to improve pt's safety with standing and gait with no giving way of the R knee in standing. LTG Duration 01/04/22 One Impairment Pt lacks appropriated self care HEP. Short Term Goal (STG) Pt will be educated in precautions with exercise and edema/pain management. (10/06/21: Pt educated in precaution of not forcefully straightening or bending the R knee with exercise). STG Duration 11/22/21 (10/06/21: Progressed ). Residential Goal (LTG) Pt educated in a self care HEP to promote knee and hip strengthening. LTG Duration 01/04/22 Assessment Summary Assessment Cues to decrease speed and intensity of movement, increased time with patient in deep water using blue southern ute float and min to mod assist at her hips to assure neutral vertical positioning in the water; may benefit from use of small ankle weights to assist with this. Improved tolerance for activity without c/o pain today. Physical Therapy Plan Frequency and Duration Frequency of Treatment 2x/Week Plan of Care Start Date 10/06/21 Plan of Care End Date 01/04/22 Therapeutic Interventions Therapeutic Interventions Aquatic Therapy,Balance Training,Gait Training,Home Exercise Program,Manual Therapy,Neuromuscular Re- education,Patient/Caregiver Education,Self-Care/Home Management,Soft Tissue Mobilization,Taping, Therapeutic Activities, Therapeutic Exercises Modalities Cold Pack/Ice Massage,Electric Stimulation,Hot Packs, Ultrasound Next Visit Focus/Plan Next Note Type Treatment Note Next Visit Plan Land: R knee meniscus rehabilitation. Knee/hip strengthening for stabilization with gait and functional activities. HEP: knee AROM stretches & strengthening of knees & hips. Gait training with assistive device to decrease pain. Aquatic: Continue with gentle LE and core strengthening, ROM . Progress balance in walking and DLS activities. Consider 1 -2 lbs on ankles to assist with vertical positioning and alignment in deep water.
--- NOTE | 2021-10-28 14:15 | PT.OTN ---
Current Diagnoses Pain in right knee (10/21/21) Pain in left knee (10/21/21) Other tear of lateral meniscus, current injury, right knee, initial encounter (10/21/21) Physical Therapy Treatment Note PT-OP-A Visit Information Start: 08/21/21 18:13 Freq: Status: Active Protocol: Document 10/28/21 13:57 LJ (Rec: 10/28/21 14:15 LJ [id number]) Out-Patient Physical Therapy Visit Information Visit Information Visit Type Aquatic Treatment Note Visit Start Time 10:15 Visit Stop Time 10:55 Total Visit Minutes 40 Visit Number 6 Number of PLATE SETTER Visits 1 Precautions Precautions Per intake history & pt report : Brain surgery Apr 2020 due to dental surgery for trigeminal neuralgia that went bad, (had a couple of blood vessels that needed repair), Heart attack due to stress - Mar 2019 Controlled blood pressure, Memory loss. Neuroforaminal stenosis of the cerivcal spine . Per record review: pulsatile tinnitus, L toe pain, s/p hernia repair, PT-OP-B Current Condition Start: 08/21/21 18:13 Freq: Status: Active Protocol: Document 08/24/21 08:15 LRN (Rec: 08/24/21 09:10 LRN [id number]) Current Condition History of Current Condition Onset Date R & L knee-02/25, R>L. Current Complaints Bilateral knee pain, R hip pain, difficulty walking, numb feet. History of Current Condition Bilateral knee pain but R knee is the worst knee and is very painful. Can walk on it now, L side is mildly irritating. Having R hip pain. Was told she should do surgery, but the pt doesn't want to have surgery. States the more she uses it the pain has lessened. Hopes to delay surgery. R knee is no longer getting stuck in flexion for the past month. Denies fall. States she had brain surgery on the R side. After surgery the hip and knee pain started, and her knee just goes out. After surgery would walk weird, using cardona to balance. 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 Treatment Goals Patient/Caregiver Goals Pt goal is get up off the ground without all the manuevering/holding onto things and without hurting self. Decrease pain. Increase strength of legs. 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 Current Functional Impairments (Reported) Functional Limitations- ADL's Not able to do work or get down onto the ground. Movement of knees restricted. Personal Factors Other Personal Factors That May Effect BMI 30 (Health 18.5-24.9, 30= Therapy/Recovery Obese) Brain surgery Apr 2020 Heart attack due to stress - Mar 2019 Controlled blood pressure, Memory loss. BMI 40. Pt fearful of surgery; therefore choosing to do PT for now. PT-OP-C Subjective Start: 08/21/21 18:13 Freq: Status: Active Protocol: Document 10/28/21 13:57 LJ (Rec: 10/28/21 14:15 LJ [id number]) OP-PT Subjective Patient Comments Patient Comments Pt states she went to the pool last week to walk and hang in deep water. Apparentlyshe was bicycling while hanging. States she was sore afterwards but was probably muscle soreness. PT-OP-J Posture/Palpation/Skin Start: 08/21/21 18:13 Freq: Status: Active Protocol: Document 08/24/21 08:15 LRN (Rec: 08/24/21 09:10 LRN [id number]) Posture Evaluation Position Standing T-Spine Posture Flattened Pelvis Posture Anteriorly Tilted Knee Posture (L) Genu Valgus,(R) Genu Valgus Comments Posture Comments Dowagers hump Endomorphic Palpation Assessment Location R hip Palpation Location R ASIS Palpation Findings Tenderness L knee Palpation Location Chondromalacia. Posterior knee tenderness. Palpation Findings Tenderness R knee Palpation Location Around joint and posterior Palpation Findings Tenderness PT-OP-K Range of Motion Start: 08/21/21 18:13 Freq: Status: Active Protocol: Document 10/06/21 09:05 LRN (Rec: 10/06/21 10:30 LRN [id number]) Knee Goniometric Range of Motion Knee Supine R Active Patient Position Supine Flexion Active (degrees) 70 Extension Active (degrees) 10 Extension Passive (degrees) 0 Supine L Active Patient Position Supine Flexion Active (degrees) 126 Extension Active (degrees) 0 R Active Patient Position Sitting Flexion Active (degrees) 65 Extension Active (degrees) 22 Comments Pt c/o pain limiting knee mobility L Active Patient Position Sitting Flexion Active (degrees) 123 Extension Active (degrees) 0 Comments 116 deg's Flex on plinth, limited by table supports. 123 deg's flex in room chair. PT-OP-M Strength Start: 08/21/21 18:13 Freq: Status: Active Protocol: Document 10/06/21 09:05 LRN (Rec: 10/06/21 10:30 LRN [id number]) Knee Strength Knee Manual Muscle Testing Right Comments Deferred due to R knee pain. PT-OP-Q Treatments Start: 08/21/21 18:13 Freq: Status: Active Protocol: Document 10/06/21 09:05 LRN (Rec: 10/06/21 10:30 LRN [id number]) Therapeutic Exercises Supine Exercises Active knee flex/ext Supine Exercise Name Active knee flex/ext Comments ROM taken Knee flex Supine Exercise Name Active knee flexion Side right Reps/Minutes 10x Comments Pt moves slow with ex and much v directions given Sitting Exercises BKFO Sitting Exercise Name Hip AB Side bilateral Equipment Used Lev 1 TB Reps/Minutes 10x w/o resistance, 10x with TB Marching Sitting Exercise Name Marching Side bilateral Reps/Minutes 10 each LE neural stretch Sitting Exercise Name Hamstring stretch x 10 f/b active ankle pumps Side right Reps/Minutes 10 Hold, f/b 10 active ankle pumps, 3 sets Comments Extra time with constant verbal cuing to do ex correctly. R knee ext Sitting Exercise Name Sitting on rm chair: active knee Ext Side right Reps/Minutes 8x, rest 2x Comments Extra time taken for determining pt tolerance of mvmt R knee flex Sitting Exercise Name Sitting on rm chair: active knee Flex Side right Equipment Used Rolling stool Reps/Minutes 10x Comments Extra time taken for determining pt tolerance of mvmt PT-OP-R Modalities Start: 08/21/21 18:13 Freq: Status: Active Protocol: Document 10/06/21 09:05 LRN (Rec: 10/06/21 10:30 LRN [id number]) Hot Pack/Cold Pack Treatment Hot Pack Location Posterior R knee & thigh Patient Position Supine Treatment Duration (minutes) 8 Patient Tolerance Fair Comments Pt has difficult time with static positioning. PT-OP-S Aquatic Treatment Start: 10/09/21 14:42 Freq: Status: Active Protocol: Document 10/28/21 13:57 LJ (Rec: 10/28/21 14:15 LJ [id number]) Aquatics Treatment Pool Entry/Exit Pool Entry/Exit Method Stairs Assistance Standby Assistance,Verbal Cues Water Walking [place] March Water Level Chest Level Level of Assistance Standby Assistance,Verbal Cues Marching Water Level Chest Level Level of Assistance Standby Assistance,Verbal Cues Sideways Water Level Chest Level Level of Assistance Standby Assistance,Verbal Cues Comments cues for toe-knee alignment Backwards Water Level Chest Level Level of Assistance Standby Assistance,Verbal Cues Forwards Water Level Chest Level Level of Assistance Standby Assistance,Verbal Cues Lower Extremity Exercises toe, heel raises Details hh on wall Body Position Standing Water Level Chest Level Reps/Duration [address] hip Details hh on wall Body Position Standing Water Level Chest Level Reps/Duration 10 B Comments cue for neutral pelvis knee fl/ex Details seated at wall Body Position Sitting Water Level Chest Level Reps/Duration 10 B; 10 B with noodle under arms suspended Lower Extremity Stretches HS Details hh on wall Body Position Standing Water Level Waist Level Equipment sm noodle under ankle Reps/Duration 2 x 30 sec B gastroc, soleus Details hh on wall Body Position Standing Reps/Duration 2 x 30 sec B hip flexors, quads Details hh on wall Body Position Standing Water Level Chest Level Reps/Duration 2 x 30 sec B Upper Extremity Exercises torso rotation Details braced at wall Body Position Sitting Water Level Neck Level Reps/Duration 10 Comments UEs held 90/90 Clements Activities Clements Activities Bicycle Other Activities walk Equipment 2 lg noodles held in front Duration 6 min Comments Pt re'q cues for vertical positioning and extending hips during exercise. Tendancy to keep LEs in front of her body as if in recumbant bike. Pt needed to leave 5 min early otherwise would have spent more time in deep water PT-OP-T Assessment and Plan Start: 08/21/21 18:13 Freq: Status: Active Protocol: Document 10/28/21 13:57 [facility] (Rec: 10/28/21 14:15 [facility] [id number]) Physical Therapy Assessment Rehab Potential Rehabilitation Potential Fair Evaluation Complexity Number of Personal Factors/Comorbidities 3 or More Number of Body Systems Impaired 4 or More Clinical Presentation at Evaluation Evolving Impairments Impairments Activity Tolerance,Balance, Gait,Pain,ROM,Strength Goals Three Impairment Decreased knee AROM Impairment R knee (sup): 5-100 deg's ( sitting): 22-103 deg's L knee (sup): 0-122 deg's ( sitting): 0-123 deg's Short Term Goal (STG) Improve R knee AROM (sup 0-120 deg's; sit 10-120 deg's) (10/06/21: sup: 10-70 deg's; sitting 22-65) STG Duration 11/22/21 (10/06/21: Worse on return) Half-Way Goal (LTG) Pt goal is get up off the ground without all the manuevering/holding onto things and without hurting self. LTG Duration 01/04/22 Two Impairment Decreased kirill knee strength Impairment R knee: flex & ext 3-/5; R hip: flex 2-/5, AB & AD 1/5. L knee: flex & ext 5/5 L hip: flex 3/5, AB 3/5, AD 2 /5. Short Term Goal (STG) Increase R knee & hip strength 1/2 grade STG Duration 11/22/21 (10/06/21: Deferred testing due to R knee pain complaints) Half-Way Goal (LTG) Improve R knee strength to no less than 4/5, and improve hip strength by 1 grade, to improve pt's safety with standing and gait with no giving way of the R knee in standing. LTG Duration 01/04/22 One Impairment Pt lacks appropriated self care HEP. Short Term Goal (STG) Pt will be educated in precautions with exercise and edema/pain management. (10/06/21: Pt educated in precaution of not forcefully straightening or bending the R knee with exercise). STG Duration 11/22/21 (10/06/21: Progressed ). Half-Way Goal (LTG) Pt educated in a self care HEP to promote knee and hip strengthening. LTG Duration 01/04/22 Assessment Summary Assessment Pt had no complaint of pain. She was more coordinated with walking when cued to maintain neuitral pelvic positioning. She did not have difficulty with LEs floatingin deep water this session. Physical Therapy Plan Frequency and Duration Frequency of Treatment 2x/Week Plan of Care Start Date 10/06/21 Plan of Care End Date 01/04/22 Therapeutic Interventions Therapeutic Interventions Aquatic Therapy,Balance Training,Gait Training,Home Exercise Program,Manual Therapy,Neuromuscular Re- education,Patient/Caregiver Education,Self-Care/Home Management,Soft Tissue Mobilization,Taping, Therapeutic Activities, Therapeutic Exercises Modalities Cold Pack/Ice Massage,Electric Stimulation,Hot Packs, Ultrasound Next Visit Focus/Plan Next Note Type Treatment Note Next Visit Plan Land: R knee meniscus rehabilitation. Knee/hip strengthening for stabilization with gait and functional activities. HEP: knee AROM stretches & strengthening of knees & hips. Gait training with assistive device to decrease pain. Aquatic: Continue with gentle LE and core strengthening, ROM . Progress balance in walking and DLS activities. Consider 1 -2 lbs on ankles to assist with vertical positioning and alignment in deep water.
--- NOTE | 2021-11-30 16:56 | PT.OTN ---
Current Diagnoses Pain in right knee (11/30/21) Pain in left knee (11/30/21) Other tear of lateral meniscus, current injury, right knee, initial encounter (11/30/21) Physical Therapy Treatment Note PT-OP-A Visit Information Start: 08/21/21 18:13 Freq: Status: Active Protocol: Document 11/30/21 10:15 SAK (Rec: 11/30/21 16:56 SAK [id number]) Out-Patient Physical Therapy Visit Information Visit Information Visit Type Aquatic Treatment Note Visit Start Time 10:15 Visit Stop Time 11:00 Total Visit Minutes 45 Visit Number 7 Number of MANUFACTURING MAINTENANCE MANAGER Visits 0 Evaluation Information Evaluation Date 08/24/21 Precautions Precautions Per intake history & pt report : Brain surgery Apr 2020 due to dental surgery for trigeminal neuralgia that went bad, (had a couple of blood vessels that needed repair), Heart attack due to stress - Mar 2019 Controlled blood pressure, Memory loss. Neuroforaminal stenosis of the cerivcal spine . Per record review: pulsatile tinnitus, L toe pain, s/p hernia repair, PT-OP-B Current Condition Start: 08/21/21 18:13 Freq: Status: Active Protocol: Document 08/24/21 08:15 LRN (Rec: 08/24/21 09:10 LRN [id number]) Current Condition History of Current Condition Onset Date R & L knee-02/25, R>L. Current Complaints Bilateral knee pain, R hip pain, difficulty walking, numb feet. History of Current Condition Bilateral knee pain but R knee is the worst knee and is very painful. Can walk on it now, L side is mildly irritating. Having R hip pain. Was told she should do surgery, but the pt doesn't want to have surgery. States the more she uses it the pain has lessened. Hopes to delay surgery. R knee is no longer getting stuck in flexion for the past month. Denies fall. States she had brain surgery on the R side. After surgery the hip and knee pain started, and her knee just goes out. After surgery would walk weird, using cardona to balance. 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 Treatment Goals Patient/Caregiver Goals Pt goal is get up off the ground without all the manuevering/holding onto things and without hurting self. Decrease pain. Increase strength of legs. 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 Current Functional Impairments (Reported) Functional Limitations- ADL's Not able to do work or get down onto the ground. Movement of knees restricted. Personal Factors Other Personal Factors That May Effect BMI 30 (Health 18.5-24.9, 30= Therapy/Recovery Obese) Brain surgery Apr 2020 Heart attack due to stress - Mar 2019 Controlled blood pressure, Memory loss. BMI 40. Pt fearful of surgery; therefore choosing to do PT for now. PT-OP-C Subjective Start: 08/21/21 18:13 Freq: Status: Active Protocol: Document 11/30/21 10:15 SAK (Rec: 11/30/21 16:56 SAK [id number]) OP-PT Subjective Patient Comments Patient Comments States she and her have been tryihng to cme to the pool a few times per week, feel it is reallyhelpful. PT-OP-J Posture/Palpation/Skin Start: 08/21/21 18:13 Freq: Status: Active Protocol: Document 08/24/21 08:15 LRN (Rec: 08/24/21 09:10 LRN [id number]) Posture Evaluation Position Standing T-Spine Posture Flattened Pelvis Posture Anteriorly Tilted Knee Posture (L) Genu Valgus,(R) Genu Valgus Comments Posture Comments Dowagers hump Endomorphic Palpation Assessment Location R hip Palpation Location R ASIS Palpation Findings Tenderness L knee Palpation Location Chondromalacia. Posterior knee tenderness. Palpation Findings Tenderness R knee Palpation Location Around joint and posterior Palpation Findings Tenderness PT-OP-K Range of Motion Start: 08/21/21 18:13 Freq: Status: Active Protocol: Document 10/06/21 09:05 LRN (Rec: 10/06/21 10:30 LRN [id number]) Knee Goniometric Range of Motion Knee Supine R Active Patient Position Supine Flexion Active (degrees) 70 Extension Active (degrees) 10 Extension Passive (degrees) 0 Supine L Active Patient Position Supine Flexion Active (degrees) 126 Extension Active (degrees) 0 R Active Patient Position Sitting Flexion Active (degrees) 65 Extension Active (degrees) 22 Comments Pt c/o pain limiting knee mobility L Active Patient Position Sitting Flexion Active (degrees) 123 Extension Active (degrees) 0 Comments 116 deg's Flex on plinth, limited by table supports. 123 deg's flex in room chair. PT-OP-M Strength Start: 08/21/21 18:13 Freq: Status: Active Protocol: Document 10/06/21 09:05 LRN (Rec: 10/06/21 10:30 LRN [id number]) Knee Strength Knee Manual Muscle Testing Right Comments Deferred due to R knee pain. PT-OP-Q Treatments Start: 08/21/21 18:13 Freq: Status: Active Protocol: Document 10/06/21 09:05 LRN (Rec: 10/06/21 10:30 LRN [id number]) Therapeutic Exercises Supine Exercises Active knee flex/ext Supine Exercise Name Active knee flex/ext Comments ROM taken Knee flex Supine Exercise Name Active knee flexion Side right Reps/Minutes 10x Comments Pt moves slow with ex and much v directions given Sitting Exercises BKFO Sitting Exercise Name Hip AB Side bilateral Equipment Used Lev 1 TB Reps/Minutes 10x w/o resistance, 10x with TB Marching Sitting Exercise Name Marching Side bilateral Reps/Minutes 10 each LE neural stretch Sitting Exercise Name Hamstring stretch x 10 f/b active ankle pumps Side right Reps/Minutes 10 Hold, f/b 10 active ankle pumps, 3 sets Comments Extra time with constant verbal cuing to do ex correctly. R knee ext Sitting Exercise Name Sitting on rm chair: active knee Ext Side right Reps/Minutes 8x, rest 2x Comments Extra time taken for determining pt tolerance of mvmt R knee flex Sitting Exercise Name Sitting on rm chair: active knee Flex Side right Equipment Used Rolling stool Reps/Minutes 10x Comments Extra time taken for determining pt tolerance of mvmt PT-OP-R Modalities Start: 08/21/21 18:13 Freq: Status: Active Protocol: Document 10/06/21 09:05 LRN (Rec: 10/06/21 10:30 LRN [id number]) Hot Pack/Cold Pack Treatment Hot Pack Location Posterior R knee & thigh Patient Position Supine Treatment Duration (minutes) 8 Patient Tolerance Fair Comments Pt has difficult time with static positioning. PT-OP-S Aquatic Treatment Start: 10/09/21 14:42 Freq: Status: Active Protocol: Document 11/30/21 10:15 SAK (Rec: 11/30/21 16:56 SAK [id number]) Aquatics Treatment Pool Entry/Exit Pool Entry/Exit Method Stairs Assistance Standby Assistance,Verbal Cues Water Walking [place] March Water Level Chest Level Level of Assistance Standby Assistance,Verbal Cues Marching Water Level Chest Level Level of Assistance Standby Assistance,Verbal Cues Sideways Water Level Chest Level Level of Assistance Standby Assistance,Verbal Cues Comments cues for toe-knee alignment Backwards Water Level Chest Level Level of Assistance Standby Assistance,Verbal Cues Forwards Water Level Chest Level Level of Assistance Standby Assistance,Verbal Cues Lower Extremity Exercises toe, heel raises Details hh on wall Body Position Standing Water Level Chest Level Reps/Duration 10 ea HS curls Details hh on wall Body Position Standing Water Level Chest Level Reps/Duration [address] hip Details hh on wall Body Position Standing Water Level Chest Level Reps/Duration 10 B Comments cue for neutral pelvis knee fl/ex Body Position Standing Water Level Chest Level [place] Activities [place] Activities Bicycle Other Activities walk Equipment 2 lg noodles held in front Duration 6 min Comments 1# wts bilateral ankles PT-OP-T Assessment and Plan Start: 08/21/21 18:13 Freq: Status: Active Protocol: Document 11/30/21 10:15 [facility] (Rec: 11/30/21 16:56 [facility] [id number]) Physical Therapy Assessment Rehab Potential Rehabilitation Potential Fair Evaluation Complexity Number of Personal Factors/Comorbidities 3 or More Number of Body Systems Impaired 4 or More Clinical Presentation at Evaluation Evolving Impairments Impairments Activity Tolerance,Balance, Gait,Pain,ROM,Strength Goals Three Impairment Decreased knee AROM Impairment R knee (sup): 5-100 deg's ( sitting): 22-103 deg's L knee (sup): 0-122 deg's ( sitting): 0-123 deg's Short Term Goal (STG) Improve R knee AROM (sup 0-120 deg's; sit 10-120 deg's) (10/06/21: sup: 10-70 deg's; sitting 22-65) STG Duration 11/22/21 (10/06/21: Worse on return) Getter Operator Goal (LTG) Pt goal is get up off the ground without all the manuevering/holding onto things and without hurting self. LTG Duration 01/04/22 Two Impairment Decreased kirill knee strength Impairment R knee: flex & ext 3-/5; R hip: flex 2-/5, AB & AD 1/5. L knee: flex & ext 5/5 L hip: flex 3/5, AB 3/5, AD 2 /5. Short Term Goal (STG) Increase R knee & hip strength 1/2 grade STG Duration 11/22/21 (10/06/21: Deferred testing due to R knee pain complaints) Getter Operator Goal (LTG) Improve R knee strength to no less than 4/5, and improve hip strength by 1 grade, to improve pt's safety with standing and gait with no giving way of the R knee in standing. LTG Duration 01/04/22 One Impairment Pt lacks appropriated self care HEP. Short Term Goal (STG) Pt will be educated in precautions with exercise and edema/pain management. (10/06/21: Pt educated in precaution of not forcefully straightening or bending the R knee with exercise). STG Duration 11/22/21 (10/06/21: Progressed ). Getter Operator Goal (LTG) Pt educated in a self care HEP to promote knee and hip strengthening. LTG Duration 01/04/22 Assessment Summary Assessment Much improved alignment in deep water with use of small ankle weight, improved activity tolerance with aquatic therapy today. Physical Therapy Plan Frequency and Duration Frequency of Treatment 2x/Week Plan of Care Start Date 10/06/21 Plan of Care End Date 01/04/22 Therapeutic Interventions Therapeutic Interventions Aquatic Therapy,Balance Training,Gait Training,Home Exercise Program,Manual Therapy,Neuromuscular Re- education,Patient/Caregiver Education,Self-Care/Home Management,Soft Tissue Mobilization,Taping, Therapeutic Activities, Therapeutic Exercises Modalities Cold Pack/Ice Massage,Electric Stimulation,Hot Packs, Ultrasound Next Visit Focus/Plan Next Note Type Treatment Note Next Visit Plan Land: R knee meniscus rehabilitation. Knee/hip strengthening for stabilization with gait and functional activities. HEP: knee AROM stretches & strengthening of knees & hips. Gait training with assistive device to decrease pain. Aquatic: Continue with gentle LE and core strengthening, ROM . Progress balance in walking and DLS activities. positioning and alignment in deep water.
--- NOTE | 2021-11-30 16:57 | PT.OTN ---
Current Diagnoses Pain in right knee (11/30/21) Pain in left knee (11/30/21) Other tear of lateral meniscus, current injury, right knee, initial encounter (11/30/21) Physical Therapy Treatment Note PT-OP-A Visit Information Start: 08/21/21 18:13 Freq: Status: Active Protocol: Document 11/30/21 10:15 SAK (Rec: 11/30/21 16:56 SAK [id number]) Out-Patient Physical Therapy Visit Information Visit Information Visit Type Aquatic Treatment Note Visit Start Time 10:15 Visit Stop Time 11:00 Total Visit Minutes 45 Visit Number 7 Number of MAID HOUSEKEEPER Visits 0 Evaluation Information Evaluation Date 08/24/21 Precautions Precautions Per intake history & pt report : Brain surgery Apr 2020 due to dental surgery for trigeminal neuralgia that went bad, (had a couple of blood vessels that needed repair), Heart attack due to stress - Mar 2019 Controlled blood pressure, Memory loss. Neuroforaminal stenosis of the cerivcal spine . Per record review: pulsatile tinnitus, L toe pain, s/p hernia repair, PT-OP-B Current Condition Start: 08/21/21 18:13 Freq: Status: Active Protocol: Document 08/24/21 08:15 LRN (Rec: 08/24/21 09:10 LRN [id number]) Current Condition History of Current Condition Onset Date R & L knee-02/25, R>L. Current Complaints Bilateral knee pain, R hip pain, difficulty walking, numb feet. History of Current Condition Bilateral knee pain but R knee is the worst knee and is very painful. Can walk on it now, L side is mildly irritating. Having R hip pain. Was told she should do surgery, but the pt doesn't want to have surgery. States the more she uses it the pain has lessened. Hopes to delay surgery. R knee is no longer getting stuck in flexion for the past month. Denies fall. States she had brain surgery on the R side. After surgery the hip and knee pain started, and her knee just goes out. After surgery would walk weird, using cardona to balance. 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 Treatment Goals Patient/Caregiver Goals Pt goal is get up off the ground without all the manuevering/holding onto things and without hurting self. Decrease pain. Increase strength of legs. 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 Current Functional Impairments (Reported) Functional Limitations- ADL's Not able to do work or get down onto the ground. Movement of knees restricted. Personal Factors Other Personal Factors That May Effect BMI 30 (Health 18.5-24.9, 30= Therapy/Recovery Obese) Brain surgery Apr 2020 Heart attack due to stress - Mar 2019 Controlled blood pressure, Memory loss. BMI 40. Pt fearful of surgery; therefore choosing to do PT for now. PT-OP-C Subjective Start: 08/21/21 18:13 Freq: Status: Active Protocol: Document 11/30/21 10:15 SAK (Rec: 11/30/21 16:56 SAK [id number]) OP-PT Subjective Patient Comments Patient Comments States she and her have been tryihng to cme to the pool a few times per week, feel it is reallyhelpful. PT-OP-J Posture/Palpation/Skin Start: 08/21/21 18:13 Freq: Status: Active Protocol: Document 08/24/21 08:15 LRN (Rec: 08/24/21 09:10 LRN [id number]) Posture Evaluation Position Standing T-Spine Posture Flattened Pelvis Posture Anteriorly Tilted Knee Posture (L) Genu Valgus,(R) Genu Valgus Comments Posture Comments Dowagers hump Endomorphic Palpation Assessment Location R hip Palpation Location R ASIS Palpation Findings Tenderness L knee Palpation Location Chondromalacia. Posterior knee tenderness. Palpation Findings Tenderness R knee Palpation Location Around joint and posterior Palpation Findings Tenderness PT-OP-K Range of Motion Start: 08/21/21 18:13 Freq: Status: Active Protocol: Document 10/06/21 09:05 LRN (Rec: 10/06/21 10:30 LRN [id number]) Knee Goniometric Range of Motion Knee Supine R Active Patient Position Supine Flexion Active (degrees) 70 Extension Active (degrees) 10 Extension Passive (degrees) 0 Supine L Active Patient Position Supine Flexion Active (degrees) 126 Extension Active (degrees) 0 R Active Patient Position Sitting Flexion Active (degrees) 65 Extension Active (degrees) 22 Comments Pt c/o pain limiting knee mobility L Active Patient Position Sitting Flexion Active (degrees) 123 Extension Active (degrees) 0 Comments 116 deg's Flex on plinth, limited by table supports. 123 deg's flex in room chair. PT-OP-M Strength Start: 08/21/21 18:13 Freq: Status: Active Protocol: Document 10/06/21 09:05 LRN (Rec: 10/06/21 10:30 LRN [id number]) Knee Strength Knee Manual Muscle Testing Right Comments Deferred due to R knee pain. PT-OP-Q Treatments Start: 08/21/21 18:13 Freq: Status: Active Protocol: Document 10/06/21 09:05 LRN (Rec: 10/06/21 10:30 LRN [id number]) Therapeutic Exercises Supine Exercises Active knee flex/ext Supine Exercise Name Active knee flex/ext Comments ROM taken Knee flex Supine Exercise Name Active knee flexion Side right Reps/Minutes 10x Comments Pt moves slow with ex and much v directions given Sitting Exercises BKFO Sitting Exercise Name Hip AB Side bilateral Equipment Used Lev 1 TB Reps/Minutes 10x w/o resistance, 10x with TB Marching Sitting Exercise Name Marching Side bilateral Reps/Minutes 10 each LE neural stretch Sitting Exercise Name Hamstring stretch x 10 f/b active ankle pumps Side right Reps/Minutes 10 Hold, f/b 10 active ankle pumps, 3 sets Comments Extra time with constant verbal cuing to do ex correctly. R knee ext Sitting Exercise Name Sitting on rm chair: active knee Ext Side right Reps/Minutes 8x, rest 2x Comments Extra time taken for determining pt tolerance of mvmt R knee flex Sitting Exercise Name Sitting on rm chair: active knee Flex Side right Equipment Used Rolling stool Reps/Minutes 10x Comments Extra time taken for determining pt tolerance of mvmt PT-OP-R Modalities Start: 08/21/21 18:13 Freq: Status: Active Protocol: Document 10/06/21 09:05 LRN (Rec: 10/06/21 10:30 LRN [id number]) Hot Pack/Cold Pack Treatment Hot Pack Location Posterior R knee & thigh Patient Position Supine Treatment Duration (minutes) 8 Patient Tolerance Fair Comments Pt has difficult time with static positioning. PT-OP-S Aquatic Treatment Start: 10/09/21 14:42 Freq: Status: Active Protocol: Document 11/30/21 10:15 SAK (Rec: 11/30/21 16:56 SAK [id number]) Aquatics Treatment Pool Entry/Exit Pool Entry/Exit Method Stairs Assistance Standby Assistance,Verbal Cues Water Walking [place] March Water Level Chest Level Level of Assistance Standby Assistance,Verbal Cues Marching Water Level Chest Level Level of Assistance Standby Assistance,Verbal Cues Sideways Water Level Chest Level Level of Assistance Standby Assistance,Verbal Cues Comments cues for toe-knee alignment Backwards Water Level Chest Level Level of Assistance Standby Assistance,Verbal Cues Forwards Water Level Chest Level Level of Assistance Standby Assistance,Verbal Cues Lower Extremity Exercises toe, heel raises Details hh on wall Body Position Standing Water Level Chest Level Reps/Duration 10 ea HS curls Details hh on wall Body Position Standing Water Level Chest Level Reps/Duration [address] hip Details hh on wall Body Position Standing Water Level Chest Level Reps/Duration 10 B Comments cue for neutral pelvis knee fl/ex Body Position Standing Water Level Chest Level [place] Activities [place] Activities Bicycle Other Activities walk Equipment 2 lg noodles held in front Duration 6 min Comments 1# wts bilateral ankles PT-OP-T Assessment and Plan Start: 08/21/21 18:13 Freq: Status: Active Protocol: Document 11/30/21 10:15 [facility] (Rec: 11/30/21 16:56 [facility] [id number]) Physical Therapy Assessment Rehab Potential Rehabilitation Potential Fair Evaluation Complexity Number of Personal Factors/Comorbidities 3 or More Number of Body Systems Impaired 4 or More Clinical Presentation at Evaluation Evolving Impairments Impairments Activity Tolerance,Balance, Gait,Pain,ROM,Strength Goals Three Impairment Decreased knee AROM Impairment R knee (sup): 5-100 deg's ( sitting): 22-103 deg's L knee (sup): 0-122 deg's ( sitting): 0-123 deg's Short Term Goal (STG) Improve R knee AROM (sup 0-120 deg's; sit 10-120 deg's) (10/06/21: sup: 10-70 deg's; sitting 22-65) STG Duration 11/22/21 (10/06/21: Worse on return) Reed Or Wind Instrument Tuner Goal (LTG) Pt goal is get up off the ground without all the manuevering/holding onto things and without hurting self. LTG Duration 01/04/22 Two Impairment Decreased kirill knee strength Impairment R knee: flex & ext 3-/5; R hip: flex 2-/5, AB & AD 1/5. L knee: flex & ext 5/5 L hip: flex 3/5, AB 3/5, AD 2 /5. Short Term Goal (STG) Increase R knee & hip strength 1/2 grade STG Duration 11/22/21 (10/06/21: Deferred testing due to R knee pain complaints) Reed Or Wind Instrument Tuner Goal (LTG) Improve R knee strength to no less than 4/5, and improve hip strength by 1 grade, to improve pt's safety with standing and gait with no giving way of the R knee in standing. LTG Duration 01/04/22 One Impairment Pt lacks appropriated self care HEP. Short Term Goal (STG) Pt will be educated in precautions with exercise and edema/pain management. (10/06/21: Pt educated in precaution of not forcefully straightening or bending the R knee with exercise). STG Duration 11/22/21 (10/06/21: Progressed ). Reed Or Wind Instrument Tuner Goal (LTG) Pt educated in a self care HEP to promote knee and hip strengthening. LTG Duration 01/04/22 Assessment Summary Assessment Much improved alignment in deep water with use of small ankle weight, improved activity tolerance with aquatic therapy today with frequent self-modification of activity to tolerance. Cues for core activation soft knees with standing exercises Physical Therapy Plan Frequency and Duration Frequency of Treatment 2x/Week Plan of Care Start Date 10/06/21 Plan of Care End Date 01/04/22 Therapeutic Interventions Therapeutic Interventions Aquatic Therapy,Balance Training,Gait Training,Home Exercise Program,Manual Therapy,Neuromuscular Re- education,Patient/Caregiver Education,Self-Care/Home Management,Soft Tissue Mobilization,Taping, Therapeutic Activities, Therapeutic Exercises Modalities Cold Pack/Ice Massage,Electric Stimulation,Hot Packs, Ultrasound Next Visit Focus/Plan Next Note Type Treatment Note Next Visit Plan Land: R knee meniscus rehabilitation. Knee/hip strengthening for stabilization with gait and functional activities. HEP: knee AROM stretches & strengthening of knees & hips. Gait training with assistive device to decrease pain. Aquatic: Continue with gentle LE and core strengthening, ROM . Progress balance in walking and DLS activities. positioning and alignment in deep water.
--- NOTE | 2021-12-14 15:14 | PT.OTN ---
Current Diagnoses Pain in right knee (12/14/21) Pain in left knee (12/14/21) Other tear of lateral meniscus, current injury, right knee, initial encounter (12/14/21) Physical Therapy Treatment Note PT-OP-A Visit Information Start: 08/21/21 18:13 Freq: Status: Active Protocol: Document 12/14/21 14:55 LJ (Rec: 12/14/21 15:11 LJ [id number]) Out-Patient Physical Therapy Visit Information Visit Information Visit Type Aquatic Treatment Note Visit Start Time 11:45 Visit Stop Time 12:30 Total Visit Minutes 45 Visit Number 8 Number of SAND BUFFER Visits 1 Evaluation Information Evaluation Date 08/24/21 Precautions Precautions Per intake history & pt report : Brain surgery Apr 2020 due to dental surgery for trigeminal neuralgia that went bad, (had a couple of blood vessels that needed repair), Heart attack due to stress - Mar 2019 Controlled blood pressure, Memory loss. Neuroforaminal stenosis of the cerivcal spine . Per record review: pulsatile tinnitus, L toe pain, s/p hernia repair, PT-OP-B Current Condition Start: 08/21/21 18:13 Freq: Status: Active Protocol: Document 08/24/21 08:15 LRN (Rec: 08/24/21 09:10 LRN [id number]) Current Condition History of Current Condition Onset Date R & L knee-02/25, R>L. Current Complaints Bilateral knee pain, R hip pain, difficulty walking, numb feet. History of Current Condition Bilateral knee pain but R knee is the worst knee and is very painful. Can walk on it now, L side is mildly irritating. Having R hip pain. Was told she should do surgery, but the pt doesn't want to have surgery. States the more she uses it the pain has lessened. Hopes to delay surgery. R knee is no longer getting stuck in flexion for the past month. Denies fall. States she had brain surgery on the R side. After surgery the hip and knee pain started, and her knee just goes out. After surgery would walk weird, using cardona to balance. 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 Treatment Goals Patient/Caregiver Goals Pt goal is get up off the ground without all the manuevering/holding onto things and without hurting self. Decrease pain. Increase strength of legs. 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 Current Functional Impairments (Reported) Functional Limitations- ADL's Not able to do work or get down onto the ground. Movement of knees restricted. Personal Factors Other Personal Factors That May Effect BMI 30 (Health 18.5-24.9, 30= Therapy/Recovery Obese) Brain surgery Apr 2020 Heart attack due to stress - Mar 2019 Controlled blood pressure, Memory loss. BMI 40. Pt fearful of surgery; therefore choosing to do PT for now. PT-OP-C Subjective Start: 08/21/21 18:13 Freq: Status: Active Protocol: Document 12/14/21 14:55 LJ (Rec: 12/14/21 15:11 LJ [id number]) OP-PT Subjective Patient Comments Patient Comments States she and her have been going to the pool about 3-4 times per week and says it has really helped PT-OP-J Posture/Palpation/Skin Start: 08/21/21 18:13 Freq: Status: Active Protocol: Document 08/24/21 08:15 LRN (Rec: 08/24/21 09:10 LRN [id number]) Posture Evaluation Position Standing T-Spine Posture Flattened Pelvis Posture Anteriorly Tilted Knee Posture (L) Genu Valgus,(R) Genu Valgus Comments Posture Comments Dowagers hump Endomorphic Palpation Assessment Location R hip Palpation Location R ASIS Palpation Findings Tenderness L knee Palpation Location Chondromalacia. Posterior knee tenderness. Palpation Findings Tenderness R knee Palpation Location Around joint and posterior Palpation Findings Tenderness PT-OP-K Range of Motion Start: 08/21/21 18:13 Freq: Status: Active Protocol: Document 10/06/21 09:05 LRN (Rec: 10/06/21 10:30 LRN [id number]) Knee Goniometric Range of Motion Knee Supine R Active Patient Position Supine Flexion Active (degrees) 70 Extension Active (degrees) 10 Extension Passive (degrees) 0 Supine L Active Patient Position Supine Flexion Active (degrees) 126 Extension Active (degrees) 0 R Active Patient Position Sitting Flexion Active (degrees) 65 Extension Active (degrees) 22 Comments Pt c/o pain limiting knee mobility L Active Patient Position Sitting Flexion Active (degrees) 123 Extension Active (degrees) 0 Comments 116 deg's Flex on plinth, limited by table supports. 123 deg's flex in room chair. PT-OP-M Strength Start: 08/21/21 18:13 Freq: Status: Active Protocol: Document 10/06/21 09:05 LRN (Rec: 10/06/21 10:30 LRN [id number]) Knee Strength Knee Manual Muscle Testing Right Comments Deferred due to R knee pain. PT-OP-Q Treatments Start: 08/21/21 18:13 Freq: Status: Active Protocol: Document 10/06/21 09:05 LRN (Rec: 10/06/21 10:30 LRN [id number]) Therapeutic Exercises Supine Exercises Active knee flex/ext Supine Exercise Name Active knee flex/ext Comments ROM taken Knee flex Supine Exercise Name Active knee flexion Side right Reps/Minutes 10x Comments Pt moves slow with ex and much v directions given Sitting Exercises BKFO Sitting Exercise Name Hip AB Side bilateral Equipment Used Lev 1 TB Reps/Minutes 10x w/o resistance, 10x with TB Marching Sitting Exercise Name Marching Side bilateral Reps/Minutes 10 each LE neural stretch Sitting Exercise Name Hamstring stretch x 10 f/b active ankle pumps Side right Reps/Minutes 10 Hold, f/b 10 active ankle pumps, 3 sets Comments Extra time with constant verbal cuing to do ex correctly. R knee ext Sitting Exercise Name Sitting on rm chair: active knee Ext Side right Reps/Minutes 8x, rest 2x Comments Extra time taken for determining pt tolerance of mvmt R knee flex Sitting Exercise Name Sitting on rm chair: active knee Flex Side right Equipment Used Rolling stool Reps/Minutes 10x Comments Extra time taken for determining pt tolerance of mvmt PT-OP-R Modalities Start: 08/21/21 18:13 Freq: Status: Active Protocol: Document 10/06/21 09:05 LRN (Rec: 10/06/21 10:30 LRN [id number]) Hot Pack/Cold Pack Treatment Hot Pack Location Posterior R knee & thigh Patient Position Supine Treatment Duration (minutes) 8 Patient Tolerance Fair Comments Pt has difficult time with static positioning. PT-OP-S Aquatic Treatment Start: 10/09/21 14:42 Freq: Status: Active Protocol: Document 12/14/21 14:55 LJ (Rec: 12/14/21 15:11 LJ [id number]) Aquatics Treatment Pool Entry/Exit Pool Entry/Exit Method Stairs Water Walking Marching Water Level Chest Level Level of Assistance Standby Assistance,Verbal Cues Sideways Water Level Chest Level Level of Assistance Standby Assistance,Verbal Cues Comments cues for toe-knee alignment Backwards Water Level Chest Level Level of Assistance Standby Assistance,Verbal Cues Forwards Water Level Chest Level Level of Assistance Standby Assistance,Verbal Cues Lower Extremity Exercises toe, heel raises Details hh on wall Body Position Standing Water Level Chest Level Reps/Duration 10 ea HS curls Details hh on wall Body Position Standing Water Level Chest Level Reps/Duration [address] hip Details hh on wall Body Position Standing Water Level Chest Level Reps/Duration 10 B Comments cue for neutral pelvis Lower Extremity Stretches HS Details hh on wall Body Position Standing Water Level Waist Level Equipment sm noodle under ankle Reps/Duration 2 x 30 sec B gastroc, soleus Details hh on wall Body Position Standing Reps/Duration 2 x 30 sec B hip flexors, quads Details hh on wall Body Position Standing Water Level Chest Level Reps/Duration 2 x 30 sec B Spinal Exercises seated marching Details at wall Reps/Duration 20x2 Balance DLS Details stationary standing with nudges all directions Comments poor balance with fwd and back nudges [place] Activities Other Activities traction Equipment 2 lg noodles held in front Duration 8 min Comments 1# wts bilateral ankles PT-OP-T Assessment and Plan Start: 08/21/21 18:13 Freq: Status: Active Protocol: Document 12/14/21 14:55 GODFREY (Rec: 12/14/21 15:11 GODFREY [id number]) Physical Therapy Assessment Rehab Potential Rehabilitation Potential Fair Evaluation Complexity Number of Personal Factors/Comorbidities 3 or More Number of Body Systems Impaired 4 or More Clinical Presentation at Evaluation Evolving Impairments Impairments Activity Tolerance,Balance, Gait,Pain,ROM,Strength Goals Three Impairment Decreased knee AROM Impairment R knee (sup): 5-100 deg's ( sitting): 22-103 deg's L knee (sup): 0-122 deg's ( sitting): 0-123 deg's Short Term Goal (STG) Improve R knee AROM (sup 0-120 deg's; sit 10-120 deg's) (10/06/21: sup: 10-70 deg's; sitting 22-65) STG Duration 11/22/21 (10/06/21: Worse on return) Mental Health Aide Goal (LTG) Pt goal is get up off the ground without all the manuevering/holding onto things and without hurting self. LTG Duration 01/04/22 Two Impairment Decreased kirill knee strength Impairment R knee: flex & ext 3-/5; R hip: flex 2-/5, AB & AD 1/5. L knee: flex & ext 5/5 L hip: flex 3/5, AB 3/5, AD 2 /5. Short Term Goal (STG) Increase R knee & hip strength 1/2 grade STG Duration 11/22/21 (10/06/21: Deferred testing due to R knee pain complaints) Mental Health Aide Goal (LTG) Improve R knee strength to no less than 4/5, and improve hip strength by 1 grade, to improve pt's safety with standing and gait with no giving way of the R knee in standing. LTG Duration 01/04/22 One Impairment Pt lacks appropriated self care HEP. Short Term Goal (STG) Pt will be educated in precautions with exercise and edema/pain management. (10/06/21: Pt educated in precaution of not forcefully straightening or bending the R knee with exercise). STG Duration 11/22/21 (10/06/21: Progressed ). Detention Goal (LTG) Pt educated in a self care HEP to promote knee and hip strengthening. LTG Duration 01/04/22 Assessment Summary Assessment Pt required handhold on wall for most walking activities. Pool was busier with increased water turbulance which was challenging to patient. Pt would stop occasionally and modify the exercises. Deep water with 2 noodles and #1 ankle wts pt still leaning forward. Try adding another pound to ankles to improve alignment. Physical Therapy Plan Frequency and Duration Frequency of Treatment 2x/Week Plan of Care Start Date 10/06/21 Plan of Care End Date 01/04/22 Therapeutic Interventions Therapeutic Interventions Aquatic Therapy,Balance Training,Gait Training,Home Exercise Program,Manual Therapy,Neuromuscular Re- education,Patient/Caregiver Education,Self-Care/Home Management,Soft Tissue Mobilization,Taping, Therapeutic Activities, Therapeutic Exercises Modalities Cold Pack/Ice Massage,Electric Stimulation,Hot Packs, Ultrasound Next Visit Focus/Plan Next Note Type Treatment Note Next Visit Plan Land: R knee meniscus rehabilitation. Knee/hip strengthening for stabilization with gait and functional activities. HEP: knee AROM stretches & strengthening of knees & hips. Gait training with assistive device to decrease pain. Aquatic: Continue with gentle LE and core strengthening, ROM . Progress balance in walking and DLS activities. positioning and alignment in deep water.
--- NOTE | 2021-12-21 15:05 | PT.OTN ---
Current Diagnoses Pain in right knee (12/21/21) Pain in left knee (12/21/21) Other tear of lateral meniscus, current injury, right knee, initial encounter (12/21/21) Physical Therapy Treatment Note PT-OP-A Visit Information Start: 08/21/21 18:13 Freq: Status: Active Protocol: Document 12/21/21 14:51 LJ (Rec: 12/21/21 15:05 LJ [id number]) Out-Patient Physical Therapy Visit Information Visit Information Visit Type Aquatic Treatment Note Visit Start Time 11:45 Visit Stop Time 12:30 Total Visit Minutes 45 Number of CUSTOMER SUPPORT AGENT Visits 2 Evaluation Information Evaluation Date 08/24/21 Precautions Precautions Per intake history & pt report : Brain surgery Apr 2020 due to dental surgery for trigeminal neuralgia that went bad, (had a couple of blood vessels that needed repair), Heart attack due to stress - Mar 2019 Controlled blood pressure, Memory loss. Neuroforaminal stenosis of the cerivcal spine . Per record review: pulsatile tinnitus, L toe pain, s/p hernia repair, PT-OP-B Current Condition Start: 08/21/21 18:13 Freq: Status: Active Protocol: Document 08/24/21 08:15 LRN (Rec: 08/24/21 09:10 LRN [id number]) Current Condition History of Current Condition Onset Date R & L knee-02/25, R>L. Current Complaints Bilateral knee pain, R hip pain, difficulty walking, numb feet. History of Current Condition Bilateral knee pain but R knee is the worst knee and is very painful. Can walk on it now, L side is mildly irritating. Having R hip pain. Was told she should do surgery, but the pt doesn't want to have surgery. States the more she uses it the pain has lessened. Hopes to delay surgery. R knee is no longer getting stuck in flexion for the past month. Denies fall. States she had brain surgery on the R side. After surgery the hip and knee pain started, and her knee just goes out. After surgery would walk weird, using cardona to balance. 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 Treatment Goals Patient/Caregiver Goals Pt goal is get up off the ground without all the manuevering/holding onto things and without hurting self. Decrease pain. Increase strength of legs. 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 Current Functional Impairments (Reported) Functional Limitations- ADL's Not able to do work or get down onto the ground. Movement of knees restricted. Personal Factors Other Personal Factors That May Effect BMI 30 (Health 18.5-24.9, 30= Therapy/Recovery Obese) Brain surgery Apr 2020 Heart attack due to stress - Mar 2019 Controlled blood pressure, Memory loss. BMI 40. Pt fearful of surgery; therefore choosing to do PT for now. PT-OP-C Subjective Start: 08/21/21 18:13 Freq: Status: Active Protocol: Document 12/21/21 14:51 LJ (Rec: 12/21/21 15:05 LJ [id number]) OP-PT Subjective Patient Comments Patient Comments Pt states she is having pain in R anterior hip at ASIS area . She and continue to exercise at pool nearly daily. PT-OP-J Posture/Palpation/Skin Start: 08/21/21 18:13 Freq: Status: Active Protocol: Document 08/24/21 08:15 LRN (Rec: 08/24/21 09:10 LRN [id number]) Posture Evaluation Position Standing T-Spine Posture Flattened Pelvis Posture Anteriorly Tilted Knee Posture (L) Genu Valgus,(R) Genu Valgus Comments Posture Comments Dowagers hump Endomorphic Palpation Assessment Location R hip Palpation Location R ASIS Palpation Findings Tenderness L knee Palpation Location Chondromalacia. Posterior knee tenderness. Palpation Findings Tenderness R knee Palpation Location Around joint and posterior Palpation Findings Tenderness PT-OP-K Range of Motion Start: 08/21/21 18:13 Freq: Status: Active Protocol: Document 10/06/21 09:05 LRN (Rec: 10/06/21 10:30 LRN [id number]) Knee Goniometric Range of Motion Knee Supine R Active Patient Position Supine Flexion Active (degrees) 70 Extension Active (degrees) 10 Extension Passive (degrees) 0 Supine L Active Patient Position Supine Flexion Active (degrees) 126 Extension Active (degrees) 0 R Active Patient Position Sitting Flexion Active (degrees) 65 Extension Active (degrees) 22 Comments Pt c/o pain limiting knee mobility L Active Patient Position Sitting Flexion Active (degrees) 123 Extension Active (degrees) 0 Comments 116 deg's Flex on plinth, limited by table supports. 123 deg's flex in room chair. PT-OP-M Strength Start: 08/21/21 18:13 Freq: Status: Active Protocol: Document 10/06/21 09:05 LRN (Rec: 10/06/21 10:30 LRN [id number]) Knee Strength Knee Manual Muscle Testing Right Comments Deferred due to R knee pain. PT-OP-Q Treatments Start: 08/21/21 18:13 Freq: Status: Active Protocol: Document 10/06/21 09:05 LRN (Rec: 10/06/21 10:30 LRN [id number]) Therapeutic Exercises Supine Exercises Active knee flex/ext Supine Exercise Name Active knee flex/ext Comments ROM taken Knee flex Supine Exercise Name Active knee flexion Side right Reps/Minutes 10x Comments Pt moves slow with ex and much v directions given Sitting Exercises BKFO Sitting Exercise Name Hip AB Side bilateral Equipment Used Lev 1 TB Reps/Minutes 10x w/o resistance, 10x with TB Marching Sitting Exercise Name Marching Side bilateral Reps/Minutes 10 each LE neural stretch Sitting Exercise Name Hamstring stretch x 10 f/b active ankle pumps Side right Reps/Minutes 10 Hold, f/b 10 active ankle pumps, 3 sets Comments Extra time with constant verbal cuing to do ex correctly. R knee ext Sitting Exercise Name Sitting on rm chair: active knee Ext Side right Reps/Minutes 8x, rest 2x Comments Extra time taken for determining pt tolerance of mvmt R knee flex Sitting Exercise Name Sitting on rm chair: active knee Flex Side right Equipment Used Rolling stool Reps/Minutes 10x Comments Extra time taken for determining pt tolerance of mvmt PT-OP-R Modalities Start: 08/21/21 18:13 Freq: Status: Active Protocol: Document 10/06/21 09:05 LRN (Rec: 10/06/21 10:30 LRN [id number]) Hot Pack/Cold Pack Treatment Hot Pack Location Posterior R knee & thigh Patient Position Supine Treatment Duration (minutes) 8 Patient Tolerance Fair Comments Pt has difficult time with static positioning. PT-OP-S Aquatic Treatment Start: 10/09/21 14:42 Freq: Status: Active Protocol: Document 12/21/21 14:51 LJ (Rec: 12/21/21 15:05 LJ [id number]) Aquatics Treatment Pool Entry/Exit Pool Entry/Exit Method Stairs Water Walking [place] Water Level Chest Level Level of Assistance Standby Assistance,Verbal Cues Marching Water Level Chest Level Level of Assistance Standby Assistance,Verbal Cues Sideways Water Level Chest Level Level of Assistance Standby Assistance,Verbal Cues Comments cues for toe-knee alignment Backwards Water Level Chest Level Level of Assistance Standby Assistance,Verbal Cues Forwards Water Level Chest Level Level of Assistance Standby Assistance,Verbal Cues Lower Extremity Exercises toe, heel raises Details hh on wall Body Position Standing Water Level Chest Level Reps/Duration 10 ea HS curls Details hh on wall Body Position Standing Water Level Chest Level Reps/Duration [address] hip Details hh on wall Body Position Standing Water Level Chest Level Reps/Duration 10 B Comments cue for neutral pelvis knee fl/ex Body Position Standing Water Level Chest Level Lower Extremity Stretches HS Details hh on wall Body Position Standing Water Level Waist Level Equipment sm noodle under ankle Reps/Duration 2 x 30 sec B gastroc, soleus Details hh on wall Body Position Standing Reps/Duration 2 x 30 sec B hip flexors, quads Details hh on wall Body Position Standing Water Level Chest Level Equipment toe on steps for stretch Reps/Duration 2 x 30 sec B Balance SLS Details light hh on wall Body Position Standing Water Level Chest Level Reps/Duration 3x 30 B DLS Details stationary standing with nudges all directions Comments improved balance with fwd and back nudges Topaz Activities Topaz Activities Bicycle,Cross Country,Hip Abduction/Adduction Equipment 2 lg noodles held in front Duration 12 Comments 1# wts bilateral ankles improved core control PT-OP-T Assessment and Plan Start: 08/21/21 18:13 Freq: Status: Active Protocol: Document 12/21/21 14:51 GODFREY (Rec: 12/21/21 15:05 [id number]) Physical Therapy Assessment Rehab Potential Rehabilitation Potential Fair Evaluation Complexity Number of Personal Factors/Comorbidities 3 or More Number of Body Systems Impaired 4 or More Clinical Presentation at Evaluation Evolving Impairments Impairments Activity Tolerance,Balance, Gait,Pain,ROM,Strength Goals Three Impairment Decreased knee AROM Impairment R knee (sup): 5-100 deg's ( sitting): 22-103 deg's L knee (sup): 0-122 deg's ( sitting): 0-123 deg's Short Term Goal (STG) Improve R knee AROM (sup 0-120 deg's; sit 10-120 deg's) (10/06/21: sup: 10-70 deg's; sitting 22-65) STG Duration 11/22/21 (10/06/21: Worse on return) Junior Assistant Manager Goal (LTG) Pt goal is get up off the ground without all the manuevering/holding onto things and without hurting self. LTG Duration 01/04/22 Two Impairment Decreased kirill knee strength Impairment R knee: flex & ext 3-/5; R hip: flex 2-/5, AB & AD 1/5. L knee: flex & ext 5/5 L hip: flex 3/5, AB 3/5, AD 2 /5. Short Term Goal (STG) Increase R knee & hip strength 1/2 grade STG Duration 11/22/21 (10/06/21: Deferred testing due to R knee pain complaints) [facility] Goal (LTG) Improve R knee strength to no less than 4/5, and improve hip strength by 1 grade, to improve pt's safety with standing and gait with no giving way of the R knee in standing. LTG Duration 01/04/22 One Impairment Pt lacks appropriated self care HEP. Short Term Goal (STG) Pt will be educated in precautions with exercise and edema/pain management. (10/06/21: Pt educated in precaution of not forcefully straightening or bending the R knee with exercise). STG Duration 11/22/21 (10/06/21: Progressed ). Junior Assistant Manager Goal (LTG) Pt educated in a self care HEP to promote knee and hip strengthening. LTG Duration 01/04/22 Progress Towards Goals Progress Comments 10/06/21: Education in precautions with exercise. Assessment Summary Assessment Pt did not required handhold on wall for most walking activities. Pt did not require rest break this session. Deep water stabilization improved and exrcises slightly increased in intensity. Pt tolerated increased activity level well. Physical Therapy Plan Frequency and Duration Frequency of Treatment 2x/Week Plan of Care Start Date 10/06/21 Plan of Care End Date 01/04/22 Therapeutic Interventions Therapeutic Interventions Aquatic Therapy,Balance Training,Gait Training,Home Exercise Program,Manual Therapy,Neuromuscular Re- education,Patient/Caregiver Education,Self-Care/Home Management,Soft Tissue Mobilization,Taping, Therapeutic Activities, Therapeutic Exercises Modalities Cold Pack/Ice Massage,Electric Stimulation,Hot Packs, Ultrasound Next Visit Focus/Plan Next Note Type Treatment Note Next Visit Plan [place]: R knee meniscus rehabilitation. Knee/hip strengthening for stabilization with gait and functional activities. HEP: knee AROM stretches & strengthening of knees & hips. Gait training with assistive device to decrease pain. Aquatic: Gradually increase exercise intensity and balance challenge. Progress DLS activities in deep water as tolerated.
--- NOTE | 2021-12-30 17:12 | PT-OP ANOTE ---
per PT department due to no approval for further PT visits at this time
--- NOTE | 2022-01-11 17:50 | PT.OTRE ---
Current Diagnoses Pain in right knee (01/11/22) Pain in left knee (01/11/22) Other tear of lateral meniscus, current injury, right knee, initial encounter (01/11/22) Past Medical History (Last Reviewed 01/11/22 @ 15:48 by Almaz Lopez DO) Atrophic vaginitis Bilateral knee pain Candidal intertrigo Cervical stenosis of spine GERD (gastroesophageal reflux disease) Hyperlipidemia Hypertension Hypothyroidism Neuroforaminal stenosis of cervical spine Non-ST elevation ME (NSTEMI) Prediabetes (04/2020) Pulsatile tinnitus Short-term memory loss Status post appendectomy Status post cholecystectomy Status post hernia repair Status post hysterectomy Surgical follow-up care Surgical wound infection Tear of right supraspinatus tendon Toe pain, left Trigeminal neuralgia Trigger thumb, right thumb Surgical History (Last Reviewed 01/11/22 @ 15:48 by Almaz Lopez DO) Status post appendectomy Status post cholecystectomy Status post hernia repair Status post hysterectomy Visit Care Team Role Provider Type Panchito Velez MD Attending Provider Physician Family Provider Primary Care Provider Referring Provider Specialty: [facility] Address: [address] [place] [address] Email: [email or web address] Physical Therapy Re-Evaluation PT-OP-A Visit Information Start: 08/21/21 18:13 Freq: Status: Active Protocol: Document 01/11/22 17:34 SAK (Rec: 01/11/22 17:50 SAK [id number]) Out-Patient Physical Therapy Visit Information Visit Information Visit Type Aquatic Treatment Note Visit Start Time 11:00 Visit Stop Time 11:33 Total Visit Minutes 33 Visit Number 10 Evaluation Information Evaluation Date 08/24/21 Precautions Precautions Per intake history & pt report : Brain surgery Apr 2020 due to dental surgery for trigeminal neuralgia that went bad, (had a couple of blood vessels that needed repair), Heart attack due to stress - Mar 2019 Controlled blood pressure, Memory loss. Neuroforaminal stenosis of the cerivcal spine . Per record review: pulsatile tinnitus, L toe pain, s/p hernia repair, PT-OP-B Current Condition Start: 08/21/21 18:13 Freq: Status: Active Protocol: Document 08/24/21 08:15 LRN (Rec: 08/24/21 09:10 LRN [id number]) Current Condition History of Current Condition Onset Date R & L knee-02/25, R>L. Current Complaints Bilateral knee pain, R hip pain, difficulty walking, numb feet. History of Current Condition Bilateral knee pain but R knee is the worst knee and is very painful. Can walk on it now, L side is mildly irritating. Having R hip pain. Was told she should do surgery, but the pt doesn't want to have surgery. States the more she uses it the pain has lessened. Hopes to delay surgery. R knee is no longer getting stuck in flexion for the past month. Denies fall. States she had brain surgery on the R side. After surgery the hip and knee pain started, and her knee just goes out. After surgery would walk weird, using cardona to balance. 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 Treatment Goals Patient/Caregiver Goals Pt goal is get up off the ground without all the manuevering/holding onto things and without hurting self. Decrease pain. Increase strength of legs. 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 Current Functional Impairments (Reported) Functional Limitations- ADL's Not able to do work or get down onto the ground. Movement of knees restricted. Personal Factors Other Personal Factors That May Effect BMI 30 (Health 18.5-24.9, 30= Therapy/Recovery Obese) Brain surgery Apr 2020 Heart attack due to stress - Mar 2019 Controlled blood pressure, Memory loss. BMI 40. Pt fearful of surgery; therefore choosing to do PT for now. PT-OP-C Subjective Start: 08/21/21 18:13 Freq: Status: Active Protocol: Document 01/11/22 17:34 BARRY (Rec: 01/11/22 17:50 SAK [id number]) OP-PT Subjective Patient Comments Patient Comments Patient reports since starting aquatic therapy feels 60% better, has to be careful and activity still limited but much less severe pain. Patient reports her BP was high this am but hadn't eaten or taken meds. Decreased to 140 over something before coming to PT. During PT session reported not feeling well, some dizziness. BP taken by PT at 173/90. Patient advised to call her doctor for guidance, present and discussed with him as well. PT-OP-J Posture/Palpation/Skin Start: 08/21/21 18:13 Freq: Status: Active Protocol: Document 08/24/21 08:15 LRN (Rec: 08/24/21 09:10 LRN [id number]) Posture Evaluation Position Standing T-Spine Posture Flattened Pelvis Posture Anteriorly Tilted Knee Posture (L) Genu Valgus,(R) Genu Valgus Comments Posture Comments Dowagers hump Endomorphic Palpation Assessment Location R hip Palpation Location R ASIS Palpation Findings Tenderness L knee Palpation Location Chondromalacia. Posterior knee tenderness. Palpation Findings Tenderness R knee Palpation Location Around joint and posterior Palpation Findings Tenderness PT-OP-K Range of Motion Start: 08/21/21 18:13 Freq: Status: Active Protocol: Document 10/06/21 09:05 LRN (Rec: 10/06/21 10:30 N [id number]) Knee Goniometric Range of Motion Knee Measured in Degrees Supine R Active Patient Position Supine Flexion Active (degrees) 70 Extension Active (degrees) 10 Extension Passive (degrees) 0 Supine L Active Patient Position Supine Flexion Active (degrees) 126 Extension Active (degrees) 0 R Active Patient Position Sitting Flexion Active (degrees) 65 Extension Active (degrees) 22 Comments Pt c/o pain limiting knee mobility L Active Patient Position Sitting Flexion Active (degrees) 123 Extension Active (degrees) 0 Comments 116 deg's Flex on plinth, limited by table supports. 123 deg's flex in room chair. PT-OP-M Strength Start: 08/21/21 18:13 Freq: Status: Active Protocol: Document 10/06/21 09:05 LRN (Rec: 10/06/21 10:30 LRN [id number]) Knee Strength Knee Manual Muscle Testing Right Comments Deferred due to R knee pain. PT-OP-Q Treatments Start: 08/21/21 18:13 Freq: Status: Active Protocol: Document 10/06/21 09:05 LRN (Rec: 10/06/21 10:30 LRN [id number]) Therapeutic Exercises Supine Exercises Active knee flex/ext Supine Exercise Name Active knee flex/ext Comments ROM taken Knee flex Supine Exercise Name Active knee flexion Side right Reps/Minutes 10x Comments Pt moves slow with ex and much v directions given Sitting Exercises BKFO Sitting Exercise Name Hip AB Side bilateral Equipment Used Lev 1 TB Reps/Minutes 10x w/o resistance, 10x with TB Marching Sitting Exercise Name Marching Side bilateral Reps/Minutes 10 each LE neural stretch Sitting Exercise Name Hamstring stretch x 10 f/b active ankle pumps Side right Reps/Minutes 10 Hold, f/b 10 active ankle pumps, 3 sets Comments Extra time with constant verbal cuing to do ex correctly. R knee ext Sitting Exercise Name Sitting on rm chair: active knee Ext Side right Reps/Minutes 8x, rest 2x Comments Extra time taken for determining pt tolerance of mvmt R knee flex Sitting Exercise Name Sitting on rm chair: active knee Flex Side right Equipment Used Rolling stool Reps/Minutes 10x Comments Extra time taken for determining pt tolerance of mvmt PT-OP-R Modalities Start: 08/21/21 18:13 Freq: Status: Active Protocol: Document 10/06/21 09:05 LRN (Rec: 10/06/21 10:30 LRN [id number]) Hot Pack/Cold Pack Treatment Hot Pack Location Posterior R knee & thigh Patient Position Supine Treatment Duration (minutes) 8 Patient Tolerance Fair Comments Pt has difficult time with static positioning. PT-OP-T Assessment and Plan Start: 08/21/21 18:13 Freq: Status: Active Protocol: Document 01/11/22 17:34 SAK (Rec: 01/11/22 17:50 SAK [id number]) Physical Therapy Assessment Goals Three Impairment Decreased knee AROM Impairment R knee (sup): 5-100 deg's ( sitting): 22-103 deg's L knee (sup): 0-122 deg's ( sitting): 0-123 deg's Short Term Goal (STG) Improve R knee AROM (sup 0-120 deg's; sit 10-120 deg's) 10/06/21: sup: 10-70 deg's; sitting 22-65 01/11/22: goal progress sitting 15-109 STG Duration 11/22/21 [facility] Goal (LTG) Pt goal is get up off the ground without all the manuevering/holding onto things and without hurting self. 01/11/22: goal progress LTG Duration 03/13/22 Two Impairment Decreased kirill knee strength Impairment R knee: flex & ext 3-/5; R hip: flex 2-/5, AB & AD 1/5. L knee: flex & ext 5/5 L hip: flex 3/5, AB 3/5, AD 2 /5. Short Term Goal (STG) Increase R knee & hip strength 1/2 grade (10/06/21: Deferred testing due to R knee pain complaints) 01/11/22: testing deferred due to not feeling well [facility] Goal (LTG) Improve R knee strength to no less than 4/5, and improve hip strength by 1 grade, to improve pt's safety with standing and gait with no giving way of the R knee in standing. LTG Duration 03/13/22 One Impairment Pt lacks appropriated self care HEP. Short Term Goal (STG) Pt will be educated in precautions with exercise and edema/pain management. (10/06/21: Pt educated in precaution of not forcefully straightening or bending the R knee with exercise). 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 01/11/22: previously poorly tolerated. Encouraged increased compliance and will be progressed LTG Duration 03/13/22 Assessment Summary Assessment Patient not feeling well today , treatment was shortened and patient advised to contact physician due to BP 173/90. Re-evaluation not completed due to patient not feeling well but she reports 60% improvement in knee pain and has been demonstrating improved gait, and some improvement in activity tolerance on land. She will benefit from further skilled aquatic PT to help her progress with therapeutic aquatic exercises and fully achieve her PT goals. Physical Therapy Plan Frequency and Duration Frequency of Treatment 1-2x/wk Duration of Treatment 8 weeks Plan of Care Start Date 01/11/22 Plan of Care End Date 03/13/22 Therapeutic Interventions Therapeutic Interventions Aquatic Therapy,Balance Training,Gait Training,Home Exercise Program,Manual Therapy,Neuromuscular Re- education,Patient/Caregiver Education,Self-Care/Home Management,Soft Tissue Mobilization,Taping, Therapeutic Activities, Therapeutic Exercises Modalities Cold Pack/Ice Massage,Electric Stimulation,Hot Packs, Ultrasound Next Visit Focus/Plan Next Note Type Treatment Note Next Visit Plan Continue aquatic therapy with emphasis on LE strengthening, ROM, stabilization, gait training; patient has had poor tolerance for land-based PT in the past and would like to continue with aquatic PT. Gentle progression of HEP as tolerated.
--- NOTE | 2022-01-11 17:50 | PT.OPPOC ---
Physical, Occupational & Speech Therapy At [facility] Current Diagnoses Pain in right knee (01/11/22) Pain in left knee (01/11/22) Other tear of lateral meniscus, current injury, right knee, initial encounter (01/11/22) Visit Care Team Role Provider Type Panchito Velez MD Attending Provider Physician Family Provider Primary Care Provider Referring Provider Specialty: Family Practice Address: [address] [place] [address], [facility] Email: [email or web address] Plan Of Care PT-OP-T Assessment and Plan Start: 08/21/21 18:13 Freq: Status: Active Protocol: Document 01/11/22 17:34 SAK (Rec: 01/11/22 17:50 SAK [id number]) Physical Therapy Assessment Goals Three Impairment Decreased knee AROM Impairment R knee (sup): 5-100 deg's ( sitting): 22-103 deg's L knee (sup): 0-122 deg's ( sitting): 0-123 deg's Short Term Goal (STG) Improve R knee AROM (sup 0-120 deg's; sit 10-120 deg's) 10/06/21: sup: 10-70 deg's; sitting 22-65 01/11/22: goal progress sitting 15-109 STG Duration 11/22/21 [facility]iary Goal (LTG) Pt goal is get up off the ground without all the manuevering/holding onto things and without hurting self. 01/11/22: goal progress LTG Duration 03/13/22 Two Impairment Decreased kirill knee strength Impairment R knee: flex & ext 3-/5; R hip: flex 2-/5, AB & AD 1/5. L knee: flex & ext 5/5 L hip: flex 3/5, AB 3/5, AD 2 /5. Short Term Goal (STG) Increase R knee & hip strength 1/2 grade (10/06/21: Deferred testing due to R knee pain complaints) 01/11/22: testing deferred due to not feeling well [facility]iary Goal (LTG) Improve R knee strength to no less than 4/5, and improve hip strength by 1 grade, to improve pt's safety with standing and gait with no giving way of the R knee in standing. LTG Duration 03/13/22 One Impairment Pt lacks appropriated self care HEP. Short Term Goal (STG) Pt will be educated in precautions with exercise and edema/pain management. (10/06/21: Pt educated in precaution of not forcefully straightening or bending the R knee with exercise). 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 01/11/22: previously poorly tolerated. Encouraged increased compliance and will be progressed LTG Duration 03/13/22 Assessment Summary Assessment Patient not feeling well today , treatment was shortened and patient advised to contact physician due to BP 173/90. Re-evaluation not completed due to patient not feeling well but she reports 60% improvement in knee pain and has been demonstrating improved gait, and some improvement in activity tolerance on land. She will benefit from further skilled aquatic PT to help her progress with therapeutic aquatic exercises and fully achieve her PT goals. Physical Therapy Plan Frequency and Duration Frequency of Treatment 1-2x/wk Duration of Treatment 8 weeks Plan of Care Start Date 01/11/22 Plan of Care End Date 03/13/22 Therapeutic Interventions Therapeutic Interventions Aquatic Therapy,Balance Training,Gait Training,Home Exercise Program,Manual Therapy,Neuromuscular Re- education,Patient/Caregiver Education,Self-Care/Home Management,Soft Tissue Mobilization,Taping, Therapeutic Activities, Therapeutic Exercises Modalities Cold Pack/Ice Massage,Electric Stimulation,Hot Packs, Ultrasound Next Visit Focus/Plan Next Note Type Treatment Note Next Visit Plan Continue aquatic therapy with emphasis on LE strengthening, ROM, stabilization, gait training; patient has had poor tolerance for land-based PT in the past and would like to continue with aquatic PT. Gentle progression of HEP as tolerated. Plan of Care Dates Plan of Care Start Date 01/11/22 Plan of Care End Date 03/13/22 Electronically Signed by: Anayeli Chapman, PT 01/11/22 2402 If you are in agreement with this Plan of Care, please return a signed and dated copy. I have reviewed this Plan of Care and certify that the skilled therapy services above are required to meet the patient?s needs. Physician Signature Date Printed Name and Credentials Clinical Instructor Signature Printed Name and Credentials
--- NOTE | 2022-01-18 14:59 | PT.OTN ---
Current Diagnoses Pain in right knee (01/18/22) Pain in left knee (01/18/22) Other tear of lateral meniscus, current injury, right knee, initial encounter (01/18/22) Physical Therapy Treatment Note PT-OP-A Visit Information Start: 08/21/21 18:13 Freq: Status: Active Protocol: Document 01/18/22 14:49 LJ (Rec: 01/18/22 14:59 LJ [id number]) Out-Patient Physical Therapy Visit Information Visit Information Visit Type Aquatic Treatment Note Visit Start Time 11:45 Visit Stop Time 12:30 Total Visit Minutes 45 Visit Number 11 Number of PHOTOGRAPHIC ARTIST Visits 1 Precautions Precautions Per intake history & pt report : Brain surgery Apr 2020 due to dental surgery for trigeminal neuralgia that went bad, (had a couple of blood vessels that needed repair), Heart attack due to stress - Mar 2019 Controlled blood pressure, Memory loss. Neuroforaminal stenosis of the cerivcal spine . Per record review: pulsatile tinnitus, L toe pain, s/p hernia repair, PT-OP-B Current Condition Start: 08/21/21 18:13 Freq: Status: Active Protocol: Document 08/24/21 08:15 LRN (Rec: 08/24/21 09:10 LRN [id number]) Current Condition History of Current Condition Onset Date R & L knee-02/25, R>L. Current Complaints Bilateral knee pain, R hip pain, difficulty walking, numb feet. History of Current Condition Bilateral knee pain but R knee is the worst knee and is very painful. Can walk on it now, L side is mildly irritating. Having R hip pain. Was told she should do surgery, but the pt doesn't want to have surgery. States the more she uses it the pain has lessened. Hopes to delay surgery. R knee is no longer getting stuck in flexion for the past month. Denies fall. States she had brain surgery on the R side. After surgery the hip and knee pain started, and her knee just goes out. After surgery would walk weird, using cardona to balance. 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 Treatment Goals Patient/Caregiver Goals Pt goal is get up off the ground without all the manuevering/holding onto things and without hurting self. Decrease pain. Increase strength of legs. 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 Current Functional Impairments (Reported) Functional Limitations- ADL's Not able to do work or get down onto the ground. Movement of knees restricted. Personal Factors Other Personal Factors That May Effect BMI 30 (Health 18.5-24.9, 30= Therapy/Recovery Obese) Brain surgery Apr 2020 Heart attack due to stress - Mar 2019 Controlled blood pressure, Memory loss. BMI 40. Pt fearful of surgery; therefore choosing to do PT for now. PT-OP-C Subjective Start: 08/21/21 18:13 Freq: Status: Active Protocol: Document 01/18/22 14:49 LJ (Rec: 01/18/22 14:59 LJ [id number]) OP-PT Subjective Patient Comments Patient Comments Pt reports being sore in low back and left shoulder due to gardening this past week. She stated her blood pressure has been more stable and doctor thinks potassium levels are off. She is now on potassium supplement which she manages on her own according to doctor 's orders. PT-OP-J Posture/Palpation/Skin Start: 08/21/21 18:13 Freq: Status: Active Protocol: Document 08/24/21 08:15 LRN (Rec: 08/24/21 09:10 LRN [id number]) Posture Evaluation Position Standing T-Spine Posture Flattened Pelvis Posture Anteriorly Tilted Knee Posture (L) Genu Valgus,(R) Genu Valgus Comments Posture Comments Dowagers hump Endomorphic Palpation Assessment Location R hip Palpation Location R ASIS Palpation Findings Tenderness L knee Palpation Location Chondromalacia. Posterior knee tenderness. Palpation Findings Tenderness R knee Palpation Location Around joint and posterior Palpation Findings Tenderness PT-OP-K Range of Motion Start: 08/21/21 18:13 Freq: Status: Active Protocol: Document 10/06/21 09:05 LRN (Rec: 10/06/21 10:30 LRN [id number]) Knee Goniometric Range of Motion Knee Supine R Active Patient Position Supine Flexion Active (degrees) 70 Extension Active (degrees) 10 Extension Passive (degrees) 0 Supine L Active Patient Position Supine Flexion Active (degrees) 126 Extension Active (degrees) 0 R Active Patient Position Sitting Flexion Active (degrees) 65 Extension Active (degrees) 22 Comments Pt c/o pain limiting knee mobility L Active Patient Position Sitting Flexion Active (degrees) 123 Extension Active (degrees) 0 Comments 116 deg's Flex on plinth, limited by table supports. 123 deg's flex in room chair. PT-OP-M Strength Start: 08/21/21 18:13 Freq: Status: Active Protocol: Document 10/06/21 09:05 LRN (Rec: 10/06/21 10:30 LRN [id number]) Knee Strength Knee Manual Muscle Testing Right Comments Deferred due to R knee pain. PT-OP-Q Treatments Start: 08/21/21 18:13 Freq: Status: Active Protocol: Document 10/06/21 09:05 LRN (Rec: 10/06/21 10:30 LRN [id number]) Therapeutic Exercises Supine Exercises Active knee flex/ext Supine Exercise Name Active knee flex/ext Comments ROM taken Knee flex Supine Exercise Name Active knee flexion Side right Reps/Minutes 10x Comments Pt moves slow with ex and much v directions given Sitting Exercises BKFO Sitting Exercise Name Hip AB Side bilateral Equipment Used Lev 1 TB Reps/Minutes 10x w/o resistance, 10x with TB Marching Sitting Exercise Name Marching Side bilateral Reps/Minutes 10 each LE neural stretch Sitting Exercise Name Hamstring stretch x 10 f/b active ankle pumps Side right Reps/Minutes 10 Hold, f/b 10 active ankle pumps, 3 sets Comments Extra time with constant verbal cuing to do ex correctly. R knee ext Sitting Exercise Name Sitting on rm chair: active knee Ext Side right Reps/Minutes 8x, rest 2x Comments Extra time taken for determining pt tolerance of mvmt R knee flex Sitting Exercise Name Sitting on rm chair: active knee Flex Side right Equipment Used Rolling stool Reps/Minutes 10x Comments Extra time taken for determining pt tolerance of mvmt PT-OP-R Modalities Start: 08/21/21 18:13 Freq: Status: Active Protocol: Document 10/06/21 09:05 LRN (Rec: 10/06/21 10:30 LRN [id number]) Hot Pack/Cold Pack Treatment Hot Pack Location Posterior R knee & thigh Patient Position Supine Treatment Duration (minutes) 8 Patient Tolerance Fair Comments Pt has difficult time with static positioning. PT-OP-S Aquatic Treatment Start: 10/09/21 14:42 Freq: Status: Active Protocol: Document 01/18/22 14:49 LJ (Rec: 06/13/22 14:59 GODFREY [id number]) Aquatics Treatment Pool Entry/Exit Pool Entry/Exit Method Stairs Water Walking [place] October Water Level Chest Level Marching Water Level Chest Level Comments october and october-kick Sideways Water Level Chest Level Comments cues for toe-knee alignment Backwards Water Level Chest Level Level of Assistance Standby Assistance,Verbal Cues Forwards Water Level Chest Level Lower Extremity Exercises toe, heel raises Details hh on wall Body Position Standing Water Level Chest Level Reps/Duration 10 ea HS curls Details hh on wall Body Position Standing Water Level Chest Level Reps/Duration [address] hip Details hh on wall Body Position Standing Water Level Chest Level Reps/Duration 10 B Comments cue for neutral pelvis knee fl/ex Body Position Standing Water Level Chest Level Lower Extremity Stretches HS Details hh on wall Body Position Standing Water Level Waist Level Equipment sm noodle under ankle Reps/Duration 2 x 30 sec B gastroc, soleus Details hh on wall Body Position Standing Reps/Duration 2 x 30 sec B hip flexors, quads Details hh on wall Body Position Standing Water Level Chest Level Equipment toe on steps for stretch Reps/Duration 2 x 30 sec B Spinal Exercises seated pelvic tilts Details seated position with back against wall Reps/Duration 10 with 5 hold while exhaling seated marching Details at wall Reps/Duration 20x2 Balance SLS Details light hh on wall Body Position Standing Water Level Waist Level Reps/Duration 3x 30 B [place] Activities [place] Activities Bicycle,Hip Abduction/ Adduction Other Activities prone extension pendulum Equipment belt, bbs Duration 12 Comments 1# wts bilateral ankles cues for vertical position PT-OP-T Assessment and Plan Start: 08/21/21 18:13 Freq: Status: Active Protocol: Document 01/18/22 14:49 GODFREY (Rec: 01/18/22 14:59 GODRFEY [id number]) Physical Therapy Assessment Rehab Potential Rehabilitation Potential Fair Evaluation Complexity Number of Personal Factors/Comorbidities 3 or More Number of Body Systems Impaired 4 or More Clinical Presentation at Evaluation Evolving Impairments Impairments Activity Tolerance,Balance, Gait,Pain,ROM,Strength Goals Three Impairment Decreased knee AROM Impairment R knee (sup): 5-100 deg's ( sitting): 22-103 deg's L knee (sup): 0-122 deg's ( sitting): 0-123 deg's Short Term Goal (STG) Improve R knee AROM (sup 0-120 deg's; sit 10-120 deg's) 10/06/21: sup: 10-70 deg's; sitting 22-65 01/11/22: goal progress sitting 15-109 STG Duration 11/22/21 Jail Goal (LTG) Pt goal is get up off the ground without all the manuevering/holding onto things and without hurting self. 01/11/22: goal progress LTG Duration 03/13/22 Two Impairment Decreased kirill knee strength Impairment R knee: flex & ext 3-/5; R hip: flex 2-/5, AB & AD 1/5. L knee: flex & ext 5/5 L hip: flex 3/5, AB 3/5, AD 2 /5. Short Term Goal (STG) Increase R knee & hip strength 1/2 grade (10/06/21: Deferred testing due to R knee pain complaints) 01/11/22: testing deferred due to not feeling well Jail Goal (LTG) Improve R knee strength to no less than 4/5, and improve hip strength by 1 grade, to improve pt's safety with standing and gait with no giving way of the R knee in standing. LTG Duration 03/13/22 One Impairment Pt lacks appropriated self care HEP. Short Term Goal (STG) Pt will be educated in precautions with exercise and edema/pain management. (10/06/21: Pt educated in precaution of not forcefully straightening or bending the R knee with exercise). Goal met STG Duration goal met [place] Tier Goal (LTG) Pt educated in a self care HEP to promote knee and hip strengthening. 01/11/22: previously poorly tolerated. Encouraged increased compliance and will be progressed LTG Duration 03/13/22 Progress Towards Goals Progress Comments 10/06/21: Education in precautions with exercise. Assessment Summary Assessment Patient not feeling well today , treatment was shortened and patient advised to contact physician due to BP 173/90. Re-evaluation not completed due to patient not feeling well but she reports 60% improvement in knee pain and has been demonstrating improved gait, and some improvement in activity tolerance on land. She will benefit from further skilled aquatic PT to help her progress with therapeutic aquatic exercises and fully achieve her PT goals. Physical Therapy Plan Frequency and Duration Frequency of Treatment 1-2x/wk Duration of Treatment 8 weeks Plan of Care Start Date 01/11/22 Plan of Care End Date 03/13/22 Therapeutic Interventions Therapeutic Interventions Aquatic Therapy,Balance Training,Gait Training,Home Exercise Program,Manual Therapy,Neuromuscular Re- education,Patient/Caregiver Education,Self-Care/Home Management,Soft Tissue Mobilization,Taping, Therapeutic Activities, Therapeutic Exercises Modalities Cold Pack/Ice Massage,Electric Stimulation,Hot Packs, Ultrasound Next Visit Focus/Plan Next Note Type Treatment Note Next Visit Plan Continue aquatic therapy with emphasis on LE strengthening, ROM, stabilization, gait training; patient has had poor tolerance for land-based PT in the past and would like to continue with aquatic PT. Gentle progression of HEP as tolerated.
--- NOTE | 2022-02-01 16:49 | PT.OTN ---
Current Diagnoses Pain in right knee (02/01/22) Pain in left knee (02/01/22) Other tear of lateral meniscus, current injury, right knee, initial encounter (02/01/22) Physical Therapy Treatment Note PT-OP-A Visit Information Start: 08/21/21 18:13 Freq: Status: Active Protocol: Document 02/02/22 16:44 SAK (Rec: 02/02/22 16:49 SAK [id number]) Out-Patient Physical Therapy Visit Information Visit Information Visit Type Aquatic Treatment Note Visit Start Time 11:45 Visit Stop Time 12:30 Total Visit Minutes 45 Visit Number 12 Number of MINING TECHNICIAN Visits 0 Precautions Precautions Per intake history & pt report : Brain surgery Apr 2020 due to dental surgery for trigeminal neuralgia that went bad, (had a couple of blood vessels that needed repair), Heart attack due to stress - Mar 2019 Controlled blood pressure, Memory loss. Neuroforaminal stenosis of the cerivcal spine . Per record review: pulsatile tinnitus, L toe pain, s/p hernia repair, PT-OP-B Current Condition Start: 08/21/21 18:13 Freq: Status: Active Protocol: Document 08/24/21 08:15 LRN (Rec: 08/24/21 09:10 LRN [id number]) Current Condition History of Current Condition Onset Date R & L knee-02/25, R>L. Current Complaints Bilateral knee pain, R hip pain, difficulty walking, numb feet. History of Current Condition Bilateral knee pain but R knee is the worst knee and is very painful. Can walk on it now, L side is mildly irritating. Having R hip pain. Was told she should do surgery, but the pt doesn't want to have surgery. States the more she uses it the pain has lessened. Hopes to delay surgery. R knee is no longer getting stuck in flexion for the past month. Denies fall. States she had brain surgery on the R side. After surgery the hip and knee pain started, and her knee just goes out. After surgery would walk weird, using cardona to balance. 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 Treatment Goals Patient/Caregiver Goals Pt goal is get up off the ground without all the manuevering/holding onto things and without hurting self. Decrease pain. Increase strength of legs. 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 Current Functional Impairments (Reported) Functional Limitations- ADL's Not able to do work or get down onto the ground. Movement of knees restricted. Personal Factors Other Personal Factors That May Effect BMI 30 (Health 18.5-24.9, 30= Therapy/Recovery Obese) Brain surgery Apr 2020 Heart attack due to stress - Mar 2019 Controlled blood pressure, Memory loss. BMI 40. Pt fearful of surgery; therefore choosing to do PT for now. PT-OP-C Subjective Start: 08/21/21 18:13 Freq: Status: Active Protocol: Document 02/02/22 16:44 SAK (Rec: 02/02/22 16:49 SAK [id number]) OP-PT Subjective Patient Comments Patient Comments Patient reports her BP has been under good control, though reports being upset after interaction with neighbor. Knee 60-70% better since starting aquatic PT. Had MRI of knee. PT-OP-J Posture/Palpation/Skin Start: 08/21/21 18:13 Freq: Status: Active Protocol: Document 08/24/21 08:15 LRN (Rec: 08/24/21 09:10 LRN [id number]) Posture Evaluation Position Standing T-Spine Posture Flattened Pelvis Posture Anteriorly Tilted Knee Posture (L) Genu Valgus,(R) Genu Valgus Comments Posture Comments Dowagers hump Endomorphic Palpation Assessment Location R hip Palpation Location R ASIS Palpation Findings Tenderness L knee Palpation Location Chondromalacia. Posterior knee tenderness. Palpation Findings Tenderness R knee Palpation Location Around joint and posterior Palpation Findings Tenderness PT-OP-K Range of Motion Start: 08/21/21 18:13 Freq: Status: Active Protocol: Document 10/06/21 09:05 LRN (Rec: 10/06/21 10:30 LRN [id number]) Knee Goniometric Range of Motion Knee Supine R Active Patient Position Supine Flexion Active (degrees) 70 Extension Active (degrees) 10 Extension Passive (degrees) 0 Supine L Active Patient Position Supine Flexion Active (degrees) 126 Extension Active (degrees) 0 R Active Patient Position Sitting Flexion Active (degrees) 65 Extension Active (degrees) 22 Comments Pt c/o pain limiting knee mobility L Active Patient Position Sitting Flexion Active (degrees) 123 Extension Active (degrees) 0 Comments 116 deg's Flex on plinth, limited by table supports. 123 deg's flex in room chair. PT-OP-M Strength Start: 08/21/21 18:13 Freq: Status: Active Protocol: Document 10/06/21 09:05 LRN (Rec: 10/06/21 10:30 LRN [id number]) Knee Strength Knee Manual Muscle Testing Right Comments Deferred due to R knee pain. PT-OP-Q Treatments Start: 08/21/21 18:13 Freq: Status: Active Protocol: Document 10/06/21 09:05 LRN (Rec: 10/06/21 10:30 LRN [id number]) Therapeutic Exercises Supine Exercises Active knee flex/ext Supine Exercise Name Active knee flex/ext Comments ROM taken Knee flex Supine Exercise Name Active knee flexion Side right Reps/Minutes 10x Comments Pt moves slow with ex and much v directions given Sitting Exercises BKFO Sitting Exercise Name Hip AB Side bilateral Equipment Used Lev 1 TB Reps/Minutes 10x w/o resistance, 10x with TB Marching Sitting Exercise Name Marching Side bilateral Reps/Minutes 10 each LE neural stretch Sitting Exercise Name Hamstring stretch x 10 f/b active ankle pumps Side right Reps/Minutes 10 Hold, f/b 10 active ankle pumps, 3 sets Comments Extra time with constant verbal cuing to do ex correctly. R knee ext Sitting Exercise Name Sitting on rm chair: active knee Ext Side right Reps/Minutes 8x, rest 2x Comments Extra time taken for determining pt tolerance of mvmt R knee flex Sitting Exercise Name Sitting on rm chair: active knee Flex Side right Equipment Used Rolling stool Reps/Minutes 10x Comments Extra time taken for determining pt tolerance of mvmt PT-OP-R Modalities Start: 08/21/21 18:13 Freq: Status: Active Protocol: Document 10/06/21 09:05 LRN (Rec: 10/06/21 10:30 LRN [id number]) Hot Pack/Cold Pack Treatment Hot Pack Location Posterior R knee & thigh Patient Position Supine Treatment Duration (minutes) 8 Patient Tolerance Fair Comments Pt has difficult time with static positioning. PT-OP-S Aquatic Treatment Start: 10/09/21 14:42 Freq: Status: Active Protocol: Document 02/02/22 16:44 SAK (Rec: 02/02/22 16:49 SAK [id number]) Aquatics Treatment Pool Entry/Exit Pool Entry/Exit Method Stairs Water Walking [place] March Water Level Chest Level Marching Water Level Chest Level Comments october and october-kick Sideways Water Level Chest Level Comments cues for toe-knee alignment Backwards Water Level Chest Level Level of Assistance Standby Assistance,Verbal Cues Forwards Water Level Chest Level Lower Extremity Exercises HS curls Details hh on wall Body Position Standing Water Level Chest Level Reps/Duration [address] hip Details hh on wall Body Position Standing Water Level Chest Level Reps/Duration 15 B Comments cue for neutral pelvis knee fl/ex Body Position Standing Water Level Chest Level Reps/Duration 15x Comments 90/90 position hip and knee Lower Extremity Stretches HS Details hh on wall Body Position Standing Water Level Waist Level Equipment sm noodle under ankle Reps/Duration 2 x 30 sec B gastroc, soleus Details hh on wall Body Position Standing Reps/Duration 2 x 30 sec B hip flexors, quads Details hh on wall Body Position Standing Water Level Chest Level Equipment toe on steps for stretch Reps/Duration 2 x 30 sec B Balance SLS Details light hh on wall Body Position Standing Water Level Waist Level Reps/Duration 3x 30 B [place] Activities [place] Activities Bicycle,Hip Abduction/ Adduction Other Activities prone extension pendulum Equipment belt, bbs Duration 12 PT-OP-T Assessment and Plan Start: 08/21/21 18:13 Freq: Status: Active Protocol: Document 02/02/22 16:44 [facility] (Rec: 02/02/22 16:49 [facility] [id number]) Physical Therapy Assessment Goals Three Impairment Decreased knee AROM Impairment R knee (sup): 5-100 deg's ( sitting): 22-103 deg's L knee (sup): 0-122 deg's ( sitting): 0-123 deg's Short Term Goal (STG) Improve R knee AROM (sup 0-120 deg's; sit 10-120 deg's) 10/06/21: sup: 10-70 deg's; sitting 22-65 01/11/22: goal progress sitting 15-109 STG Duration 11/22/21 Senior Internet Sales Consultant Goal (LTG) Pt goal is get up off the ground without all the manuevering/holding onto things and without hurting self. 01/11/22: goal progress LTG Duration 03/13/22 Two Impairment Decreased kirill knee strength Impairment R knee: flex & ext 3-/5; R hip: flex 2-/5, AB & AD 1/5. L knee: flex & ext 5/5 L hip: flex 3/5, AB 3/5, AD 2 /5. Short Term Goal (STG) Increase R knee & hip strength 1/2 grade (10/06/21: Deferred testing due to R knee pain complaints) 01/11/22: testing deferred due to not feeling well Senior Internet Sales Consultant Goal (LTG) Improve R knee strength to no less than 4/5, and improve hip strength by 1 grade, to improve pt's safety with standing and gait with no giving way of the R knee in standing. LTG Duration 03/13/22 One Impairment Pt lacks appropriated self care HEP. Short Term Goal (STG) Pt will be educated in precautions with exercise and edema/pain management. (10/06/21: Pt educated in precaution of not forcefully straightening or bending the R knee with exercise). Goal met STG Duration goal met Long-Term Goal (LTG) Pt educated in a self care HEP to promote knee and hip strengthening. 01/11/22: previously poorly tolerated. Encouraged increased compliance and will be progressed LTG Duration 03/13/22 Progress Towards Goals Progress Towards Goals Progressing Toward Goals Assessment Summary Assessment Decreased pain, improved functional strength and activity tolerance. patient tolerating progression of aquatic therapy activities. Physical Therapy Plan Frequency and Duration Frequency of Treatment 1-2x/wk Duration of Treatment 8 weeks Plan of Care Start Date 01/11/22 Plan of Care End Date 03/13/22 Therapeutic Interventions Therapeutic Interventions Aquatic Therapy,Balance Training,Gait Training,Home Exercise Program,Manual Therapy,Neuromuscular Re- education,Patient/Caregiver Education,Self-Care/Home Management,Soft Tissue Mobilization,Taping, Therapeutic Activities, Therapeutic Exercises Modalities Cold Pack/Ice Massage,Electric Stimulation,Hot Packs, Ultrasound
--- NOTE | 2022-02-03 12:58 | PT.OTN ---
Current Diagnoses Pain in right knee (02/01/22) Pain in left knee (02/01/22) Other tear of lateral meniscus, current injury, right knee, initial encounter (02/01/22) Physical Therapy Treatment Note PT-OP-A Visit Information Start: 08/21/21 18:13 Freq: Status: Active Protocol: Document 02/04/22 12:53 SAK (Rec: 02/04/22 12:58 SAK [id number]) Out-Patient Physical Therapy Visit Information Visit Information Visit Type Aquatic Treatment Note Visit Start Time 11:45 Visit Stop Time 12:30 Total Visit Minutes 45 Visit Number 13 Number of POULTRY HATCHERY LABORER Visits 0 Precautions Precautions Per intake history & pt report : Brain surgery Apr 2020 due to dental surgery for trigeminal neuralgia that went bad, (had a couple of blood vessels that needed repair), Heart attack due to stress - Mar 2019 Controlled blood pressure, Memory loss. Neuroforaminal stenosis of the cerivcal spine . Per record review: pulsatile tinnitus, L toe pain, s/p hernia repair, PT-OP-B Current Condition Start: 08/21/21 18:13 Freq: Status: Active Protocol: Document 08/24/21 08:15 LRN (Rec: 08/24/21 09:10 LRN [id number]) Current Condition History of Current Condition Onset Date R & L knee-02/25, R>L. Current Complaints Bilateral knee pain, R hip pain, difficulty walking, numb feet. History of Current Condition Bilateral knee pain but R knee is the worst knee and is very painful. Can walk on it now, L side is mildly irritating. Having R hip pain. Was told she should do surgery, but the pt doesn't want to have surgery. States the more she uses it the pain has lessened. Hopes to delay surgery. R knee is no longer getting stuck in flexion for the past month. Denies fall. States she had brain surgery on the R side. After surgery the hip and knee pain started, and her knee just goes out. After surgery would walk weird, using cardona to balance. 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 Treatment Goals Patient/Caregiver Goals Pt goal is get up off the ground without all the manuevering/holding onto things and without hurting self. Decrease pain. Increase strength of legs. 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 Current Functional Impairments (Reported) Functional Limitations- ADL's Not able to do work or get down onto the ground. Movement of knees restricted. Personal Factors Other Personal Factors That May Effect BMI 30 (Health 18.5-24.9, 30= Therapy/Recovery Obese) Brain surgery Apr 2020 Heart attack due to stress - Mar 2019 Controlled blood pressure, Memory loss. BMI 40. Pt fearful of surgery; therefore choosing to do PT for now. PT-OP-C Subjective Start: 08/21/21 18:13 Freq: Status: Active Protocol: Document 02/04/22 12:53 SAK (Rec: 02/04/22 12:58 SAK [id number]) OP-PT Subjective Patient Comments Patient Comments Reports MRI results showed worsening of her meniscus tear and arthritis in her knee. Will be seeing orthopedist soon to consult regarding potential surgery. PT-OP-J Posture/Palpation/Skin Start: 08/21/21 18:13 Freq: Status: Active Protocol: Document 08/24/21 08:15 LRN (Rec: 08/24/21 09:10 LRN [id number]) Posture Evaluation Position Standing T-Spine Posture Flattened Pelvis Posture Anteriorly Tilted Knee Posture (L) Genu Valgus,(R) Genu Valgus Comments Posture Comments Dowagers hump Endomorphic Palpation Assessment Location R hip Palpation Location R ASIS Palpation Findings Tenderness L knee Palpation Location Chondromalacia. Posterior knee tenderness. Palpation Findings Tenderness R knee Palpation Location Around joint and posterior Palpation Findings Tenderness PT-OP-K Range of Motion Start: 08/21/21 18:13 Freq: Status: Active Protocol: Document 10/06/21 09:05 LRN (Rec: 10/06/21 10:30 LRN [id number]) Knee Goniometric Range of Motion Knee Supine R Active Patient Position Supine Flexion Active (degrees) 70 Extension Active (degrees) 10 Extension Passive (degrees) 0 Supine L Active Patient Position Supine Flexion Active (degrees) 126 Extension Active (degrees) 0 R Active Patient Position Sitting Flexion Active (degrees) 65 Extension Active (degrees) 22 Comments Pt c/o pain limiting knee mobility L Active Patient Position Sitting Flexion Active (degrees) 123 Extension Active (degrees) 0 Comments 116 deg's Flex on plinth, limited by table supports. 123 deg's flex in room chair. PT-OP-M Strength Start: 08/21/21 18:13 Freq: Status: Active Protocol: Document 10/06/21 09:05 LRN (Rec: 10/06/21 10:30 LRN [id number]) Knee Strength Knee Manual Muscle Testing Right Comments Deferred due to R knee pain. PT-OP-Q Treatments Start: 08/21/21 18:13 Freq: Status: Active Protocol: Document 10/06/21 09:05 LRN (Rec: 10/06/21 10:30 LRN [id number]) Therapeutic Exercises Supine Exercises Active knee flex/ext Supine Exercise Name Active knee flex/ext Comments ROM taken Knee flex Supine Exercise Name Active knee flexion Side right Reps/Minutes 10x Comments Pt moves slow with ex and much v directions given Sitting Exercises BKFO Sitting Exercise Name Hip AB Side bilateral Equipment Used Lev 1 TB Reps/Minutes 10x w/o resistance, 10x with TB Marching Sitting Exercise Name Marching Side bilateral Reps/Minutes 10 each LE neural stretch Sitting Exercise Name Hamstring stretch x 10 f/b active ankle pumps Side right Reps/Minutes 10 Hold, f/b 10 active ankle pumps, 3 sets Comments Extra time with constant verbal cuing to do ex correctly. R knee ext Sitting Exercise Name Sitting on rm chair: active knee Ext Side right Reps/Minutes 8x, rest 2x Comments Extra time taken for determining pt tolerance of mvmt R knee flex Sitting Exercise Name Sitting on rm chair: active knee Flex Side right Equipment Used Rolling stool Reps/Minutes 10x Comments Extra time taken for determining pt tolerance of mvmt PT-OP-R Modalities Start: 08/21/21 18:13 Freq: Status: Active Protocol: Document 10/06/21 09:05 LRN (Rec: 10/06/21 10:30 LRN [id number]) Hot Pack/Cold Pack Treatment Hot Pack Location Posterior R knee & thigh Patient Position Supine Treatment Duration (minutes) 8 Patient Tolerance Fair Comments Pt has difficult time with static positioning. PT-OP-S Aquatic Treatment Start: 10/09/21 14:42 Freq: Status: Active Protocol: Document 02/04/22 12:53 SAK (Rec: 02/04/22 12:58 SAK [id number]) Aquatics Treatment Pool Entry/Exit Pool Entry/Exit Method Stairs Water Walking [place] March Water Level Chest Level Walking Equipment Resistance Fins Marching Walking Equipment Resistance Fins Sideways Walking Equipment Resistance Fins Backwards Walking Equipment Resistance Fins Forwards Walking Equipment Resistance Fins Lower Extremity Exercises HS curls Details hh on wall Body Position Standing Water Level Chest Level Equipment Resistance Fins Reps/Duration [address] hip Details hh on wall Body Position Standing Water Level Chest Level Equipment Resistance Fins Reps/Duration 15 B Comments cue for neutral pelvis knee fl/ex Body Position Standing Water Level Chest Level Reps/Duration 15x Comments 90/90 position hip and knee Lower Extremity Stretches HS Details hh on wall Body Position Standing Water Level Waist Level Equipment sm noodle under ankle Reps/Duration 2 x 30 sec B gastroc, soleus Details hh on wall Body Position Standing Reps/Duration 2 x 30 sec B hip flexors, quads Details hh on wall Body Position Standing Water Level Chest Level Equipment toe on steps for stretch Reps/Duration 2 x 30 sec B Balance SLS Details light hh on wall Body Position Standing Water Level Waist Level Reps/Duration 3x 30 B [place] Activities [place] Activities Bicycle,Hip Abduction/ Adduction Other Activities prone extension pendulum UE pull downs Equipment belt, bbs Duration 12 PT-OP-T Assessment and Plan Start: 08/21/21 18:13 Freq: Status: Active Protocol: Document 02/04/22 12:53 [facility] (Rec: 02/04/22 12:58 [facility] [id number]) Physical Therapy Assessment Rehab Potential Rehabilitation Potential Fair Goals Three Impairment Decreased knee AROM Impairment R knee (sup): 5-100 deg's ( sitting): 22-103 deg's L knee (sup): 0-122 deg's ( sitting): 0-123 deg's Short Term Goal (STG) Improve R knee AROM (sup 0-120 deg's; sit 10-120 deg's) 10/06/21: sup: 10-70 deg's; sitting 22-65 01/11/22: goal progress sitting 15-109 STG Duration 11/22/21 Prison Goal (LTG) Pt goal is get up off the ground without all the manuevering/holding onto things and without hurting self. 01/11/22: goal progress LTG Duration 03/13/22 Two Impairment Decreased kirill knee strength Impairment R knee: flex & ext 3-/5; R hip: flex 2-/5, AB & AD 1/5. L knee: flex & ext 5/5 L hip: flex 3/5, AB 3/5, AD 2 /5. Short Term Goal (STG) Increase R knee & hip strength 1/2 grade (10/06/21: Deferred testing due to R knee pain complaints) 01/11/22: testing deferred due to not feeling well Hand Icer Goal (LTG) Improve R knee strength to no less than 4/5, and improve hip strength by 1 grade, to improve pt's safety with standing and gait with no giving way of the R knee in standing. LTG Duration 03/13/22 One Impairment Pt lacks appropriated self care HEP. Short Term Goal (STG) Pt will be educated in precautions with exercise and edema/pain management. (10/06/21: Pt educated in precaution of not forcefully straightening or bending the R knee with exercise). Goal met STG Duration goal met Prison Goal (LTG) Pt educated in a self care HEP to promote knee and hip strengthening. 01/11/22: previously poorly tolerated. Encouraged increased compliance and will be progressed LTG Duration 03/13/22 Assessment Summary Assessment Patient tolerated progression of strengthening exercises well today without c/o increased pain. Improving activity toleracne and functional strength. Difficulty with step-ups due to balance dysfunction. Physical Therapy Plan Frequency and Duration Frequency of Treatment 1-2x/wk Duration of Treatment 8 weeks Plan of Care Start Date 01/11/22 Plan of Care End Date 03/13/22 Next Visit Focus/Plan Next Note Type Treatment Note Next Visit Plan Continue aquatic therapy with emphasis on LE strengthening, ROM, stabilization, gait training. Step ups on 4 box.
--- NOTE | 2022-02-22 14:31 | PT.OTN ---
Current Diagnoses Pain in right knee (02/22/22) Pain in left knee (02/22/22) Other tear of lateral meniscus, current injury, right knee, initial encounter (02/22/22) Physical Therapy Treatment Note PT-OP-A Visit Information Start: 08/21/21 18:13 Freq: Status: Active Protocol: Document 02/22/22 14:19 LJ (Rec: 02/22/22 14:31 LJ [id number]) Out-Patient Physical Therapy Visit Information Visit Information Visit Type Aquatic Treatment Note Visit Start Time 10:15 Visit Stop Time 11:00 Total Visit Minutes 45 Visit Number 14 Number of NEUROPSYCHOLOGY DIVISION CHIEF Visits 1 Precautions Precautions Per intake history & pt report : Brain surgery Apr 2020 due to dental surgery for trigeminal neuralgia that went bad, (had a couple of blood vessels that needed repair), Heart attack due to stress - Mar 2019 Controlled blood pressure, Memory loss. Neuroforaminal stenosis of the cerivcal spine . Per record review: pulsatile tinnitus, L toe pain, s/p hernia repair, PT-OP-B Current Condition Start: 08/21/21 18:13 Freq: Status: Active Protocol: Document 08/24/21 08:15 LRN (Rec: 08/24/21 09:10 LRN [id number]) Current Condition History of Current Condition Onset Date R & L knee-02/25, R>L. Current Complaints Bilateral knee pain, R hip pain, difficulty walking, numb feet. History of Current Condition Bilateral knee pain but R knee is the worst knee and is very painful. Can walk on it now, L side is mildly irritating. Having R hip pain. Was told she should do surgery, but the pt doesn't want to have surgery. States the more she uses it the pain has lessened. Hopes to delay surgery. R knee is no longer getting stuck in flexion for the past month. Denies fall. States she had brain surgery on the R side. After surgery the hip and knee pain started, and her knee just goes out. After surgery would walk weird, using cardona to balance. 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 Treatment Goals Patient/Caregiver Goals Pt goal is get up off the ground without all the manuevering/holding onto things and without hurting self. Decrease pain. Increase strength of legs. 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 Current Functional Impairments (Reported) Functional Limitations- ADL's Not able to do work or get down onto the ground. Movement of knees restricted. Personal Factors Other Personal Factors That May Effect BMI 30 (Health 18.5-24.9, 30= Therapy/Recovery Obese) Brain surgery Apr 2020 Heart attack due to stress - Mar 2019 Controlled blood pressure, Memory loss. BMI 40. Pt fearful of surgery; therefore choosing to do PT for now. PT-OP-C Subjective Start: 08/21/21 18:13 Freq: Status: Active Protocol: Document 02/22/22 14:19 LJ (Rec: 02/22/22 14:31 LJ [id number]) OP-PT Subjective Patient Comments Patient Comments Pt reports she has been working in her yard and is sore. She has not been able to make it to the pool for exercise and is feeling it. She and will be driving for several hours to attend a wedding and is afraid of being in pain having to sit a long time in the car. She states she needs to take it easy today. PT-OP-J Posture/Palpation/Skin Start: 08/21/21 18:13 Freq: Status: Active Protocol: Document 08/24/21 08:15 LRN (Rec: 08/24/21 09:10 LRN [id number]) Posture Evaluation Position Standing T-Spine Posture Flattened Pelvis Posture Anteriorly Tilted Knee Posture (L) Genu Valgus,(R) Genu Valgus Comments Posture Comments Dowagers hump Endomorphic Palpation Assessment Location R hip Palpation Location R ASIS Palpation Findings Tenderness L knee Palpation Location Chondromalacia. Posterior knee tenderness. Palpation Findings Tenderness R knee Palpation Location Around joint and posterior Palpation Findings Tenderness PT-OP-K Range of Motion Start: 08/21/21 18:13 Freq: Status: Active Protocol: Document 10/06/21 09:05 LRN (Rec: 10/06/21 10:30 LRN [id number]) Knee Goniometric Range of Motion Knee Supine R Active Patient Position Supine Flexion Active (degrees) 70 Extension Active (degrees) 10 Extension Passive (degrees) 0 Supine L Active Patient Position Supine Flexion Active (degrees) 126 Extension Active (degrees) 0 R Active Patient Position Sitting Flexion Active (degrees) 65 Extension Active (degrees) 22 Comments Pt c/o pain limiting knee mobility L Active Patient Position Sitting Flexion Active (degrees) 123 Extension Active (degrees) 0 Comments 116 deg's Flex on plinth, limited by table supports. 123 deg's flex in room chair. PT-OP-M Strength Start: 08/21/21 18:13 Freq: Status: Active Protocol: Document 10/06/21 09:05 LRN (Rec: 10/06/21 10:30 LRN [id number]) Knee Strength Knee Manual Muscle Testing Right Comments Deferred due to R knee pain. PT-OP-Q Treatments Start: 08/21/21 18:13 Freq: Status: Active Protocol: Document 10/06/21 09:05 LRN (Rec: 10/06/21 10:30 LRN [id number]) Therapeutic Exercises Supine Exercises Active knee flex/ext Supine Exercise Name Active knee flex/ext Comments ROM taken Knee flex Supine Exercise Name Active knee flexion Side right Reps/Minutes 10x Comments Pt moves slow with ex and much v directions given Sitting Exercises BKFO Sitting Exercise Name Hip AB Side bilateral Equipment Used Lev 1 TB Reps/Minutes 10x w/o resistance, 10x with TB Marching Sitting Exercise Name Marching Side bilateral Reps/Minutes 10 each LE neural stretch Sitting Exercise Name Hamstring stretch x 10 f/b active ankle pumps Side right Reps/Minutes 10 Hold, f/b 10 active ankle pumps, 3 sets Comments Extra time with constant verbal cuing to do ex correctly. R knee ext Sitting Exercise Name Sitting on rm chair: active knee Ext Side right Reps/Minutes 8x, rest 2x Comments Extra time taken for determining pt tolerance of mvmt R knee flex Sitting Exercise Name Sitting on rm chair: active knee Flex Side right Equipment Used Rolling stool Reps/Minutes 10x Comments Extra time taken for determining pt tolerance of mvmt PT-OP-R Modalities Start: 08/21/21 18:13 Freq: Status: Active Protocol: Document 10/06/21 09:05 LRN (Rec: 10/06/21 10:30 LRN [id number]) Hot Pack/Cold Pack Treatment Hot Pack Location Posterior R knee & thigh Patient Position Supine Treatment Duration (minutes) 8 Patient Tolerance Fair Comments Pt has difficult time with static positioning. PT-OP-S Aquatic Treatment Start: 10/09/21 14:42 Freq: Status: Active Protocol: Document 02/22/22 14:19 GODFREY (Rec: 02/22/22 14:31 GODFREY [id number]) Aquatics Treatment Pool Entry/Exit Pool Entry/Exit Method Stairs Water Walking [place] March Water Level Chest Level Comments core emphasis; slow speed for increased balance challenge Marching Water Level Chest Level Comments core emphasis; slow speed for increased balance challenge Sideways Water Level Chest Level Comments core emphasis; slow speed for increased balance challenge Backwards Water Level Chest Level Comments core emphasis; slow speed for increased balance challenge Forwards Water Level Chest Level Comments core emphasis; slow speed for increased balance challenge Lower Extremity Exercises HS curls Details hh on wall Body Position Standing Water Level Chest Level Reps/Duration [address] hip Details hh on wall Body Position Standing Water Level Chest Level Reps/Duration 10 B Comments cue for neutral pelvis knee fl/ex Body Position Standing Water Level Chest Level Reps/Duration 15 B Comments 90/90 position hip and knee Lower Extremity Stretches HS Details hh on wall Body Position Standing Water Level Waist Level Equipment sm noodle under ankle Reps/Duration 2 x 30 sec B gastroc, soleus Details hh on wall Body Position Standing Reps/Duration 2 x 30 sec B hip flexors, quads Details hh on wall Body Position Standing Water Level Chest Level Equipment toe on steps for stretch Reps/Duration 2 x 30 sec B Spinal Exercises seated marching Details at wall Reps/Duration 20x2 Balance SLS Details light hh on wall Body Position Standing Water Level Waist Level Reps/Duration 3x 30 B [place] Activities [place] Activities Bicycle,Bicycle Backwards, Cross Country,Hip Abduction/ Adduction Other Activities deep kicks Equipment belt, Duration 10 Comments Ski, bkwd bicycle, and jacks performed at wall to fascilitate vertical position PT-OP-T Assessment and Plan Start: 08/21/21 18:13 Freq: Status: Active Protocol: Document 02/22/22 14:19 GODFREY (Rec: 02/22/22 14:31 GODFREY [id number]) Physical Therapy Assessment Rehab Potential Rehabilitation Potential Fair Goals Three Impairment Decreased knee AROM Impairment R knee (sup): 5-100 deg's ( sitting): 22-103 deg's L knee (sup): 0-122 deg's ( sitting): 0-123 deg's Short Term Goal (STG) Improve R knee AROM (sup 0-120 deg's; sit 10-120 deg's) 10/06/21: sup: 10-70 deg's; sitting 22-65 01/11/22: goal progress sitting 15-109 STG Duration 11/22/21 Internal Control Analyst Goal (LTG) Pt goal is get up off the ground without all the manuevering/holding onto things and without hurting self. 01/11/22: goal progress LTG Duration 03/13/22 Two Impairment Decreased kirlil knee strength Impairment R knee: flex & ext 3-/5; R hip: flex 2-/5, AB & AD 1/5. L knee: flex & ext 5/5 L hip: flex 3/5, AB 3/5, AD 2 /5. Short Term Goal (STG) Increase R knee & hip strength 1/2 grade (10/06/21: Deferred testing due to R knee pain complaints) 01/11/22: testing deferred due to not feeling well Internal Control Analyst Goal (LTG) Improve R knee strength to no less than 4/5, and improve hip strength by 1 grade, to improve pt's safety with standing and gait with no giving way of the R knee in standing. LTG Duration 03/13/22 One Impairment Pt lacks appropriated self care HEP. Short Term Goal (STG) Pt will be educated in precautions with exercise and edema/pain management. (10/06/21: Pt educated in precaution of not forcefully straightening or bending the R knee with exercise). Goal met STG Duration goal met Shelter Goal (LTG) Pt educated in a self care HEP to promote knee and hip strengthening. 01/11/22: previously poorly tolerated. Encouraged increased compliance and will be progressed LTG Duration 03/13/22 Assessment Summary Assessment Pt required less strenuous activity this session due to absence from any exercise in pool for several weeks. She did not want to work on step- ups for fear it would hurt her knee too much and cause pain during car trip. She did well with slower motion walking exercises-no LOB and good posture/form. Physical Therapy Plan Frequency and Duration Frequency of Treatment 1-2x/wk Duration of Treatment 8 weeks Plan of Care Start Date 01/11/22 Plan of Care End Date 03/13/22 Therapeutic Interventions Therapeutic Interventions Aquatic Therapy,Balance Training,Gait Training,Home Exercise Program,Manual Therapy,Neuromuscular Re- education,Patient/Caregiver Education,Self-Care/Home Management,Soft Tissue Mobilization,Taping, Therapeutic Activities, Therapeutic Exercises Modalities Cold Pack/Ice Massage,Electric Stimulation,Hot Packs, Ultrasound Next Visit Focus/Plan Next Note Type Treatment Note Next Visit Plan Continue aquatic therapy with emphasis on LE strengthening, ROM, stabilization, gait training. Step ups on 4 box.
--- NOTE | 2022-02-24 09:36 | PT.OTN ---
Current Diagnoses Pain in right knee (02/22/22) Pain in left knee (02/22/22) Other tear of lateral meniscus, current injury, right knee, initial encounter (02/22/22) Physical Therapy Treatment Note PT-OP-A Visit Information Start: 08/21/21 18:13 Freq: Status: Active Protocol: Document 02/22/22 14:19 LJ (Rec: 02/22/22 14:31 LJ [id number]) Out-Patient Physical Therapy Visit Information Visit Information Visit Type Aquatic Treatment Note Visit Start Time 10:15 Visit Stop Time 11:00 Total Visit Minutes 45 Visit Number 14 Number of LABORER AQUAT[employer] Visits 1 Precautions Precautions Per intake history & pt report : Brain surgery Apr 2020 due to dental surgery for trigeminal neuralgia that went bad, (had a couple of blood vessels that needed repair), Heart attack due to stress - Mar 2019 Controlled blood pressure, Memory loss. Neuroforaminal stenosis of the cerivcal spine . Per record review: pulsatile tinnitus, L toe pain, s/p hernia repair, PT-OP-B Current Condition Start: 08/21/21 18:13 Freq: Status: Active Protocol: Document 08/24/21 08:15 LRN (Rec: 08/24/21 09:10 LRN [id number]) Current Condition History of Current Condition Onset Date R & L knee-02/25, R>L. Current Complaints Bilateral knee pain, R hip pain, difficulty walking, numb feet. History of Current Condition Bilateral knee pain but R knee is the worst knee and is very painful. Can walk on it now, L side is mildly irritating. Having R hip pain. Was told she should do surgery, but the pt doesn't want to have surgery. States the more she uses it the pain has lessened. Hopes to delay surgery. R knee is no longer getting stuck in flexion for the past month. Denies fall. States she had brain surgery on the R side. After surgery the hip and knee pain started, and her knee just goes out. After surgery would walk weird, using cardona to balance. 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 Treatment Goals Patient/Caregiver Goals Pt goal is get up off the ground without all the manuevering/holding onto things and without hurting self. Decrease pain. Increase strength of legs. 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 Current Functional Impairments (Reported) Functional Limitations- ADL's Not able to do work or get down onto the ground. Movement of knees restricted. Personal Factors Other Personal Factors That May Effect BMI 30 (Health 18.5-24.9, 30= Therapy/Recovery Obese) Brain surgery Apr 2020 Heart attack due to stress - Mar 2019 Controlled blood pressure, Memory loss. BMI 40. Pt fearful of surgery; therefore choosing to do PT for now. PT-OP-C Subjective Start: 08/21/21 18:13 Freq: Status: Active Protocol: Document 02/22/22 14:19 LJ (Rec: 02/22/22 14:31 LJ [id number]) OP-PT Subjective Patient Comments Patient Comments Pt reports she has been working in her yard and is sore. She has not been able to make it to the pool for exercise and is feeling it. She and will be driving for several hours to attend a wedding and is afraid of being in pain having to sit a long time in the car. She states she needs to take it easy today. PT-OP-J Posture/Palpation/Skin Start: 08/21/21 18:13 Freq: Status: Active Protocol: Document 08/24/21 08:15 LRN (Rec: 08/24/21 09:10 LRN [id number]) Posture Evaluation Position Standing T-Spine Posture Flattened Pelvis Posture Anteriorly Tilted Knee Posture (L) Genu Valgus,(R) Genu Valgus Comments Posture Comments Dowagers hump Endomorphic Palpation Assessment Location R hip Palpation Location R ASIS Palpation Findings Tenderness L knee Palpation Location Chondromalacia. Posterior knee tenderness. Palpation Findings Tenderness R knee Palpation Location Around joint and posterior Palpation Findings Tenderness PT-OP-K Range of Motion Start: 08/21/21 18:13 Freq: Status: Active Protocol: Document 10/06/21 09:05 LRN (Rec: 10/06/21 10:30 LRN [id number]) Knee Goniometric Range of Motion Knee Supine R Active Patient Position Supine Flexion Active (degrees) 70 Extension Active (degrees) 10 Extension Passive (degrees) 0 Supine L Active Patient Position Supine Flexion Active (degrees) 126 Extension Active (degrees) 0 R Active Patient Position Sitting Flexion Active (degrees) 65 Extension Active (degrees) 22 Comments Pt c/o pain limiting knee mobility L Active Patient Position Sitting Flexion Active (degrees) 123 Extension Active (degrees) 0 Comments 116 deg's Flex on plinth, limited by table supports. 123 deg's flex in room chair. PT-OP-M Strength Start: 08/21/21 18:13 Freq: Status: Active Protocol: Document 10/06/21 09:05 LRN (Rec: 10/06/21 10:30 LRN [id number]) Knee Strength Knee Manual Muscle Testing Right Comments Deferred due to R knee pain. PT-OP-Q Treatments Start: 08/21/21 18:13 Freq: Status: Active Protocol: Document 10/06/21 09:05 LRN (Rec: 10/06/21 10:30 LRN [id number]) Therapeutic Exercises Supine Exercises Active knee flex/ext Supine Exercise Name Active knee flex/ext Comments ROM taken Knee flex Supine Exercise Name Active knee flexion Side right Reps/Minutes 10x Comments Pt moves slow with ex and much v directions given Sitting Exercises BKFO Sitting Exercise Name Hip AB Side bilateral Equipment Used Lev 1 TB Reps/Minutes 10x w/o resistance, 10x with TB Marching Sitting Exercise Name Marching Side bilateral Reps/Minutes 10 each LE neural stretch Sitting Exercise Name Hamstring stretch x 10 f/b active ankle pumps Side right Reps/Minutes 10 Hold, f/b 10 active ankle pumps, 3 sets Comments Extra time with constant verbal cuing to do ex correctly. R knee ext Sitting Exercise Name Sitting on rm chair: active knee Ext Side right Reps/Minutes 8x, rest 2x Comments Extra time taken for determining pt tolerance of mvmt R knee flex Sitting Exercise Name Sitting on rm chair: active knee Flex Side right Equipment Used Rolling stool Reps/Minutes 10x Comments Extra time taken for determining pt tolerance of mvmt PT-OP-R Modalities Start: 08/21/21 18:13 Freq: Status: Active Protocol: Document 10/06/21 09:05 LRN (Rec: 10/06/21 10:30 LRN [id number]) Hot Pack/Cold Pack Treatment Hot Pack Location Posterior R knee & thigh Patient Position Supine Treatment Duration (minutes) 8 Patient Tolerance Fair Comments Pt has difficult time with static positioning. PT-OP-S Aquatic Treatment Start: 10/09/21 14:42 Freq: Status: Active Protocol: Document 02/22/22 14:19 GODFREY (Rec: 02/22/22 14:31 GODFREY [id number]) Aquatics Treatment Pool Entry/Exit Pool Entry/Exit Method Stairs Water Walking [place] March Water Level Chest Level Comments core emphasis; slow speed for increased balance challenge Marching Water Level Chest Level Comments core emphasis; slow speed for increased balance challenge Sideways Water Level Chest Level Comments core emphasis; slow speed for increased balance challenge Backwards Water Level Chest Level Comments core emphasis; slow speed for increased balance challenge Forwards Water Level Chest Level Comments core emphasis; slow speed for increased balance challenge Lower Extremity Exercises HS curls Details hh on wall Body Position Standing Water Level Chest Level Reps/Duration [address] hip Details hh on wall Body Position Standing Water Level Chest Level Reps/Duration 10 B Comments cue for neutral pelvis knee fl/ex Body Position Standing Water Level Chest Level Reps/Duration 15 B Comments 90/90 position hip and knee Lower Extremity Stretches HS Details hh on wall Body Position Standing Water Level Waist Level Equipment sm noodle under ankle Reps/Duration 2 x 30 sec B gastroc, soleus Details hh on wall Body Position Standing Reps/Duration 2 x 30 sec B hip flexors, quads Details hh on wall Body Position Standing Water Level Chest Level Equipment toe on steps for stretch Reps/Duration 2 x 30 sec B Spinal Exercises seated marching Details at wall Reps/Duration 20x2 Balance SLS Details light hh on wall Body Position Standing Water Level Waist Level Reps/Duration 3x 30 B [place] Activities [place] Activities Bicycle,Bicycle Backwards, Cross [place],Hip Abduction/ Adduction Other Activities deep kicks Equipment belt, Duration 10 Comments Ski, bkwd bicycle, and jacks performed at wall to fascilitate vertical position PT-OP-T Assessment and Plan Start: 08/21/21 18:13 Freq: Status: Active Protocol: Document 02/22/22 14:19 GODFREY (Rec: 02/22/22 14:31 GODFREY [id number]) Physical Therapy Assessment Rehab Potential Rehabilitation Potential Fair Goals Three Impairment Decreased knee AROM Impairment R knee (sup): 5-100 deg's ( sitting): 22-103 deg's L knee (sup): 0-122 deg's ( sitting): 0-123 deg's Short Term Goal (STG) Improve R knee AROM (sup 0-120 deg's; sit 10-120 deg's) 10/06/21: sup: 10-70 deg's; sitting 22-65 01/11/22: goal progress sitting 15-109 STG Duration 11/22/21 Tube Depatcher Goal (LTG) Pt goal is get up off the ground without all the manuevering/holding onto things and without hurting self. 01/11/22: goal progress LTG Duration 03/13/22 Two Impairment Decreased kirill knee strength Impairment R knee: flex & ext 3-/5; R hip: flex 2-/5, AB & AD 1/5. L knee: flex & ext 5/5 L hip: flex 3/5, AB 3/5, AD 2 /5. Short Term Goal (STG) Increase R knee & hip strength 1/2 grade (10/06/21: Deferred testing due to R knee pain complaints) 01/11/22: testing deferred due to not feeling well Tube Depatcher Goal (LTG) Improve R knee strength to no less than 4/5, and improve hip strength by 1 grade, to improve pt's safety with standing and gait with no giving way of the R knee in standing. LTG Duration 03/13/22 One Impairment Pt lacks appropriated self care HEP. Short Term Goal (STG) Pt will be educated in precautions with exercise and edema/pain management. (10/06/21: Pt educated in precaution of not forcefully straightening or bending the R knee with exercise). Goal met STG Duration goal met Custodial Goal (LTG) Pt educated in a self care HEP to promote knee and hip strengthening. 01/11/22: previously poorly tolerated. Encouraged increased compliance and will be progressed LTG Duration 03/13/22 Assessment Summary Assessment Pt required less strenuous activity this session due to absence from any exercise in pool for several weeks. She did not want to work on step- ups for fear it would hurt her knee too much and cause pain during car trip. She did well with slower motion walking exercises-no LOB and good posture/form. Physical Therapy Plan Frequency and Duration Frequency of Treatment 1-2x/wk Duration of Treatment 8 weeks Plan of Care Start Date 01/11/22 Plan of Care End Date 03/13/22 Therapeutic Interventions Therapeutic Interventions Aquatic Therapy,Balance Training,Gait Training,Home Exercise Program,Manual Therapy,Neuromuscular Re- education,Patient/Caregiver Education,Self-Care/Home Management,Soft Tissue Mobilization,Taping, Therapeutic Activities, Therapeutic Exercises Modalities Cold Pack/Ice Massage,Electric Stimulation,Hot Packs, Ultrasound Next Visit Focus/Plan Next Note Type Treatment Note Next Visit Plan Continue aquatic therapy with emphasis on LE strengthening, ROM, stabilization, gait training. Step ups on 4 box.
--- NOTE | 2022-03-03 13:11 | PT.OTN ---
Current Diagnoses Pain in right knee (03/08/22) Pain in left knee (03/08/22) Other tear of lateral meniscus, current injury, right knee, initial encounter (03/08/22) Physical Therapy Treatment Note PT-OP-A Visit Information Start: 08/21/21 18:13 Freq: Status: Active Protocol: Document 03/03/22 11:00 SAK (Rec: 03/04/22 16:38 SAK [id number]) Out-Patient Physical Therapy Visit Information Visit Information Visit Type Aquatic Treatment Note Visit Start Time 11:00 Visit Stop Time 11:45 Total Visit Minutes 45 Visit Number 15 Number of MATERIALS SUPERVISOR Visits 0 Precautions Precautions Per intake history & pt report : Brain surgery Apr 2020 due to dental surgery for trigeminal neuralgia that went bad, (had a couple of blood vessels that needed repair), Heart attack due to stress - Mar 2019 Controlled blood pressure, Memory loss. Neuroforaminal stenosis of the cerivcal spine . Per record review: pulsatile tinnitus, L toe pain, s/p hernia repair, PT-OP-B Current Condition Start: 08/21/21 18:13 Freq: Status: Active Protocol: Document 08/24/21 08:15 LRN (Rec: 08/24/21 09:10 LRN [id number]) Current Condition History of Current Condition Onset Date R & L knee-02/25, R>L. Current Complaints Bilateral knee pain, R hip pain, difficulty walking, numb feet. History of Current Condition Bilateral knee pain but R knee is the worst knee and is very painful. Can walk on it now, L side is mildly irritating. Having R hip pain. Was told she should do surgery, but the pt doesn't want to have surgery. States the more she uses it the pain has lessened. Hopes to delay surgery. R knee is no longer getting stuck in flexion for the past month. Denies fall. States she had brain surgery on the R side. After surgery the hip and knee pain started, and her knee just goes out. After surgery would walk weird, using cardona to balance. 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 Treatment Goals Patient/Caregiver Goals Pt goal is get up off the ground without all the manuevering/holding onto things and without hurting self. Decrease pain. Increase strength of legs. 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 Current Functional Impairments (Reported) Functional Limitations- ADL's Not able to do work or get down onto the ground. Movement of knees restricted. Personal Factors Other Personal Factors That May Effect BMI 30 (Health 18.5-24.9, 30= Therapy/Recovery Obese) Brain surgery Apr 2020 Heart attack due to stress - Mar 2019 Controlled blood pressure, Memory loss. BMI 40. Pt fearful of surgery; therefore choosing to do PT for now. PT-OP-C Subjective Start: 08/21/21 18:13 Freq: Status: Active Protocol: Document 03/03/22 11:00 SAK (Rec: 03/04/22 16:38 SAK [id number]) OP-PT Subjective Patient Comments Patient Comments Just got back from going to wedding in [place] over the weekend, states her body did better than expected. Has appointment with orthopedist soon. She has been having significant shoulder pain so requests exercise modification so she doesn't have to use her shoulder, going to see her doctor soon. PT-OP-J Posture/Palpation/Skin Start: 08/21/21 18:13 Freq: Status: Active Protocol: Document 08/24/21 08:15 LRN (Rec: 08/24/21 09:10 LRN [id number]) Posture Evaluation Position Standing T-Spine Posture Flattened Pelvis Posture Anteriorly Tilted Knee Posture (L) Genu Valgus,(R) Genu Valgus Comments Posture Comments Dowagers hump Endomorphic Palpation Assessment Location R hip Palpation Location R ASIS Palpation Findings Tenderness L knee Palpation Location Chondromalacia. Posterior knee tenderness. Palpation Findings Tenderness R knee Palpation Location Around joint and posterior Palpation Findings Tenderness PT-OP-K Range of Motion Start: 08/21/21 18:13 Freq: Status: Active Protocol: Document 10/06/21 09:05 LRN (Rec: 10/06/21 10:30 LRN [id number]) Knee Goniometric Range of Motion Knee Supine R Active Patient Position Supine Flexion Active (degrees) 70 Extension Active (degrees) 10 Extension Passive (degrees) 0 Supine L Active Patient Position Supine Flexion Active (degrees) 126 Extension Active (degrees) 0 R Active Patient Position Sitting Flexion Active (degrees) 65 Extension Active (degrees) 22 Comments Pt c/o pain limiting knee mobility L Active Patient Position Sitting Flexion Active (degrees) 123 Extension Active (degrees) 0 Comments 116 deg's Flex on plinth, limited by table supports. 123 deg's flex in room chair. PT-OP-M Strength Start: 08/21/21 18:13 Freq: Status: Active Protocol: Document 10/06/21 09:05 LRN (Rec: 10/06/21 10:30 LRN [id number]) Knee Strength Knee Manual Muscle Testing Right Comments Deferred due to R knee pain. PT-OP-Q Treatments Start: 08/21/21 18:13 Freq: Status: Active Protocol: Document 10/06/21 09:05 LRN (Rec: 10/06/21 10:30 LRN [id number]) Therapeutic Exercises Supine Exercises Active knee flex/ext Supine Exercise Name Active knee flex/ext Comments ROM taken Knee flex Supine Exercise Name Active knee flexion Side right Reps/Minutes 10x Comments Pt moves slow with ex and much v directions given Sitting Exercises BKFO Sitting Exercise Name Hip AB Side bilateral Equipment Used Lev 1 TB Reps/Minutes 10x w/o resistance, 10x with TB Marching Sitting Exercise Name Marching Side bilateral Reps/Minutes 10 each LE neural stretch Sitting Exercise Name Hamstring stretch x 10 f/b active ankle pumps Side right Reps/Minutes 10 Hold, f/b 10 active ankle pumps, 3 sets Comments Extra time with constant verbal cuing to do ex correctly. R knee ext Sitting Exercise Name Sitting on rm chair: active knee Ext Side right Reps/Minutes 8x, rest 2x Comments Extra time taken for determining pt tolerance of mvmt R knee flex Sitting Exercise Name Sitting on rm chair: active knee Flex Side right Equipment Used Rolling stool Reps/Minutes 10x Comments Extra time taken for determining pt tolerance of mvmt PT-OP-R Modalities Start: 08/21/21 18:13 Freq: Status: Active Protocol: Document 10/06/21 09:05 LRN (Rec: 10/06/21 10:30 LRN [id number]) Hot Pack/Cold Pack Treatment Hot Pack Location Posterior R knee & thigh Patient Position Supine Treatment Duration (minutes) 8 Patient Tolerance Fair Comments Pt has difficult time with static positioning. PT-OP-S Aquatic Treatment Start: 10/09/21 14:42 Freq: Status: Active Protocol: Document 03/03/22 11:00 SAK (Rec: 03/04/22 16:38 [facility] [id number]) Aquatics Treatment Pool Entry/Exit Pool Entry/Exit Method Stairs Water Walking [place] March Water Level Chest Level Walking Equipment Resistance Fins Marching Water Level Chest Level Walking Equipment Resistance Fins Sideways Water Level Chest Level Walking Equipment Resistance Fins Backwards Water Level Chest Level Walking Equipment Resistance Fins Forwards Water Level Chest Level Walking Equipment Resistance Fins Lower Extremity Exercises HS curls Details hh on wall Body Position Standing Water Level Chest Level Equipment Resistance Fins Reps/Duration [address] hip Details hh on wall Body Position Standing Water Level Chest Level Equipment Resistance Fins Reps/Duration 10 B Comments cue for neutral pelvis knee fl/ex Body Position Standing Water Level Chest Level Equipment Resistance Fins Reps/Duration 15 B Comments 90/90 position hip and knee Balance SLS Details light hh on wall Body Position Standing Water Level Waist Level Reps/Duration 3x 30 B [place] Activities [place] Activities Bicycle,Cross Country,Running, Hip Abduction/Adduction,Sit Kicks Equipment belt Duration 10 Comments cross country LE's and jacks performed at wall to fascilitate vertical position PT-OP-T Assessment and Plan Start: 08/21/21 18:13 Freq: Status: Active Protocol: Document 03/03/22 11:00 [facility] (Rec: 03/04/22 16:38 [facility] [id number]) Physical Therapy Assessment Rehab Potential Rehabilitation Potential Fair Goals Three Impairment Decreased knee AROM Impairment R knee (sup): 5-100 deg's ( sitting): 22-103 deg's L knee (sup): 0-122 deg's ( sitting): 0-123 deg's Short Term Goal (STG) Improve R knee AROM (sup 0-120 deg's; sit 10-120 deg's) 10/06/21: sup: 10-70 deg's; sitting 22-65 01/11/22: goal progress sitting 15-109 03/03/22: goal progress sitting 13-112 STG Duration 04/03/22 Weights And Measures Sealer Goal (LTG) Pt goal is get up off the ground without all the manuevering/holding onto things and without hurting self. 01/11/22: goal progress 03/03/22: still challenging and requires use of bilateral UE' s though reporting improvement LTG Duration 05/04/22 Two Impairment Decreased kirill knee strength Impairment R knee: flex & ext 3-/5; R hip: flex 2-/5, AB & AD 1/5. L knee: flex & ext 5/5 L hip: flex 3/5, AB 3/5, AD 2 /5. Short Term Goal (STG) Increase R knee & hip strength 1/2 grade (10/06/21: Deferred testing due to R knee pain complaints) 01/11/22: testing deferred due to not feeling well 03/03/22: goal achioeved. STG Duration 04/03/22 Mcc Goal (LTG) Improve R knee strength to no less than 4/5, and improve hip strength by 1 grade, to improve pt's safety with standing and gait with no giving way of the R knee in standing. 03/03/22: goal progress LTG Duration 05/04/22 One Impairment Pt lacks appropriated self care HEP. Short Term Goal (STG) Pt will be educated in precautions with exercise and edema/pain management. (10/06/21: Pt educated in precaution of not forcefully straightening or bending the R knee with exercise). Goal met STG Duration goal met Mcc Goal (LTG) Pt educated in a self care HEP to promote knee and hip strengthening. 01/11/22: previously poorly tolerated. Encouraged increased compliance and will be progressed 03/03/22: continues to report poor tolerance for land-based exercise but good tolerance for aquatic PT LTG Duration 05/04/22 Assessment Summary Assessment Patient required modification of aquatic exercises today due to onset of shoulder pain unknown reason. Reports decrease in knee pain with aquatic therapy, not sure if significant enough to keep her from having surgery but continues to report improvement, demonstrate improved exercise tolerance and strength, and potential for further improvement. Recommend continued aquatic PT . Physical Therapy Plan Frequency and Duration Frequency of Treatment 1-2x/wk Duration of Treatment 8 weeks Plan of Care Start Date 03/03/22 Plan of Care End Date 05/04/22 Therapeutic Interventions Therapeutic Interventions Aquatic Therapy,Balance Training,Gait Training,Home Exercise Program,Manual Therapy,Neuromuscular Re- education,Patient/Caregiver Education,Self-Care/Home Management,Soft Tissue Mobilization,Taping, Therapeutic Activities, Therapeutic Exercises Modalities Cold Pack/Ice Massage,Electric Stimulation,Hot Packs, Ultrasound Next Visit Focus/Plan Next Note Type Treatment Note Next Visit Plan Continue aquatic therapy with emphasis on LE strengthening, ROM, stabilization, gait training. Step ups on 4 box.
--- NOTE | 2022-03-03 13:12 | PT.OPPOC ---
Physical, Occupational & Speech Therapy At [facility] Current Diagnoses Pain in right knee (03/08/22) Pain in left knee (03/08/22) Other tear of lateral meniscus, current injury, right knee, initial encounter (03/08/22) Visit Care Team Role Provider Type Panchito Velez MD Attending Provider Physician Family Provider Primary Care Provider Referring Provider Specialty: Family Practice Address: [address] [place] [address], [facility] Email: [email or web address] Plan Of Care PT-OP-T Assessment and Plan Start: 08/21/21 18:13 Freq: Status: Active Protocol: Document 03/03/22 11:00 SAK (Rec: 03/04/22 16:38 SAK [id number]) Physical Therapy Assessment Rehab Potential Rehabilitation Potential Fair Goals Three Impairment Decreased knee AROM Impairment R knee (sup): 5-100 deg's ( sitting): 22-103 deg's L knee (sup): 0-122 deg's ( sitting): 0-123 deg's Short Term Goal (STG) Improve R knee AROM (sup 0-120 deg's; sit 10-120 deg's) 10/06/21: sup: 10-70 deg's; sitting 22-65 01/11/22: goal progress sitting 15-109 03/03/22: goal progress sitting 13-112 STG Duration 04/03/22 Sales Development Coordinator Goal (LTG) Pt goal is get up off the ground without all the manuevering/holding onto things and without hurting self. 01/11/22: goal progress 03/03/22: still challenging and requires use of bilateral UE' s though reporting improvement LTG Duration 05/04/22 Two Impairment Decreased kirill knee strength Impairment R knee: flex & ext 3-/5; R hip: flex 2-/5, AB & AD 1/5. L knee: flex & ext 5/5 L hip: flex 3/5, AB 3/5, AD 2 /5. Short Term Goal (STG) Increase R knee & hip strength 1/2 grade (10/06/21: Deferred testing due to R knee pain complaints) 01/11/22: testing deferred due to not feeling well 03/03/22: goal achioeved. STG Duration 04/03/22 Sales Development Coordinator Goal (LTG) Improve R knee strength to no less than 4/5, and improve hip strength by 1 grade, to improve pt's safety with standing and gait with no giving way of the R knee in standing. 03/03/22: goal progress LTG Duration 05/04/22 One Impairment Pt lacks appropriated self care HEP. Short Term Goal (STG) Pt will be educated in precautions with exercise and edema/pain management. (10/06/21: Pt educated in precaution of not forcefully straightening or bending the R knee with exercise). Goal met STG Duration goal met [facility] Goal (LTG) Pt educated in a self care HEP to promote knee and hip strengthening. 01/11/22: previously poorly tolerated. Encouraged increased compliance and will be progressed 03/03/22: continues to report poor tolerance for land-based exercise but good tolerance for aquatic PT LTG Duration 05/04/22 Assessment Summary Assessment Patient required modification of aquatic exercises today due to onset of shoulder pain unknown reason. Reports decrease in knee pain with aquatic therapy, not sure if significant enough to keep her from having surgery but continues to report improvement, demonstrate improved exercise tolerance and strength, and potential for further improvement. Recommend continued aquatic PT . Physical Therapy Plan Frequency and Duration Frequency of Treatment 1-2x/wk Duration of Treatment 8 weeks Plan of Care Start Date 03/03/22 Plan of Care End Date 05/04/22 Therapeutic Interventions Therapeutic Interventions Aquatic Therapy,Balance Training,Gait Training,Home Exercise Program,Manual Therapy,Neuromuscular Re- education,Patient/Caregiver Education,Self-Care/Home Management,Soft Tissue Mobilization,Taping, Therapeutic Activities, Therapeutic Exercises Modalities Cold Pack/Ice Massage,Electric Stimulation,Hot Packs, Ultrasound Next Visit Focus/Plan Next Note Type Treatment Note Next Visit Plan Continue aquatic therapy with emphasis on LE strengthening, ROM, stabilization, gait training. Step ups on 4 box. Plan of Care Dates Plan of Care Start Date 03/03/22 Plan of Care End Date 05/04/22 Electronically Signed by: Anayeli Chapman, PT 03/24/22 2233 If you are in agreement with this Plan of Care, please return a signed and dated copy. I have reviewed this Plan of Care and certify that the skilled therapy services above are required to meet the patient?s needs. Physician Signature Date Printed Name and Credentials Clinical Instructor Signature Printed Name and Credentials
--- NOTE | 2022-03-29 15:55 | PT.OTN ---
Current Diagnoses Pain in right knee (03/08/22) Pain in left knee (03/08/22) Other tear of lateral meniscus, current injury, right knee, initial encounter (03/08/22) Physical Therapy Treatment Note PT-OP-A Visit Information Start: 08/21/21 18:13 Freq: Status: Active Protocol: Document 03/08/22 10:15 LJ (Rec: 03/29/22 15:55 LJ [id number]) Out-Patient Physical Therapy Visit Information Visit Information Visit Type Aquatic Treatment Note Visit Start Time 10:15 Visit Stop Time 11:00 Total Visit Minutes 45 Visit Number 16 Number of DISTRICT AGENT Visits 1 Precautions Precautions Per intake history & pt report : Brain surgery Apr 2020 due to dental surgery for trigeminal neuralgia that went bad, (had a couple of blood vessels that needed repair), Heart attack due to stress - Mar 2019 Controlled blood pressure, Memory loss. Neuroforaminal stenosis of the cerivcal spine . Per record review: pulsatile tinnitus, L toe pain, s/p hernia repair, PT-OP-B Current Condition Start: 08/21/21 18:13 Freq: Status: Active Protocol: Document 08/24/21 08:15 LRN (Rec: 08/24/21 09:10 LRN [id number]) Current Condition History of Current Condition Onset Date R & L knee-02/25, R>L. Current Complaints Bilateral knee pain, R hip pain, difficulty walking, numb feet. History of Current Condition Bilateral knee pain but R knee is the worst knee and is very painful. Can walk on it now, L side is mildly irritating. Having R hip pain. Was told she should do surgery, but the pt doesn't want to have surgery. States the more she uses it the pain has lessened. Hopes to delay surgery. R knee is no longer getting stuck in flexion for the past month. Denies fall. States she had brain surgery on the R side. After surgery the hip and knee pain started, and her knee just goes out. After surgery would walk weird, using cardona to balance. 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 Treatment Goals Patient/Caregiver Goals Pt goal is get up off the ground without all the manuevering/holding onto things and without hurting self. Decrease pain. Increase strength of legs. 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 Current Functional Impairments (Reported) Functional Limitations- ADL's Not able to do work or get down onto the ground. Movement of knees restricted. Personal Factors Other Personal Factors That May Effect BMI 30 (Health 18.5-24.9, 30= Therapy/Recovery Obese) Brain surgery Apr 2020 Heart attack due to stress - Mar 2019 Controlled blood pressure, Memory loss. BMI 40. Pt fearful of surgery; therefore choosing to do PT for now. PT-OP-C Subjective Start: 08/21/21 18:13 Freq: Status: Active Protocol: Document 03/08/22 10:15 LJ (Rec: 03/29/22 15:55 LJ [id number]) OP-PT Subjective Patient Comments Patient Comments Pt reports pain in left shoulder. Unable to use it much, especially reaching overhead. She does not know what happened and cannot recall any events that caused it. She demonstrates moderate guarding and requests that therapy be kept to a gentle level. PT-OP-J Posture/Palpation/Skin Start: 08/21/21 18:13 Freq: Status: Active Protocol: Document 08/24/21 08:15 LRN (Rec: 08/24/21 09:10 LRN [id number]) Posture Evaluation Position Standing T-Spine Posture Flattened Pelvis Posture Anteriorly Tilted Knee Posture (L) Genu Valgus,(R) Genu Valgus Comments Posture Comments Dowagers hump Endomorphic Palpation Assessment Location R hip Palpation Location R ASIS Palpation Findings Tenderness L knee Palpation Location Chondromalacia. Posterior knee tenderness. Palpation Findings Tenderness R knee Palpation Location Around joint and posterior Palpation Findings Tenderness PT-OP-K Range of Motion Start: 08/21/21 18:13 Freq: Status: Active Protocol: Document 10/06/21 09:05 LRN (Rec: 10/06/21 10:30 LRN [id number]) Knee Goniometric Range of Motion Knee Supine R Active Patient Position Supine Flexion Active (degrees) 70 Extension Active (degrees) 10 Extension Passive (degrees) 0 Supine L Active Patient Position Supine Flexion Active (degrees) 126 Extension Active (degrees) 0 R Active Patient Position Sitting Flexion Active (degrees) 65 Extension Active (degrees) 22 Comments Pt c/o pain limiting knee mobility L Active Patient Position Sitting Flexion Active (degrees) 123 Extension Active (degrees) 0 Comments 116 deg's Flex on plinth, limited by table supports. 123 deg's flex in room chair. PT-OP-M Strength Start: 08/21/21 18:13 Freq: Status: Active Protocol: Document 10/06/21 09:05 LRN (Rec: 10/06/21 10:30 LRN [id number]) Knee Strength Knee Manual Muscle Testing Right Comments Deferred due to R knee pain. PT-OP-Q Treatments Start: 08/21/21 18:13 Freq: Status: Active Protocol: Document 10/06/21 09:05 LRN (Rec: 10/06/21 10:30 LRN [id number]) Therapeutic Exercises Supine Exercises Active knee flex/ext Supine Exercise Name Active knee flex/ext Comments ROM taken Knee flex Supine Exercise Name Active knee flexion Side right Reps/Minutes 10x Comments Pt moves slow with ex and much v directions given Sitting Exercises BKFO Sitting Exercise Name Hip AB Side bilateral Equipment Used Lev 1 TB Reps/Minutes 10x w/o resistance, 10x with TB Marching Sitting Exercise Name Marching Side bilateral Reps/Minutes 10 each LE neural stretch Sitting Exercise Name Hamstring stretch x 10 f/b active ankle pumps Side right Reps/Minutes 10 Hold, f/b 10 active ankle pumps, 3 sets Comments Extra time with constant verbal cuing to do ex correctly. R knee ext Sitting Exercise Name Sitting on rm chair: active knee Ext Side right Reps/Minutes 8x, rest 2x Comments Extra time taken for determining pt tolerance of mvmt R knee flex Sitting Exercise Name Sitting on rm chair: active knee Flex Side right Equipment Used Rolling stool Reps/Minutes 10x Comments Extra time taken for determining pt tolerance of mvmt PT-OP-R Modalities Start: 08/21/21 18:13 Freq: Status: Active Protocol: Document 10/06/21 09:05 LRN (Rec: 10/06/21 10:30 LRN [id number]) Hot Pack/Cold Pack Treatment Hot Pack Location Posterior R knee & thigh Patient Position Supine Treatment Duration (minutes) 8 Patient Tolerance Fair Comments Pt has difficult time with static positioning. PT-OP-S Aquatic Treatment Start: 10/09/21 14:42 Freq: Status: Active Protocol: Document 03/08/22 10:15 LJ (Rec: 03/29/22 15:55 GODFREY [id number]) Aquatics Treatment Pool Entry/Exit Pool Entry/Exit Method Stairs Water Walking Sideways Water Level Chest Level Comments slow, minimal movement with LUE Forwards Water Level Chest Level Comments slow, minimal movement with LUE Lower Extremity Exercises HS curls Details hh on wall Body Position Standing Water Level Chest Level Reps/Duration [address] hip Details hh on wall Body Position Standing Water Level Chest Level Reps/Duration 10 B Comments cue for neutral pelvis knee fl/ex Body Position Sitting Water Level Neck Level Reps/Duration 15 B Comments 90/90 position hip and knee Lower Extremity Stretches HS Details hh on wall Body Position Standing Water Level Waist Level Equipment sm noodle under ankle Reps/Duration 2 x 30 sec B gastroc, soleus Details hh on wall Body Position Standing Reps/Duration 2 x 30 sec B hip flexors, quads Details hh on wall Body Position Standing Water Level Chest Level Equipment toe on steps for stretch Reps/Duration 2 x 30 sec B Upper Extremity Exercises horizontal ab/ad Details gentle Body Position Sitting Reps/Duration 10x Comments limited ROM and strength with LUE abd/add Details gentle Body Position Sitting Water Level Neck Level Reps/Duration 10x Comments limited ROM and strength with LUE flex/ext Details gentle Body Position Sitting Water Level Neck Level Reps/Duration 10x B Comments limited ROM and strength with LUE torso rotation Details braced at wall Body Position Sitting Water Level Neck Level Reps/Duration 10 Comments UEs held 90/90; gentle mvnt Spinal Exercises seated marching Details at wall Reps/Duration 20x2 Balance SLS Details light hh on wall Body Position Standing Water Level Waist Level Reps/Duration 3x 30 B [place] Activities [place] Activities Bicycle,Cross Country,Hip Abduction/Adduction,Sit Kicks Other Activities jogging Equipment belt Duration 15 Comments gentle mvnt with UEs; attempted bicycle backwards but pt unable to tolerate holding noodle with both UEs and became awkward with just one arm PT-OP-T Assessment and Plan Start: 08/21/21 18:13 Freq: Status: Active Protocol: Document 03/08/22 10:15 GODFREY (Rec: 03/29/22 15:55 GODFREY [id number]) Physical Therapy Assessment Rehab Potential Rehabilitation Potential Fair Goals Three Impairment Decreased knee AROM Impairment R knee (sup): 5-100 deg's ( sitting): 22-103 deg's L knee (sup): 0-122 deg's ( sitting): 0-123 deg's Short Term Goal (STG) Improve R knee AROM (sup 0-120 deg's; sit 10-120 deg's) 10/06/21: sup: 10-70 deg's; sitting 22-65 01/11/22: goal progress sitting 15-109 03/03/22: goal progress sitting 13-112 STG Duration 04/03/22 Delivery Architect Goal (LTG) Pt goal is get up off the ground without all the manuevering/holding onto things and without hurting self. 01/11/22: goal progress 03/03/22: still challenging and requires use of bilateral UE' s though reporting improvement LTG Duration 05/04/22 Two Impairment Decreased kirill knee strength Impairment R knee: flex & ext 3-/5; R hip: flex 2-/5, AB & AD 1/5. L knee: flex & ext 5/5 L hip: flex 3/5, AB 3/5, AD 2 /5. Short Term Goal (STG) Increase R knee & hip strength 1/2 grade (10/06/21: Deferred testing due to R knee pain complaints) 01/11/22: testing deferred due to not feeling well 03/03/22: goal achioeved. STG Duration 04/03/22 Mcc Goal (LTG) Improve R knee strength to no less than 4/5, and improve hip strength by 1 grade, to improve pt's safety with standing and gait with no giving way of the R knee in standing. 03/03/22: goal progress LTG Duration 05/04/22 One Impairment Pt lacks appropriated self care HEP. Short Term Goal (STG) Pt will be educated in precautions with exercise and edema/pain management. (10/06/21: Pt educated in precaution of not forcefully straightening or bending the R knee with exercise). Goal met STG Duration goal met Delivery Architect Goal (LTG) Pt educated in a self care HEP to promote knee and hip strengthening. 01/11/22: previously poorly tolerated. Encouraged increased compliance and will be progressed 03/03/22: continues to report poor tolerance for land-based exercise but good tolerance for aquatic PT LTG Duration 05/04/22 Assessment Summary Assessment Pt able to tolerate decrease effort with all exercises other than using noodle in deep water for backward bicycling. Reports knees feel better however she is not able to go to the pool consistently enough to see much carryover onto land. She is discouraged with the shoulder limiting her ability to function. Physical Therapy Plan Frequency and Duration Frequency of Treatment 1-2x/wk Duration of Treatment 8 weeks Plan of Care Start Date 03/03/22 Plan of Care End Date 05/04/22 Therapeutic Interventions Therapeutic Interventions Aquatic Therapy,Balance Training,Gait Training,Home Exercise Program,Manual Therapy,Neuromuscular Re- education,Patient/Caregiver Education,Self-Care/Home Management,Soft Tissue Mobilization,Taping, Therapeutic Activities, Therapeutic Exercises Modalities Cold Pack/Ice Massage,Electric Stimulation,Hot Packs, Ultrasound Next Visit Focus/Plan Next Note Type Treatment Note Next Visit Plan Continue aquatic therapy with emphasis on LE strengthening, ROM, stabilization, gait training. Step ups on 4 box.
--- NOTE | 2022-03-31 15:21 | PT.OTN ---
Current Diagnoses Pain in right knee (03/08/22) Pain in left knee (03/08/22) Other tear of lateral meniscus, current injury, right knee, initial encounter (03/08/22) Physical Therapy Treatment Note PT-OP-A Visit Information Start: 08/21/21 18:13 Freq: Status: Active Protocol: Document 03/31/22 15:04 LJ (Rec: 03/31/22 15:21 LJ [id number]) Out-Patient Physical Therapy Visit Information Visit Information Visit Type Aquatic Treatment Note Visit Start Time 10:15 Visit Stop Time 11:00 Total Visit Minutes 45 Visit Number 17 Number of LAST TRIMMER Visits 2 Precautions Precautions Per intake history & pt report : Brain surgery Apr 2020 due to dental surgery for trigeminal neuralgia that went bad, (had a couple of blood vessels that needed repair), Heart attack due to stress - Mar 2019 Controlled blood pressure, Memory loss. Neuroforaminal stenosis of the cerivcal spine . Per record review: pulsatile tinnitus, L toe pain, s/p hernia repair, PT-OP-B Current Condition Start: 08/21/21 18:13 Freq: Status: Active Protocol: Document 08/24/21 08:15 LRN (Rec: 08/24/21 09:10 LRN [id number]) Current Condition History of Current Condition Onset Date R & L knee-02/25, R>L. Current Complaints Bilateral knee pain, R hip pain, difficulty walking, numb feet. History of Current Condition Bilateral knee pain but R knee is the worst knee and is very painful. Can walk on it now, L side is mildly irritating. Having R hip pain. Was told she should do surgery, but the pt doesn't want to have surgery. States the more she uses it the pain has lessened. Hopes to delay surgery. R knee is no longer getting stuck in flexion for the past month. Denies fall. States she had brain surgery on the R side. After surgery the hip and knee pain started, and her knee just goes out. After surgery would walk weird, using acrdona to balance. 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 Treatment Goals Patient/Caregiver Goals Pt goal is get up off the ground without all the manuevering/holding onto things and without hurting self. Decrease pain. Increase strength of legs. 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 Current Functional Impairments (Reported) Functional Limitations- ADL's Not able to do work or get down onto the ground. Movement of knees restricted. Personal Factors Other Personal Factors That May Effect BMI 30 (Health 18.5-24.9, 30= Therapy/Recovery Obese) Brain surgery Apr 2020 Heart attack due to stress - Mar 2019 Controlled blood pressure, Memory loss. BMI 40. Pt fearful of surgery; therefore choosing to do PT for now. PT-OP-C Subjective Start: 08/21/21 18:13 Freq: Status: Active Protocol: Document 03/31/22 15:04 LJ (Rec: 03/31/22 15:21 LJ [id number]) OP-PT Subjective Patient Comments Patient Comments Pt states pain in shoulder still there but not as painful . She still wants to take it easy to avoid making it worse . She has a lot to do later. She saw her doc and got an order for MRI PT-OP-J Posture/Palpation/Skin Start: 08/21/21 18:13 Freq: Status: Active Protocol: Document 08/24/21 08:15 LRN (Rec: 08/24/21 09:10 LRN [id number]) Posture Evaluation Position Standing T-Spine Posture Flattened Pelvis Posture Anteriorly Tilted Knee Posture (L) Genu Valgus,(R) Genu Valgus Comments Posture Comments Dowagers hump Endomorphic Palpation Assessment Location R hip Palpation Location R ASIS Palpation Findings Tenderness L knee Palpation Location Chondromalacia. Posterior knee tenderness. Palpation Findings Tenderness R knee Palpation Location Around joint and posterior Palpation Findings Tenderness PT-OP-K Range of Motion Start: 08/21/21 18:13 Freq: Status: Active Protocol: Document 10/06/21 09:05 LRN (Rec: 10/06/21 10:30 LRN [id number]) Knee Goniometric Range of Motion Knee Supine R Active Patient Position Supine Flexion Active (degrees) 70 Extension Active (degrees) 10 Extension Passive (degrees) 0 Supine L Active Patient Position Supine Flexion Active (degrees) 126 Extension Active (degrees) 0 R Active Patient Position Sitting Flexion Active (degrees) 65 Extension Active (degrees) 22 Comments Pt c/o pain limiting knee mobility L Active Patient Position Sitting Flexion Active (degrees) 123 Extension Active (degrees) 0 Comments 116 deg's Flex on plinth, limited by table supports. 123 deg's flex in room chair. PT-OP-M Strength Start: 08/21/21 18:13 Freq: Status: Active Protocol: Document 10/06/21 09:05 LRN (Rec: 10/06/21 10:30 LRN [id number]) Knee Strength Knee Manual Muscle Testing Right Comments Deferred due to R knee pain. PT-OP-Q Treatments Start: 08/21/21 18:13 Freq: Status: Active Protocol: Document 10/06/21 09:05 LRN (Rec: 10/06/21 10:30 LRN [id number]) Therapeutic Exercises Supine Exercises Active knee flex/ext Supine Exercise Name Active knee flex/ext Comments ROM taken Knee flex Supine Exercise Name Active knee flexion Side right Reps/Minutes 10x Comments Pt moves slow with ex and much v directions given Sitting Exercises BKFO Sitting Exercise Name Hip AB Side bilateral Equipment Used Lev 1 TB Reps/Minutes 10x w/o resistance, 10x with TB Marching Sitting Exercise Name Marching Side bilateral Reps/Minutes 10 each LE neural stretch Sitting Exercise Name Hamstring stretch x 10 f/b active ankle pumps Side right Reps/Minutes 10 Hold, f/b 10 active ankle pumps, 3 sets Comments Extra time with constant verbal cuing to do ex correctly. R knee ext Sitting Exercise Name Sitting on rm chair: active knee Ext Side right Reps/Minutes 8x, rest 2x Comments Extra time taken for determining pt tolerance of mvmt R knee flex Sitting Exercise Name Sitting on rm chair: active knee Flex Side right Equipment Used Rolling stool Reps/Minutes 10x Comments Extra time taken for determining pt tolerance of mvmt PT-OP-R Modalities Start: 08/21/21 18:13 Freq: Status: Active Protocol: Document 10/06/21 09:05 LRN (Rec: 10/06/21 10:30 LRN [id number]) Hot Pack/Cold Pack Treatment Hot Pack Location Posterior R knee & thigh Patient Position Supine Treatment Duration (minutes) 8 Patient Tolerance Fair Comments Pt has difficult time with static positioning. PT-OP-S Aquatic Treatment Start: 10/09/21 14:42 Freq: Status: Active Protocol: Document 03/31/22 15:04 LJ (Rec: 03/31/22 15:21 LJ [id number]) Aquatics Treatment Pool Entry/Exit Pool Entry/Exit Method Stairs Water Walking Lunge Walk Water Level Chest Level Walking Equipment Resistance Fins Comments f/b [place] March Water Level Chest Level Walking Equipment Resistance Fins Marching Water Level Chest Level Walking Equipment Resistance Fins Sideways Water Level Chest Level Backwards Water Level Chest Level Walking Equipment Resistance Fins Forwards Water Level Chest Level Walking Equipment Resistance Fins Lower Extremity Exercises toe, heel raises Details hh on wall Body Position Standing Water Level Chest Level Reps/Duration 10 ea HS curls Details hh on wall Body Position Standing Water Level Chest Level Reps/Duration [address] hip Details hh on wall Body Position Standing Water Level Chest Level Reps/Duration 10 B Comments cue for neutral pelvis knee fl/ex Body Position Sitting Water Level Neck Level Reps/Duration 15 B Comments 90/90 position hip and knee Balance boxes Details step up/down, over f/side Water Level Waist Level Reps/Duration x8 leading with both LEs Comments progressed to bottom stair w/o pain and min hh [place] Activities [place] Activities Bicycle,Cross Country,Hip Abduction/Adduction,Sit Kicks Other Activities jogging- 4 min crdio Equipment belt Duration 15 Comments gentle mvnt with UEs PT-OP-T Assessment and Plan Start: 08/21/21 18:13 Freq: Status: Active Protocol: Document 03/31/22 15:04 GODFREY (Rec: 03/31/22 15:21 [id number]) Physical Therapy Assessment Rehab Potential Rehabilitation Potential Fair Goals Three Impairment Decreased knee AROM Impairment R knee (sup): 5-100 deg's ( sitting): 22-103 deg's L knee (sup): 0-122 deg's ( sitting): 0-123 deg's Short Term Goal (STG) Improve R knee AROM (sup 0-120 deg's; sit 10-120 deg's) 10/06/21: sup: 10-70 deg's; sitting 22-65 01/11/22: goal progress sitting 15-109 03/03/22: goal progress sitting 13-112 STG Duration 04/03/22 Snf Goal (LTG) Pt goal is get up off the ground without all the manuevering/holding onto things and without hurting self. 01/11/22: goal progress 03/03/22: still challenging and requires use of bilateral UE' s though reporting improvement LTG Duration 05/04/22 Two Impairment Decreased kirill knee strength Impairment R knee: flex & ext 3-/5; R hip: flex 2-/5, AB & AD 1/5. L knee: flex & ext 5/5 L hip: flex 3/5, AB 3/5, AD 2 /5. Short Term Goal (STG) Increase R knee & hip strength 1/2 grade (10/06/21: Deferred testing due to R knee pain complaints) 01/11/22: testing deferred due to not feeling well 03/03/22: goal achioeved. STG Duration 04/03/22 Snf Goal (LTG) Improve R knee strength to no less than 4/5, and improve hip strength by 1 grade, to improve pt's safety with standing and gait with no giving way of the R knee in standing. 03/03/22: goal progress LTG Duration 05/04/22 One Impairment Pt lacks appropriated self care HEP. Short Term Goal (STG) Pt will be educated in precautions with exercise and edema/pain management. (10/06/21: Pt educated in precaution of not forcefully straightening or bending the R knee with exercise). Goal met STG Duration goal met Tray Drier Operator Goal (LTG) Pt educated in a self care HEP to promote knee and hip strengthening. 01/11/22: previously poorly tolerated. Encouraged increased compliance and will be progressed 03/03/22: continues to report poor tolerance for land-based exercise but good tolerance for aquatic PT LTG Duration 05/04/22 Assessment Summary Assessment Pt did not c/o pain either in shoulder or knees. With box exercises she demonstrated improved coordination and strength. Her balance has improved quite a bit compared to the beginning of her AT sessions. She states she has noticed this to be true on land as well. She was able to get her UEs to 90degree flexion and abd while doing deep water exercises and tolerated activity level well. Physical Therapy Plan Frequency and Duration Frequency of Treatment 1-2x/wk Duration of Treatment 8 weeks Plan of Care Start Date 03/03/22 Plan of Care End Date 05/04/22 Therapeutic Interventions Therapeutic Interventions Aquatic Therapy,Balance Training,Gait Training,Home Exercise Program,Manual Therapy,Neuromuscular Re- education,Patient/Caregiver Education,Self-Care/Home Management,Soft Tissue Mobilization,Taping, Therapeutic Activities, Therapeutic Exercises Modalities Cold Pack/Ice Massage,Electric Stimulation,Hot Packs, Ultrasound Next Visit Focus/Plan Next Note Type Treatment Note Next Visit Plan Continue aquatic therapy with emphasis on LE strengthening, ROM, stabilization, gait training. Increase cardio and challenging core exercises as tolerated.
--- NOTE | 2022-04-19 14:14 | PT.OTN ---
Current Diagnoses Pain in right knee (03/31/22) Pain in left knee (03/31/22) Other tear of lateral meniscus, current injury, right knee, initial encounter (03/31/22) Physical Therapy Treatment Note PT-OP-A Visit Information Start: 08/21/21 18:13 Freq: Status: Active Protocol: Document 04/19/22 13:59 LJ (Rec: 04/19/22 14:14 LJ [id number]) Out-Patient Physical Therapy Visit Information Visit Information Visit Type Aquatic Treatment Note Visit Start Time 10:15 Visit Stop Time 11:00 Total Visit Minutes 45 Visit Number 18 Number of PALLIATIVE NURSE Visits 3 Precautions Precautions Per intake history & pt report : Brain surgery Apr 2020 due to dental surgery for trigeminal neuralgia that went bad, (had a couple of blood vessels that needed repair), Heart attack due to stress - Mar 2019 Controlled blood pressure, Memory loss. Neuroforaminal stenosis of the cerivcal spine . Per record review: pulsatile tinnitus, L toe pain, s/p hernia repair, PT-OP-B Current Condition Start: 08/21/21 18:13 Freq: Status: Active Protocol: Document 08/24/21 08:15 LRN (Rec: 08/24/21 09:10 LRN [id number]) Current Condition History of Current Condition Onset Date R & L knee-02/25, R>L. Current Complaints Bilateral knee pain, R hip pain, difficulty walking, numb feet. History of Current Condition Bilateral knee pain but R knee is the worst knee and is very painful. Can walk on it now, L side is mildly irritating. Having R hip pain. Was told she should do surgery, but the pt doesn't want to have surgery. States the more she uses it the pain has lessened. Hopes to delay surgery. R knee is no longer getting stuck in flexion for the past month. Denies fall. States she had brain surgery on the R side. After surgery the hip and knee pain started, and her knee just goes out. After surgery would walk weird, using cardona to balance. 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 Treatment Goals Patient/Caregiver Goals Pt goal is get up off the ground without all the manuevering/holding onto things and without hurting self. Decrease pain. Increase strength of legs. 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 Current Functional Impairments (Reported) Functional Limitations- ADL's Not able to do work or get down onto the ground. Movement of knees restricted. Personal Factors Other Personal Factors That May Effect BMI 30 (Health 18.5-24.9, 30= Therapy/Recovery Obese) Brain surgery Apr 2020 Heart attack due to stress - Mar 2019 Controlled blood pressure, Memory loss. BMI 40. Pt fearful of surgery; therefore choosing to do PT for now. PT-OP-C Subjective Start: 08/21/21 18:13 Freq: Status: Active Protocol: Document 04/19/22 13:59 LJ (Rec: 04/19/22 14:14 LJ [id number]) OP-PT Subjective Patient Comments Patient Comments [place]. Recently had xray of left shoulder indicating no change in arthritis. She is hoping to get doc to order MRI to determine if any soft tissue damage. LLE hip and knee painful. She has been working in the [employer] quite a bit lately and thinks she may have overdone it. PT-OP-J Posture/Palpation/Skin Start: 08/21/21 18:13 Freq: Status: Active Protocol: Document 08/24/21 08:15 LRN (Rec: 08/24/21 09:10 LRN [id number]) Posture Evaluation Position Standing T-Spine Posture Flattened Pelvis Posture Anteriorly Tilted Knee Posture (L) Genu Valgus,(R) Genu Valgus Comments Posture Comments Dowagers hump Endomorphic Palpation Assessment Location R hip Palpation Location R ASIS Palpation Findings Tenderness L knee Palpation Location Chondromalacia. Posterior knee tenderness. Palpation Findings Tenderness R knee Palpation Location Around joint and posterior Palpation Findings Tenderness PT-OP-K Range of Motion Start: 08/21/21 18:13 Freq: Status: Active Protocol: Document 10/06/21 09:05 LRN (Rec: 10/06/21 10:30 LRN [id number]) Knee Goniometric Range of Motion Knee Supine R Active Patient Position Supine Flexion Active (degrees) 70 Extension Active (degrees) 10 Extension Passive (degrees) 0 Supine L Active Patient Position Supine Flexion Active (degrees) 126 Extension Active (degrees) 0 R Active Patient Position Sitting Flexion Active (degrees) 65 Extension Active (degrees) 22 Comments Pt c/o pain limiting knee mobility L Active Patient Position Sitting Flexion Active (degrees) 123 Extension Active (degrees) 0 Comments 116 deg's Flex on plinth, limited by table supports. 123 deg's flex in room chair. PT-OP-M Strength Start: 08/21/21 18:13 Freq: Status: Active Protocol: Document 10/06/21 09:05 LRN (Rec: 10/06/21 10:30 LRN [id number]) Knee Strength Knee Manual Muscle Testing Right Comments Deferred due to R knee pain. PT-OP-Q Treatments Start: 08/21/21 18:13 Freq: Status: Active Protocol: Document 10/06/21 09:05 LRN (Rec: 10/06/21 10:30 LRN [id number]) Therapeutic Exercises Supine Exercises Active knee flex/ext Supine Exercise Name Active knee flex/ext Comments ROM taken Knee flex Supine Exercise Name Active knee flexion Side right Reps/Minutes 10x Comments Pt moves slow with ex and much v directions given Sitting Exercises BKFO Sitting Exercise Name Hip AB Side bilateral Equipment Used Lev 1 TB Reps/Minutes 10x w/o resistance, 10x with TB Marching Sitting Exercise Name Marching Side bilateral Reps/Minutes 10 each LE neural stretch Sitting Exercise Name Hamstring stretch x 10 f/b active ankle pumps Side right Reps/Minutes 10 Hold, f/b 10 active ankle pumps, 3 sets Comments Extra time with constant verbal cuing to do ex correctly. R knee ext Sitting Exercise Name Sitting on rm chair: active knee Ext Side right Reps/Minutes 8x, rest 2x Comments Extra time taken for determining pt tolerance of mvmt R knee flex Sitting Exercise Name Sitting on rm chair: active knee Flex Side right Equipment Used Rolling stool Reps/Minutes 10x Comments Extra time taken for determining pt tolerance of mvmt PT-OP-R Modalities Start: 08/21/21 18:13 Freq: Status: Active Protocol: Document 10/06/21 09:05 LRN (Rec: 10/06/21 10:30 LRN [id number]) Hot Pack/Cold Pack Treatment Hot Pack Location Posterior R knee & thigh Patient Position Supine Treatment Duration (minutes) 8 Patient Tolerance Fair Comments Pt has difficult time with static positioning. PT-OP-S Aquatic Treatment Start: 10/09/21 14:42 Freq: Status: Active Protocol: Document 04/19/22 13:59 GODFREY (Rec: 04/19/22 14:14 [id number]) Aquatics Treatment Pool Entry/Exit Pool Entry/Exit Method Stairs Water Walking skate walking Water Level Chest Level Comments challenging for balance Marching Water Level Chest Level Sideways Water Level Chest Level Backwards Water Level Chest Level Forwards Water Level Chest Level Lower Extremity Exercises toe, heel raises Details hh on wall Body Position Standing Water Level Chest Level Reps/Duration 10 ea Lower Extremity Stretches HS Details hh on wall Body Position Standing Water Level Waist Level Equipment sm noodle under ankle Reps/Duration 2 x 30 sec B gastroc, soleus Details hh on wall Body Position Standing Reps/Duration 2 x 30 sec B hip flexors, quads Details hh on wall Body Position Standing Water Level Chest Level Equipment toe on steps for stretch Reps/Duration 2 x 30 sec B Spinal Exercises seated marching Details at wall Reps/Duration 10x2 Balance DLS Details stationary standing with nudges all directions Comments improved balance with fwd and back nudges weight shifting Details fwd,back, side, side [place] Activities [place] Activities Bicycle,Cross Country,Hip Abduction/Adduction Other Activities jogging- 4 min crdio Equipment belt worn backwards, #2 ankle wts Duration 15 Comments gentle mvnt with UEs; pt mostly kept LUE adducted and internally rotated holding onto belt. PT-OP-T Assessment and Plan Start: 08/21/21 18:13 Freq: Status: Active Protocol: Document 04/19/22 13:59 GODFREY (Rec: 04/19/22 14:14 [id number]) Physical Therapy Assessment Rehab Potential Rehabilitation Potential Fair Evaluation Complexity Number of Personal Factors/Comorbidities 3 or More Number of Body Systems Impaired 4 or More Clinical Presentation at Evaluation Evolving Impairments Impairments Activity Tolerance,Balance, Gait,Pain,ROM,Strength Goals Three Impairment Decreased knee AROM Impairment R knee (sup): 5-100 deg's ( sitting): 22-103 deg's L knee (sup): 0-122 deg's ( sitting): 0-123 deg's Short Term Goal (STG) Improve R knee AROM (sup 0-120 deg's; sit 10-120 deg's) 10/06/21: sup: 10-70 deg's; sitting 22-65 01/11/22: goal progress sitting 15-109 03/03/22: goal progress sitting 13-112 STG Duration 04/03/22 Chemical Manager Goal (LTG) Pt goal is get up off the ground without all the manuevering/holding onto things and without hurting self. 01/11/22: goal progress 03/03/22: still challenging and requires use of bilateral UE' s though reporting improvement LTG Duration 05/04/22 Two Impairment Decreased kirill knee strength Impairment R knee: flex & ext 3-/5; R hip: flex 2-/5, AB & AD 1/5. L knee: flex & ext 5/5 L hip: flex 3/5, AB 3/5, AD 2 /5. Short Term Goal (STG) Increase R knee & hip strength 1/2 grade (10/06/21: Deferred testing due to R knee pain complaints) 01/11/22: testing deferred due to not feeling well 03/03/22: goal achioeved. STG Duration 04/03/22 Senior Living Goal (LTG) Improve R knee strength to no less than 4/5, and improve hip strength by 1 grade, to improve pt's safety with standing and gait with no giving way of the R knee in standing. 03/03/22: goal progress LTG Duration 05/04/22 One Impairment Pt lacks appropriated self care HEP. Short Term Goal (STG) Pt will be educated in precautions with exercise and edema/pain management. (10/06/21: Pt educated in precaution of not forcefully straightening or bending the R knee with exercise). Goal met STG Duration goal met Chemical Manager Goal (LTG) Pt educated in a self care HEP to promote knee and hip strengthening. 01/11/22: previously poorly tolerated. Encouraged increased compliance and will be progressed 03/03/22: continues to report poor tolerance for land-based exercise but good tolerance for aquatic PT LTG Duration 05/04/22 Assessment Summary Assessment Pt fearful of being sore after being out of pool for 3 weeks so kept exercises to a very gentle level without any resistance or strong movements . While walking in shallow water she needs to be reminded to look at the wall or something ahead of her rather than the water because she gets disoriented and feels funny when looking at the moving water. She had no complaints of pain in any area of the body but will reassess next session. She has made progress with balance but progressing strengthening has not been successful at this point because exercises need to be kept to a low level. Physical Therapy Plan Frequency and Duration Frequency of Treatment 1-2x/wk Duration of Treatment 8 weeks Plan of Care Start Date 03/03/22 Plan of Care End Date 05/04/22 Therapeutic Interventions Therapeutic Interventions Aquatic Therapy,Balance Training,Gait Training,Home Exercise Program,Manual Therapy,Neuromuscular Re- education,Patient/Caregiver Education,Self-Care/Home Management,Soft Tissue Mobilization,Taping, Therapeutic Activities, Therapeutic Exercises Modalities Cold Pack/Ice Massage,Electric Stimulation,Hot Packs, Ultrasound Next Visit Focus/Plan Next Note Type Treatment Note Next Visit Plan Reassess after last session and proceed as indicated.
--- NOTE | 2022-04-28 13:34 | PT.OTN ---
Current Diagnoses Pain in right knee (04/19/22) Pain in left knee (04/19/22) Other tear of lateral meniscus, current injury, right knee, initial encounter (04/19/22) Physical Therapy Treatment Note PT-OP-A Visit Information Start: 08/21/21 18:13 Freq: Status: Active Protocol: Document 04/28/22 13:13 LJ (Rec: 04/28/22 13:34 LJ [id number]) Out-Patient Physical Therapy Visit Information Visit Information Visit Type Aquatic Treatment Note Visit Start Time 10:15 Visit Stop Time 11:00 Total Visit Minutes 45 Visit Number 19 Number of PUBLIC HEALTH INSPECTOR Visits 4 Precautions Precautions Per intake history & pt report : Brain surgery Apr 2020 due to dental surgery for trigeminal neuralgia that went bad, (had a couple of blood vessels that needed repair), Heart attack due to stress - Mar 2019 Controlled blood pressure, Memory loss. Neuroforaminal stenosis of the cerivcal spine . Per record review: pulsatile tinnitus, L toe pain, s/p hernia repair, PT-OP-B Current Condition Start: 08/21/21 18:13 Freq: Status: Active Protocol: Document 08/24/21 08:15 LRN (Rec: 08/24/21 09:10 LRN [id number]) Current Condition History of Current Condition Onset Date R & L knee-02/25, R>L. Current Complaints Bilateral knee pain, R hip pain, difficulty walking, numb feet. History of Current Condition Bilateral knee pain but R knee is the worst knee and is very painful. Can walk on it now, L side is mildly irritating. Having R hip pain. Was told she should do surgery, but the pt doesn't want to have surgery. States the more she uses it the pain has lessened. Hopes to delay surgery. R knee is no longer getting stuck in flexion for the past month. Denies fall. States she had brain surgery on the R side. After surgery the hip and knee pain started, and her knee just goes out. After surgery would walk weird, using cardona to balance. 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 Treatment Goals Patient/Caregiver Goals Pt goal is get up off the ground without all the manuevering/holding onto things and without hurting self. Decrease pain. Increase strength of legs. 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 Current Functional Impairments (Reported) Functional Limitations- ADL's Not able to do work or get down onto the ground. Movement of knees restricted. Personal Factors Other Personal Factors That May Effect BMI 30 (Health 18.5-24.9, 30= Therapy/Recovery Obese) Brain surgery Apr 2020 Heart attack due to stress - Mar 2019 Controlled blood pressure, Memory loss. BMI 40. Pt fearful of surgery; therefore choosing to do PT for now. PT-OP-C Subjective Start: 08/21/21 18:13 Freq: Status: Active Protocol: Document 04/28/22 13:13 LJ (Rec: 04/28/22 13:34 LJ [id number]) OP-PT Subjective Patient Comments Patient Comments Pt states her shoulder is still painful and that she probably did more than she shopuld. Sometimes feels like someone is ripping her arm off. States her knee feels like there's fluid in it but feels ok in the water. PT-OP-J Posture/Palpation/Skin Start: 08/21/21 18:13 Freq: Status: Active Protocol: Document 08/24/21 08:15 LRN (Rec: 08/24/21 09:10 LRN [id number]) Posture Evaluation Position Standing T-Spine Posture Flattened Pelvis Posture Anteriorly Tilted Knee Posture (L) Genu Valgus,(R) Genu Valgus Comments Posture Comments Dowagers hump Endomorphic Palpation Assessment Location R hip Palpation Location R ASIS Palpation Findings Tenderness L knee Palpation Location Chondromalacia. Posterior knee tenderness. Palpation Findings Tenderness R knee Palpation Location Around joint and posterior Palpation Findings Tenderness PT-OP-K Range of Motion Start: 08/21/21 18:13 Freq: Status: Active Protocol: Document 10/06/21 09:05 LRN (Rec: 10/06/21 10:30 LRN [id number]) Knee Goniometric Range of Motion Knee Supine R Active Patient Position Supine Flexion Active (degrees) 70 Extension Active (degrees) 10 Extension Passive (degrees) 0 Supine L Active Patient Position Supine Flexion Active (degrees) 126 Extension Active (degrees) 0 R Active Patient Position Sitting Flexion Active (degrees) 65 Extension Active (degrees) 22 Comments Pt c/o pain limiting knee mobility L Active Patient Position Sitting Flexion Active (degrees) 123 Extension Active (degrees) 0 Comments 116 deg's Flex on plinth, limited by table supports. 123 deg's flex in room chair. PT-OP-M Strength Start: 08/21/21 18:13 Freq: Status: Active Protocol: Document 10/06/21 09:05 LRN (Rec: 10/06/21 10:30 LRN [id number]) Knee Strength Knee Manual Muscle Testing Right Comments Deferred due to R knee pain. PT-OP-Q Treatments Start: 08/21/21 18:13 Freq: Status: Active Protocol: Document 10/06/21 09:05 LRN (Rec: 10/06/21 10:30 LRN [id number]) Therapeutic Exercises Supine Exercises Active knee flex/ext Supine Exercise Name Active knee flex/ext Comments ROM taken Knee flex Supine Exercise Name Active knee flexion Side right Reps/Minutes 10x Comments Pt moves slow with ex and much v directions given Sitting Exercises BKFO Sitting Exercise Name Hip AB Side bilateral Equipment Used Lev 1 TB Reps/Minutes 10x w/o resistance, 10x with TB Marching Sitting Exercise Name Marching Side bilateral Reps/Minutes 10 each LE neural stretch Sitting Exercise Name Hamstring stretch x 10 f/b active ankle pumps Side right Reps/Minutes 10 Hold, f/b 10 active ankle pumps, 3 sets Comments Extra time with constant verbal cuing to do ex correctly. R knee ext Sitting Exercise Name Sitting on rm chair: active knee Ext Side right Reps/Minutes 8x, rest 2x Comments Extra time taken for determining pt tolerance of mvmt R knee flex Sitting Exercise Name Sitting on rm chair: active knee Flex Side right Equipment Used Rolling stool Reps/Minutes 10x Comments Extra time taken for determining pt tolerance of mvmt PT-OP-R Modalities Start: 08/21/21 18:13 Freq: Status: Active Protocol: Document 10/06/21 09:05 LRN (Rec: 10/06/21 10:30 LRN [id number]) Hot Pack/Cold Pack Treatment Hot Pack Location Posterior R knee & thigh Patient Position Supine Treatment Duration (minutes) 8 Patient Tolerance Fair Comments Pt has difficult time with static positioning. PT-OP-S Aquatic Treatment Start: 10/09/21 14:42 Freq: Status: Active Protocol: Document 04/28/22 13:13 LJ (Rec: 04/28/22 13:34 GODFREY [id number]) Aquatics Treatment Pool Entry/Exit Pool Entry/Exit Method Stairs Water Walking stop/start walking Water Level Chest Level Comments pt instructed to land on one leg and hold position; challenging but able w/ skate walking Water Level Chest Level Comments challenging for balance Lunge Walk Water Level Chest Level Walking Equipment Resistance Fins Comments f/b Etoile Water Level Chest Level Level of Assistance Standby Assistance,Verbal Cues Marching Water Level Chest Level Sideways Water Level Chest Level Backwards Water Level Chest Level Comments 2 laps fast Forwards Water Level Chest Level Lower Extremity Exercises free the hip Body Position Standing Water Level Chest Level Reps/Duration 15 B Comments gentle controlled; good balance with exercise jumping jacks/ski Body Position Standing Water Level Chest Level Reps/Duration 3 min Comments gentle landing; pt initiated 4 way hip Body Position Standing Water Level Chest Level Reps/Duration 20 B Comments cue for neutral pelvis knee fl/ex Body Position Sitting Water Level Neck Level Reps/Duration 15 B Comments 90/90 position hip and knee Upper Extremity Exercises torso rotation Details braced at wall Body Position Sitting Water Level Neck Level Reps/Duration 10 Comments UEs held 90/90; gentle mvnt Spinal Exercises seated marching Details at wall Reps/Duration 10x2 Balance boxes Details step up/down, over f/side Water Level Waist Level Reps/Duration x8 leading with both LEs Comments progressed to bottom stair w/o pain and min hh [place] Activities [place] Activities Bicycle,Cross Country,Hip Abduction/Adduction Other Activities prone extension with fam legs Equipment belt worn backwards, #2 ankle wts Duration 15 Comments improved pain-free ROM of LUE with exerises PT-OP-T Assessment and Plan Start: 08/21/21 18:13 Freq: Status: Active Protocol: Document 04/28/22 13:13 GODFREY (Rec: 04/28/22 13:34 GODFREY [id number]) Physical Therapy Assessment Rehab Potential Rehabilitation Potential Fair Evaluation Complexity Number of Personal Factors/Comorbidities 3 or More Number of Body Systems Impaired 4 or More Clinical Presentation at Evaluation Evolving Impairments Impairments Activity Tolerance,Balance, Gait,Pain,ROM,Strength Goals Three Impairment Decreased knee AROM Impairment R knee (sup): 5-100 deg's ( sitting): 22-103 deg's L knee (sup): 0-122 deg's ( sitting): 0-123 deg's Short Term Goal (STG) Improve R knee AROM (sup 0-120 deg's; sit 10-120 deg's) 10/06/21: sup: 10-70 deg's; sitting 22-65 01/11/22: goal progress sitting 15-109 03/03/22: goal progress sitting 13-112 STG Duration 04/03/22 Gate Clerk Goal (LTG) Pt goal is get up off the ground without all the manuevering/holding onto things and without hurting self. 01/11/22: goal progress 03/03/22: still challenging and requires use of bilateral UE' s though reporting improvement LTG Duration 05/04/22 Two Impairment Decreased kirill knee strength Impairment R knee: flex & ext 3-/5; R hip: flex 2-/5, AB & AD 1/5. L knee: flex & ext 5/5 L hip: flex 3/5, AB 3/5, AD 2 /5. Short Term Goal (STG) Increase R knee & hip strength 1/2 grade (10/06/21: Deferred testing due to R knee pain complaints) 01/11/22: testing deferred due to not feeling well 03/03/22: goal achioeved. STG Duration 04/03/22 Group Home Goal (LTG) Improve R knee strength to no less than 4/5, and improve hip strength by 1 grade, to improve pt's safety with standing and gait with no giving way of the R knee in standing. 03/03/22: goal progress LTG Duration 05/04/22 One Impairment Pt lacks appropriated self care HEP. Short Term Goal (STG) Pt will be educated in precautions with exercise and edema/pain management. (10/06/21: Pt educated in precaution of not forcefully straightening or bending the R knee with exercise). Goal met STG Duration goal met Group Home Goal (LTG) Pt educated in a self care HEP to promote knee and hip strengthening. 01/11/22: previously poorly tolerated. Encouraged increased compliance and will be progressed 03/03/22: continues to report poor tolerance for land-based exercise but good tolerance for aquatic PT LTG Duration 05/04/22 Progress Towards Goals Progress Towards Goals Progressing Toward Goals Assessment Summary Assessment Pt was challenged with balance exercises but improved when instructed to look at something in front of her rather than at the water. She initiated bounding jacks/skis in chest deep water on her own and maintained exercise for several minutes without complaint or fatigue. She will get somewhat confused with stop/start and directional changes during walking activities but understands when shown and practiced a couple of times. Her level of exertion in deep water was elevated somewhat with good tolerance. She will benefit from aquatic therapy and aquatic exercise on her own several times a week. She is looking into the cost of membership to be able to do this. Physical Therapy Plan Frequency and Duration Frequency of Treatment 1-2x/wk Duration of Treatment 8 weeks Plan of Care Start Date 03/03/22 Plan of Care End Date 05/04/22 Therapeutic Interventions Therapeutic Interventions Aquatic Therapy,Balance Training,Gait Training,Home Exercise Program,Manual Therapy,Neuromuscular Re- education,Patient/Caregiver Education,Self-Care/Home Management,Soft Tissue Mobilization,Taping, Therapeutic Activities, Therapeutic Exercises Modalities Cold Pack/Ice Massage,Electric Stimulation,Hot Packs, Ultrasound Next Visit Focus/Plan Next Note Type Treatment Note Next Visit Plan Advance exercises with resistance equipment on LEs. Increase cardio and core strengthening as tolerated.
--- NOTE | 2022-07-26 08:51 | PT.OPDS ---
Current Diagnoses Pain in right knee (04/28/22) Pain in left knee (04/28/22) Other tear of lateral meniscus, current injury, right knee, initial encounter (04/28/22) Visit Care Team Role Provider Type Panchito Velez MD Attending Provider Physician Family Provider Primary Care Provider Referring Provider Specialty: Family Practice Address: [address] [place] [address] Email: [email or web address] Visit Number Visit Number 19 Discharge Summary PT-OP-B Current Condition Start: 08/21/21 18:13 Freq: Status: Active Protocol: Document 08/24/21 08:15 LRN (Rec: 08/24/21 09:10 LRN [id number]) Current Condition History of Current Condition Onset Date R & L knee-02/25, R>L. Current Complaints Bilateral knee pain, R hip pain, difficulty walking, numb feet. History of Current Condition Bilateral knee pain but R knee is the worst knee and is very painful. Can walk on it now, L side is mildly irritating. Having R hip pain. Was told she should do surgery, but the pt doesn't want to have surgery. States the more she uses it the pain has lessened. Hopes to delay surgery. R knee is no longer getting stuck in flexion for the past month. Denies fall. States she had brain surgery on the R side. After surgery the hip and knee pain started, and her knee just goes out. After surgery would walk weird, using cardona to balance. 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 Treatment Goals Patient/Caregiver Goals Pt goal is get up off the ground without all the manuevering/holding onto things and without hurting self. Decrease pain. Increase strength of legs. 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 Current Functional Impairments (Reported) Functional Limitations- ADL's Not able to do work or get down onto the ground. Movement of knees restricted. Personal Factors Other Personal Factors That May Effect BMI 30 (Health 18.5-24.9, 30= Therapy/Recovery Obese) Brain surgery Apr 2020 Heart attack due to stress - Mar 2019 Controlled blood pressure, Memory loss. BMI 40. Pt fearful of surgery; therefore choosing to do PT for now. PT-OP-C Subjective Start: 08/21/21 18:13 Freq: Status: Active Protocol: Document 04/28/22 13:13 GODFREY (Rec: 04/28/22 13:34 LJ [id number]) OP-PT Subjective Patient Comments Patient Comments Pt states her shoulder is still painful and that she probably did more than she shopuld. Sometimes feels like someone is ripping her arm off. States her knee feels like there's fluid in it but feels ok in the water. PT-OP-J Posture/Palpation/Skin Start: 08/21/21 18:13 Freq: Status: Active Protocol: Document 08/24/21 08:15 LRN (Rec: 08/24/21 09:10 LRN [id number]) Posture Evaluation Position Standing T-Spine Posture Flattened Pelvis Posture Anteriorly Tilted Knee Posture (L) Genu Valgus,(R) Genu Valgus Comments Posture Comments Dowagers hump Endomorphic Palpation Assessment Location R hip Palpation Location R ASIS Palpation Findings Tenderness L knee Palpation Location Chondromalacia. Posterior knee tenderness. Palpation Findings Tenderness R knee Palpation Location Around joint and posterior Palpation Findings Tenderness PT-OP-K Range of Motion Start: 08/21/21 18:13 Freq: Status: Active Protocol: Document 10/06/21 09:05 LRN (Rec: 10/06/21 10:30 LRN [id number]) Knee Goniometric Range of Motion Knee Supine R Active Patient Position Supine Flexion Active (degrees) 70 Extension Active (degrees) 10 Extension Passive (degrees) 0 Supine L Active Patient Position Supine Flexion Active (degrees) 126 Extension Active (degrees) 0 R Active Patient Position Sitting Flexion Active (degrees) 65 Extension Active (degrees) 22 Comments Pt c/o pain limiting knee mobility L Active Patient Position Sitting Flexion Active (degrees) 123 Extension Active (degrees) 0 Comments 116 deg's Flex on plinth, limited by table supports. 123 deg's flex in room chair. PT-OP-M Strength Start: 08/21/21 18:13 Freq: Status: Active Protocol: Document 10/06/21 09:05 LRN (Rec: 10/06/21 10:30 LRN [id number]) Knee Strength Knee Manual Muscle Testing Right Comments Deferred due to R knee pain. PT-OP-T Assessment and Plan Start: 08/21/21 18:13 Freq: Status: Active Protocol: Document 07/26/22 08:50 BARRY (Rec: 07/26/22 08:51 [facility] [id number]) Physical Therapy Plan Discharge Physical Therapy Discharge Comments no further insurance approval
== END 2022-07-28 09:42 | disposition home or self-care (01) ==
LOC: PHYS 10:15
PROVIDERS: Family Provider Family Medicine; PCP Family Medicine; Referring Provider Family Medicine; Visit Provider Family Medicine
DX: M25.561 Pain in right knee (principal); M25.562 Pain in left knee; S83.281A Other tear of lateral meniscus, current injury, right knee, initial encounter
CPT/HCPCS: 97110; 97113; 97162

== ENCOUNTER → 2022-10-01 13:51 | Outpatient (CLI) | payer OTHER, MEDICAID, SELFPAY ==
[2022-10-01 15:18] LABS: Alanine Aminotransferase 38 IU/L (<35); Albumin Globulin Ratio 1.3 (1.0-2.8); Alkaline Phosphatase 61 U/L (38-126); Aspartate Aminotransferase 40 IU/L (14-36); BUN Creatinine Ratio 6.5 (6-22); Bilirubin Total 0.6 mg/dL (0.2-1.3); Blood Urea Nitrogen 5 mg/dL (7-17); Calcium 9.2 mg/dL (8.4-10.2); Carbon Dioxide 26 mmol/L (22-32); Chloride 96 mmol/L (98-107); Estimated Glomerular Filt Rate > 60 mL/min (>60); Glucose 102 mg/dL (80-110); HEMOLYSIS < 15 (0-50); Potassium 3.9 mmol/L (3.4-5.1); Sodium 132 mmol/L (137-145)
[2022-10-01 15:30] LABS: Appearance Urine UA CLEAR; Bilirubin Urine UA NEGATIVE (NEGATIVE); Color Urine UA YELLOW; Glucose Urine UA NEGATIVE (Negative); Ketones Urine UA NEGATIVE (NEGATIVE); Leukocyte Esterase Urine UA TRACE (NEGATIVE); Nitrite Urine UA NEGATIVE (Negative); Occult Blood Urine UA NEGATIVE (Negative); Protein Urine UA NEGATIVE (Negative); Urobilinogen Urine UA 0.2 E.U./dL (0.2)
[2022-10-01 15:51] LABS: Bacteria Urine None Seen; Culture Indicated Urine Specimen Cultured; RBC Urine None Seen (0-5/HPF); Squamous Epithelial Cell Urine 1-5 /HPF (0-5/HPF); Transitional Epi Cells Urine 0-1/HPF (0-5/HPF); WBC Urine 1-5/HPF (0-5/HPF)
== END ==
PROVIDERS: Family Provider Family Medicine; PCP Family Medicine; Referring Provider Family Medicine; Visit Provider Family Medicine
DX: R73.9 Hyperglycemia, unspecified (principal); N39.0 Urinary tract infection, site not specified
CPT/HCPCS: 36415; 80053; 81001; 83036; 87086

== ENCOUNTER 2022-10-29 10:45 | Outpatient (RCR) | payer OTHER, MEDICAID, SELFPAY ==
--- NOTE | 2022-10-04 15:18 | PT.IIE ---
Current Diagnoses Primary osteoarthritis, left shoulder (10/04/22) Adhesive capsulitis of left shoulder (10/04/22) Superior glenoid labrum lesion of left shoulder, initial encounter (10/04/22) Surgical History (Last Reviewed 03/19/22 @ 13:17 by Tammy Coates PA-C) Status post appendectomy Status post cholecystectomy Status post hernia repair Status post hysterectomy Medical History (Last Updated 05/31/22 @ 09:18 by Panchito Velez MD) Adhesive capsulitis of left shoulder Arthritis of left shoulder region Atrophic vaginitis Bilateral knee pain Candidal intertrigo Cervical stenosis of spine GERD (gastroesophageal reflux disease) Hyperlipidemia Hypertension Hypothyroidism Neuroforaminal stenosis of cervical spine Non-ST elevation NC (NSTEMI) Prediabetes (04/2020) Pulsatile tinnitus Short-term memory loss Superior glenoid labrum lesion of left shoulder Surgical follow-up care Surgical wound infection Tear of right supraspinatus tendon Toe pain, left Trigeminal neuralgia Trigger thumb, right thumb
--- NOTE | 2022-10-04 15:19 | PT.OPPOC ---
Physical, Occupational & Speech Therapy At [facility] Current Diagnoses Primary osteoarthritis, left shoulder (10/04/22) Adhesive capsulitis of left shoulder (10/04/22) Superior glenoid labrum lesion of left shoulder, initial encounter (10/04/22) Visit Care Team Role Provider Type Panchito Velez MD Attending Provider Physician Family Provider Primary Care Provider Referring Provider Specialty: Family Practice Address: [address] [place] [address], [facility] Email: [email or web address] Plan Of Care PT-OP-T Assessment and Plan Start: 08/09/22 16:43 Freq: Status: Active Protocol: Document 10/04/22 08:14 SAK (Rec: 10/05/22 15:18 SAK [id number]) Physical Therapy Assessment Goals One Impairment pain with left shoulder movement Impairment unable to reach out to side, across body, behind her back without pain up to 8/10 on pain scale Short Term Goal (STG) decrease pain to no greater than 4/10 with all usual activities using left UE STG Duration 11/06/22 Longterm Goal (LTG) Decrease pain to no greater than 2/10 with all usual activities using left UE LTG Duration 01/01/23 Two Impairment ROM and strength impairments left UE Short Term Goal (STG) Patient to be instructed in HEP to address ROM and strength impairments STG Duration 11/01/22 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 Pain has persisted and she has difficulty reaching overhead, out to side, across her body, and behind her back. Imaging showed partial RC tear, possible labral tear, OA. Signs and symptoms positive for impingment, RC involvement , labral tear. She has weakness in her posterior chain musculature. Feel she would benefit from PT to decrease her pain, and improve her ROM and strength to allow her to return to all usual activities with minimal to no increase in pain. Physical Therapy Plan Frequency and Duration Frequency of Treatment 2x/Week Duration of treatment (weeks) 12 Plan of Care Start Date 10/04/22 Plan of Care End Date 01/01/23 Therapeutic Interventions Therapeutic Interventions Home Exercise Program,Joint Mobilizations,Manual Therapy, Patient/Caregiver Education, Self-Care/Home Management,Soft Tissue Mobilization,Taping, Therapeutic Activities, Therapeutic Exercises Modalities Cold Pack/Ice Massage,Electric Stimulation,Hot Packs, Infrared Therapy,Iontophoresis ,Ultrasound Next Visit Focus/Plan Next Note Type Treatment Note Next Visit Plan Review HEP, trial pulleys, gentle shoulder isometrics. Plan of Care Dates Plan of Care Start Date 10/04/22 Plan of Care End Date 01/01/23 Electronically Signed by: Anayeli Chapman, PT 10/05/22 0613 If you are in agreement with this Plan of Care, please return a signed and dated copy. I have reviewed this Plan of Care and certify that the skilled therapy services above are required to meet the patient?s needs. Physician Signature Date Printed Name and Credentials Clinical Instructor Signature Printed Name and Credentials
--- NOTE | 2022-10-08 12:40 | PT-OP ANOTE ---
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 Offered shorter session but pt declined stating they have a full afternoon schedule. They stated they had a good pain relief response to TENS last visit and inquired if able to borrow or purchase - advised pt TENS units are often available for purchase in drug stores and online and if they get one they can bring it in to PT for assistance with settings if needed. Pt confirmed next visit 10/12/22 with Anayeli and myself 10/15/22.
--- NOTE | 2022-10-12 10:31 | PT.OTN ---
Current Diagnoses Primary osteoarthritis, left shoulder (10/12/22) Adhesive capsulitis of left shoulder (10/12/22) Superior glenoid labrum lesion of left shoulder, initial encounter (10/12/22) Physical Therapy Treatment Note PT-OP-A Visit Information Start: 08/09/22 16:43 Freq: Status: Active Protocol: Document 10/12/22 09:48 SAK (Rec: 10/12/22 10:31 SAK [id number]) Out-Patient Physical Therapy Visit Information Visit Information Visit Type Treatment Note Visit Start Time 09:48 Visit Stop Time 10:34 Total Visit Minutes 46 Visit Number 3 Number of APPLICATIONS ENGINEERING MANAGER Visits 0 Evaluation Information Evaluation Date 10/04/22 Precautions Precautions memory issues PT-OP-B Current Condition Start: 08/09/22 16:43 Freq: Status: Active Protocol: Document 10/04/22 08:14 SAK (Rec: 10/04/22 09:03 SAK [id number]) Current Condition History of Current Condition Onset Date 9 months Current Complaints left shoulder pain History of Current Condition Reports onset of left shoulder pain while reaching forward while doing exercise in pool. Pain has persisted and increase with reaching down, out to side especially with overextending and reaching behind her back. Has used heat, not ice; states doesn't tolerate ice. Has been favoring left UE, can't use for ADL's. Prior Treatments and Tests MRI left shoulder: partial RC tears, possible labral tear, arthritis Future Testing and Treatments Planned No appointment scheduled to go back to Dr. Porras yet Treatment Goals Patient/Caregiver Goals Decrease pain, regain full use of left UE with minimal to no pain. Prior Functional Status Baseline Function- ADL's Independent Baseline Function- Mobility Independent Baseline Function- Work/School retired Baseline Function- Recreation/Hobbies min limitations Current Functional Impairments (Reported) Functional Limitations- ADL's painful Functional Limitations- Mobility/Gait limitations due to LBP Functional Limitations- Work/School disability Functional Limitations- Recreation/ limited due to pain Hobbies Personal Factors Other Personal Factors That May Effect decreased short term memory, Therapy/Recovery chronic pain prior right shoulder surgery PT-OP-C Subjective Start: 08/09/22 16:43 Freq: Status: Active Protocol: Document 10/12/22 09:48 SAK (Rec: 10/12/22 10:31 [facility] [id number]) OP-PT Subjective Patient Comments Patient Comments Reports not feeling well due to GI issues, has seen doctor, might be put on more antibiotics. Sees at 3:30, might be having MRI. Shoulder improving some, loved TENS. Doesn't feel up to exercises today. PT-OP-H Neuro Start: 08/09/22 16:44 Freq: Status: Active Protocol: Document 10/04/22 08:14 SAK (Rec: 10/04/22 09:03 [facility] [id number]) Sensation Evaluation Gross Sensation Gross Sensation WNL PT-OP-J Posture/Palpation/Skin Start: 08/09/22 16:43 Freq: Status: Active Protocol: Document 10/04/22 08:14 SAK (Rec: 10/04/22 09:03 [facility] [id number]) Posture Evaluation Position Sitting Head/C-Spine Posture Forward Head T-Spine Posture Increased Kyphosis Shoulder Posture (L) Rounded,(R) Rounded Scapula Posture (L) Protracted,(R) Protracted Arm Posture (L) Internally Rotated,(R) Internally Rotated Palpation Assessment Location GH joint line Palpation Location ant Palpation Findings Soft Tissue Tightness,Muscle Guarding,Tenderness left RC Palpation Findings Muscle Guarding,Tenderness PT-OP-K Range of Motion Start: 08/09/22 16:43 Freq: Status: Active Protocol: Document 10/04/22 08:14 SAK (Rec: 10/04/22 09:03 [facility] [id number]) Cervical Spine Range of Motion Cervical Spine Active Comments WNL Shoulder Goniometric Range of Motion Shoulder Left Shoulder ROM WFL No Flexion 120 Extension 25 Abduction 75 External Rotation at 0 degrees Abduction 55 Internal Rotation Behind Back (text) lateral hip Right Shoulder ROM WFL Yes Shoulder ROM Limitations Shoulder ROM Limitations Pain Elbow/Forearm Range of Motion Elbow/Forearm kirill Elbow/Forearm ROM WFL Yes PT-OP-L Special Tests Start: 08/09/22 16:43 Freq: Status: Active Protocol: Document 10/04/22 08:14 SAK (Rec: 10/05/22 15:18 [facility] [id number]) Special Tests Shoulder Special Tests Elevation Impingement Test Results positive left PT-OP-M Strength Start: 08/09/22 16:43 Freq: Status: Active Protocol: Document 10/04/22 08:14 SAK (Rec: 10/04/22 09:03 [facility] [id number]) Shoulder Strength Shoulder Manual Muscle Testing Left Flexion 3- Fair- Extension 3+ Fair+ Abduction (C5) 3- Fair- Adduction 4- Good- External Rotation 3+ Fair+ Internal Rotation 4- Good- Right Flexion 4+ Good+ Extension 4+ Good+ Abduction (C5) 4+ Good+ Adduction 4+ Good+ External Rotation 4- Good- Internal Rotation 4+ Good+ Elbow/Forearm Strength Elbow and Forearm Manual Muscle Testing Left Flexion (C6) 4- Good- Extension (C7) 4- Good- Right Flexion (C6) 5 Normal Extension (C7) 5 Normal PT-OP-Q Treatments Start: 08/09/22 16:43 Freq: Status: Active Protocol: Document 10/12/22 09:48 [facility] (Rec: 10/12/22 10:31 [facility] [id number]) Manual Therapy Treatment Soft Tissue Mobilization RC, bicep, deltoid Body Location left Mobilization Type Myofascial Release,Strumming Intensity/Depth Moderate Body Position Hooklying Self-Care/Home Management Treatment Education Patient Education Body Mechanics,Home Exercise Program,Pain Management, Posture Other Education Benefits of TENS for home use, discussed type, patient to look up and order for home use . May bring in to have PT assist with set up and use. PT-OP-R Modalities Start: 08/09/22 16:43 Freq: Status: Active Protocol: Document 10/12/22 09:48 [facility] (Rec: 10/12/22 10:31 [facility] [id number]) Electric Stimulation Electric Stimulation Interferential Current (IFC) Body Location left shoulder Duration (Minutes) 15 Intensity 5 Patient Position Hooklying Combined With Heat/Cold Hot Pack Ultrasound Therapy Treatment left ant/lat should Treatment Duration (minutes) 8 Patient Position Hooklying Coupling Medium Ultrasound Gel Frequency Setting (mHz) 2 Mode Setting Continuous Duty Cycle 50 Intensity Setting (w/cm2) 1.2 PT-OP-T Assessment and Plan Start: 08/09/22 16:43 Freq: Status: Active Protocol: Document 10/12/22 09:48 [facility] (Rec: 10/12/22 10:31 [facility] [id number]) Physical Therapy Assessment Goals One Impairment pain with left shoulder movement Impairment unable to reach out to side, across body, behind her back without pain up to 8/10 on pain scale Short Term Goal (STG) decrease pain to no greater than 4/10 with all usual activities using left UE STG Duration 11/06/22 Underliner Goal (LTG) Decrease pain to no greater than 2/10 with all usual activities using left UE LTG Duration 01/01/23 Two Impairment ROM and strength impairments left UE Short Term Goal (STG) Patient to be instructed in HEP to address ROM and strength impairments STG Duration 11/01/22 [facility] Goal (LTG) Patient to be independnet and compliant with HEP and demonstrate left shoulder ROM WNL and strength at least 4+/5 all motions LTG Duration 01/01/23 Assessment Summary Assessment Patient noting some improvement in shoulder pain with gentle active use at home , liked IFES and is interested in obtaining TENS for home use. No ther ex today per patient request due to other medical issues, not feeling well. Physical Therapy Plan Frequency and Duration Frequency of Treatment 2x/Week Duration of treatment (weeks) 12 Plan of Care Start Date 10/04/22 Plan of Care End Date 01/01/23 Therapeutic Interventions Therapeutic Interventions Home Exercise Program,Joint Mobilizations,Manual Therapy, Patient/Caregiver Education, Self-Care/Home Management,Soft Tissue Mobilization,Taping, Therapeutic Activities, Therapeutic Exercises Modalities Cold Pack/Ice Massage,Electric Stimulation,Hot Packs, Infrared Therapy,Iontophoresis ,Ultrasound Next Visit Focus/Plan Next Note Type Treatment Note Next Visit Plan Review HEP, trial pulleys, gentle shoulder isometrics.
--- NOTE | 2022-10-15 11:39 | PT.OTN ---
Current Diagnoses Primary osteoarthritis, left shoulder (10/15/22) Adhesive capsulitis of left shoulder (10/15/22) Superior glenoid labrum lesion of left shoulder, initial encounter (10/15/22) Physical Therapy Treatment Note PT-OP-A Visit Information Start: 08/09/22 16:43 Freq: Status: Active Protocol: Document 10/15/22 09:22 NBM (Rec: 10/15/22 11:39 NBM [id number]) Out-Patient Physical Therapy Visit Information Visit Information Visit Type Treatment Note Visit Start Time 09:22 Visit Stop Time 10:07 Total Visit Minutes 45 Visit Number 3 Number of MANAGEMENT COORDINATOR Visits 1 PT-OP-B Current Condition Start: 08/09/22 16:43 Freq: Status: Active Protocol: Document 10/04/22 08:14 SAK (Rec: 10/04/22 09:03 SAK [id number]) Current Condition History of Current Condition Onset Date 9 months Current Complaints left shoulder pain History of Current Condition Reports onset of left shoulder pain while reaching forward while doing exercise in pool. Pain has persisted and increase with reaching down, out to side especially with overextending and reaching behind her back. Has used heat, not ice; states doesn't tolerate ice. Has been favoring left UE, can't use for ADL's. Prior Treatments and Tests MRI left shoulder: partial RC tears, possible labral tear, arthritis Future Testing and Treatments Planned No appointment scheduled to go back to Dr. Porras yet Treatment Goals Patient/Caregiver Goals Decrease pain, regain full use of left UE with minimal to no pain. Prior Functional Status Baseline Function- ADL's Independent Baseline Function- Mobility Independent Baseline Function- Work/School retired Baseline Function- Recreation/Hobbies min limitations Current Functional Impairments (Reported) Functional Limitations- ADL's painful Functional Limitations- Mobility/Gait limitations due to LBP Functional Limitations- Work/School disability Functional Limitations- Recreation/ limited due to pain Hobbies Personal Factors Other Personal Factors That May Effect decreased short term memory, Therapy/Recovery chronic pain prior right shoulder surgery PT-OP-C Subjective Start: 08/09/22 16:43 Freq: Status: Active Protocol: Document 10/15/22 09:22 NBM (Rec: 10/15/22 11:39 NBM [id number]) OP-PT Subjective Patient Comments Patient Comments Pt reports a bit more shoulder motion, but also dental issues which will require surgery and that she hasn't been feeling well due to medical complications so has not been doing her ex's. She will be having a dental surgery and will need to go under anesthesia so is not sure how her recovery will affect her ex's at home. Pt states the IFES helps a lot and she is looking into a TENS unit and will bring it in for help. PT-OP-H Neuro Start: 08/09/22 16:44 Freq: Status: Active Protocol: Document 10/04/22 08:14 SAK (Rec: 10/04/22 09:03 [facility] [id number]) Sensation Evaluation Gross Sensation Gross Sensation WNL PT-OP-J Posture/Palpation/Skin Start: 08/09/22 16:43 Freq: Status: Active Protocol: Document 10/04/22 08:14 SAK (Rec: 10/04/22 09:03 [facility] [id number]) Posture Evaluation Position Sitting Head/C-Spine Posture Forward Head T-Spine Posture Increased Kyphosis Shoulder Posture (L) Rounded,(R) Rounded Scapula Posture (L) Protracted,(R) Protracted Arm Posture (L) Internally Rotated,(R) Internally Rotated Palpation Assessment Location GH joint line Palpation Location ant Palpation Findings Soft Tissue Tightness,Muscle Guarding,Tenderness left RC Palpation Findings Muscle Guarding,Tenderness PT-OP-K Range of Motion Start: 08/09/22 16:43 Freq: Status: Active Protocol: Document 10/04/22 08:14 SAK (Rec: 10/04/22 09:03 [facility] [id number]) Cervical Spine Range of Motion Cervical Spine Active Comments WNL Shoulder Goniometric Range of Motion Shoulder Left Shoulder ROM WFL No Flexion 120 Extension 25 Abduction 75 External Rotation at 0 degrees Abduction 55 Internal Rotation Behind Back (text) lateral hip Right Shoulder ROM WFL Yes Shoulder ROM Limitations Shoulder ROM Limitations Pain Elbow/Forearm Range of Motion Elbow/Forearm kirill Elbow/Forearm ROM WFL Yes PT-OP-L Special Tests Start: 08/09/22 16:43 Freq: Status: Active Protocol: Document 10/04/22 08:14 SAK (Rec: 10/05/22 15:18 [facility] [id number]) Special Tests Shoulder Special Tests Elevation Impingement Test Results positive left PT-OP-M Strength Start: 08/09/22 16:43 Freq: Status: Active Protocol: Document 10/04/22 08:14 [facility] (Rec: 10/04/22 09:03 SAK [id number]) Shoulder Strength Shoulder Manual Muscle Testing Left Flexion 3- Fair- Extension 3+ Fair+ Abduction (C5) 3- Fair- Adduction 4- Good- External Rotation 3+ Fair+ Internal Rotation 4- Good- Right Flexion 4+ Good+ Extension 4+ Good+ Abduction (C5) 4+ Good+ Adduction 4+ Good+ External Rotation 4- Good- Internal Rotation 4+ Good+ Elbow/Forearm Strength Elbow and Forearm Manual Muscle Testing Left Flexion (C6) 4- Good- Extension (C7) 4- Good- Right Flexion (C6) 5 Normal Extension (C7) 5 Normal PT-OP-Q Treatments Start: 08/09/22 16:43 Freq: Status: Active Protocol: Document 10/15/22 09:22 NB (Rec: 10/15/22 11:39 [facility] [id number]) Therapeutic Exercises Supine Exercises Scapular Retraction Supine Exercise Name scapular squeeze - added to HEP Side bilateral Reps/Minutes 10x5SH Comments elbows at 90 deg - good feedback response Trunk Pushdown Supine Exercise Name hooklying, slide palms down sides, gently press into mat Side bilateral Reps/Minutes 10x5SH Comments good feedback response Self-Care/Home Management Treatment Education Patient Education Body Mechanics,Home Exercise Program,Pain Management, Posture Other Education Discussed shoulder anatomy and HEP ex's to improve posture and open up shoulder joint space and improve function and pain. Discussed HEP compliance and challenge with medical complications and lying in bed more. Added to HEP: supine trunk pushdown, supine scapular retractions as pt thinks supine ex's will increase compliance w/ medical issues. PT-OP-R Modalities Start: 08/09/22 16:43 Freq: Status: Active Protocol: Document 10/15/22 09:22 NB (Rec: 10/15/22 11:39 [facility] [id number]) Electric Stimulation Electric Stimulation Interferential Current (IFC) Body Location left shoulder Duration (Minutes) 15 Intensity 5 Patient Position Hooklying Combined With Heat/Cold Hot Pack Ultrasound Therapy Treatment left ant/lat should Treatment Duration (minutes) 8 Patient Position Hooklying Coupling Medium Ultrasound Gel Frequency Setting (mHz) 2 Mode Setting Continuous Duty Cycle 50 Intensity Setting (w/cm2) 1.2 PT-OP-T Assessment and Plan Start: 08/09/22 16:43 Freq: Status: Active Protocol: Document 10/15/22 09:22 [facility] (Rec: 10/15/22 11:39 [facility] [id number]) Physical Therapy Assessment Goals One Impairment pain with left shoulder movement Impairment unable to reach out to side, across body, behind her back without pain up to 8/10 on pain scale Short Term Goal (STG) decrease pain to no greater than 4/10 with all usual activities using left UE STG Duration 11/06/22 [facility] Goal (LTG) Decrease pain to no greater than 2/10 with all usual activities using left UE LTG Duration 01/01/23 Three Impairment R knee (sup): 5-100 deg's ( sitting): 22-103 deg's L knee (sup): 0-122 deg's ( sitting): 0-123 deg's Two Impairment ROM and strength impairments left UE Impairment R knee: flex & ext 3-/5; R hip: flex 2-/5, AB & AD 1/5. L knee: flex & ext 5/5 L hip: flex 3/5, AB 3/5, AD 2 /5. Short Term Goal (STG) Patient to be instructed in HEP to address ROM and strength impairments STG Duration 11/01/22 Post Anesthesia Nurse Goal (LTG) Patient to be independnet and compliant with HEP and demonstrate left shoulder ROM WNL and strength at least 4+/5 all motions LTG Duration 01/01/23 Assessment Summary Assessment Pt feeling unwell but noting improved pain-free range of motion in L shoulder. Educated pt on shoulder anatomy and HEP ex's to improve posture and open up shoulder joint space and improve function and pain. Discussed HEP compliance and challenge with medical complications and lying in bed more. Pt had good feedback response to ultrasound and supine ex's; IFES pad placement initially caused discomfort to the Added to HEP: supine trunk pushdown, supine scapular retractions as pt thinks supine ex's will increase compliance w/ medical issues. HO to be given to pt next visit. Physical Therapy Plan Frequency and Duration Frequency of Treatment 2x/Week Duration of treatment (weeks) 12 Plan of Care Start Date 10/04/22 Plan of Care End Date 01/01/23 Therapeutic Interventions Therapeutic Interventions Home Exercise Program,Joint Mobilizations,Manual Therapy, Patient/Caregiver Education, Self-Care/Home Management,Soft Tissue Mobilization,Taping, Therapeutic Activities, Therapeutic Exercises Modalities Cold Pack/Ice Massage,Electric Stimulation,Hot Packs, Infrared Therapy,Iontophoresis ,Ultrasound Next Visit Focus/Plan Next Note Type Treatment Note Next Visit Plan Review HEP, trial pulleys, gentle shoulder isometrics.
--- NOTE | 2022-10-22 11:37 | PT.OTN ---
Current Diagnoses Primary osteoarthritis, left shoulder (10/22/22) Adhesive capsulitis of left shoulder (10/22/22) Superior glenoid labrum lesion of left shoulder, initial encounter (10/22/22) Physical Therapy Treatment Note PT-OP-A Visit Information Start: 08/09/22 16:43 Freq: Status: Active Protocol: Document 10/22/22 10:40 NBM (Rec: 10/22/22 11:36 NBM [id number]) Out-Patient Physical Therapy Visit Information Visit Information Visit Type Treatment Note Visit Start Time 10:50 Visit Stop Time 11:35 Total Visit Minutes 45 Visit Number 4 Number of [employer]LES[employer] FUNCTIONAL ANALYST Visits 2 PT-OP-B Current Condition Start: 08/09/22 16:43 Freq: Status: Active Protocol: Document 10/04/22 08:14 SAK (Rec: 10/04/22 09:03 SAK [id number]) Current Condition History of Current Condition Onset Date 9 months Current Complaints left shoulder pain History of Current Condition Reports onset of left shoulder pain while reaching forward while doing exercise in pool. Pain has persisted and increase with reaching down, out to side especially with overextending and reaching behind her back. Has used heat, not ice; states doesn't tolerate ice. Has been favoring left UE, can't use for ADL's. Prior Treatments and Tests MRI left shoulder: partial RC tears, possible labral tear, arthritis Future Testing and Treatments Planned No appointment scheduled to go back to Dr. Porras yet Treatment Goals Patient/Caregiver Goals Decrease pain, regain full use of left UE with minimal to no pain. Prior Functional Status Baseline Function- ADL's Independent Baseline Function- Mobility Independent Baseline Function- Work/School retired Baseline Function- Recreation/Hobbies min limitations Current Functional Impairments (Reported) Functional Limitations- ADL's painful Functional Limitations- Mobility/Gait limitations due to LBP Functional Limitations- Work/School disability Functional Limitations- Recreation/ limited due to pain Hobbies Personal Factors Other Personal Factors That May Effect decreased short term memory, Therapy/Recovery chronic pain prior right shoulder surgery PT-OP-C Subjective Start: 08/09/22 16:43 Freq: Status: Active Protocol: Document 10/22/22 10:40 NBM (Rec: 10/22/22 11:36 NBM [id number]) OP-PT Subjective Patient Comments Patient Comments Pt states she thinks the e- stim was too much last time and she has been hurting, plus her dental work still needs to be done. She states reaching is more painful again . She still wants to get a TENS unit. PT-OP-H Neuro Start: 08/09/22 16:44 Freq: Status: Active Protocol: Document 10/04/22 08:14 SAK (Rec: 10/04/22 09:03 [facility] [id number]) Sensation Evaluation Gross Sensation Gross Sensation WNL PT-OP-J Posture/Palpation/Skin Start: 08/09/22 16:43 Freq: Status: Active Protocol: Document 10/04/22 08:14 SAK (Rec: 10/04/22 09:03 [facility] [id number]) Posture Evaluation Position Sitting Head/C-Spine Posture Forward Head T-Spine Posture Increased Kyphosis Shoulder Posture (L) Rounded,(R) Rounded Scapula Posture (L) Protracted,(R) Protracted Arm Posture (L) Internally Rotated,(R) Internally Rotated Palpation Assessment Location GH joint line Palpation Location ant Palpation Findings Soft Tissue Tightness,Muscle Guarding,Tenderness left RC Palpation Findings Muscle Guarding,Tenderness PT-OP-K Range of Motion Start: 08/09/22 16:43 Freq: Status: Active Protocol: Document 10/04/22 08:14 SAK (Rec: 10/04/22 09:03 [facility] [id number]) Cervical Spine Range of Motion Cervical Spine Active Comments WNL Shoulder Goniometric Range of Motion Shoulder Left Shoulder ROM WFL No Flexion 120 Extension 25 Abduction 75 External Rotation at 0 degrees Abduction 55 Internal Rotation Behind Back (text) lateral hip Right Shoulder ROM WFL Yes Shoulder ROM Limitations Shoulder ROM Limitations Pain Elbow/Forearm Range of Motion Elbow/Forearm kirill Elbow/Forearm ROM WFL Yes PT-OP-L Special Tests Start: 08/09/22 16:43 Freq: Status: Active Protocol: Document 10/04/22 08:14 SAK (Rec: 10/05/22 15:18 [facility] [id number]) Special Tests Shoulder Special Tests Elevation Impingement Test Results positive left PT-OP-M Strength Start: 08/09/22 16:43 Freq: Status: Active Protocol: Document 10/04/22 08:14 SAK (Rec: 10/04/22 09:03 [facility] [id number]) Shoulder Strength Shoulder Manual Muscle Testing Left Flexion 3- Fair- Extension 3+ Fair+ Abduction (C5) 3- Fair- Adduction 4- Good- External Rotation 3+ Fair+ Internal Rotation 4- Good- Right Flexion 4+ Good+ Extension 4+ Good+ Abduction (C5) 4+ Good+ Adduction 4+ Good+ External Rotation 4- Good- Internal Rotation 4+ Good+ Elbow/Forearm Strength Elbow and Forearm Manual Muscle Testing Left Flexion (C6) 4- Good- Extension (C7) 4- Good- Right Flexion (C6) 5 Normal Extension (C7) 5 Normal PT-OP-Q Treatments Start: 08/09/22 16:43 Freq: Status: Active Protocol: Document 10/22/22 10:40 NBM (Rec: 10/22/22 11:36 [facility] [id number]) Manual Therapy Treatment Soft Tissue Mobilization RC, bicep, deltoid Body Location left Mobilization Type Myofascial Release,Strumming Intensity/Depth Moderate Body Position Hooklying Joint Mobilizations L GH jt Joint Glenohumeral jt Direction posterior, inferior Grade II Body Position Hooklying Comments gentle pain-free range, + feedback response PT-OP-R Modalities Start: 08/09/22 16:43 Freq: Status: Active Protocol: Document 10/22/22 10:40 NBM (Rec: 10/22/22 11:36 [facility] [id number]) Ultrasound Therapy Treatment left ant/lat should Treatment Duration (minutes) 8 Patient Position Hooklying Coupling Medium Ultrasound Gel Frequency Setting (mHz) 2 Mode Setting Continuous Duty Cycle 50 Intensity Setting (w/cm2) 1.2 PT-OP-T Assessment and Plan Start: 08/09/22 16:43 Freq: Status: Active Protocol: Document 10/22/22 10:40 NBM (Rec: 10/22/22 11:36 [facility] [id number]) Physical Therapy Assessment Goals One Impairment pain with left shoulder movement Impairment unable to reach out to side, across body, behind her back without pain up to 8/10 on pain scale Short Term Goal (STG) decrease pain to no greater than 4/10 with all usual activities using left UE STG Duration 11/06/22 Wire Mesh Gate Assembler Goal (LTG) Decrease pain to no greater than 2/10 with all usual activities using left UE LTG Duration 01/01/23 Three Impairment R knee (sup): 5-100 deg's ( sitting): 22-103 deg's L knee (sup): 0-122 deg's ( sitting): 0-123 deg's Two Impairment ROM and strength impairments left UE Impairment R knee: flex & ext 3-/5; R hip: flex 2-/5, AB & AD 1/5. L knee: flex & ext 5/5 L hip: flex 3/5, AB 3/5, AD 2 /5. Short Term Goal (STG) Patient to be instructed in HEP to address ROM and strength impairments STG Duration 11/01/22 Wire Mesh Gate Assembler Goal (LTG) Patient to be independnet and compliant with HEP and demonstrate left shoulder ROM WNL and strength at least 4+/5 all motions LTG Duration 01/01/23 Assessment Summary Assessment Pt presents with pain-limited range of motion of L glenohumeral joint. Treatment focus manual therapy and ultrasound this sesion. Jt mobilizations posterior and inferior in gentle pain-free range of motion with positive feedback response. Pt declines IFES this treatment. Provided exercise HO from last visit. Physical Therapy Plan Frequency and Duration Frequency of Treatment 2x/Week Duration of treatment (weeks) 12 Plan of Care Start Date 10/04/22 Plan of Care End Date 01/01/23 Therapeutic Interventions Therapeutic Interventions Home Exercise Program,Joint Mobilizations,Manual Therapy, Patient/Caregiver Education, Self-Care/Home Management,Soft Tissue Mobilization,Taping, Therapeutic Activities, Therapeutic Exercises Modalities Cold Pack/Ice Massage,Electric Stimulation,Hot Packs, Infrared Therapy,Iontophoresis ,Ultrasound Next Visit Focus/Plan Next Note Type Treatment Note Next Visit Plan Review HEP, trial pulleys, gentle shoulder isometrics.
--- NOTE | 2022-10-26 11:12 | PT-OP ANOTE ---
DNS for PT appointment
--- NOTE | 2022-10-29 17:29 | PT.OTN ---
Current Diagnoses Primary osteoarthritis, left shoulder (10/29/22) Adhesive capsulitis of left shoulder (10/29/22) Superior glenoid labrum lesion of left shoulder, initial encounter (10/29/22) Physical Therapy Treatment Note PT-OP-A Visit Information Start: 08/09/22 16:43 Freq: Status: Active Protocol: Document 10/29/22 10:56 NBM (Rec: 10/29/22 17:23 NBM [id number]) Out-Patient Physical Therapy Visit Information Visit Information Visit Type Treatment Note Visit Start Time 10:50 Visit Stop Time 11:30 Total Visit Minutes 40 Visit Number 5 Number of CHILDREN'S TUTOR Visits 3 PT-OP-B Current Condition Start: 08/09/22 16:43 Freq: Status: Active Protocol: Document 10/04/22 08:14 SAK (Rec: 10/04/22 09:03 SAK [id number]) Current Condition History of Current Condition Onset Date 9 months Current Complaints left shoulder pain History of Current Condition Reports onset of left shoulder pain while reaching forward while doing exercise in pool. Pain has persisted and increase with reaching down, out to side especially with overextending and reaching behind her back. Has used heat, not ice; states doesn't tolerate ice. Has been favoring left UE, can't use for ADL's. Prior Treatments and Tests MRI left shoulder: partial RC tears, possible labral tear, arthritis Future Testing and Treatments Planned No appointment scheduled to go back to Dr. Porras yet Treatment Goals Patient/Caregiver Goals Decrease pain, regain full use of left UE with minimal to no pain. Prior Functional Status Baseline Function- ADL's Independent Baseline Function- Mobility Independent Baseline Function- Work/School retired Baseline Function- Recreation/Hobbies min limitations Current Functional Impairments (Reported) Functional Limitations- ADL's painful Functional Limitations- Mobility/Gait limitations due to LBP Functional Limitations- Work/School disability Functional Limitations- Recreation/ limited due to pain Hobbies Personal Factors Other Personal Factors That May Effect decreased short term memory, Therapy/Recovery chronic pain prior right shoulder surgery PT-OP-C Subjective Start: 08/09/22 16:43 Freq: Status: Active Protocol: Document 10/29/22 10:56 NBM (Rec: 10/29/22 17:23 NBM [id number]) OP-PT Subjective Patient Comments Patient Comments Pt states she is in a lot of pain with teeth and on antibiotics for yeast infection and UTI. She is on increased gabapentin. PT-OP-H Neuro Start: 08/09/22 16:44 Freq: Status: Active Protocol: Document 10/04/22 08:14 [facility] (Rec: 10/04/22 09:03 [facility] [id number]) Sensation Evaluation Gross Sensation Gross Sensation WNL PT-OP-J Posture/Palpation/Skin Start: 08/09/22 16:43 Freq: Status: Active Protocol: Document 10/04/22 08:14 [facility] (Rec: 10/04/22 09:03 [facility] [id number]) Posture Evaluation Position Sitting Head/C-Spine Posture Forward Head T-Spine Posture Increased Kyphosis Shoulder Posture (L) Rounded,(R) Rounded Scapula Posture (L) Protracted,(R) Protracted Arm Posture (L) Internally Rotated,(R) Internally Rotated Palpation Assessment Location GH joint line Palpation Location ant Palpation Findings Soft Tissue Tightness,Muscle Guarding,Tenderness left RC Palpation Findings Muscle Guarding,Tenderness PT-OP-K Range of Motion Start: 08/09/22 16:43 Freq: Status: Active Protocol: Document 10/04/22 08:14 [facility] (Rec: 10/04/22 09:03 [facility] [id number]) Cervical Spine Range of Motion Cervical Spine Active Comments WNL Shoulder Goniometric Range of Motion Shoulder Left Shoulder ROM WFL No Flexion 120 Extension 25 Abduction 75 External Rotation at 0 degrees Abduction 55 Internal Rotation Behind Back (text) lateral hip Right Shoulder ROM WFL Yes Shoulder ROM Limitations Shoulder ROM Limitations Pain Elbow/Forearm Range of Motion Elbow/Forearm monroe Elbow/Forearm ROM WFL Yes PT-OP-L Special Tests Start: 08/09/22 16:43 Freq: Status: Active Protocol: Document 10/04/22 08:14 SAK (Rec: 10/05/22 15:18 [facility] [id number]) Special Tests Shoulder Special Tests Elevation Impingement Test Results positive left PT-OP-M Strength Start: 08/09/22 16:43 Freq: Status: Active Protocol: Document 10/04/22 08:14 SAK (Rec: 10/04/22 09:03 [facility] [id number]) Shoulder Strength Shoulder Manual Muscle Testing Left Flexion 3- Fair- Extension 3+ Fair+ Abduction (C5) 3- Fair- Adduction 4- Good- External Rotation 3+ Fair+ Internal Rotation 4- Good- Right Flexion 4+ Good+ Extension 4+ Good+ Abduction (C5) 4+ Good+ Adduction 4+ Good+ External Rotation 4- Good- Internal Rotation 4+ Good+ Elbow/Forearm Strength Elbow and Forearm Manual Muscle Testing Left Flexion (C6) 4- Good- Extension (C7) 4- Good- Right Flexion (C6) 5 Normal Extension (C7) 5 Normal PT-OP-Q Treatments Start: 08/09/22 16:43 Freq: Status: Active Protocol: Document 10/29/22 10:56 NBM (Rec: 10/29/22 17:23 NB [id number]) Therapeutic Exercises Sitting Exercises Chin Tucks Sitting Exercise Name HEP Reps/Minutes 10x5 SH Comments before and after KT taping Scapular retractions Sitting Exercise Name HEP Reps/Minutes 10x5 SH Comments before and after KT taping Manual Therapy Treatment Taping KT Body Location X Monroe scapula Treatment Focus posture Type of Tape Kinesio Tape Skin Inspection intact Comments Two I strips: applied w/ scapular retraction from superior angle to contralateral inferior angle. Pt educated to remove KT tape if any reaction, not to exceed 5 days - provided adhesive remover. Self-Care/Home Management Treatment Education Patient Education Home Exercise Program,Pain Management,Safety Other Education Discussed importance of adequate nutrition with tissue healing and immune support for fighting infections. HEP review of seated scapular retractions and chin tucks for improved posture. Review of shoulder anatomy and role of posture in functional UE movement. PT-OP-R Modalities Start: 08/09/22 16:43 Freq: Status: Active Protocol: Document 10/22/22 10:40 NBM (Rec: 10/22/22 11:36 [facility] [place] [id number][place] Ultrasound Therapy Treatment left ant/lat should Treatment Duration (minutes) 8 Patient Position Hooklying Coupling Medium Ultrasound Gel Frequency Setting (mHz) 2 Mode Setting Continuous Duty Cycle 50 Intensity Setting (w/cm2) 1.2 PT-OP-T Assessment and Plan Start: 08/09/22 16:43 Freq: Status: Active Protocol: Document 10/29/22 10:56 NBM (Rec: 10/29/22 17:23 [facility] [place] [id number]) Physical Therapy Assessment Goals One Impairment pain with left shoulder movement Impairment unable to reach out to side, across body, behind her back without pain up to 8/10 on pain scale Short Term Goal (STG) decrease pain to no greater than 4/10 with all usual activities using left UE STG Duration 11/06/22 Resourcing Advisor Goal (LTG) Decrease pain to no greater than 2/10 with all usual activities using left UE LTG Duration 01/01/23 Three Impairment R knee (sup): 5-100 deg's ( sitting): 22-103 deg's L knee (sup): 0-122 deg's ( sitting): 0-123 deg's Two Impairment ROM and strength impairments left UE Impairment R knee: flex & ext 3-/5; R hip: flex 2-/5, AB & AD 1/5. L knee: flex & ext 5/5 L hip: flex 3/5, AB 3/5, AD 2 /5. Short Term Goal (STG) Patient to be instructed in HEP to address ROM and strength impairments STG Duration 11/01/22 Shelter Goal (LTG) Patient to be independnet and compliant with HEP and demonstrate left shoulder ROM WNL and strength at least 4+/5 all motions LTG Duration 01/01/23 Assessment Summary Assessment Pt demonstrates slow progress due to inconsistent appointments and overlapping medical issues. Pt will be out of town for dental surgery until at least 11/30/22, and will contact office to schedule w/ PT upon return. Significant time spent this session discussing plan of care, importance of adequate nutrition with tissue healing and immune support for fighting infections, review of scapular squeeze and chin tucks and the relationship of posture with shoulder anatomy and upper extremity movement. Pt demonstrates improved self- awareness of seated posture by end of session. Pt has good feedback response to KT taping to scapulae for postural feedback. Physical Therapy Plan Frequency and Duration Frequency of Treatment 2x/Week Duration of treatment (weeks) 12 Plan of Care Start Date 10/04/22 Plan of Care End Date 01/01/23 Therapeutic Interventions Therapeutic Interventions Home Exercise Program,Joint Mobilizations,Manual Therapy, Patient/Caregiver Education, Self-Care/Home Management,Soft Tissue Mobilization,Taping, Therapeutic Activities, Therapeutic Exercises Modalities Cold Pack/Ice Massage,Electric Stimulation,Hot Packs, Infrared Therapy,Iontophoresis ,Ultrasound Next Visit Focus/Plan Next Note Type Treatment Note Next Visit Plan Assess response to KT tape. Review HEP, trial pulleys, gentle shoulder isometrics.
--- NOTE | 2023-02-07 16:27 | PT.OPDS ---
Current Diagnoses Primary osteoarthritis, left shoulder (10/29/22) Adhesive capsulitis of left shoulder (10/29/22) Superior glenoid labrum lesion of left shoulder, initial encounter (10/29/22) Visit Care Team Role Provider Type Panchito Velez MD Attending Provider Physician Family Provider Primary Care Provider Referring Provider Specialty: Family Practice Address: [address] [place] [address] Email: [email or web address] Visit Number Visit Number 5 Discharge Summary PT-OP-B Current Condition Start: 08/09/22 16:43 Freq: Status: Active Protocol: Document 10/04/22 08:14 SAK (Rec: 10/04/22 09:03 SAK [id number]) Current Condition History of Current Condition Onset Date 9 months Current Complaints left shoulder pain History of Current Condition Reports onset of left shoulder pain while reaching forward while doing exercise in pool. Pain has persisted and increase with reaching down, out to side especially with overextending and reaching behind her back. Has used heat, not ice; states doesn't tolerate ice. Has been favoring left UE, can't use for ADL's. Prior Treatments and Tests MRI left shoulder: partial RC tears, possible labral tear, arthritis Future Testing and Treatments Planned No appointment scheduled to go back to Dr. Porras yet Treatment Goals Patient/Caregiver Goals Decrease pain, regain full use of left UE with minimal to no pain. Prior Functional Status Baseline Function- ADL's Independent Baseline Function- Mobility Independent Baseline Function- Work/School retired Baseline Function- Recreation/Hobbies min limitations Current Functional Impairments (Reported) Functional Limitations- ADL's painful Functional Limitations- Mobility/Gait limitations due to LBP Functional Limitations- Work/School disability Functional Limitations- Recreation/ limited due to pain Hobbies Personal Factors Other Personal Factors That May Effect decreased short term memory, Therapy/Recovery chronic pain prior right shoulder surgery PT-OP-C Subjective Start: 08/09/22 16:43 Freq: Status: Active Protocol: Document 10/29/22 10:56 NBM (Rec: 10/29/22 17:23 NBM [id number]) OP-PT Subjective Patient Comments Patient Comments Pt states she is in a lot of pain with teeth and on antibiotics for yeast infection and UTI. She is on increased gabapentin. PT-OP-H Neuro Start: 08/09/22 16:44 Freq: Status: Active Protocol: Document 10/04/22 08:14 [facility] (Rec: 10/04/22 09:03 [facility] [id number]) Sensation Evaluation Gross Sensation Gross Sensation WNL PT-OP-J Posture/Palpation/Skin Start: 08/09/22 16:43 Freq: Status: Active Protocol: Document 10/04/22 08:14 [facility] (Rec: 10/04/22 09:03 [facility] [id number]) Posture Evaluation Position Sitting Head/C-Spine Posture Forward Head T-Spine Posture Increased Kyphosis Shoulder Posture (L) Rounded,(R) Rounded Scapula Posture (L) Protracted,(R) Protracted Arm Posture (L) Internally Rotated,(R) Internally Rotated Palpation Assessment Location GH joint line Palpation Location ant Palpation Findings Soft Tissue Tightness,Muscle Guarding,Tenderness left RC Palpation Findings Muscle Guarding,Tenderness PT-OP-K Range of Motion Start: 08/09/22 16:43 Freq: Status: Active Protocol: Document 10/04/22 08:14 [facility] (Rec: 10/04/22 09:03 [facility] [id number]) Cervical Spine Range of Motion Cervical Spine Active Comments WNL Shoulder Goniometric Range of Motion Shoulder Left Shoulder ROM WFL No Flexion 120 Extension 25 Abduction 75 External Rotation at 0 degrees Abduction 55 Internal Rotation Behind Back (text) lateral hip Right Shoulder ROM WFL Yes Shoulder ROM Limitations Shoulder ROM Limitations Pain Elbow/Forearm Range of Motion Elbow/Forearm kirill Elbow/Forearm ROM WFL Yes PT-OP-L Special Tests Start: 08/09/22 16:43 Freq: Status: Active Protocol: Document 10/04/22 08:14 [facility] (Rec: 10/05/22 15:18 [facility] [id number]) Special Tests Shoulder Special Tests Elevation Impingement Test Results positive left PT-OP-M Strength Start: 08/09/22 16:43 Freq: Status: Active Protocol: Document 10/04/22 08:14 SAK (Rec: 10/04/22 09:03 [facility] [id number]) Shoulder Strength Shoulder Manual Muscle Testing Left Flexion 3- Fair- Extension 3+ Fair+ Abduction (C5) 3- Fair- Adduction 4- Good- External Rotation 3+ Fair+ Internal Rotation 4- Good- Right Flexion 4+ Good+ Extension 4+ Good+ Abduction (C5) 4+ Good+ Adduction 4+ Good+ External Rotation 4- Good- Internal Rotation 4+ Good+ Elbow/Forearm Strength Elbow and Forearm Manual Muscle Testing Left Flexion (C6) 4- Good- Extension (C7) 4- Good- Right Flexion (C6) 5 Normal Extension (C7) 5 Normal PT-OP-T Assessment and Plan Start: 08/09/22 16:43 Freq: Status: Active Protocol: Document 02/07/23 16:26 [facility] (Rec: 02/07/23 16:26 [facility] [id number]) Physical Therapy Plan Discharge Physical Therapy Discharge Reasons No Longer Attending PT
== END 2023-02-15 10:04 | disposition home or self-care (01) ==
LOC: PHYS 10:45
PROVIDERS: Family Provider Family Medicine; PCP Family Medicine; Referring Provider Family Medicine; Visit Provider Family Medicine
DX: M75.02 Adhesive capsulitis of left shoulder (principal); M19.012 Primary osteoarthritis, left shoulder; S43.432S Superior glenoid labrum lesion of left shoulder, sequela
CPT/HCPCS: 97014; 97032; 97035; 97110; 97140; 97162; 97535; G0283

== ENCOUNTER → 2022-12-27 15:02 | Outpatient (CLI) | payer OTHER, MEDICAID, SELFPAY ==
[2022-12-27 15:42] LABS: Appearance Urine UA CLEAR; Bilirubin Urine UA NEGATIVE (NEGATIVE); Color Urine UA YELLOW; Glucose Urine UA NEGATIVE (Negative); Ketones Urine UA NEGATIVE (NEGATIVE); Leukocyte Esterase Urine UA TRACE (NEGATIVE); Nitrite Urine UA NEGATIVE (Negative); Occult Blood Urine UA NEGATIVE (Negative); Protein Urine UA NEGATIVE (Negative); Urobilinogen Urine UA 0.2 E.U./dL (0.2)
[2022-12-27 15:48] LABS: Bacteria Urine Occasional (0-1); Culture Indicated Urine Specimen Cultured; RBC Urine 0-1/HPF (0-5/HPF); Squamous Epithelial Cell Urine 1-5 /HPF (0-5/HPF); WBC Urine 1-5/HPF (0-5/HPF)
== END ==
PROVIDERS: Family Provider Family Medicine; PCP Family Medicine; Referring Provider Family Medicine; Visit Provider Family Medicine
DX: R30.0 Dysuria (principal)
CPT/HCPCS: 81001; 87086

== ENCOUNTER → 2023-07-12 10:00 | Outpatient (CLI) | payer OTHER, MEDICAID, SELFPAY ==
[2023-07-12 11:21] LABS: Influenza A - CEPHEID Flu A NEGATIVE (NEGATIVE); Influenza B - CEPHEID Flu B NEGATIVE (NEGATIVE); Respiratory Syncytial Virus POSITIVE (Negative)
[2023-07-12 11:25] LABS: COVID-19 CEPHEID 4-PLEX PCR Negative (Negative)
== END ==
PROVIDERS: Family Provider Family Medicine; PCP Family Medicine; Visit Provider Physician Assistant
DX: R05.9 Cough, unspecified (principal); J20.9 Acute bronchitis, unspecified
CPT/HCPCS: 0241U

== ENCOUNTER → 2023-07-19 15:40 | Outpatient (CLI) | payer OTHER, MEDICAID, SELFPAY ==
--- NOTE | 2023-07-19 15:41 | DI.RAD.S_ITS ---
PROCEDURE: XR CHEST 2V INDICATIONS: RSV pos, cough x 3 weeks TECHNIQUE: 2 views of the chest were acquired. COMPARISON: [facility], CR, XR CHEST 1V, 01/11/2022, 14:18. FINDINGS: Surgical changes and devices: None. Lungs and pleura: Increased bronchovascular markings in bilateral hilar region are seen with mild bronchial wall thickening. No focal infiltrate. No pleural effusions or pneumothorax. Mediastinum: Mediastinal contours are normal. Heart size is normal. Bones and chest wall: No suspicious bony abnormalities. Soft tissues appear unremarkable. IMPRESSION: Finding is suggestive of reactive airway disease such as bronchiolitis or viral illness. No focal infiltrate, pleural effusion or pneumothorax. Dictated by: Tone Hutchins M.D. on 07/19/2023 at 21:02 Approved by: Tone Hutchins M.D. on 07/19/2023 at 21:03
== END ==
PROVIDERS: Family Provider Family Medicine; PCP Family Medicine; Referring Provider Physician Assistant; Visit Provider Physician Assistant
DX: J21.0 Acute bronchiolitis due to respiratory syncytial virus (principal)
CPT/HCPCS: 71046

== ENCOUNTER 2023-10-01 12:45 | Emergency (ER) | payer SELFPAY ==
[2023-10-01 12:48] VITALS: BP 140/74; PULSE 67; RESP 18; TEMP 36.1; O2SAT 98; BMI 24.9
--- NOTE | 2023-10-01 12:57 | ED_ITS ---
HPI - Eye Problem <Eileen Buchanan PA-C - Last Filed: 10/01/23 14:24> General Chief complaint: Eye Problems Stated complaint: MARTINE BLANKENSHIP MAY HAVE SCRATCHED EYE Time Seen by Provider: 10/01/23 12:56 Source: patient Mode of arrival: Ambulatory History of Present Illness HPI Narrative: Patient is a 63-year-old female presenting for evaluation of right eye pain starting 3 days ago after her right eye was scratched by a thorn blankenship while gardening. She has not noticed any foreign body in her right eye. She reports excessive tearing and blurriness. She reports a feeling of grittiness and sand in her right eye. She states that she has been feeling some pain in her face around her right eye as well similar to a toothache. She denies any swelling. She reported one incident of double vision while having her vision checked in the emergency department today. She states that the T appeared to be 1 on top of the other, but states that she has not experiencing this at this time. She denies double vision over the last 3 days. She reports the pain does not seem to be worsening. She denies wearing contact lenses. Related Data Home Medications Medication Instructions Recorded Confirmed esomeprazole magnesium 20 mg 20 mg PO QPM PRN 03/25/22 07/19/23 tablet,delayed release Previous Rx's Medication Instructions Recorded disabled parking permit See Rx Instructions .Route 09/17/21 .COMPLEX #1 ea aspirin 81 mg tablet,delayed 81 mg PO DAILY #10 tabs 04/13/23 release levothyroxine 100 mcg tablet 100 mcg PO DAILY #90 tabs 04/29/23 losartan 100 1 tab PO DAILY #90 tabs 05/30/23 mg-hydrochlorothiazide 12.5 mg tablet albuterol sulfate 90 mcg/actuation 2 puff inhalation Q4-6H PRN 07/12/23 aerosol inhaler shortness of breath or wheezing #6.7 grams fluticasone propionate 110 1 puff inhalation BID #12 grams 07/12/23 mcg/actuation HFA aerosol inhaler (Flovent HFA) inhalational spacing device #1 ea 07/12/23 (BreatheRite MDI Spacer) benzonatate 200 mg capsule 200 mg PO TID #30 caps 07/19/23 fluticasone propionate 50 1 spray intranasal DAILY #16 grams 07/19/23 mcg/actuation nasal spray,suspension (Flonase Allergy Relief) guaifenesin 1,200 mg tablet, 1,200 mg PO BID #30 tabs 08/09/23 extended release 12 hr hydrocodone 5 mg-acetaminophen 325 1 tab PO BID PRN pain #60 tabs 08/29/23 mg tablet hydrocodone 5 mg-acetaminophen 325 1 tab PO Q8H PRN pain #60 tabs 08/29/23 mg tablet hydrocodone 5 mg-acetaminophen 325 1 tab PO Q8H PRN pain #60 tabs 08/29/23 mg tablet rosuvastatin 40 mg tablet 40 mg PO DAILY #30 tabs 09/20/23 erythromycin 5 mg/gram (0.5 %) eye 1 applic EYE-RIGHT QID 7 days #3.5 10/01/23 ointment grams Allergies Allergy/AdvReac Type Severity Reaction Status Date / Time diphenhydramine Allergy Severe Difficulty Verified 07/19/23 15:21 [From Benadryl] Breathing ibuprofen Allergy Severe Difficulty Verified 07/19/23 15:21 Breathing oxycodone Allergy Severe Hallucinati Verified 07/19/23 15:21 ng chlorthalidone Allergy Intermediate rash Verified 07/19/23 15:21 acetaminophen [From Percocet] Allergy Mild Nightmare Verified 07/19/23 15:21 Estrogens Allergy Verified 07/19/23 15:21 Review of Systems <Eileen Buchanan PA-C - Last Filed: 10/01/23 14:24> Review of Systems Narrative: See HPI Patient History <Eileen Buchanan PA-C - Last Filed: 10/01/23 14:24> Medical History Arthritis of left shoulder region Superior glenoid labrum lesion of left shoulder Adhesive capsulitis of left shoulder Pulsatile tinnitus Neuroforaminal stenosis of cervical spine Bilateral knee pain Short-term memory loss Atrophic vaginitis Trigger thumb, right thumb Toe pain, left Surgical wound infection Surgical follow-up care Prediabetes (04/2020) Candidal intertrigo Trigeminal neuralgia Cervical stenosis of spine Tear of right supraspinatus tendon Non-ST elevation RI (NSTEMI) GERD (gastroesophageal reflux disease) Hypothyroidism Hyperlipidemia Hypertension Surgical History Status post hysterectomy Status post hernia repair Status post appendectomy Status post cholecystectomy Social History marital status: Smoking Status: Former smoker alcohol intake: never substance use type: does not use Smoking Status: Former smoker alcohol intake frequency: holidays/special occasions only Substance Use Type: does not use Exam <Eileen Buchanan PA-C - Last Filed: 10/01/23 14:24> Initial Vital Signs Initial Vital Signs: Vital Signs Temperature 97 F L 10/01/23 12:48 Pulse Rate 67 10/01/23 12:48 Respiratory Rate 18 10/01/23 12:48 Blood Pressure 140/74 10/01/23 12:48 Pulse Oximetry 98 10/01/23 12:48 Oxygen Delivery Method Room Air 10/01/23 12:48 GENERAL: 63 year old patient appears stated age. Well-developed patient, in no acute distress. HEAD: Atraumatic. Normocephalic. EYES: Pupils equal and round and reactive to light and accommodation, no distortion of right pupil noted. Peripheral field of vision intact bilaterally, there is a dark pigmentation right superior iris which patient states has been there chronically, conjunctiva injected, no swelling of bilateral upper or lower lids, no tenderness to palpation periocular bones, she demonstrates intact bilateral extraocular movements with no pain of movement, right eyelid flipped up and no foreign body noted, proparacaine applied and fluorescein staining revealed corneal abrasion at 12 o clock over superior edge of patient's iris NECK: Trachea midline, supple RESPIRATORY: Speaking comfortably normal tone of voice without any increased work of breathing. NEURO: AOx3. SKIN: No rash or erythema of visible areas <Anahi Hung MD - Last Filed: 10/01/23 19:22> Initial Vital Signs Initial Vital Signs: Vital Signs Temperature 97 F L 10/01/23 12:48 Pulse Rate 67 10/01/23 12:48 Respiratory Rate 18 10/01/23 12:48 Blood Pressure 140/74 10/01/23 12:48 Pulse Oximetry 98 10/01/23 12:48 Oxygen Delivery Method Room Air 10/01/23 12:48 Course <Eileen Buchanan PA-C - Last Filed: 10/01/23 14:24> Orders Ordered: Discontinued Medications Diphtheria/Tetanus/Acell Pertussis (Tet,Diph,Pertuss(Acell),Vac/Pf 0.5 Ml Syringe) 0.5 ml IM .ONCE ONE Stop: 10/01/23 12:59 Last Admin: 10/01/23 13:37 Dose: 0.5 ml Documented By: SB Fluorescein Sodium (Fluorescein 1 Mg Strip) 1 mg EYE-RIGHT NOW ONE Stop: 10/01/23 13:30 Last Admin: 10/01/23 13:37 Dose: 1 mg Documented By: SB Proparacaine HCl (Proparacaine 0.5% Ophth Marichuy) 1 drops EYE-RIGHT PRN PRN PRN Reason: Pain, Severe (7-10) Last Admin: 10/01/23 13:36 Dose: 1 drop Documented By: SB Vital Signs Vital signs: Vital Signs - 8 hr 10/01/23 12:48 10/01/23 14:17 Temperature 97 F L Pulse Rate 67 63 Respiratory Rate 18 16 Blood Pressure 140/74 119/78 Pulse Oximetry 98 98 Oxygen Delivery Method Room Air Room Air <Anahi Hung MD - Last Filed: 10/01/23 19:22> Orders Ordered: Discontinued Medications Diphtheria/Tetanus/Acell Pertussis (Tet,Diph,Pertuss(Acell),Vac/Pf 0.5 Ml Syringe) 0.5 ml IM .ONCE ONE Stop: 10/01/23 12:59 Last Admin: 10/01/23 13:37 Dose: 0.5 ml Documented By: SB Fluorescein Sodium (Fluorescein 1 Mg Strip) 1 mg EYE-RIGHT NOW ONE Stop: 10/01/23 13:30 Last Admin: 10/01/23 13:37 Dose: 1 mg Documented By: SB Proparacaine HCl (Proparacaine 0.5% Ophth Marichuy) 1 drops EYE-RIGHT PRN PRN PRN Reason: Pain, Severe (7-10) Last Admin: 10/01/23 13:36 Dose: 1 drop Documented By: SB Vital Signs Vital signs: Vital Signs - 8 hr 10/01/23 12:48 10/01/23 14:17 Temperature 97 F L Pulse Rate 67 63 Respiratory Rate 18 16 Blood Pressure 140/74 119/78 Pulse Oximetry 98 98 Oxygen Delivery Method Room Air Room Air MDM - Eye Problem <Eileen Buchanan PA-C - Last Filed: 10/01/23 14:24> [facility] Narrative Medical decision making narrative: Patient is a 63-year-old female presenting for eye pain 3 days after being scratched by a thorn blankenship. Her tetanus was updated today. Fluorescein staining showed a corneal abrasion. Patient did not exhibit any decrease in visual acuity and no deficits in peripheral vision or pain with extraocular movements. After discussion with patient, she is agreeable with discharge home with erythromycin ointment. We discussed she is to return to the ER promptly if she should develop any severe worsening pain, loss of vision, pain with eye movement, eyelid swelling or other concerning signs or symptoms. Discharge Plan Departure Patient Disposition: Home Clinical Impression: Abrasion, corneal Qualifiers: Encounter type: initial encounter Laterality: right Qualified Code(s): S05.01XA - Injury of conjunctiva and corneal abrasion without foreign body, right eye, initial encounter Activity Restrictions/Additional Instructions: Thank you for coming in today for your care. You were diagnosed with a corneal abrasion of your right eye. I advised you not to add any topical lubricants except for antibiotic called erythromycin which has been prescribed to [facility] in and a [place]. You may apply this 4 times a day. He should start experiencing improvement in her pain over the next several days. Please complete full antibiotic regimen for the next 7 days. I recommend prompt follow up to the ER if he should develop any visual change, loss of peripheral vision, worsening pain or any other concerning signs or symptoms. It was a pleasure meeting you today. *Please follow up with your primary care provider in 2-3 days, call for an appointment. Let them know you were seen in the Emergency Department and that we ask that you be seen in follow up. We will electronically transmit a record of today's note if your PCP is in our system *If you do not have a primary care provider please contact the [facility] Resource line at [phone]. They will ask some questions about your medical history and help get you set up with a doctor in the community. Prescriptions: New erythromycin 5 mg/gram (0.5 %) ointment 1 applic EYE-RIGHT QID 7 Days Qty: 3.5 0RF No Action disabled parking permit See Rx Instructions .ROUTE .COMPLEX Qty: 1 0RF Rx Instructions: please issue parking permit. pt qualifies. aspirin 81 mg tablet,delayed release (DR/EC) 81 mg PO DAILY Qty: 10 0RF Rx Instructions: short fill as patient forgot meds while on vacation. levothyroxine 100 mcg tablet 100 mcg PO DAILY Qty: 90 2RF guaifenesin 1,200 mg tablet extended release 12hr 1,200 mg PO BID Qty: 30 0RF rosuvastatin 40 mg tablet 40 mg PO DAILY Qty: 30 0RF albuterol sulfate 90 mcg/actuation HFA aerosol inhaler 2 puff inhalation Q4-6H PRN (Reason: shortness of breath or wheezing) Qty: 6.7 1RF Rx Instructions: Inhale 2 puffs every 4-6 hours as needed for cough, shortness of breath and/or wheezing - use with spacer fluticasone propionate [Flovent HFA] 110 mcg/actuation HFA aerosol inhaler 1 puff inhalation BID Qty: 12 0RF Rx Instructions: Inhale 1 puff twice daily AFTER using Albuterol. Use with spacer. Rinse mouth out well after using (DME) BreatheRite MDI Spacer Spacer See Rx Instructions .Route Qty: 1 0RF Rx Instructions: As directed losartan-hydrochlorothiazide 100-12.5 mg tablet 1 tab PO DAILY Qty: 90 1RF hydrocodone-acetaminophen 5-325 mg tablet 1 tab PO Q8H PRN (Reason: pain) Qty: 60 0RF hydrocodone-acetaminophen 5-325 mg tablet 1 tab PO Q8H PRN (Reason: pain) Qty: 60 0RF hydrocodone-acetaminophen 5-325 mg tablet 1 tab PO BID PRN (Reason: pain) Qty: 60 0RF benzonatate 200 mg capsule 200 mg PO TID Qty: 30 0RF Rx Instructions: take with plenty of water fluticasone propionate [Flonase Allergy Relief] 50 mcg/actuation spray,suspension 1 spray intranasal DAILY Qty: 16 0RF Rx Instructions: administer into each nostril esomeprazole magnesium 20 mg tablet,delayed release (DR/EC) 20 mg PO QPM PRN Rx Instructions: take one tab every 8-10 days Referrals: Panchito Velez MD [Primary Care Provider] - Stand Alone Forms: Patient Portal/API ED Sign-out <Anahi Hung MD - Last Filed: 10/01/23 19:22> Cosign ED Attending Cosignature Attestation: I was immediately available in the department for consultation throughout this patient's visit. Anahi Hung MD
--- NOTE | 2023-10-01 13:09 | PC.NURSE ---
Performed visual acuity test. pt reports seeing double in right eye during acuity test only when wearing her glasses. Tan latham.
--- NOTE | 2023-10-01 13:12 | PC.NURSE ---
Pt reports sudden double vision during vision acuity test which has now subsided. Pt has hx of inder surgery and takes vicodin daily for pain management.
[2023-10-01] MEDS: PROPARACAINE 0.5% OPHTH SOL 1 DROPS EYE-RIGHT (13:36)
[2023-10-01] MEDS: FLUORESCEIN 1 MG STRIP EYE-RIGHT (13:37)
[2023-10-01] MEDS: TET,DIPH,PERTUSS(ACELL),VAC/PF 0.5 ML SYRINGE IM (13:37)
[2023-10-01 14:17] VITALS: BP 119/78; PULSE 63; RESP 16; O2SAT 98
== END 2023-10-01 14:19 | disposition home or self-care (01) ==
PROVIDERS: Emergency Provider Physician Assistant; Family Provider Family Medicine; PCP Family Medicine
DX: S05.01XA Injury of conjunctiva and corneal abrasion without foreign body, right eye, initial encounter (principal); Z23 Encounter for immunization
CPT/HCPCS: 90471; 99283; 90715